=== PATIENT | female | born 1950 | race Caucasian/White ===

== ENCOUNTER 2016-12-28 07:07 | Emergency (ER) | payer MEDICARE, OTHER ==
[2016-12-28] MEDS ORDERED: DICYCLOMINE 10 MG/ML 2 ML AMP IM STA (07:53)
--- NOTE | 2016-12-28 07:56 | ED ---
Abdominal Pain HPI - General Chief Complaint: Abdominal Pain Stated Complaint: abdominal pain Time Seen by Provider: 12/28/16 07:26 Source: patient Mode of arrival: ambulatory Limitations: no limitations - History of Present Illness MD Complaint: abdominal pain Onset/Timin -: hour(s) Location: LLQ Radiation: none Severity: severe Quality: cramping Consistency: intermittent Improves With: nothing Worsens With: nothing Associated Symptoms: denies other symptoms - Related Data Home Medications Medication Instructions Recorded Confirmed Aspirin 81 mg PO MOWEFR 12/28/16 12/28/16 Cranberry Extract [Cranberry] 500 mg PO BID 12/28/16 12/28/16 Esomeprazole Magnesium [NexIUM] 40 mg PO BID 12/28/16 12/28/16 Fish Oil/Dha/Epa [Fish Oil 1,200 1 cap PO BID 12/28/16 12/28/16 mg Fish Oil] Hydrocodone/Acetaminophen [[place] 1 tab PO TID PRN 12/28/16 12/28/16 10-325] Lisinopril [Zestril] 5 mg PO DAILY 12/28/16 12/28/16 Magnesium Oxide [Magox 400] 400 mg PO BID 12/28/16 12/28/16 Melatonin/L Theanine (Unknown Dose) 1 tab PO HS 12/28/16 12/28/16 Metoprolol/Hydrochlorothiazide 2 tab PO BID 12/28/16 12/28/16 [Lopressor Hct 50-25 mg Tab] Mirtazapine [Remeron] 30 mg PO HS 12/28/16 12/28/16 Multivit-Min/FA/Lycopene/Lut 1 tab PO DAILY 12/28/16 12/28/16 [Centrum Silver Tablet] Niacinamide [Niacin] 500 mg PO BID 12/28/16 12/28/16 Ondansetron HCl [Zofran] 4 mg PO TID PRN 12/28/16 12/28/16 Oxazepam [Serax] 20 mg PO BID PRN 12/28/16 12/28/16 QUEtiapine [SEROquel] 150 mg PO HS 12/28/16 12/28/16 Rosuvastatin [Crestor] 10 mg PO HS 12/28/16 12/28/16 Sevelamer [Renvela] 800 mg PO AC-BID 12/28/16 12/28/16 Torsemide [Demadex] 60 mg PO BID 12/28/16 12/28/16 Vit A,C & E/Lutein/Minerals 1 tab PO BID 12/28/16 12/28/16 [Ocuvite with Lutein Tablet] cloNIDine HCL [Catapres] 0.2 mg PO TID 12/28/16 12/28/16 hydrALAZINE HCL [Apresoline] 50 mg PO BID 12/28/16 12/28/16 Previous Rx's Medication Instructions Recorded Sulfamethox-Tmp 800-160Mg [Bactrim 1 each PO Q12HR #6 tab 12/28/16 Ds] Allergies Allergy/AdvReac Type Severity Reaction Status Date / Time acetaminophen [From Percocet] Allergy Nausea & Verified 12/28/16 08:08 Vomiting erythromycin base Allergy Unknown Verified 12/28/16 08:08 fentanyl Allergy Unknown Verified 12/28/16 08:08 oxycodone HCl [From Percocet] Allergy Nausea & Verified 12/28/16 08:08 Vomiting succinylcholine Allergy Unknown Verified 12/28/16 08:08 Review of Systems ROS Statement: Those systems with pertinent positive or pertinent negative responses have been documented in the HPI. ROS Other: All systems not noted in ROS Statement are negative. Constitutional: Denies: fever, chills Respiratory: Denies: cough, dyspnea Cardiovascular: Denies: chest pain, palpitations, edema Gastrointestinal: Reports: abdominal pain. Denies: nausea, vomiting, diarrhea, constipation, melena, hematochezia Genitourinary: Denies: dysuria, hematuria Musculoskeletal: Denies: back pain Skin: Denies: rash Neurological: Denies: headache Past Medical History Past Medical History: Coronary Artery Disease (CAD), GERD/Reflux, Hypertension, Renal Disease Additional Past Medical History / Comment(s): chronic pain History of Any Multi-Drug Resistant Organisms: None Reported Past Surgical History: Unable to Obtain Past Psychological History: Depression Smoking Status: Current every day smoker Past Alcohol Use History: None Reported Past Drug Use History: None Reported General Exam Limitations: no limitations General appearance: alert, in no apparent distress Head exam: Present: atraumatic, normocephalic Eye exam: Present: normal appearance. Absent: scleral icterus, conjunctival injection ENT exam: Present: normal oropharynx, mucous membranes moist Neck exam: Present: normal inspection Respiratory exam: Present: normal lung sounds bilaterally. Absent: respiratory distress, wheezes, rales, rhonchi, stridor Cardiovascular Exam: Present: regular rate, normal rhythm, systolic murmur ( Grade 2/6 systolic murmur). Absent: diastolic murmur, rubs, gallop GI/Abdominal exam: Present: soft, tenderness (Moderate left lower quadrant tenderness), normal bowel sounds. Absent: distended, guarding, rebound, rigid, organomegaly, mass, pulsatile mass, hernia Extremities exam: Present: normal inspection, normal capillary refill. Absent: pedal edema, calf tenderness Back exam: Present: normal inspection. Absent: CVA tenderness (R), CVA tenderness (L) Skin exam: Present: warm, dry, intact, normal color. Absent: rash Course Vital Signs 12/28/16 12/28/16 12/28/16 07:17 07:48 08:53 Temperature 96.7 F L 97.6 F 97.0 F L Pulse Rate 69 60 60 Respiratory 18 16 16 Rate Blood Pressure 195/84 198/92 193/87 O2 Sat by Pulse 98 95 93 L Oximetry 12/28/16 12/28/16 09:26 10:18 Temperature 97.3 F L Pulse Rate 59 L 60 Respiratory 16 16 Rate Blood Pressure 183/86 168/79 O2 Sat by Pulse 94 L 95 Oximetry Medical Decision Making - Lab Data Result diagrams: 12/28/16 08:30 12/28/16 08:30 Lab Results 12/28/16 12/28/16 12/28/16 Range/Units 08:10 08:30 08:30 WBC 8.1 (3.8-10.6) k/uL RBC 3.76 L (3.80-5.40) m/uL Hgb 12.0 (11.4-16.0) gm/dL Hct 37.6 (34.0-46.0) % MCV 99.7 (80.0-100.0) fL MCH 31.9 (25.0-35.0) pg MCHC 32.0 (31.0-37.0) g/dL RDW 16.6 H (11.5-15.5) % Plt Count 158 (150-450) k/uL Neutrophils % 83 % Lymphocytes % 10 % Monocytes % 5 % Eosinophils % 1 % Basophils % 1 % Neutrophils # 6.6 (1.3-7.7) k/uL Lymphocytes # 0.8 L (1.0-4.8) k/uL Monocytes # 0.4 (0-1.0) k/uL Eosinophils # 0.1 (0-0.7) k/uL Basophils # 0.0 (0-0.2) k/uL Anisocytosis Slight Macrocytosis Slight Sodium 142 (137-145) mmol/L Potassium 4.4 (3.5-5.1) mmol/L Chloride 98 (98-107) mmol/L Carbon Dioxide 29 (22-30) mmol/L Anion Gap 15 mmol/L BUN 28 H (7-17) mg/dL Creatinine 4.41 H (0.52-1.04) mg/dL Est GFR (MDRD) Af Amer 12 (>60 ml/min/1.73 sqM) Est GFR (MDRD) Non-Af 10 (>60 ml/min/1.73 sqM) Glucose 102 H (74-99) mg/dL Calcium 9.3 (8.4-10.2) mg/dL Total Bilirubin 0.7 (0.2-1.3) mg/dL AST 28 (14-36) U/L ALT 32 (9-52) U/L Alkaline Phosphatase 91 (38-126) U/L Total Protein 6.7 (6.3-8.2) g/dL Albumin 4.2 (3.5-5.0) g/dL Amylase 41 (30-110) U/L Lipase 68 (23-300) U/L Urine Color Colorless Urine Appearance Clear (Clear) Urine pH 8.0 (5.0-8.0) Ur Specific [place] 1.003 (1.001-1.035) Urine Protein 1+ H (Negative) Urine Glucose (UA) 1+ H (Negative) Urine Ketones Negative (Negative) Urine Blood Negative (Negative) Urine Nitrate Negative (Negative) Urine Bilirubin Negative (Negative) Urine Urobilinogen <2.0 (<2.0) mg/dL Ur Leukocyte Esterase Small H (Negative) Urine WBC 6 H (0-5) /hpf Ur Squamous Epith Cells <1 (0-4) /hpf Disposition Clinical Impression: Abdominal pain Disposition: HOME SELF-CARE Condition: Fair Instructions: Abdominal Pain (ED) Additional Instructions: As we discussed, if her symptoms recur or if you have any new symptoms developing, return immediately. Otherwise he was having her abdomen rechecked with your doctor on the following day. Prescriptions: Sulfamethox-Tmp 800-160Mg [Bactrim Ds] 1 each PO Q12HR #6 tab Referrals: Rock Fry DO [Primary Care Provider] - 1-2 days
[2016-12-28 08:38] LABS: Appearance,Urine Clear (Clear); Bilirubin,Urine Negative (Negative); Glucose,Urine (UA) 1+ (Negative); Ketones,Urine Negative (Negative); Leukocyte Esterase,Urine Small (Negative); Nitrite,Urine Negative (Negative); Particle Count 460; Protein,Urine 1+ (Negative); Specific Gravity,Urine 1.003 (1.001-1.035); Squamous Epithelial Cell,Urine <1 /hpf (0-4); UA Billing (MACRO vs. MICRO) MICRO; Urobilinogen,Urine <2.0 mg/dL (<2.0); WBC,Urine 6 /hpf (0-5)
[2016-12-28 08:45] LABS: Anisocytosis Slight; Basophils % (A) 1 %; CH 32.3; CHCM 32.6; Eosinophils # (A) 0.1 k/uL (0-0.7); Eosinophils % (A) 1 %; HCT 37.6 % (34.0-46.0); HDW 2.49; Luc # (Auto) 0.11; Luc % (Auto) 1; Lymphocytes # (A) 0.8 k/uL (1.0-4.8); Lymphocytes % (A) 10 %; MCH 31.9 pg (25.0-35.0); MCV 99.7 fL (80.0-100.0); Macrocytosis Slight; Mean Platelet Volume 8.4; Monocytes # (A) 0.4 k/uL (0-1.0); Monocytes % (A) 5 %; Neutrophils # (A) 6.6 k/uL (1.3-7.7); Neutrophils % (A) 83 %; RBC 3.76 m/uL (3.80-5.40); RDW 16.6 % (11.5-15.5); WBC 8.1 k/uL (3.8-10.6); WBC (Perox) 8.34
[2016-12-28 08:52] LABS: Calcium 9.3 mg/dL (8.4-10.2); Potassium 4.4 mmol/L (3.5-5.1); Total Bilirubin 0.7 mg/dL (0.2-1.3); Total Protein 6.7 g/dL (6.3-8.2)
--- NOTE | 2016-12-28 09:05 | CT ---
EXAMINATION TYPE: CT abdomen pelvis wo con DATE OF EXAM: 12/28/2016 8:55 AM COMPARISON: 01/02/2012 HISTORY: LLQ pain CT DLP: 265 mGycm Automated exposure control for dose reduction was used. TECHNIQUE: Helical acquisition of images was performed from the lung bases through the pelvis. Lack of contrast limits evaluation of the abdominal viscera. FINDINGS: LUNG BASES: Bilateral pleural effusions with cardiomegaly and interstitial pattern correlate for inte rstitial edema.. LIVER/GB: There are multiple hypodense lesions within the liver which are indeterminate by noncontras t technique but appear to been present on the previous exam and likely related to cysts. PANCREAS: No significant abnormality is seen. SPLEEN: No significant abnormality is seen. ADRENALS: No significant abnormality is seen. KIDNEYS: The kidneys are markedly enlarged and there is evidence of polycystic renal disease. Areas o f calcification within a couple of the cysts are suspected bilaterally. Assessment for solid componen t nondiagnostic by noncontrast technique. Hyperdense cyst suspected bilaterally likely representing h emorrhagic cysts. RETROPERITONEAL ADENOPATHY: None visualized URINARY BLADDER: No significant abnormality is seen. PELVIC ADENOPATHY: None visualized. OSSEOUS STRUCTURES: Facet arthropathy and degenerative change of the spine noted. Arthropathy of the hips noted. Endplate compression deformity of L5 and L2 appear chronic. Approximately 5 degree retro pulsion of L2. BOWEL: Nonspecific gas pattern with no evidence of obstruction. Appendix not visualized. Mild change s of diverticulosis.. OTHER: There is subcutaneous edema correlate for mild anasarca. Atherosclerotic change of the aorta b ut no evidence of aneurysm. IMPRESSION: 1. FINDINGS SUGGEST POLYCYSTIC RENAL DISEASE WITH MARKED ENLARGEMENT THE KIDNEYS AND NUMEROUS BILATER AL RENAL CYSTS WHICH IS BEEN REPORTED BY PREVIOUS CT SCAN 2. NONSPECIFIC SMALL AMOUNT OF FREE FLUID IN THE PELVIS 3. BILATERAL AREAS OF CONSOLIDATION AND PLEURAL EFFUSION. CORRELATE FOR MILD VENOUS CONGESTION
[2016-12-28] MEDS ORDERED: LISINOPRIL 5 MG TAB PO STA (09:07)
[2016-12-28] MEDS ORDERED: cloNIDine HCL 0.2 MG TAB PO STA (09:07)
[2016-12-28] MEDS ORDERED: METOPROLOL TARTRATE 50 MG TAB PO STA (09:07)
[2016-12-28] MEDS ORDERED: hydrALAZINE HCL 50 MG TAB PO STA (09:07)
[2016-12-28] MEDS ORDERED: MORPHINE SULFATE 4 MG/ML SYRINGE IV STA (09:08)
[2016-12-28] MEDS ORDERED: HYDROmorphone 1 MG/ML 1 ML SYRINGE IVP STA ×2 (10:01→10:53)
[2016-12-28 10:20] VITALS: TEMP 97.3
[2016-12-28] MEDS ORDERED: MAGNESIUM CITRATE 296 ML BOTTLE PO ONE (11:01)
[2016-12-28 11:07] VITALS: BP 170/84; PULSE 56; RESP 18
== END 2016-12-28 11:31 | disposition home or self-care (01) ==
LOC: EC 07:07
DX: R10.9 Unspecified abdominal pain (principal); I10 Essential (primary) hypertension; K21.9 Gastro-esophageal reflux disease without esophagitis; G89.29 Other chronic pain; F32.9 Major depressive disorder, single episode, unspecified; I25.10 Atherosclerotic heart disease of native coronary artery without angina pectoris; Z79.899 Other long term (current) drug therapy; Z79.82 Long term (current) use of aspirin; Z88.8 Allergy status to other drugs, medicaments and biological substances; Z88.1 Allergy status to other antibiotic agents; Z88.5 Allergy status to narcotic agent; F17.200 Nicotine dependence, unspecified, uncomplicated
CPT/HCPCS: 36415; 74176; 80053; 81001; 82150; 83690; 85025; 87086; 96372; 96374; 96375; 96376; 99284

== ENCOUNTER → 2017-04-24 | Outpatient (CLI) | payer MEDICARE, OTHER ==
--- NOTE | 2017-04-25 08:24 | XR ---
EXAMINATION TYPE: XR abdomen 1V DATE OF EXAM: 04/24/2017 11:52 AM COMPARISON: 12/28/2016 HISTORY: Pain TECHNIQUE: One view abdominal series FINDINGS: The osseous structures are intact. The bowel gas pattern is nonspecific. Retained fecal debris throu ghout the colon. Subsegmental consolidation involving both lung bases. Findings are suspicious for os teonecrosis of the hip bilaterally. IMPRESSION: 1. Nonspecific abdomen. 2. Correlate for osteonecrosis of the hips. 3. Basilar atelectasis or infiltrate.
== END ==
LOC: RADXRYALE 11:40
PROVIDERS: ATTEND Family Medicine
DX: R10.84 Generalized abdominal pain (principal)
CPT/HCPCS: 74000

== ENCOUNTER 2018-04-22 09:26 | Day surgery (SDC) | payer MEDICARE, OTHER ==
[2018-04-18 14:02] VITALS: BMI 20.1
[~2018-04-22 09:26] MED LIST: LACTATED RINGERS 1,000 ML IV SCH
[2018-04-22 09:58] VITALS: RESP 16; TEMP 97.9
[2018-04-22] MEDS ORDERED: SODIUM CHLORIDE 0.9% 500 ML IV ONE (10:10)
[2018-04-22] MEDS ORDERED: LIDOCAINE 1% 20 ML VIAL (10MG/ML) FOR IV START INTRADERMA ONE (10:11)
[2018-04-22 10:23] LABS: Calcium 7.8 mg/dL (8.4-10.2)
[2018-04-22 10:31] LABS: Potassium 5.1 mmol/L (3.5-5.1)
[2018-04-22] MEDS ORDERED: LIDOCAINE 1% INJ 10MG/ML (20 ML MDV) ONE (10:47)
[2018-04-22] MEDS ORDERED: ePHEDrine SULFATE/0.9% NACL/PF 50 MG/5 ML SYRINGE IV ONE (10:47)
[2018-04-22] MEDS ORDERED: PROPOFOL 10 MG/ML 20 ML VIAL IV ONE (10:47)
--- NOTE | 2018-04-22 11:28 | P.PCN ---
Date of Procedure: 04/22/18 Procedure(s) Performed: Procedures: 1. Esophagogastroduodenoscopy and biopsy. 2. Aborted colonoscopy. Preoperative diagnosis: Abdominal pain, nausea and change in bowel habits. Postoperative diagnosis: 1. Small sliding hiatal hernia with no obvious esophagitis or complaints reflux disease. 2. Mild antral gastritis. 3. Multiple biopsies obtained from the duodenum, antrum and esophagus. 4. Colonoscopy aborted because of extremely poor preparation. Preparation: HalfLytely prep. Sedation: Was provided by anesthesia. Brief clinical history: The patient is a 67-year-old female who I have evaluated in the office earlier this month regarding nausea, abdominal cramps and alternating bowel habits. I scheduled this evaluation to rule out complicated reflux disease, neoplasia or other pathology. Procedure: With the patient on her left lateral decubitus position and after informed consent and adequate sedation, I passed the Olympus-GIF 160 video upper endoscope through the cricopharyngeus down the esophagus. GE junction was around 39 cm from the incisors and there was a small sliding hiatal hernia but no obvious esophagitis or complicated reflux disease. The endoscope was then passed into the stomach which was insufflated with air and inspected in detail including the retroflex view in the cardia. There was some mottling and erythema in the antrum but no ulcers or erosions. Pyloric channel, duodenal bulb, post bulbar area and descending duodenum appeared within normal limits. I obtained multiple biopsies from the duodenum, antrum and esophagus then the endoscope was withdrawn and I proceeded to do colonoscopy. Perianal area did not show any fissures or fistulas. There were no masses felt on digital rectal examination. The Olympus CFQ 160L video colonoscope was then inserted in the rectum and the usual fashion and advanced. Unfortunately, the preparation was extremely poor so I had to abort the examination without obtaining any diagnostic information. The patient tolerated the procedure well. Plan: The patient was reassured. Will await biopsy results. I would consider repeat colonoscopy after more thorough preparation in the near future. I will keep you updated on her progress.
[2018-04-22 11:55] VITALS: BP 135/47; PULSE 65
== END 2018-04-22 12:24 | disposition home or self-care (01) ==
LOC: ORWHC2ENDO 09:26
DX: K29.50 Unspecified chronic gastritis without bleeding (principal); K44.9 Diaphragmatic hernia without obstruction or gangrene; K21.9 Gastro-esophageal reflux disease without esophagitis; I25.10 Atherosclerotic heart disease of native coronary artery without angina pectoris; I10 Essential (primary) hypertension; G89.29 Other chronic pain; N19 Unspecified kidney failure; Z79.82 Long term (current) use of aspirin; Z79.891 Long term (current) use of opiate analgesic; Z79.899 Other long term (current) drug therapy; Z88.5 Allergy status to narcotic agent; Z88.1 Allergy status to other antibiotic agents; Z72.0 Tobacco use
CPT/HCPCS: 88305; 80048; 45378; 43239; J2001; J2704

== ENCOUNTER 2018-11-16 11:16 | Emergency (ER) | payer MEDICARE, OTHER ==
[2018-11-16 11:37] VITALS: RESP 18
[2018-11-16] MEDS ORDERED: ONDANSETRON 4 MG/2 ML VIAL IVP STA (11:52)
[2018-11-16] MEDS ORDERED: MORPHINE SULFATE 4 MG/ML SYRINGE IV STA (11:52)
--- NOTE | 2018-11-16 12:02 | ED ---
Abdominal Pain HPI - General Source: patient, RN notes reviewed Mode of arrival: ambulatory Limitations: no limitations <Rock Perales - Last Filed: 11/16/18 14:18> <Mario Hauser - Last Filed: 11/16/18 14:37> - General Chief Complaint: Abdominal Pain Stated Complaint: Abd Pain Time Seen by Provider: 11/16/18 11:41 - History of Present Illness Initial Comments: 67-year-old female presents emergency Department chief complaint of lower abdominal pain. Patient states pain started over the last 1 day. Patient states severe lower abdominal pain. She has no dysuria but states it's hard to urinate. Patient states that she has chronic constipation secondary to renal dialysis. Patient states she is on dialysis secondary to polycystic kidneys. Patient denies any fevers or chills no chest pain or shortness of breath. Patient states that she feels bloated, distended. Patient offers no other complaints. Patient denies melena, hematochezia, (Rock Perales) - Related Data Home Medications Medication Instructions Recorded Confirmed Aspirin 81 mg PO MOWEFR 12/28/16 11/16/18 Cranberry Fruit Extract [Cranberry] 500 mg PO BID 12/28/16 11/16/18 Hydrocodone/Acetaminophen [[place] 1 tab PO TID PRN 12/28/16 11/16/18 10-325] Lisinopril [Zestril] 20 mg PO BID 12/28/16 11/16/18 Melatonin/L Theanine (Unknown Dose) 1 tab PO HS 12/28/16 11/16/18 Metoprolol/Hydrochlorothiazide 3 tab PO BID 12/28/16 11/16/18 [Lopressor Hct 50-25 mg Tab] Mirtazapine [Remeron] 30 mg PO HS 12/28/16 11/16/18 Ondansetron HCl [Zofran] 4 mg PO TID PRN 12/28/16 11/16/18 Oxazepam [Serax] 20 mg PO BID PRN 12/28/16 11/16/18 QUEtiapine [SEROquel] 150 mg PO HS 12/28/16 11/16/18 Rosuvastatin [Crestor] 10 mg PO HS 12/28/16 11/16/18 Sevelamer [Renvela] 2,400 mg PO AC-BID 12/28/16 11/16/18 cloNIDine HCL [Catapres] 0.3 mg PO BID-W/MEALS 12/28/16 11/16/18 hydrALAZINE HCL [Apresoline] 100 mg PO TID 12/28/16 11/16/18 cloNIDine HCL [Catapres] 0.2 mg PO HS 04/18/18 11/16/18 Calcitriol [Rocaltrol] 0.25 mcg PO MOWEFR 11/16/18 11/16/18 Minoxidil [Loniten] 5 mg PO DAILY 11/16/18 11/16/18 Omeprazole 40 mg PO AC-BRKFST 11/16/18 11/16/18 Spironolactone [Aldactone] 25 mg PO DAILY 11/16/18 11/16/18 Torsemide [Demadex] 60 mg PO DAILY 11/16/18 11/16/18 Allergies Allergy/AdvReac Type Severity Reaction Status Date / Time erythromycin base Allergy Unknown Verified 11/16/18 11:51 fentanyl Allergy Unknown Verified 11/16/18 11:51 oxycodone HCl [From Percocet] Allergy Nausea & Verified 11/16/18 11:51 Vomiting succinylcholine Allergy Unknown Verified 11/16/18 11:51 Review of Systems ROS Other: All systems not noted in ROS Statement are negative. <Rock Perales - Last Filed: 11/16/18 14:18> ROS Other: All systems not noted in ROS Statement are negative. <Mario Hauser - Last Filed: 11/16/18 14:37> ROS Statement: Those systems with pertinent positive or pertinent negative responses have been documented in the HPI. Past Medical History Past Medical History: Coronary Artery Disease (CAD), GERD/Reflux, Hypertension, Musculoskeletal Disorder, Renal Disease Additional Past Medical History / Comment(s): chronic pain; Kidney Dialysis Mon/ Thurs. History of Any Multi-Drug Resistant Organisms: None Reported Past Surgical History: Breast Surgery, Tonsillectomy Additional Past Surgical History / Comment(s): benign Br lumpectomy Past Anesthesia/Blood Transfusion Reactions: No Reported Reaction Past Psychological History: Depression Smoking Status: Current every day smoker Past Alcohol Use History: None Reported Past Drug Use History: None Reported - Past Family History Mother Family Medical History: No Reported History <Rock Perales - Last Filed: 11/16/18 14:18> General Exam Limitations: no limitations General appearance: alert, in no apparent distress Head exam: Present: atraumatic, normocephalic, normal inspection Respiratory exam: Present: normal lung sounds bilaterally. Absent: respiratory distress, wheezes, rales, rhonchi, stridor Cardiovascular Exam: Present: regular rate, normal rhythm, normal heart sounds. Absent: systolic murmur, diastolic murmur, rubs, gallop, clicks GI/Abdominal exam: Present: soft, tenderness (Moderate suprapubic and left lower quadrant tenderness), normal bowel sounds. Absent: distended, guarding, rebound, rigid Back exam: Absent: CVA tenderness (R), CVA tenderness (L) Skin exam: Present: warm, dry, intact, normal color. Absent: rash <Rock Perales - Last Filed: 11/16/18 14:18> Course <Rock Perales - Last Filed: 11/16/18 14:18> <Mario Hauser - Last Filed: 11/16/18 14:37> Vital Signs 11/16/18 11/16/18 11/16/18 11:34 12:24 14:34 Temperature 97.9 F 98.4 F Pulse Rate 92 78 68 Respiratory 18 18 18 Rate Blood Pressure 177/77 176/73 162/92 O2 Sat by Pulse 96 96 97 Oximetry - Reevaluation(s) Reevaluation #1: 11/16/18 14:36 PA supervision: I proceeded [id number] evaluation the patient she did demonstrate evidence of abdominal pain which is why she came in today. She gets dialysis on Mondays and . She was noted have a potassium of 6.0 and a creatinine was higher than usual in the eights. He does appear to be consistent with acute on chronic renal failure. After long discussion with the patient she does not want to be admitted she will keep her appointment tomorrow follow-up with Dr. Cristina. (Mario Hauser) Medical Decision Making - Lab Data Result diagrams: 11/16/18 12:13 11/16/18 12:13 <Rock Perales - Last Filed: 11/16/18 14:18> - Lab Data Result diagrams: 11/16/18 12:13 11/16/18 12:13 <Mario Hauser - Last Filed: 11/16/18 14:37> - Medical Decision Making 67 show female presented for lower abdominal pain. Patient had laboratory, CT. Patient has acute on chronic renal failure with hyperkalemia. Patient was recommended to be admitted to the hospital she declines. There is no clear evidence of infection or concern for surgical abdomen. Patient does complain of lower abdominal pain with no acute findings. Patient will be discharged at this time she does have dialysis tomorrow return parameters were discussed. ( Rock Perales) - Lab Data Lab Results 11/16/18 11/16/18 11/16/18 Range/Units 12:13 12:13 12:13 WBC 9.0 (3.8-10.6) k/uL RBC 3.04 L (3.80-5.40) m/uL Hgb 10.7 L (11.4-16.0) gm/dL Hct 34.1 (34.0-46.0) % MCV 112.3 H (80.0-100.0) fL MCH 35.1 H (25.0-35.0) pg MCHC 31.3 (31.0-37.0) g/dL RDW 14.7 (11.5-15.5) % Plt Count 134 L (150-450) k/uL Neutrophils % 83 % Lymphocytes % 8 % Monocytes % 5 % Eosinophils % 1 % Basophils % 0 % Neutrophils # 7.5 (1.3-7.7) k/uL Lymphocytes # 0.7 L (1.0-4.8) k/uL Monocytes # 0.5 (0-1.0) k/uL Eosinophils # 0.1 (0-0.7) k/uL Basophils # 0.0 (0-0.2) k/uL Manual Slide Review Performed Macrocytosis Marked PT (9.0-12.0) sec INR (<1.2) APTT (22.0-30.0) sec Sodium 137 (137-145) mmol/L Potassium 6.0 H (3.5-5.1) mmol/L Chloride 99 (98-107) mmol/L Carbon Dioxide 21 L (22-30) mmol/L Anion Gap 17 mmol/L BUN 53 H (7-17) mg/dL Creatinine 8.05 H* (0.52-1.04) mg/dL Est GFR (CKD-EPI)AfAm 5 (>60 ml/min/1.73 sqM) Est GFR (CKD-EPI)NonAf 5 (>60 ml/min/1.73 sqM) Glucose 88 (74-99) mg/dL Plasma Lactic Acid [place] 0.9 (0.7-2.0) mmol/L Calcium 9.4 (8.4-10.2) mg/dL Total Bilirubin 0.4 (0.2-1.3) mg/dL AST 16 (14-36) U/L ALT 18 (9-52) U/L Alkaline Phosphatase 75 (38-126) U/L Total Protein 6.8 (6.3-8.2) g/dL Albumin 4.4 (3.5-5.0) g/dL Amylase 80 (30-110) U/L Lipase 221 (23-300) U/L Urine Color Urine Appearance (Clear) Urine pH (5.0-8.0) Ur Specific [place] (1.001-1.035) Urine Protein (Negative) Urine Glucose (UA) (Negative) Urine Ketones (Negative) Urine Blood (Negative) Urine Nitrite (Negative) Urine Bilirubin (Negative) Urine Urobilinogen (<2.0) mg/dL Ur Leukocyte Esterase (Negative) Urine RBC (0-5) /hpf Urine WBC (0-5) /hpf Ur Squamous Epith Cells (0-4) /hpf Urine Bacteria (None) /hpf Urine Mucus (None) /hpf 11/16/18 11/16/18 Range/Units 12:13 12:13 WBC (3.8-10.6) k/uL RBC (3.80-5.40) m/uL Hgb (11.4-16.0) gm/dL Hct (34.0-46.0) % MCV (80.0-100.0) fL MCH (25.0-35.0) pg MCHC (31.0-37.0) g/dL RDW (11.5-15.5) % Plt Count (150-450) k/uL Neutrophils % % Lymphocytes % % Monocytes % % Eosinophils % % Basophils % % Neutrophils # (1.3-7.7) k/uL Lymphocytes # (1.0-4.8) k/uL Monocytes # (0-1.0) k/uL Eosinophils # (0-0.7) k/uL Basophils # (0-0.2) k/uL Manual Slide Review Macrocytosis PT 10.4 (9.0-12.0) sec INR 1.0 (<1.2) APTT 26.4 (22.0-30.0) sec Sodium (137-145) mmol/L Potassium (3.5-5.1) mmol/L Chloride (98-107) mmol/L Carbon Dioxide (22-30) mmol/L Anion Gap mmol/L BUN (7-17) mg/dL Creatinine (0.52-1.04) mg/dL Est GFR (CKD-EPI)AfAm (>60 ml/min/1.73 sqM) Est GFR (CKD-EPI)NonAf (>60 ml/min/1.73 sqM) Glucose (74-99) mg/dL Plasma Lactic Acid [place] (0.7-2.0) mmol/L Calcium (8.4-10.2) mg/dL Total Bilirubin (0.2-1.3) mg/dL AST (14-36) U/L ALT (9-52) U/L Alkaline Phosphatase (38-126) U/L Total Protein (6.3-8.2) g/dL Albumin (3.5-5.0) g/dL Amylase (30-110) U/L Lipase (23-300) U/L Urine Color Light Yellow Urine Appearance Clear (Clear) Urine pH 8.0 (5.0-8.0) Ur Specific [place] 1.004 (1.001-1.035) Urine Protein 1+ H (Negative) Urine Glucose (UA) 1+ H (Negative) Urine Ketones Negative (Negative) Urine Blood Negative (Negative) Urine Nitrite Negative (Negative) Urine Bilirubin Negative (Negative) Urine Urobilinogen <2.0 (<2.0) mg/dL Ur Leukocyte Esterase Negative (Negative) Urine RBC <1 (0-5) /hpf Urine WBC 1 (0-5) /hpf Ur Squamous Epith Cells 2 (0-4) /hpf Urine Bacteria Rare H (None) /hpf Urine Mucus Rare H (None) /hpf 11/16/18 14:18 EKG performed at 13:52 normal sinus rhythm with a rate of 66 ND 134 QRS 78 QT/ QTC 406/425 (Rock Perales) Disposition Is patient prescribed a controlled substance at d/c from ED?: No Time of Disposition: 14:19 <Rock Perales - Last Filed: 11/16/18 14:18> <Mario Hauser - Last Filed: 11/16/18 14:37> Clinical Impression: Abdominal pain, Acute on chronic renal failure, Hyperkalemia Disposition: HOME SELF-CARE Condition: Stable Instructions: Abdominal Pain (ED) Additional Instructions: Please return to the Emergency Department if symptoms worsen or any other concerns. Referrals: Rock Fry DO [Primary Care Provider] - 1-2 days
[2018-11-16 12:29] LABS: Basophils % (A) 0 %; Eosinophils # (A) 0.1 k/uL (0-0.7); Eosinophils % (A) 1 %; HCT 34.1 % (34.0-46.0); HGB 10.7 gm/dL (11.4-16.0); Lymphocytes # (A) 0.7 k/uL (1.0-4.8); Lymphocytes % (A) 8 %; MCH 35.1 pg (25.0-35.0); MCHC 31.3 g/dL (31.0-37.0); MCV 112.3 fL (80.0-100.0); Macrocytosis Marked; Mean Platelet Volume 7.7; Monocytes # (A) 0.5 k/uL (0-1.0); Monocytes % (A) 5 %; Neutrophils # (A) 7.5 k/uL (1.3-7.7); Neutrophils % (A) 83 %; Platelet Count 134 k/uL (150-450); RBC 3.04 m/uL (3.80-5.40); RDW 14.7 % (11.5-15.5)
[2018-11-16 12:38] LABS: Appearance,Urine Clear (Clear); Bacteria,Urine Rare /hpf; Bilirubin,Urine Negative (Negative); Blood,Urine Negative (Negative); Color,Urine Light Yellow; Glucose,Urine (UA) 1+ (Negative); Ketones,Urine Negative (Negative); Leukocyte Esterase,Urine Negative (Negative); Mucus,Urine Rare /hpf; Nitrite,Urine Negative (Negative); Protein,Urine 1+ (Negative); RBC,Urine <1 /hpf (0-5); Specific Gravity,Urine 1.004 (1.001-1.035); Squamous Epithelial Cell,Urine 2 /hpf (0-4); Urobilinogen,Urine <2.0 mg/dL (<2.0); WBC,Urine 1 /hpf (0-5)
[2018-11-16 12:40] LABS: Partial Thromboplastin Time 26.4 sec (22.0-30.0); Prothrombin Time 10.4 sec (9.0-12.0)
[2018-11-16 12:47] LABS: Albumin 4.4 g/dL (3.5-5.0); Calcium 9.4 mg/dL (8.4-10.2); Total Bilirubin 0.4 mg/dL (0.2-1.3); Total Protein 6.8 g/dL (6.3-8.2)
--- NOTE | 2018-11-16 13:47 | CT ---
EXAMINATION TYPE: CT abdomen pelvis wo con DATE OF EXAM: 11/16/2018 COMPARISON: Previous study dated 12/28/2016 HISTORY: Abdominal pain, mostly upper but also generalized CT DLP: 363.4 mGycm Automated exposure control for dose reduction was used. FINDINGS: There is dependent atelectasis in both lungs. There are small, bilateral pleural effusions, slightly greater on the right than the left. There is a 6 mm pericardial effusion. The heart is enla rged. Within the abdomen, the kidneys are markedly enlarged measuring 20 cm on the right and 17 cm on the l eft. They are nearly completely replaced with cysts in this patient known to have polycystic kidney d isease. There is stable cysts present within the liver. The gallbladder is difficult to separate from this cy stic kidneys but I believe it is normal. Neither adrenal gland is visualized. The pancreas is not well-visualized. There is moderate atheromatous calcification of the visualized arterial tree. The bladder is unremarkable. There is no significant diverticular change and I do not see evidence of diverticulitis. The appendix is not visualized. The small bowel was not dilated. There is free fluid within the pelvis. There is a stable wedge compression fracture of L2. Osseous structures are otherwise unremarkable. IMPRESSION: 1. MARKED ENLARGEMENT OF THE KIDNEYS WHICH ARE REPLACED BY MULTIPLE CYSTS IN THIS PATIENT IS KNOWN TO HAVE POLYCYSTIC KIDNEY DISEASE. 2. SMALL, BILATERAL EFFUSIONS. 3. SMALL PERICARDIAL EFFUSION. 4. CYSTIC DISEASE WITHIN THE LIVER. 5. SMALL AMOUNT OF FREE FLUID IN THE PELVIS. 6. STABLE WEDGE COMPRESSION FRACTURE OF L2.
[2018-11-16] MEDS ORDERED: HYDROmorphone 1 MG/ML 1 ML SYRINGE IVP STA (14:19)
[2018-11-16 14:36] VITALS: BP 162/92; PULSE 68; TEMP 98.4
== END 2018-11-16 14:34 | disposition home or self-care (01) ==
LOC: EC 11:16
DX: I12.0 Hypertensive chronic kidney disease with stage 5 chronic kidney disease or end stage renal disease (principal); N18.6 End stage renal disease; N17.9 Acute kidney failure, unspecified; E87.5 Hyperkalemia; K59.09 Other constipation; I25.10 Atherosclerotic heart disease of native coronary artery without angina pectoris; K21.9 Gastro-esophageal reflux disease without esophagitis; Q61.3 Polycystic kidney, unspecified; F32.9 Major depressive disorder, single episode, unspecified; F17.200 Nicotine dependence, unspecified, uncomplicated; Z99.2 Dependence on renal dialysis; Z79.82 Long term (current) use of aspirin; Z79.899 Other long term (current) drug therapy; Z88.1 Allergy status to other antibiotic agents; Z88.5 Allergy status to narcotic agent; Z88.8 Allergy status to other drugs, medicaments and biological substances; Z53.29 Procedure and treatment not carried out because of patient's decision for other reasons
CPT/HCPCS: 36415; 93005; 80053; 82150; 83605; 83690; 85025; 85610; 85730; 81001; 74176; 99284; 96374; 96375 ×2; J2270; J2405; J1170

== ENCOUNTER 2020-01-18 15:28 | Inpatient (IN) | payer MEDICARE, OTHER ==
[2020-01-18] MEDS ORDERED: HYDROmorphone 1 MG/ML 1 ML SYRINGE IVP STA (15:53)
[2020-01-18 16:22] LABS: Albumin 4.3 g/dL (3.5-5.0); Calcium 9.1 mg/dL (8.4-10.2); Total Bilirubin 0.7 mg/dL (0.2-1.3); Total Protein 7.1 g/dL (6.3-8.2)
--- NOTE | 2020-01-18 16:25 | ED ---
General Adult HPI - General Chief complaint: Abdominal Pain Stated complaint: abdominal pain Time Seen by Provider: 01/18/20 15:49 Source: patient, RN notes reviewed, old records reviewed Mode of arrival: ambulatory Limitations: no limitations - History of Present Illness Initial comments: 69-year-old female presenting for evaluation of generalized abdominal pain. Pain began approximately 90 minutes prior to arrival. Patient was receiving hemodialysis when she developed this pain. She states she had nearly completed her full session of dialysis. She denies any preceding symptoms, no fever or chills. No nausea or vomiting. She states she's been having normal bowel movements and has been passing gas. She had similar symptoms in the past that was related to ruptured renal cyst. She has history of polycystic kidney disease. She does still make urine and denies dysuria or hematuria. - Related Data Home Medications Medication Instructions Recorded Confirmed Aspirin 81 mg PO MOWEFR 12/28/16 11/16/18 Cranberry Fruit Extract [Cranberry] 500 mg PO BID 12/28/16 11/16/18 Hydrocodone/Acetaminophen [[place] 1 tab PO TID PRN 12/28/16 11/16/18 10-325] Lisinopril [Zestril] 20 mg PO BID 12/28/16 11/16/18 Melatonin/L Theanine (Unknown Dose) 1 tab PO HS 12/28/16 11/16/18 Metoprolol/Hydrochlorothiazide 3 tab PO BID 12/28/16 11/16/18 [Lopressor Hct 50-25 mg Tab] Mirtazapine [Remeron] 30 mg PO HS 12/28/16 11/16/18 Ondansetron HCl [Zofran] 4 mg PO TID PRN 12/28/16 11/16/18 Oxazepam [Serax] 20 mg PO BID PRN 12/28/16 11/16/18 QUEtiapine [SEROquel] 150 mg PO HS 12/28/16 11/16/18 Rosuvastatin [Crestor] 10 mg PO HS 12/28/16 11/16/18 Sevelamer [Renvela] 2,400 mg PO AC-BID 12/28/16 11/16/18 cloNIDine HCL [Catapres] 0.3 mg PO BID-W/MEALS 12/28/16 11/16/18 hydrALAZINE HCL [Apresoline] 100 mg PO TID 12/28/16 11/16/18 cloNIDine HCL [Catapres] 0.2 mg PO HS 04/18/18 11/16/18 Calcitriol [Rocaltrol] 0.25 mcg PO MOWEFR 11/16/18 11/16/18 Minoxidil [Loniten] 5 mg PO DAILY 11/16/18 11/16/18 Omeprazole 40 mg PO AC-BRKFST 11/16/18 11/16/18 Spironolactone [Aldactone] 25 mg PO DAILY 11/16/18 11/16/18 Torsemide [Demadex] 60 mg PO DAILY 11/16/18 11/16/18 Allergies Allergy/AdvReac Type Severity Reaction Status Date / Time erythromycin base Allergy Unknown Verified 01/18/20 15:30 fentanyl Allergy Unknown Verified 01/18/20 15:30 oxycodone HCl [From Percocet] Allergy Nausea & Verified 01/18/20 15:30 Vomiting succinylcholine Allergy Unknown Verified 01/18/20 15:30 Review of Systems ROS Statement: Those systems with pertinent positive or pertinent negative responses have been documented in the HPI. ROS Other: All systems not noted in ROS Statement are negative. Past Medical History Past Medical History: Coronary Artery Disease (CAD), GERD/Reflux, Hypertension, Musculoskeletal Disorder, Renal Disease Additional Past Medical History / Comment(s): chronic pain; Kidney Dialysis Mon/Thurs. History of Any Multi-Drug Resistant Organisms: None Reported Past Surgical History: Breast Surgery, Tonsillectomy Additional Past Surgical History / Comment(s): benign Br lumpectomy Past Anesthesia/Blood Transfusion Reactions: No Reported Reaction Past Psychological History: Depression Smoking Status: Current every day smoker Past Alcohol Use History: None Reported Past Drug Use History: None Reported - Past Family History Mother Family Medical History: No Reported History General Exam Limitations: no limitations General appearance: alert, in no apparent distress Head exam: Present: atraumatic, normocephalic Eye exam: Present: normal appearance, PERRL ENT exam: Present: normal exam Neck exam: Present: normal inspection. Absent: tenderness, meningismus Respiratory exam: Present: wheezes. Absent: respiratory distress Cardiovascular Exam: Present: regular rate, normal rhythm GI/Abdominal exam: Present: distended, tenderness (Generalized tenderness to palpation) Extremities exam: Present: normal inspection, normal capillary refill. Absent: pedal edema, calf tenderness Neurological exam: Present: alert, oriented X3, CN II-XII intact. Absent: motor sensory deficit Psychiatric exam: Present: normal affect, normal mood Skin exam: Present: warm, dry, intact. Absent: cyanosis, diaphoretic Course Vital Signs 01/18/20 01/18/20 15:30 15:43 Temperature 99.0 F 98.2 F Pulse Rate 88 Respiratory 16 Rate Blood Pressure 147/63 151/63 O2 Sat by Pulse 92 L 94 L Oximetry Medical Decision Making - Medical Decision Making 61-year-old female with abdominal pain. She has distention, concern for obstruction. X-rays performed shows small bowel dilatation and ileus. CT is performed, this does not show obstruction, shows extensive polycystic kidney changes. Patient asymptomatic. She will be admitted for pain control, antiemetics. She is admitted to internal medicine with general surgery on consult. Discussed case with Dr. Gu who will accept admission. - Lab Data Result diagrams: 01/18/20 15:56 01/18/20 15:56 Lab Results 01/18/20 01/18/20 01/18/20 Range/Units 15:56 15:56 15:56 WBC 5.1 (3.8-10.6) k/uL RBC 3.20 L (3.80-5.40) m/uL Hgb 10.9 L (11.4-16.0) gm/dL Hct 33.3 L (34.0-46.0) % MCV 104.0 H (80.0-100.0) fL MCH 33.9 (25.0-35.0) pg MCHC 32.6 (31.0-37.0) g/dL RDW 14.4 (11.5-15.5) % Plt Count 146 L (150-450) k/uL Neutrophils % 83 % Lymphocytes % 5 % Monocytes % 7 % Eosinophils % 1 % Basophils % 1 % Neutrophils # 4.2 (1.3-7.7) k/uL Lymphocytes # 0.2 L (1.0-4.8) k/uL Monocytes # 0.4 (0-1.0) k/uL Eosinophils # 0.0 (0-0.7) k/uL Basophils # 0.0 (0-0.2) k/uL Macrocytosis Slight PT (9.0-12.0) sec INR (<1.2) APTT (22.0-30.0) sec Sodium 135 L (137-145) mmol/L Potassium 4.0 (3.5-5.1) mmol/L Chloride 91 L (98-107) mmol/L Carbon Dioxide 33 H (22-30) mmol/L Anion Gap 11 mmol/L BUN 19 H (7-17) mg/dL Creatinine 3.03 H (0.52-1.04) mg/dL Est GFR (CKD-EPI)AfAm 18 (>60 ml/min/1.73 sqM) Est GFR (CKD-EPI)NonAf 15 (>60 ml/min/1.73 sqM) Glucose 116 H (74-99) mg/dL Plasma Lactic Acid Aquiles 1.3 (0.7-2.0) mmol/L Calcium 9.1 (8.4-10.2) mg/dL Total Bilirubin 0.7 (0.2-1.3) mg/dL AST 25 (14-36) U/L ALT 10 (4-34) U/L Alkaline Phosphatase 85 (38-126) U/L Total Protein 7.1 (6.3-8.2) g/dL Albumin 4.3 (3.5-5.0) g/dL Amylase 60 (30-110) U/L Lipase 156 (23-300) U/L 01/18/20 Range/Units 15:56 WBC (3.8-10.6) k/uL RBC (3.80-5.40) m/uL Hgb (11.4-16.0) gm/dL Hct (34.0-46.0) % MCV (80.0-100.0) fL MCH (25.0-35.0) pg MCHC (31.0-37.0) g/dL RDW (11.5-15.5) % Plt Count (150-450) k/uL Neutrophils % % Lymphocytes % % Monocytes % % Eosinophils % % Basophils % % Neutrophils # (1.3-7.7) k/uL Lymphocytes # (1.0-4.8) k/uL Monocytes # (0-1.0) k/uL Eosinophils # (0-0.7) k/uL Basophils # (0-0.2) k/uL Macrocytosis PT 9.9 (9.0-12.0) sec INR 0.9 (<1.2) APTT 25.2 (22.0-30.0) sec Sodium (137-145) mmol/L Potassium (3.5-5.1) mmol/L Chloride (98-107) mmol/L Carbon Dioxide (22-30) mmol/L Anion Gap mmol/L BUN (7-17) mg/dL Creatinine (0.52-1.04) mg/dL Est GFR (CKD-EPI)AfAm (>60 ml/min/1.73 sqM) Est GFR (CKD-EPI)NonAf (>60 ml/min/1.73 sqM) Glucose (74-99) mg/dL Plasma Lactic Acid Aquiles (0.7-2.0) mmol/L Calcium (8.4-10.2) mg/dL Total Bilirubin (0.2-1.3) mg/dL AST (14-36) U/L ALT (4-34) U/L Alkaline Phosphatase (38-126) U/L Total Protein (6.3-8.2) g/dL Albumin (3.5-5.0) g/dL Amylase (30-110) U/L Lipase (23-300) U/L Disposition Clinical Impression: Abdominal pain, Ileus, ESRD (end stage renal disease) Disposition: ADMITTED IP TO THIS [facility] Condition: Stable Is patient prescribed a controlled substance at d/c from ED?: No Referrals: Rock Fry DO [Primary Care Provider] - 1-2 days Decision to Admit Reason: Admit from EC Decision Date: 01/18/20 Decision Time: 17:14
[2020-01-18 16:26] LABS: Basophils % (A) 1 %; Eosinophils % (A) 1 %; HCT 33.3 % (34.0-46.0); HGB 10.9 gm/dL (11.4-16.0); Lymphocytes # (A) 0.2 k/uL (1.0-4.8); Lymphocytes % (A) 5 %; MCH 33.9 pg (25.0-35.0); MCHC 32.6 g/dL (31.0-37.0); Macrocytosis Slight; Mean Platelet Volume 8.7; Monocytes # (A) 0.4 k/uL (0-1.0); Monocytes % (A) 7 %; Neutrophils # (A) 4.2 k/uL (1.3-7.7); Neutrophils % (A) 83 %; Platelet Count 146 k/uL (150-450); RDW 14.4 % (11.5-15.5); WBC 5.1 k/uL (3.8-10.6)
--- NOTE | 2020-01-18 16:43 | XR ---
EXAMINATION TYPE: XR KUB DATE OF EXAM: 01/18/2020 COMPARISON: 04/24/2017 HISTORY: Abdominal pain TECHNIQUE: 2 views upright FINDINGS: There are some distended gas filled loops of small bowel in the mid abdomen. There is no si gn of free air. There is no evidence of ascites. There is mild atelectasis at the lung bases. IMPRESSION: Intestinal air could relate to some small bowel ileus that is new compared to old exam. N o free air. Increased atelectasis at the lung bases compared to old exam.
[2020-01-18] MEDS ORDERED: ONDANSETRON 4 MG/2 ML VIAL IVP STA (16:47)
[2020-01-18 16:49] LABS: INR 0.9 (<1.2); Partial Thromboplastin Time 25.2 sec (22.0-30.0); Prothrombin Time 9.9 sec (9.0-12.0)
[2020-01-18] MEDS ORDERED: HYDROmorphone 1 MG/ML 1 ML SYRINGE IVP PRN (17:04)
[2020-01-18] MEDS ORDERED: ONDANSETRON 4 MG/2 ML VIAL IVP PRN (17:04)
[2020-01-18] MEDS ORDERED: NALOXONE 0.4 MG/ML 1 ML VIAL IV PRN (17:04)
[2020-01-18] MEDS ORDERED: HYDROmorphone 0.5 MG/0.5 ML SYRINGE IVP PRN (17:04)
--- NOTE | 2020-01-18 17:11 | CT ---
EXAMINATION TYPE: CT abdomen pelvis wo con DATE OF EXAM: 01/18/2020 COMPARISON: 11/16/2018 HISTORY: Generalized pain with nausea. CT DLP: 396.9 mGycm Automated exposure control for dose reduction was used. Images were obtained from the diaphragm to the floor the pelvis with no contrast. There is right pleural effusion. Heart is enlarged. There is bilateral lower lobe pulmonary airspace infiltrates and atelectasis. There are multiple cysts in the liver that measure up to 2 cm. Gallbladder appears normal. Bile ducts are not dilated. Spleen is intact. Stomach is intact. There is extensive replacement of the kidneys with numerous cysts. Kidneys are enlarged with polycyst ic disease. The right kidney measures almost 19 cm in length. Left kidney measures 21 cm in length. T here is very little renal enhancing parenchyma. I see no hydronephrosis. Urinary bladder is not well seen. Bladder is probably empty. There is no evidence of a pelvic mass. There is no evidence of free air. There is no ascites. There is no sign of mesenteric edema. There is no inguinal hernia. There ap pears to be hysterectomy. Appendix is not seen. There is no sign of appendicitis. There is 50% anterior wedging of L2 vertebral body that appears old. The bony pelvis appears intact. IMPRESSION: Polycystic kidney disease unchanged compared to old exam. Old L2 compression fracture. Right pleural effusion with bilateral lower lobe pulmonary airspace infiltrates and atelectasis incre ased compared to last exam. This could relate to congestive heart failure.
[2020-01-18] MEDS ORDERED: ACETAMINOPHEN IV (For NPO) 1,000 MG in EMPTY BAG 1 BAG IVPB STA (18:27)
[2020-01-18] MEDS: SODIUM CHLORIDE 0.9% 1,000 ML IV SCH (18:43)
[2020-01-18] MEDS ORDERED: QUEtiapine 50 MG TAB PO PRN (19:11)
[2020-01-18] MEDS ORDERED: MIRTAZAPINE 15 MG TAB PO PRN (19:11)
[2020-01-18] MEDS ORDERED: ACETAMINOPHEN TAB 500 MG TAB PO PRN (19:12)
[2020-01-18] MEDS ORDERED: ALPRAZolam 0.25 MG TAB PO PRN (19:12)
[2020-01-18] MEDS ORDERED: TEMAZEPAM 15 MG CAP PO PRN (19:13)
[2020-01-18] MEDS ORDERED: CALCITRIOL 0.25 MCG CAP PO SCH (19:15)
[2020-01-18] MEDS: cloNIDine HCL 0.2 MG TAB PO SCH (22:48)
[2020-01-18] MEDS: MINOXIDIL 2.5 MG TAB PO SCH (22:48)
[2020-01-18] MEDS: HEPARIN SODIUM,PORCINE 5,000 UNIT/ML 1 ML VIAL SQ SCH (22:50)
[2020-01-18] MEDS: MELATONIN 3 MG TABLET PO SCH (22:50)
[2020-01-18] MEDS: hydrALAZINE HCL 50 MG TAB PO SCH (22:51)
[2020-01-18] MEDS: METOPROLOL TARTRATE 50 MG TAB PO SCH (22:55)
[2020-01-18] MEDS: cloNIDine HCL 0.1 MG TAB PO SCH (22:55)
[2020-01-18] MEDS: NICOTINE 14MG/24HR PATCH TRANSDERM SCH (22:55)
[2020-01-18] MEDS: FUROSEMIDE 40 MG TAB PO SCH (22:55)
[2020-01-18] MEDS: HYDROCHLOROTHIAZIDE 25 MG TAB PO SCH (22:55)
--- NOTE | 2020-01-19 00:29 | HP ---
HISTORY AND PHYSICAL CHIEF COMPLAINT: Abdominal pain. HISTORY OF PRESENT ILLNESS: This 69-year-old woman with a past medical history of CAD, GERD, hypertension, history muscular disease, chronic kidney disease stage 5 on hemodialysis, being followed by Dr. Fry in the outpatient setting, also had a graft on the left arm. The patient apparently had dialysis today and the patient is complaining of severe abdominal pain which is in lower part of the abdomen with no associated nausea, vomiting, diarrhea, constipation. The patient had some vomiting and the patient taken to [facility] and admitted to the hospital for further evaluation and treatment. Patient apparently had previously similar symptoms associated with polycystic kidney disease. A CT scan of the abdomen was done which showed polycystic kidney disease unchanged compared to the previous exam, old noted and right pleural effusion with bilateral lower lobe pulmonary airspace infiltrate or atelectasis also noted. There is no history of fever, rigors or chills. No history of headache, loss of consciousness, chest pain, palpitations, hematochezia or melena at this time. PAST MEDICAL HISTORY: History of CAD, GERD, hypertension, history of chronic kidney disease, polycystic kidney disease. MEDICATIONS: Prior to admission include home medications are: 1. Apresoline 100 mg p.o. t.i.d. Catapres 0.2 q.h.s. and 0.3 b.i.d. with meals. 2. Demadex 60 mg p.o. b.i.d. 3. Aldactone 25 mg daily. Renvela 3.2 and 2.4 g. 4. Crestor 10 mg q.h.s. 5. Seroquel 150 mg q.h.s. p.r.n. 6. Zofran 4 mg t.i.d. p.r.n. 7. Remeron 30 mg q.h.s. 8. Loniten 5 mg p.o. b.i.d. 9. Lopressor hydrochlorothiazide 50/25 mg p.o. 10.Melatonin 3 mg q.h.s. 11.Lisinopril 20 mg p.o. daily. 12.Lasix 40 mg p.o. b.i.d. 13.Nexium 40 mg p.o. b.i.d. 14.Cranberry 20 mg p.o. b.i.d. 15.Calcitriol 1 mg Saturday, Saturday, Saturday, Saturday. 16.Aspirin 81 mg p.o. daily. ALLERGIES: ERYTHROMYCIN, VENTOLIN, PERCOCET, SUCCINYL CHOLINE. FAMILY HISTORY: No history of heart disease or strokes in the family. SOCIAL HISTORY: Continued ongoing nicotine dependence. No history of alcohol intake. REVIEW OF SYSTEMS: ENT diminished vision. Diminished hearing. CARDIOVASCULAR system as mentioned earlier. RESPIRATION as mentioned earlier. GI: As mentioned earlier. : As mentioned earlier. NERVOUS SYSTEM: No numbness, weakness. ALLERGY/IMMUNOLOGY: No asthma or hayfever. MUSCULOSKELETAL as mentioned earlier. HEMATOLOGY/ONCOLOGY: No history of anemia. ENDOCRINE: No history of diabetes or hypothyroidism. CONSTITUTIONAL: As mentioned earlier. DERMATOLOGY: Negative. RHEUMATOLOGY negative. PSYCHIATRY as mentioned. PHYSICAL EXAMINATION: The patient is alert and oriented times three. Pulse 86, blood pressure 151/60, respiration 20, temperature normal 98.2, pulse ox 94% on 2 L. HEENT is conjunctivae normal. Oral mucosa moist. NECK jugular venous distention about 7 cm. No carotid bruit. No lymph node enlargement. CARDIOVASCULAR SYSTEM: S1, S2 muffled. No S3, no S4. RESPIRATORY: Breath sounds diminished in the bases. A few scattered rhonchi. No crackles. ABDOMEN: Soft. Mild diffuse distention. Mild diffuse tenderness. No guarding. No rigidity. No mass palpable. Bowel sounds present. No ascites. LEGS: No edema. No swelling. NERVOUS SYSTEM as mentioned earlier. Moves all 4 limbs. No focal motor or sensory deficits. LYMPHATICS: No lymph nodes palpable in the neck, axillae or groin. SKIN: No ulcer, no rashes and no bleeding. JOINTS: No active deforming arthropathy. LABS: At this time shows WBC 5.2, hemoglobin 10.9, and MCV 104. Sodium 135 other labs, creatinine for 3.03. ASSESSMENT: 1. Abdominal pain for evaluation, rule out polycystic kidney disease associated. 2. Ileus rule out bowel small bowel obstruction. 3. Possible abdominal ileus. 4. Chronic kidney disease, end-stage renal disease on hemodialysis. 5. Hyponatremia. 6. Anemia, macrocytic secondary to renal disease. 7. Mild thrombocytopenia. 8. History of coronary artery disease. 9. Gastroesophageal reflux disease. 10.Hypertension. 11.History of degenerative joint disease. 12.Chronic back pain. 13.Chronic pain syndrome. 14.Tonsillectomy. 15.History of depression. 16.Continued ongoing nicotine dependence. 17.History of mild to moderate protein calorie malnutrition with BMI of 20.3. RECOMMENDATIONS AND DISCUSSION: In this 69-year-old woman who presented with multiple complex medical issues, we will monitor the patient closely, continue the current medications, management and symptomatic treatment. Otherwise, at this time, I recommend continue with symptomatic treatment. Resume the home medications. I would also recommend influenza testing at this time. Otherwise, the prognosis guarded. Currently the patient is n.p.o. diet. Surgery has been consulted. Guarded prognosis because of multiple complex medical issues. Further recommendations to follow. A copy of dictation being forwarded to Dr. Fry who is the primary physician. DERRICK / ALONDRA: [id number] / MTDD
[2020-01-19 07:26] LABS: HCT 32.3 % (34.0-46.0); HGB 10.4 gm/dL (11.4-16.0); MCH 34.2 pg (25.0-35.0); MCHC 32.3 g/dL (31.0-37.0); Macrocytosis Moderate; Mean Platelet Volume 8.6; Platelet Count 134 k/uL (150-450); RBC 3.05 m/uL (3.80-5.40); RDW 14.3 % (11.5-15.5); WBC 4.4 k/uL (3.8-10.6)
[2020-01-19 07:29] LABS: Calcium 8.7 mg/dL (8.4-10.2); Potassium 4.4 mmol/L (3.5-5.1)
[2020-01-19] MEDS: HEPARIN SODIUM,PORCINE 5,000 UNIT/ML 1 ML VIAL SQ SCH ×2 (08:19→21:20)
[2020-01-19] MEDS: FUROSEMIDE 40 MG TAB PO SCH ×2 (08:20→21:20)
[2020-01-19] MEDS: cloNIDine HCL 0.1 MG TAB PO SCH ×2 (08:20→16:43)
[2020-01-19] MEDS: SPIRONOLACTONE 25 MG TAB PO SCH (08:20)
[2020-01-19] MEDS: NICOTINE 14MG/24HR PATCH TRANSDERM SCH ×2 (08:20→08:28)
[2020-01-19] MEDS: MINOXIDIL 2.5 MG TAB PO SCH ×2 (08:20→21:20)
[2020-01-19] MEDS: METOPROLOL TARTRATE 50 MG TAB PO SCH (08:20)
[2020-01-19] MEDS: LISINOPRIL 20 MG TAB PO SCH (08:20)
[2020-01-19] MEDS: hydrALAZINE HCL 50 MG TAB PO SCH ×3 (08:20→22:37)
[2020-01-19] MEDS: TORSEMIDE 20 MG TAB PO SCH ×2 (08:20→16:43)
[2020-01-19] MEDS: HYDROCHLOROTHIAZIDE 25 MG TAB PO SCH (08:20)
[2020-01-19 08:43] LABS: Lymphocytes # (M) 0.35 k/uL (1.0-4.8); Monocytes # (M) 0.66 k/uL (0-1.0); Neutrophils # (M) 3.39 k/uL (1.3-7.7); Neutrophils % (M) 77 %; Nucleated Red Blood Cells 0 /100 WBC (0-0); Total Cells Counted 100
[2020-01-19 08:44] LABS: Poikilocytosis (M) Present
[2020-01-19] MEDS ORDERED: PANTOPRAZOLE 40 MG/10 ML VIAL IV SCH (09:00)
[2020-01-19 11:08] LABS: Bacteria,Urine Rare /hpf; RBC,Urine 1 /hpf (0-5); Squamous Epithelial Cell,Urine 6 /hpf (0-4); WBC,Urine 1 /hpf (0-5)
[2020-01-19 11:09] LABS: Appearance,Urine Clear (Clear); Color,Urine Colorless; Specific Gravity,Urine 1.005 (1.001-1.035)
[2020-01-19 11:10] LABS: Bilirubin,Urine Negative (Negative); Blood,Urine Negative (Negative); Glucose,Urine (UA) 1+ (Negative); Ketones,Urine Negative (Negative); Protein,Urine 2+ (Negative)
[2020-01-19 11:11] LABS: Leukocyte Esterase,Urine Negative (Negative); Nitrite,Urine Negative (Negative); Urobilinogen,Urine <2.0 mg/dL (<2.0)
--- NOTE | 2020-01-19 11:16 | P.NPCON ---
History of Present Illness - Reason for Consult end stage renal disease - History of Present Illness Reason for consultation: End-stage renal disease History of present illness: Patient is a 69-year-old female seen in renal consultation for end-stage renal disease. She is maintained on hemodialysis on Saturday and . Etiology is polycystic kidney disease. Last hemodialysis was on Saturday. Patient presented to the hospital due to abdominal pain which started last . The pain is in progressively getting worse. Patient vomited once yesterday in the ER. No diarrhea. Her temperature this morning was 99.8F. Hemodynamically she is stable. Patient's CAT scan of the abdomen and pelvis revealed right-sided pleural effusion. Abdominal x-ray was suggestive of possible ileus. No chest pain or shortness of breath. Denies constipation. Vital signs are stable. General: The patient appeared well nourished and normally developed. HEENT: Head exam is unremarkable. Neck is without jugular venous distension. LUNGS: Lungs are clear to auscultation and percussion. Breath sounds decreased. HEART: Rate and Rhythm are regular. First and second heart sounds normal. No murmurs, rubs or gallops. ABDOMEN: Abdominal exam reveals normal bowel sounds. Generalized tenderness. EXTREMITITES: No clubbing, cyanosis, or edema. Past Medical History Past Medical History: Coronary Artery Disease (CAD), GERD/Reflux, Hypertension, Musculoskeletal Disorder, Renal Disease Additional Past Medical History / Comment(s): chronic pain; Kidney Dialysis Sat/. History of Any Multi-Drug Resistant Organisms: None Reported Past Surgical History: Breast Surgery, Tonsillectomy Additional Past Surgical History / Comment(s): benign Br lumpectomy Past Anesthesia/Blood Transfusion Reactions: No Reported Reaction Past Psychological History: Depression Smoking Status: Current every day smoker Past Alcohol Use History: None Reported Additional Past Alcohol Use History / Comment(s): has smoked for about 45 years; down to 1/2 ppd Past Drug Use History: None Reported - Past Family History Mother Family Medical History: No Reported History Medications and Allergies Home Medications Medication Instructions Recorded Confirmed Type Aspirin 81 mg PO DAILY 12/28/16 01/18/20 History Cranberry Fruit Extract [Cranberry] 20 mg PO BID 12/28/16 01/18/20 History Metoprolol/Hydrochlorothiazide 1 tab PO DAILY 12/28/16 01/18/20 History [Lopressor Hct 50-25 mg Tab] Mirtazapine [Remeron] 30 mg PO HS PRN 12/28/16 01/18/20 History Ondansetron HCl [Zofran] 4 mg PO TID PRN 12/28/16 01/18/20 History QUEtiapine [SEROquel] 150 mg PO HS PRN 12/28/16 01/18/20 History Rosuvastatin [Crestor] 10 mg PO HS 12/28/16 01/18/20 History Sevelamer [Renvela] 2,400 mg PO AC-BID@0900,1300 12/28/16 01/18/20 History cloNIDine HCL [Catapres] 0.3 mg PO BID-W/MEALS 12/28/16 01/18/20 History cloNIDine HCL [Catapres] 0.2 mg PO HS 04/18/18 01/18/20 History Minoxidil [Loniten] 5 mg PO BID 11/16/18 01/18/20 History Spironolactone [Aldactone] 25 mg PO DAILY 11/16/18 01/18/20 History Torsemide [Demadex] 60 mg PO BID 11/16/18 01/18/20 History Calcitriol 1 mcg PO MOWEFRSA 01/18/20 01/18/20 History Esomeprazole Magnesium [NexIUM] 40 mg PO BID 01/18/20 01/18/20 History Furosemide [Lasix] 40 mg PO BID 01/18/20 01/18/20 History Lisinopril 20 mg PO DAILY 01/18/20 01/18/20 History Melatonin 3 mg PO HS 01/18/20 01/18/20 History Sevelamer [Renvela] 3,200 mg PO AC-SUPPER 01/18/20 01/18/20 History hydrALAZINE HCL [Apresoline] 100 mg PO TID 01/18/20 01/18/20 History Allergies Allergy/AdvReac Type Severity Reaction Status Date / Time erythromycin base Allergy Unknown Verified 01/18/20 15:30 fentanyl Allergy Unknown Verified 01/18/20 15:30 oxycodone HCl [From Percocet] Allergy Nausea & Verified 01/18/20 15:30 Vomiting succinylcholine Allergy Unknown Verified 01/18/20 15:30 Physical Exam Vitals: Vital Signs Temp Pulse Pulse Resp BP BP Pulse Ox 01/19/20 07:00 99.8 F H 90 17 125/57 94 L 01/19/20 01:35 99.0 F 76 139/59 96 01/19/20 00:00 16 01/18/20 20:00 98.7 F 93 184/65 93 L 01/18/20 19:02 76 18 154/69 98 01/18/20 17:43 86 20 95 01/18/20 16:34 96 01/18/20 15:43 98.2 F 151/63 94 L 01/18/20 15:30 99.0 F 88 16 147/63 92 L Intake and Output 01/18/20 01/19/20 01/19/20 22:59 06:59 14:59 Intake Total 0 Balance 0 Intake: Oral 0 Other: Weight 57.153 kg Results - Lab Results Most recent lab results Calcium 8.7 mg/dL (8.4-10.2) 01/19/20 06:30 01/19/20 06:30 01/19/20 06:30 Assessment and Plan Plan: Assessment: 1. End-stage renal disease maintained on hemodialysis on Saturday and . Etiology is polycystic kidney disease. 2. Abdominal pain. X-ray suggestive of ileus. No acute abnormalities noted on CAT scan. 3. Hypertension with chronic kidney disease. Controlled. 4. Chronic kidney disease mineral bone disease maintained on calcitriol. Plan: Hemodialysis on . Await surgery recommendations. Thank you for the consultation. I'll continue to follow the patient with you during her hospital stay.
--- NOTE | 2020-01-19 12:27 | P.GSCN ---
History of Present Illness Consult date: 01/19/20 Reason for Consult: Abdominal pain Requesting physician: Mario Quinteros History of present illness: CHIEF COMPLAINT: Abdominal pain HISTORY OF PRESENT ILLNESS: 69-year-old female who presented to the emergency room with a chief complaint of abdominal pain. Patient is on hemodialysis 3 days a week. Patient examined this morning at the bedside with Dr. Holden. Patient denies any abdominal pain at time of examination. Patient reports she did have severe abdominal pain yesterday. Denies nausea or vomiting. She is requesting to be started on a diet. PAST MEDICAL HISTORY: See list. PAST SURGICAL HISTORY: See list. SOCIAL HISTORY: No illicit drug use. REVIEW OF SYSTEMS: CONSTITUTIONAL: Denies fever or chills. HEENT: Denies blurred vision, vision changes, or eye pain. Denies hemoptysis CARDIOVASCULAR: Denies chest pain or pressure. RESPIRATORY: No shortness of breath. GASTROINTESTINAL: Refer to HPI for pertinent findings HEMATOLOGIC: Denies bleeding disorders. GENITOURINARY: Denies any blood in urine. SKIN: Denies pruitis. Denies rash. PHYSICAL EXAM: VITAL SIGNS: Reviewed. GENERAL: Well-developed in no acute distress. HEENT: No sclera icterus. Extraocular movements grossly intact. Moist buccal mucosa. Head is atraumatic, normocephalic. ABDOMEN: Soft. Nondistended. Nontender. NEUROLOGIC: Alert and oriented. Cranial nerves II through XII grossly intact. LABORATORY DATA: WBC 4.4. Hemoglobin 10.4. Platelet count 134. BUN 26. Creatinine 4.69. IMAGING: KUB x-ray: Intestinal or correlate to some small bowel ileus that is new compared to old exam. No free air. CT abdomen and pelvis: no acute process to account for patient's abdominal pain ASSESSMENT: 1. Abdominal pain PLAN: Patient's x-ray is suggestive of a possible ileus, however patient CT is negative for acute abdominal process. Patient's pain is resolved at the time of examination. She is passing flatus and requesting something to eat. Will start patient on full liquid diet. No surgical intervention recommended. We will continue to follow and make recommendations as patient progresses Nurse practitioner note has been reviewed by physician. Signing provider agrees with the documented findings, assessment, and plan of care. Past Medical History Past Medical History: Coronary Artery Disease (CAD), GERD/Reflux, Hypertension, Musculoskeletal Disorder, Renal Disease Additional Past Medical History / Comment(s): chronic pain; Kidney Dialysis Mon/Th. History of Any Multi-Drug Resistant Organisms: None Reported Past Surgical History: Breast Surgery, Tonsillectomy Additional Past Surgical History / Comment(s): benign Br lumpectomy Past Anesthesia/Blood Transfusion Reactions: No Reported Reaction Past Psychological History: Depression Smoking Status: Current every day smoker Past Alcohol Use History: None Reported Additional Past Alcohol Use History / Comment(s): has smoked for about 45 years; down to 1/2 ppd Past Drug Use History: None Reported - Past Family History Mother Family Medical History: No Reported History Medications and Allergies Home Medications Medication Instructions Recorded Confirmed Type Aspirin 81 mg PO DAILY 12/28/16 01/18/20 History Cranberry Fruit Extract [Cranberry] 20 mg PO BID 12/28/16 01/18/20 History Metoprolol/Hydrochlorothiazide 1 tab PO DAILY 12/28/16 01/18/20 History [Lopressor Hct 50-25 mg Tab] Mirtazapine [Remeron] 30 mg PO HS PRN 12/28/16 01/18/20 History Ondansetron HCl [Zofran] 4 mg PO TID PRN 12/28/16 01/18/20 History QUEtiapine [SEROquel] 150 mg PO HS PRN 12/28/16 01/18/20 History Rosuvastatin [Crestor] 10 mg PO HS 12/28/16 01/18/20 History Sevelamer [Renvela] 2,400 mg PO AC-BID@0900,1300 12/28/16 01/18/20 History cloNIDine HCL [Catapres] 0.3 mg PO BID-W/MEALS 12/28/16 01/18/20 History cloNIDine HCL [Catapres] 0.2 mg PO HS 04/18/18 01/18/20 History Minoxidil [Loniten] 5 mg PO BID 11/16/18 01/18/20 History Spironolactone [Aldactone] 25 mg PO DAILY 11/16/18 01/18/20 History Torsemide [Demadex] 60 mg PO BID 11/16/18 01/18/20 History Calcitriol 1 mcg PO MOWEFRSA 01/18/20 01/18/20 History Esomeprazole Magnesium [NexIUM] 40 mg PO BID 01/18/20 01/18/20 History Furosemide [Lasix] 40 mg PO BID 01/18/20 01/18/20 History Lisinopril 20 mg PO DAILY 01/18/20 01/18/20 History Melatonin 3 mg PO HS 01/18/20 01/18/20 History Sevelamer [Renvela] 3,200 mg PO AC-SUPPER 01/18/20 01/18/20 History hydrALAZINE HCL [Apresoline] 100 mg PO TID 01/18/20 01/18/20 History Allergies Allergy/AdvReac Type Severity Reaction Status Date / Time erythromycin base Allergy Unknown Verified 01/18/20 15:30 fentanyl Allergy Unknown Verified 01/18/20 15:30 oxycodone HCl [From Percocet] Allergy Nausea & Verified 01/18/20 15:30 Vomiting succinylcholine Allergy Unknown Verified 01/18/20 15:30 Surgical - Exam Vital Signs Temp Pulse Resp BP Pulse Ox 99.0 F 88 16 147/63 92 L 01/18/20 15:30 01/18/20 15:30 01/18/20 15:30 01/18/20 15:30 01/18/20 15:30 Results - Labs 01/19/20 06:30 01/19/20 06:30 Abnormal Lab Results - Last 24 Hours (Table) 01/18/20 01/18/20 01/19/20 Range/Units 15:56 15:56 06:30 RBC 3.20 L 3.05 L (3.80-5.40) m/uL Hgb 10.9 L 10.4 L (11.4-16.0) gm/dL Hct 33.3 L 32.3 L (34.0-46.0) % MCV 104.0 H 106.0 H (80.0-100.0) fL Plt Count 146 L 134 L (150-450) k/uL Lymphocytes # 0.2 L (1.0-4.8) k/uL Lymphocytes # (Manual) 0.35 L (1.0-4.8) k/uL Sodium 135 L (137-145) mmol/L Chloride 91 L (98-107) mmol/L Carbon Dioxide 33 H (22-30) mmol/L BUN 19 H (7-17) mg/dL Creatinine 3.03 H (0.52-1.04) mg/dL Glucose 116 H (74-99) mg/dL Urine pH (5.0-8.0) Ur Squamous Epith Cells (0-4) /hpf Urine Bacteria (None) /hpf 01/19/20 01/19/20 Range/Units 06:30 10:50 RBC (3.80-5.40) m/uL Hgb (11.4-16.0) gm/dL Hct (34.0-46.0) % MCV (80.0-100.0) fL Plt Count (150-450) k/uL Lymphocytes # (1.0-4.8) k/uL Lymphocytes # (Manual) (1.0-4.8) k/uL Sodium 135 L (137-145) mmol/L Chloride 93 L (98-107) mmol/L Carbon Dioxide (22-30) mmol/L BUN 26 H (7-17) mg/dL Creatinine 4.69 H (0.52-1.04) mg/dL Glucose (74-99) mg/dL Urine pH 9.0 H (5.0-8.0) Ur Squamous Epith Cells 6 H (0-4) /hpf Urine Bacteria Rare H (None) /hpf Diabetes panel 01/18/20 01/19/20 Range/Units 15:56 06:30 Sodium 135 L 135 L (137-145) mmol/L Potassium 4.0 4.4 (3.5-5.1) mmol/L Chloride 91 L 93 L (98-107) mmol/L Carbon Dioxide 33 H 28 (22-30) mmol/L BUN 19 H 26 H (7-17) mg/dL Creatinine 3.03 H 4.69 H (0.52-1.04) mg/dL Glucose 116 H 75 (74-99) mg/dL Calcium 9.1 8.7 (8.4-10.2) mg/dL AST 25 (14-36) U/L ALT 10 (4-34) U/L Alkaline Phosphatase 85 (38-126) U/L Total Protein 7.1 (6.3-8.2) g/dL Albumin 4.3 (3.5-5.0) g/dL Calcium panel 01/18/20 01/19/20 Range/Units 15:56 06:30 Calcium 9.1 8.7 (8.4-10.2) mg/dL Albumin 4.3 (3.5-5.0) g/dL Pituitary panel 01/18/20 01/19/20 Range/Units 15:56 06:30 Sodium 135 L 135 L (137-145) mmol/L Potassium 4.0 4.4 (3.5-5.1) mmol/L Chloride 91 L 93 L (98-107) mmol/L Carbon Dioxide 33 H 28 (22-30) mmol/L BUN 19 H 26 H (7-17) mg/dL Creatinine 3.03 H 4.69 H (0.52-1.04) mg/dL Glucose 116 H 75 (74-99) mg/dL Calcium 9.1 8.7 (8.4-10.2) mg/dL Adrenal panel 01/18/20 01/19/20 Range/Units 15:56 06:30 Sodium 135 L 135 L (137-145) mmol/L Potassium 4.0 4.4 (3.5-5.1) mmol/L Chloride 91 L 93 L (98-107) mmol/L Carbon Dioxide 33 H 28 (22-30) mmol/L BUN 19 H 26 H (7-17) mg/dL Creatinine 3.03 H 4.69 H (0.52-1.04) mg/dL Glucose 116 H 75 (74-99) mg/dL Calcium 9.1 8.7 (8.4-10.2) mg/dL Total Bilirubin 0.7 (0.2-1.3) mg/dL AST 25 (14-36) U/L ALT 10 (4-34) U/L Alkaline Phosphatase 85 (38-126) U/L Total Protein 7.1 (6.3-8.2) g/dL Albumin 4.3 (3.5-5.0) g/dL
[2020-01-19] MEDS: SODIUM CHLORIDE 0.9% 1,000 ML IV SCH (16:44)
[2020-01-19] MEDS: cloNIDine HCL 0.2 MG TAB PO SCH (21:20)
[2020-01-19] MEDS: MELATONIN 3 MG TABLET PO SCH (21:20)
--- NOTE | 2020-01-19 22:59 | PN ---
PROGRESS NOTE DATE OF SERVICE: 01/19/2020 This 69-year-old woman who was admitted with abdominal pain also had some ileus. Small- bowel obstruction was also suspected. Surgery is following the patient closely as well as Nephrology. Dr. Lee is also following the patient closely from the nephrology point of view. Past medical history reviewed. REVIEW OF SYSTEMS: CARDIOVASCULAR SYSTEM: No angina, palpitations. RESPIRATORY SYSTEM: As mentioned earlier. GI: As mentioned earlier. : No dysuria or retention. NERVOUS SYSTEM: No numbness, weakness. CURRENT MEDICATIONS: Reviewed. They include: 1. Tylenol p.r.n. 2. Xanax 0.25 t.i.d. 3. Rocaltrol. 4. Catapres. 5. Lasix. 6. Heparin. 7. Apresoline. 8. HydroDIURIL. 9. Dilaudid. 10.Zestril. 11.Loniten. 12.Narcan. 13.Zofran. 14.Protonix. 15.Seroquel. 16.Aldactone. 17.Restoril. 18.Demadex. Doses reviewed. PHYSICAL EXAMINATION: Patient alert and oriented x3. Pulse is 56, blood pressure 115/67, respirations 16, temperature 98.6, pulse ox 96% on 3 L. HEENT: Conjunctivae normal. NECK: No jugular venous distention. CARDIOVASCULAR SYSTEM: S1, S2 muffled. RESPIRATORY SYSTEM: Breath sounds diminished at the bases. A few scattered rhonchi and crackles. ABDOMEN: Soft. Mild diffuse discomfort on palpation. Otherwise much improved. LEGS: No edema. No swelling. NERVOUS SYSTEM: No focal deficit. LABS: WBC 4.2, hemoglobin 10.4, and platelets are 134. Sodium 135. Creatinine is 4.69. ASSESSMENT: 1. Abdominal pain for evaluation, possibly related to polycystic kidney, possible ileus. 2. Small-bowel obstruction unlikely. 3. Chronic kidney disease, end-stage, on hemodialysis. 4. Hyponatremia. 5. Anemia, macrocytic, secondary to renal disease. 6. Mild thrombocytopenia. 7. History of coronary artery disease. 8. Gastroesophageal reflux disease. 9. Hypertension. 10.History of degenerative joint disease. 11.History of chronic back pain. 12.History of chronic pain syndrome. 13.Tonsillectomy. 14.History of depression. 15.Continued ongoing nicotine dependence. 16.History of mild to moderate protein-calorie malnutrition with body mass index of 20.3. 17.FULL CODE. RECOMMENDATIONS AND DISCUSSION: In this 69-year-old woman who presented with multiple complex medical issues, we will monitor the patient closely, continue the current medications, continue symptomatic treatment. Otherwise, DVT prophylaxis. Pain management. Continue the rest of the medications. Repeat labs. The cultures are so far negative. Continue to monitor. Guarded prognosis. Continue with hemodialysis. Discussed with the patient, who understands and agrees. Further recommendations to follow. Closely follow with Surgery as well as Nephrology. Further recommendations to follow. MMODL / IJN: [id number] /
[2020-01-20 08:04] LABS: Calcium 8.5 mg/dL (8.4-10.2)
[2020-01-20 08:27] LABS: Basophils % (A) 0 %; Eosinophils % (A) 0 %; HCT 33.2 % (34.0-46.0); HGB 10.5 gm/dL (11.4-16.0); Lymphocytes # (A) 0.4 k/uL (1.0-4.8); Lymphocytes % (A) 11 %; MCH 33.5 pg (25.0-35.0); MCHC 31.5 g/dL (31.0-37.0); MCV 106.3 fL (80.0-100.0); Macrocytosis Moderate; Mean Platelet Volume 8.5; Monocytes # (A) 0.3 k/uL (0-1.0); Monocytes % (A) 9 %; Neutrophils # (A) 2.6 k/uL (1.3-7.7); Neutrophils % (A) 75 %; Platelet Count 113 k/uL (150-450); RBC 3.12 m/uL (3.80-5.40); RDW 14.1 % (11.5-15.5); WBC 3.5 k/uL (3.8-10.6)
[2020-01-20] MEDS: NICOTINE 14MG/24HR PATCH TRANSDERM SCH (08:31)
[2020-01-20] MEDS: SPIRONOLACTONE 25 MG TAB PO SCH (08:31)
[2020-01-20] MEDS: hydrALAZINE HCL 50 MG TAB PO SCH (08:31)
[2020-01-20] MEDS: HYDROCHLOROTHIAZIDE 25 MG TAB PO SCH (08:32)
[2020-01-20] MEDS: HEPARIN SODIUM,PORCINE 5,000 UNIT/ML 1 ML VIAL SQ SCH (08:32)
[2020-01-20] MEDS: MINOXIDIL 2.5 MG TAB PO SCH (08:32)
[2020-01-20] MEDS: METOPROLOL TARTRATE 50 MG TAB PO SCH (08:33)
[2020-01-20] MEDS: TORSEMIDE 20 MG TAB PO SCH (08:33)
[2020-01-20] MEDS: FUROSEMIDE 40 MG TAB PO SCH (08:33)
[2020-01-20] MEDS: SODIUM CHLORIDE 0.9% 1,000 ML IV SCH (08:33)
[2020-01-20] MEDS: cloNIDine HCL 0.1 MG TAB PO SCH (08:38)
[2020-01-20] MEDS: LISINOPRIL 20 MG TAB PO SCH (08:38)
[2020-01-20] MEDS ORDERED: PANTOPRAZOLE 40 MG TABLET PO SCH (09:00)
[2020-01-20 09:19] VITALS: BP 119/63; PULSE 56; RESP 16; TEMP 98.2
--- NOTE | 2020-01-20 11:01 | P.PN ---
Subjective Progress Note Date: 01/20/20 CHIEF COMPLAINT: Abdominal pain HISTORY OF PRESENT ILLNESS: Patient examined this morning at the bedside. Patient is tolerating liquid diet. Denies nausea or vomiting. Denies abdominal pain. She is passing flatus having bowel movements. She is requesting her diet advanced. PHYSICAL EXAM: VITAL SIGNS: Reviewed. GENERAL: Well-developed in no acute distress. HEENT: No sclera icterus. Extraocular movements grossly intact. Moist buccal mucosa. Head is atraumatic, normocephalic. ABDOMEN: Soft. Nondistended. Nontender. NEUROLOGIC: Alert and oriented. Cranial nerves II through XII grossly intact. ASSESSMENT: 1. Abdominal pain PLAN: Advance diet No surgical intervention recommended We will sign off. Please reconsult if needed. Nurse practitioner note has been reviewed by physician. Signing provider agrees with the documented findings, assessment, and plan of care. Objective - Vital Signs Vital signs: Vital Signs Temp 98.2 F 01/20/20 07:41 Pulse 56 L 01/20/20 07:41 Resp 16 01/20/20 07:41 BP 119/63 01/20/20 07:41 Pulse Ox 97 01/20/20 07:41 Intake & Output 01/19/20 01/20/20 01/20/20 18:59 06:59 18:59 Other: Voiding Method Toilet # Voids 2 1 - Labs CBC & Chem 7: 01/20/20 07:25 01/20/20 07:25 Labs: Abnormal Lab Results - Last 24 Hours (Table) 01/19/20 01/20/20 01/20/20 Range/Units 10:50 07:25 07:25 WBC 3.5 L (3.8-10.6) k/uL RBC 3.12 L (3.80-5.40) m/uL Hgb 10.5 L (11.4-16.0) gm/dL Hct 33.2 L (34.0-46.0) % MCV 106.3 H (80.0-100.0) fL Plt Count 113 L (150-450) k/uL Lymphocytes # 0.4 L (1.0-4.8) k/uL Sodium 133 L (137-145) mmol/L Chloride 93 L (98-107) mmol/L BUN 37 H (7-17) mg/dL Creatinine 6.24 H (0.52-1.04) mg/dL Urine pH 9.0 H (5.0-8.0) Ur Squamous Epith Cells 6 H (0-4) /hpf Urine Bacteria Rare H (None) /hpf
--- NOTE | 2020-01-20 15:41 | PN ---
PROGRESS NOTE The patient is seen for follow up for end-stage renal disease. She was dialyzed on Saturday. Next treatment will be tomorrow; however, the patient is feeling better, she is able to eat and she wants to go home today. PHYSICAL EXAMINATION: On examination, blood pressure is 119/63, heart rate 56 per minute, she is afebrile. Examination of the heart: S1 and S2. Examination of the lungs: Decreased breath sounds at bases. Abdomen is soft, nontender. Examination of the lower extremities shows no evidence of edema. LABORATORY DATA: Laboratories show sodium 133, potassium 5.0, BUN 37, creatinine 6.24. ASSESSMENT: 1. End-stage renal disease on hemodialysis twice a week, scheduled for dialysis tomorrow. 2. Nausea and vomiting and abdominal pain, mainly ileus, currently improved. 3. Hypertension. 4. 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 PLAN: If the patient is able to tolerate oral intake, she could be discharged and we will plan to dialyze her as an outpatient tomorrow. MMODL / LUCHON: [id number] /
--- NOTE | 2020-01-20 16:19 | P.DS ---
Providers Date of admission: 01/18/20 17:04 Attending physician: Leann Gu Consults: 01/18/20 17:05 Consult Physician Routine Consulting Provider: Alf Holden Consult Reason/Comments: Abdominal pain, ileus Do you want consulting provider notified?: Already Contacted 01/19/20 10:31 Consult Physician Routine Consulting Provider: Roger Lee Consult Reason/Comments: dialysis patient Do you want consulting provider notified?: Yes [facility] Course: 71-year-old female is admitted for ileus which resolved at this time. Patient does have history of end-stage renal disease on hemodialysis usual ALLERGIC diuretics but probably hydrochlorothiazide is not, held but will be discontinued rest of the medications will be continued patient did eat did have bowel movements patient will be discharged to follow with nephrology and PCP as an outpatient PHYSICAL EXAMINATION: GENERAL: The patient is alert and oriented x3, not in any acute distress. Well developed, well nourished. HEENT: Pupils are round and equally reacting to light. EOMI. No scleral icterus. No conjunctival pallor. Normocephalic, atraumatic. No pharyngeal erythema. No thyromegaly. CARDIOVASCULAR: S1 and S2 present. No murmurs, rubs, or gallops. PULMONARY: Chest is clear to auscultation, no wheezing or crackles. ABDOMEN: Soft, nontender, nondistended, normoactive bowel sounds. No palpable organomegaly. MUSCULOSKELETAL: No joint swelling or deformity. EXTREMITIES: No cyanosis, clubbing, or pedal edema. NEUROLOGICAL: Gross neurological examination did not reveal any focal deficits. SKIN: No rashes. His refer to dictation from Dr. Gu for further details of hospitalization course and other medical problems that were addressed during this hospital physician. Patient Condition at Discharge: Stable Plan - Discharge Summary Discharge Rx Participant: Yes New Discharge Prescriptions: New Metoprolol Succinate (ER) [Toprol XL] 50 mg PO DAILY #30 tab Continue Cranberry Fruit Extract [Cranberry] 20 mg PO BID Sevelamer [Renvela] 2,400 mg PO AC-BID@0900,1300 cloNIDine HCL [Catapres] 0.3 mg PO BID-W/MEALS QUEtiapine [SEROquel] 150 mg PO HS PRN PRN Reason: Insomnia Rosuvastatin [Crestor] 10 mg PO HS Mirtazapine [Remeron] 30 mg PO HS PRN PRN Reason: Insomnia Aspirin 81 mg PO DAILY Ondansetron HCl [Zofran] 4 mg PO TID PRN PRN Reason: Nausea cloNIDine HCL [Catapres] 0.2 mg PO HS Minoxidil [Loniten] 5 mg PO BID Spironolactone [Aldactone] 25 mg PO DAILY Torsemide [Demadex] 60 mg PO BID Sevelamer [Renvela] 3,200 mg PO AC-SUPPER Melatonin 3 mg PO HS Lisinopril 20 mg PO DAILY hydrALAZINE HCL [Apresoline] 100 mg PO TID Furosemide [Lasix] 40 mg PO BID Esomeprazole Magnesium [NexIUM] 40 mg PO BID Calcitriol 1 mcg PO MOWEFRSA Discontinued Metoprolol/Hydrochlorothiazide [Lopressor Hct 50-25 mg Tab] 1 tab PO DAILY Discharge Medication List Aspirin 81 mg PO DAILY 12/28/16 [History] Cranberry Fruit Extract [Cranberry] 20 mg PO BID 12/28/16 [History] Mirtazapine [Remeron] 30 mg PO HS PRN 12/28/16 [History] Ondansetron HCl [Zofran] 4 mg PO TID PRN 12/28/16 [History] QUEtiapine [SEROquel] 150 mg PO HS PRN 12/28/16 [History] Rosuvastatin [Crestor] 10 mg PO HS 12/28/16 [History] Sevelamer [Renvela] 2,400 mg PO AC-BID@0900,1300 12/28/16 [History] cloNIDine HCL [Catapres] 0.3 mg PO BID-W/MEALS 12/28/16 [History] cloNIDine HCL [Catapres] 0.2 mg PO HS 04/18/18 [History] Minoxidil [Loniten] 5 mg PO BID 11/16/18 [History] Spironolactone [Aldactone] 25 mg PO DAILY 11/16/18 [History] Torsemide [Demadex] 60 mg PO BID 11/16/18 [History] Calcitriol 1 mcg PO MOWEFRSA 01/18/20 [History] Esomeprazole Magnesium [NexIUM] 40 mg PO BID 01/18/20 [History] Furosemide [Lasix] 40 mg PO BID 01/18/20 [History] Lisinopril 20 mg PO DAILY 01/18/20 [History] Melatonin 3 mg PO HS 01/18/20 [History] Sevelamer [Renvela] 3,200 mg PO AC-SUPPER 01/18/20 [History] hydrALAZINE HCL [Apresoline] 100 mg PO TID 01/18/20 [History] Metoprolol Succinate (ER) [Toprol XL] 50 mg PO DAILY #30 tab 01/20/20 [Rx] Follow up Appointment(s)/Referral(s): Rock Fry DO [Primary Care Provider] - 01/25/20 10:20 am Alf Holden MD [STAFF PHYSICIAN] - As Needed Patient Instructions/Handouts: Ileus (DC) Discharge Disposition: HOME SELF-CARE
== END 2020-01-20 14:34 | disposition home or self-care (01) | DRG 388 ==
LOC: EC 15:28 → 4SSUR 17:04
PROVIDERS: ADMIT Hospitalist; ATTEND Hospitalist
DX: K56.7 Ileus, unspecified (principal); N18.6 End stage renal disease; I12.0 Hypertensive chronic kidney disease with stage 5 chronic kidney disease or end stage renal disease; Q61.3 Polycystic kidney, unspecified; E87.1 Hypo-osmolality and hyponatremia; D69.6 Thrombocytopenia, unspecified; E83.9 Disorder of mineral metabolism, unspecified; D63.1 Anemia in chronic kidney disease; I25.10 Atherosclerotic heart disease of native coronary artery without angina pectoris; K21.9 Gastro-esophageal reflux disease without esophagitis; M54.9 Dorsalgia, unspecified; G89.4 Chronic pain syndrome; F32.9 Major depressive disorder, single episode, unspecified; M19.90 Unspecified osteoarthritis, unspecified site; F17.210 Nicotine dependence, cigarettes, uncomplicated; Z79.82 Long term (current) use of aspirin; Z79.899 Other long term (current) drug therapy; Z99.2 Dependence on renal dialysis; Z88.4 Allergy status to anesthetic agent; Z88.1 Allergy status to other antibiotic agents; Z88.5 Allergy status to narcotic agent; Z98.890 Other specified postprocedural states
CPT/HCPCS: 36415; 74018; 74176; 80048; 80053; 81001; 82150; 83605; 83690; 85025; 85610; 85730; 96365; 96375; 99285

== ENCOUNTER 2021-06-14 20:16 | Inpatient (IN) | payer MEDICARE, OTHER ==
[2021-06-14] MEDS ORDERED: MORPHINE SULFATE 4 MG/ML SYRINGE IV STA (20:34)
[2021-06-14 20:50] LABS: Basophils % (A) 0 %; Eosinophils # (A) 0.1 k/uL (0-0.7); Eosinophils % (A) 1 %; HCT 33.1 % (34.0-46.0); HGB 10.5 gm/dL (11.4-16.0); Lymphocytes # (A) 0.5 k/uL (1.0-4.8); Lymphocytes % (A) 4 %; MCHC 31.8 g/dL (31.0-37.0); MCV 97.2 fL (80.0-100.0); Mean Platelet Volume 8.6; Monocytes # (A) 0.5 k/uL (0-1.0); Monocytes % (A) 4 %; Neutrophils % (A) 89 %; Platelet Count 127 k/uL (150-450); WBC 11.2 k/uL (3.8-10.6)
[2021-06-14 20:59] LABS: Partial Thromboplastin Time 23.6 sec (22.0-30.0); Prothrombin Time 10.3 sec (9.0-12.0)
[2021-06-14 21:03] LABS: Albumin 3.9 g/dL (3.5-5.0); Calcium 9.6 mg/dL (8.4-10.2); Potassium 4.6 mmol/L (3.5-5.1); Total Bilirubin 0.5 mg/dL (0.2-1.3); Total Protein 6.4 g/dL (6.3-8.2)
[2021-06-14] MEDS ORDERED: HYDROmorphone 0.5 MG/0.5 ML SYRINGE IVP STA ×2 (21:26→22:45)
[2021-06-14] MEDS ORDERED: predniSONE 20 MG TAB PO STA (21:31)
[2021-06-14] MEDS ORDERED: IPRATROPIUM-ALBUTEROL 3 ML NEB INHALATION STA (21:35)
--- NOTE | 2021-06-14 21:36 | XR ---
EXAMINATION TYPE: XR chest 1V portable DATE OF EXAM: 06/14/2021 COMPARISON: 08/24/2013 INDICATION: Fall, pain TECHNIQUE: Frontal and lateral views of the chest are obtained. FINDINGS: The heart size is mildly prominent. The pulmonary vasculature is prominent. There is diffuse increased lung markings. Some linear opacity is along the right base which is nonspe cific but can be related atelectasis. Previous right lower lobe density is not clearly identified.. IMPRESSION: 1. Findings suggestive for congestive heart failure. Clinical correlation and follow-up is recommendjanee lama
--- NOTE | 2021-06-14 21:38 | ED ---
General Adult HPI - General Chief complaint: Fall Stated complaint: Fall, leg injury Time Seen by Provider: 06/14/21 20:32 Source: patient, EMS Mode of arrival: EMS Limitations: no limitations - History of Present Illness Initial comments: Patient is a 70-year-old female with past medical history remarkable for ESRD on HD, COPD, CAD, GERD, hypertension not on blood thinners who presents emergency Department after mechanical fall at home. The patient states her dogs ran into her and she tripped over them onto a wooden 2x4 on the ground at approximately 6 PM tonight. She was non-ambulatory afterwards. Patient is brought to the emergency department for evaluation over concern for possible left hip as well as right femoral fracture. EMS arrived and saw that there was an obvious deformity of the right femur which they reduced. It is not open. She has good pulses and no sensory deficits. She is unable to ambulate. She denies any back pain, abdominal pain, nausea, vomiting, headache, chest pain. She does state she has mild dyspnea and has a history of COPD. States this is what it feels like. She is not on oxygen at home. She is no other acute complaints at this time. She is due for dialysis tomorrow and has not missed any runs of dialysis. - Related Data Home Medications Medication Instructions Recorded Confirmed Aspirin 81 mg PO DAILY 12/28/16 06/14/21 Mirtazapine [Remeron] 30 mg PO HS 12/28/16 06/14/21 QUEtiapine [SEROquel] 150 mg PO HS PRN 12/28/16 06/14/21 Rosuvastatin [Crestor] 10 mg PO HS 12/28/16 06/14/21 cloNIDine HCL [Catapres] 0.3 mg PO BID-W/MEALS 12/28/16 06/14/21 cloNIDine HCL [Catapres] 0.2 mg PO HS 04/18/18 06/14/21 Torsemide [Demadex] 60 mg PO BID 11/16/18 06/14/21 minoxidiL [Loniten] 5 mg PO BID 11/16/18 06/14/21 Esomeprazole Magnesium [NexIUM] 40 mg PO BID 01/18/20 06/14/21 Furosemide [Lasix] 40 mg PO BID 01/18/20 06/14/21 calcitrioL [Calcitriol] 1 mcg PO DAILY 01/18/20 06/14/21 hydrALAZINE HCL [Apresoline] 100 mg PO TID 01/18/20 06/14/21 lisinopriL 20 mg PO BID 01/18/20 06/14/21 Calcium Acetate 667 mg PO BID 06/14/21 06/14/21 HYDROcodone/APAP 10-325MG [[place] 1 tab PO BID PRN 06/14/21 06/14/21 10-325] Metoprolol Succinate (ER) [Toprol 50 mg PO BID 06/14/21 06/14/21 XL] Oxazepam [Serax] 10 mg PO DAILY PRN 06/14/21 06/14/21 Allergies Allergy/AdvReac Type Severity Reaction Status Date / Time erythromycin base Allergy Unknown Verified 06/14/21 22:20 fentanyl Allergy Unknown Verified 06/14/21 22:20 oxycodone HCl [From Percocet] Allergy Nausea & Verified 06/14/21 22:20 Vomiting succinylcholine Allergy Unknown Verified 06/14/21 22:20 Review of Systems ROS Statement: Those systems with pertinent positive or pertinent negative responses have been documented in the HPI. Review of Systems: CONST: Denies fever EYES: Denies blurry vision ENT: Denies nasal congestion C/V: Denies Chest pain RESP: Denies shortness of breath GI: Denies abdominal pain : Denies dysuria SKIN: Denies rash. MSK: Endorses left hip pain, right leg pain. NEURO: Denies headache ROS Other: All systems not noted in ROS Statement are negative. Past Medical History Past Medical History: Coronary Artery Disease (CAD), GERD/Reflux, Hypertension, Musculoskeletal Disorder, Renal Disease Additional Past Medical History / Comment(s): chronic pain; Kidney Dialysis Mon/Thurs. History of Any Multi-Drug Resistant Organisms: None Reported Past Surgical History: Breast Surgery, Tonsillectomy Additional Past Surgical History / Comment(s): benign Br lumpectomy Past Anesthesia/Blood Transfusion Reactions: No Reported Reaction Past Psychological History: Depression Smoking Status: Current every day smoker Past Alcohol Use History: None Reported Past Drug Use History: None Reported - Past Family History Mother Family Medical History: No Reported History General Exam - General Exam Comments Initial Comments: General: Appears in moderate distress secondary to extremity pain. HEAD: Normal with no signs of head trauma. EYES: PERRLA, EOMI, conjunctiva normal, no discharge. ENT: Hearing grossly intact, normal oropharynx. RESPIRATORY: And expiratory wheezes bilaterally. No obvious rhonchi. No increased work of breathing. C/V: Regular rate and rhythm. S1 and S2 auscultated, no edema, peripheral pulse s 2+ and intact throughout. LUE avf has palpable thrill and audible bruit. ABD: Abd is soft, nontender, nondistended EXT: Patient is reduced range of motion of bilateral lower extremity secondary to pain in the left hip as well as in the right thigh. Patient had an obvious deformity of the right femur prior to presentation which is now strained. There are no open fractures. She has no spinal tenderness to palpation cervical, thoracic, lumbar spines. Pelvis is otherwise stable. SKIN: No rashes or lesions observed on exposed skin. NEURO: Alert and oriented 4. Patient is neurovascularly intact throughout. Limitations: no limitations Course Vital Signs 06/14/21 06/14/21 06/14/21 20:19 21:49 22:01 Temperature 98.0 F Pulse Rate 76 76 72 Respiratory 22 Rate Blood Pressure 190/81 O2 Sat by Pulse 93 L Oximetry 06/14/21 22:32 Temperature Pulse Rate 73 Respiratory 20 Rate Blood Pressure 183/71 O2 Sat by Pulse 91 L Oximetry Medical Decision Making - Medical Decision Making Based on the patient's presentation and physical exam, and concern for fracture of the right thigh as well as possible fracture of the left hip. Therefore we will obtain films of the pelvis, left femur, right femur, right knee. She has no other obvious injuries at this time. There are no open fractures. We will obtain presurgical labs. Patient was found to be hypoxic on room air, but denies any new onset shortness of breath. She does have a history of bad COPD and she is wheezing, and therefore she is likely experiencing a mild COPD exacerbation. She'll be given prednisone as well as a breathing treatment here in the department and monitored for improvement. She is not on home oxygen at baseline. We also obtained a chest x-ray as well as 19. Patient will be MrDmitri asencio for pain management, and she received 10 mg of morphine in route to the hospital. Patient's trace studies are remarkable for a mild leukocytosis of 11.2 which is likely reactive. Patient is a normocytic anemia with a hemoglobin of 10.5. Patient's platelets are slightly decreased at 127. Patient has an elevated BUN/creatinine setting of ESRD. Electrolytes appear within normal limits at this time. Covid19 swab is negative. Patient's imaging reveals an acute displaced comminuted fracture of the right distal femur, questionable fracture involving the radiation, comminuted angulated trochanteric fracture of the left femur. On reevaluation and patient is continuing to have a severe amount of pain. It does appear that the patient is started to develop a bruise that was previously not present over the lateral aspect of the right midshaft fibula with an underlying hematoma. She has tenderness at the site, which she states she did not notice earlier likely secondary to her severe right knee pain. She is also dispensing severe muscle spasms at this time. I did discuss with her that we need to straighten as well as possibly split her leg. She requested that we attempt to avoid procedural sedation at this time we will attempt to treat her pain initially, she received 2 doses of 0.5 mg of Dilaudid in addition to the initial morphine. I spoke with the orthopedic on-call physician, Dr. Pham, who was in agreement with the plan to splint the patient, but recommended that we do not splint the left hip, as it is stable, and also recommended to use a knee immobilizer rather than splint the right leg. Reduction without procedural sedation was attempted but failed secondary to patient not tolerating the procedure. Due to the new finding of the right fibula, we will obtain an x-ray of the right tib-fib addition to the prior x- rays. The decision was made to perform procedural sedation to reduce the right femur. Patient remained having 2+ pulses in bilateral lower extremity. PROCEDURE NOTE: MODERATE PROCEDURAL SEDATION. The patient requires moderate sedation to perform right femur reduction. Written consent was provided by the patient and / or the LAR for the procedural sedation and for the procedure itself. The risks and benefits of the procedure and of moderate sedation were discussed with the patient and the patient agreed to undergo both. A "time-out" was performed at 0034 hours on 06/15/2021, before initiating the sedation or the procedure, during which time the exact procedure, side of the body involved, and patient name were reviewed. The time-out was also documented at the bottom of the consent form. The patients identity, procedure type, and body location including side where the procedure was to be performed were confirmed. Medications for procedural sedation were administered intravenously, including 30mg Ketamine and 30 mg Propofol, administered by push. There were no complications identified by me that could be attributable to the medication. The procedure was successful. Procedure end time was at 0040 hours. There were no complications observed or identified by me that could be attributable to either the procedural sedation or the procedure itself. The patient's response to sedation was adequate. The patient's vital signs, including blood pressure, he art rate, respiratory rate, and pulse oximetry on nasal cannula oxygen, were monitored throughout the procedure per protocol, and the patient was subsequently observed until the patient had achieved full recovery from sedation. The patient will be subsequently admitted to the hospital. Patient's DP and TP pulses of the right lower extremity are both dopplerable following the procedure. Patient remains they have palpable left DP and TP pulses. Blood catheter was placed by nursing staff. Postreduction x-ray shows some improvement in the comminuted displaced fracture of the right femur, troncoso kaya there is still shortening. Patient is now more comfortable. Right tib-fib x-ray reveals no obvious fracture or subluxation. I spoke with Dr. Pham at bedside and he was in agreement with the plan for admission under his service as this was a fall this is a surgical issue. Patient to be transferred to the medicine team tomorrow. I counseled to the medicine team, Dr. muse, and spoke with their MLP, who accepted the patient. I also consulted the patient's retail link analyst, Dr. Cristina, I spoke with over the phone and agreed with the plan for admission. She will evaluate for possible dialysis tomorrow. Patient was therefore admitted to the hospital in serious condition under orthopedic surgery. - Lab Data Result diagrams: 06/14/21 20:41 06/14/21 20:41 Lab Results 06/14/21 06/14/21 06/14/21 Range/Units 20:25 20:41 20:41 WBC 11.2 H (3.8-10.6) k/uL RBC 3.40 L (3.80-5.40) m/uL Hgb 10.5 L (11.4-16.0) gm/dL Hct 33.1 L (34.0-46.0) % MCV 97.2 (80.0-100.0) fL MCH 31.0 (25.0-35.0) pg MCHC 31.8 (31.0-37.0) g/dL RDW 15.0 (11.5-15.5) % Plt Count 127 L (150-450) k/uL MPV 8.6 Neutrophils % 89 % Lymphocytes % 4 % Monocytes % 4 % Eosinophils % 1 % Basophils % 0 % Neutrophils # 10.0 H (1.3-7.7) k/uL Lymphocytes # 0.5 L (1.0-4.8) k/uL Monocytes # 0.5 (0-1.0) k/uL Eosinophils # 0.1 (0-0.7) k/uL Basophils # 0.0 (0-0.2) k/uL PT 10.3 (9.0-12.0) sec INR 1.0 (<1.2) APTT 23.6 (22.0-30.0) sec Sodium (137-145) mmol/L Potassium (3.5-5.1) mmol/L Chloride (98-107) mmol/L Carbon Dioxide (22-30) mmol/L Anion Gap mmol/L BUN (7-17) mg/dL Creatinine (0.52-1.04) mg/dL Est GFR (CKD-EPI)AfAm (>60 ml/min/1.73 sqM) Est GFR (CKD-EPI)NonAf (>60 ml/min/1.73 sqM) Glucose (74-99) mg/dL Calcium (8.4-10.2) mg/dL Total Bilirubin (0.2-1.3) mg/dL AST (14-36) U/L ALT (4-34) U/L Alkaline Phosphatase (38-126) U/L Total Protein (6.3-8.2) g/dL Albumin (3.5-5.0) g/dL Coronavirus (PCR) (Not Detectd) Blood Type A Negative Blood Type Recheck A Neg Bld Type Recheck Status No Antibody Screen NEGATIVE Spec Expiration Date 06/17/2021232406/14/21 06/14/21 Range/Units 20:41 21:39 WBC (3.8-10.6) k/uL RBC (3.80-5.40) m/uL Hgb (11.4-16.0) gm/dL Hct (34.0-46.0) % MCV (80.0-100.0) fL MCH (25.0-35.0) pg MCHC (31.0-37.0) g/dL RDW (11.5-15.5) % Plt Count (150-450) k/uL MPV Neutrophils % % Lymphocytes % % Monocytes % % Eosinophils % % Basophils % % Neutrophils # (1.3-7.7) k/uL Lymphocytes # (1.0-4.8) k/uL Monocytes # (0-1.0) k/uL Eosinophils # (0-0.7) k/uL Basophils # (0-0.2) k/uL PT (9.0-12.0) sec INR (<1.2) APTT (22.0-30.0) sec Sodium 140 (137-145) mmol/L Potassium 4.6 (3.5-5.1) mmol/L Chloride 99 (98-107) mmol/L Carbon Dioxide 27 (22-30) mmol/L Anion Gap 14 mmol/L BUN 38 H (7-17) mg/dL Creatinine 5.71 H (0.52-1.04) mg/dL Est GFR (CKD-EPI)AfAm 8 (>60 ml/min/1.73 sqM) Est GFR (CKD-EPI)NonAf 7 (>60 ml/min/1.73 sqM) Glucose 115 H (74-99) mg/dL Calcium 9.6 (8.4-10.2) mg/dL Total Bilirubin 0.5 (0.2-1.3) mg/dL AST 24 (14-36) U/L ALT 16 (4-34) U/L Alkaline Phosphatase 79 (38-126) U/L Total Protein 6.4 (6.3-8.2) g/dL Albumin 3.9 (3.5-5.0) g/dL Coronavirus (PCR) Not Detected (Not Detectd) Blood Type Blood Type Recheck Bld Type Recheck Status Antibody Screen Spec Expiration Date Critical Care Time Critical Care Time: Yes Total Critical Care Time: 35 Critical Care Time: Critical care time was spent evaluating the patient, talking with consultants, perform a procedural sedation, multiple attempts at splinting, as well as pain management and repeat evaluation of the patient's vascular status of the right lower extremity. Total time spent was over 30 minutes. Disposition Clinical Impression: Displaced comminuted fracture of shaft of right femur, Trochanteric fracture of left femur, COPD exacerbation, Fall, ESRD on hemodialysis Disposition: ADMITTED IP TO THIS HOSP Condition: Serious
[2021-06-14] MEDS ORDERED: NALOXONE 0.4 MG/ML 1 ML VIAL IV PRN (21:57)
[2021-06-14] MEDS ORDERED: ACETAMINOPHEN TAB 325 MG TAB PO PRN (21:57)
--- NOTE | 2021-06-14 21:59 | XR ---
EXAMINATION TYPE: XR Hip Bilateral and AP pelvis, XR femur bilateral DATE OF EXAM: 06/14/2021 COMPARISON: [facility] 01/18/2020 HISTORY: Left hip pain and pelvic pain TECHNIQUE: A single AP view of the pelvis is obtained. Two views of the bilateral hip are obtained. FINDINGS AND IMPRESSION: There is an acute comminuted angulated displaced fracture of the left femoral neck and lesser trochan ter. There is no history of trauma pathologic fracture should be suspected. The left acetabular joint appears maintained. Acute displaced comminuted fracture of the right distal femur with foreshortening. Questionable nondisplaced fracture involving the right ischium. Stable sclerosis in the right femoral head could be on the basis of avascular necrosis. Generalized osteopenia limits evaluation for nondisplaced fractures. Limited evaluation of the lower lumbar spine and bilateral sacroiliac joints due to overlying bowel g as and large amount of fecal material. A round calcified lesion projected over the right lower abdomen seen on abdominal radiograph dated .
[2021-06-14] MEDS: HYDROmorphone 0.5 MG/0.5 ML SYRINGE IVP PRN (22:09)
[2021-06-14] MEDS ORDERED: methocarbamoL 750 MG TAB PO STA (23:10)
[2021-06-14] MEDS ORDERED: KETAMINE 10 MG/ML 20 ML VIAL IV ONE (23:22)
[2021-06-14] MEDS ORDERED: PROPOFOL 10 MG/ML 20 ML VIAL IV ONE (23:24)
--- NOTE | 2021-06-15 00:22 | P.HPOR ---
History of Present Illness H&P Date: 06/15/21 Chief Complaint: Status post fall at home from a standing height with bilateral lower extrem Patient is a 70-year-old pleasant female who is seen and examined today at bedside in the emergency room. She is accompanied by her . Family this evening she got tangled up by her dogs at home and fell onto what sounds like a daybed. She had sudden acute pain at her left leg and her right leg. She denies not loss of consciousness. She denies prior problems at her lower extremities. She is normally a community ambulator without any assistance. And she drives occasionally. She lives at home with her . She denies any prior problems with her hip and her legs. She denies headaches or neck pain or upper extremity pains. She denies any nausea vomiting. She denies any fevers or chills. She admits to a long history of end-stage renal disease due to polycystic renal disease. She has been on dialysis for the past 9 years. She also is a regular smoker and has history of COPD. Her pain is primarily at her bilateral lower extremities. She has severe pain at her right thigh and around her right knee. She has severe pain in her left hip. Denies any numbness tingling in her feet or toes. Denies any neck pain chest pain or shortness of breath. Denies any abdominal pain. Review of Systems As stated in HPI. She admits to history of end-stage renal disease on dialysis for 9 years. Coronary artery disease no history of any heart attack. She admits to COPD and chronic smoking. She is normally community and later on any assistance. Past Medical History Past Medical History: Coronary Artery Disease (CAD), GERD/Reflux, Hypertension, Musculoskeletal Disorder, Renal Disease Additional Past Medical History / Comment(s): chronic pain; Kidney Dialysis Mon/Thurs. on dialysis for the past 9 years due to polycystic renal disease chronic smoker with COPD History of Any Multi-Drug Resistant Organisms: None Reported Past Surgical History: Breast Surgery, Tonsillectomy Additional Past Surgical History / Comment(s): benign Br lumpectomy Past Anesthesia/Blood Transfusion Reactions: No Reported Reaction Past Psychological History: Depression Smoking Status: Current every day smoker Past Alcohol Use History: None Reported Past Drug Use History: None Reported - Past Family History Mother Family Medical History: No Reported History Medications and Allergies Home Medications Medication Instructions Recorded Confirmed Type Aspirin 81 mg PO DAILY 12/28/16 06/14/21 History Mirtazapine [Remeron] 30 mg PO HS 12/28/16 06/14/21 History QUEtiapine [SEROquel] 150 mg PO HS PRN 12/28/16 06/14/21 History Rosuvastatin [Crestor] 10 mg PO HS 12/28/16 06/14/21 History cloNIDine HCL [Catapres] 0.3 mg PO BID-W/MEALS 12/28/16 06/14/21 History cloNIDine HCL [Catapres] 0.2 mg PO HS 04/18/18 06/14/21 History Torsemide [Demadex] 60 mg PO BID 11/16/18 06/14/21 History minoxidiL [Loniten] 5 mg PO BID 11/16/18 06/14/21 History Esomeprazole Magnesium [NexIUM] 40 mg PO BID 01/18/20 06/14/21 History Furosemide [Lasix] 40 mg PO BID 01/18/20 06/14/21 History calcitrioL [Calcitriol] 1 mcg PO DAILY 01/18/20 06/14/21 History hydrALAZINE HCL [Apresoline] 100 mg PO TID 01/18/20 06/14/21 History lisinopriL 20 mg PO BID 01/18/20 06/14/21 History Calcium Acetate 667 mg PO BID 06/14/21 06/14/21 History HYDROcodone/APAP 10-325MG [[place] 1 tab PO BID PRN 06/14/21 06/14/21 History 10-325] Metoprolol Succinate (ER) [Toprol 50 mg PO BID 06/14/21 06/14/21 History XL] Oxazepam [Serax] 10 mg PO DAILY PRN 06/14/21 06/14/21 History Allergies Allergy/AdvReac Type Severity Reaction Status Date / Time erythromycin base Allergy Unknown Verified 06/14/21 22:20 fentanyl Allergy Unknown Verified 06/14/21 22:20 oxycodone HCl [From Percocet] Allergy Nausea & Verified 06/14/21 22:20 Vomiting succinylcholine Allergy Unknown Verified 06/14/21 22:20 Physical Examination Osteopathic Statement: *. No significant issues noted on an osteopathic structural exam other than those noted in the History and Physical/Consult. - Hip bilateral Gait: other (She is unable to mobilize or ambulate. She has obvious distortion at her left hip and her right leg.) Tenderness with palpation: anterior (At the right thigh she is tender to palpation of the mid thigh. Compartments are soft. She is tender to palpation of her right proximal tibia. There is some contusion at the right midshaft tibia. Compartments are soft. She is able to dorsi flex plantar flex her ankle foot and toes on the right.), posterior (At the left leg she has pain with any internal action rotation or hip. Her thigh and calf soft nontender. Knee is nontender. Nontender over ankle foot and toes. She has good pulses bilaterally. Sensory intact bilaterally.) Pain with motion: internal rotation and hip flexion (Bilateral lower extremities have pain with any sort of motion.) Results - Labs Labs: Abnormal Lab Results - Last 24 Hours (Table) 06/14/21 06/14/21 Range/Units 20:41 20:41 WBC 11.2 H (3.8-10.6) k/uL RBC 3.40 L (3.80-5.40) m/uL Hgb 10.5 L (11.4-16.0) gm/dL Hct 33.1 L (34.0-46.0) % Plt Count 127 L (150-450) k/uL Neutrophils # 10.0 H (1.3-7.7) k/uL Lymphocytes # 0.5 L (1.0-4.8) k/uL BUN 38 H (7-17) mg/dL Creatinine 5.71 H (0.52-1.04) mg/dL Glucose 115 H (74-99) mg/dL H & H 06/14/21 Range/Units 20:41 Hgb 10.5 L (11.4-16.0) gm/dL Hct 33.1 L (34.0-46.0) % Coagulation 06/14/21 Range/Units 20:41 INR 1.0 (<1.2) Result Diagrams: 06/14/21 20:41 06/14/21 20:41 - Diagnostic results Hip x-ray: report reviewed (Right femoral shaft fracture as stated. At the left hip. There is an intertrochanteric femur fracture.), image reviewed (Imaging the pelvis and views of the left hip and right femur are reviewed. It shows a right femoral shaft fracture at the junction of the middle distal third. His long spiral some comminution and 100% displacement. It does not extend to the knee joint. At the left hip there is intertrochanteric ) Assessment and Plan Assessment: Status post fall at home with bilateral femur fractures Right femoral shaft fracture acute displaced due to fall and neurologically intact vascularly intact Left hip intertrochanteric femur fracture neurovascularly intact acute traumatic due to fall Right tibia pain due to fall, imaging still pending End-stage renal disease on dialysis for 9 years COPD and current chronic smoker Plan: Status post fall at home with bilateral femur fractures Right femoral shaft fracture acute displaced due to fall and neurologically intact vascularly intact Left hip intertrochanteric femur fracture neurovascularly intact acute traumatic due to fall Right tibia pain due to fall, imaging still pending End-stage renal disease on dialysis for 9 years COPD and current chronic smoker The patient has bilateral femur fractures and these are acute teacher fall. I discussed this with her and her at bedside. She is normally immediately without any assistance but with these injuries this will significantly impair her ability to mobilize. The best way to give her a chance to mobilize would be surgical fixation of her bilateral femurs. For the right femur she will need intramedullary rodding for stabilization. At the left side she can have intramedullary hip screw for stabilization of her intertrochanteric fracture. I would plan to pursue surgical intervention hopefully tomorrow with a right femoral jairo and left intertrochanteric hip screw. I discussed these with her at length and discussed the risk of occasions alternatives and benefits of surgery with her. I discussed the risk of bleeding risk of infection risk of change in ambulatory status and long-term changes in her overall lifestyle and ambulation. Answered her questions best my ability and they like to proceed with surgical intervention on her bilateral femurs tomorrow. She still has pain at her right tibia and we will obtain further imaging of her knee and tibia. She is going to be splinted in the emergency room with a knee immobilizer and I think that's appropriate for her right leg. This could help with some pain control and some hygiene care. She'll be nothing by mouth after midnight tonight for surgery on . We will have appropriate medical clearance for her.
--- NOTE | 2021-06-15 01:40 | XR ---
EXAMINATION TYPE: XR femur RT DATE OF EXAM: 06/15/2021 COMPARISON: Yesterday HISTORY: Post reduction TECHNIQUE: 3 views FINDINGS: There is a spiral fracture of the mid and distal shaft of the right femur. Fracture extends to the medial femoral condyle. There is 2.5 cm medial displacement of the distal fragment on the fro ntal projection. There is a posterior splint. IMPRESSION: Displaced spiral fracture of the right femur without significant change in position eleni red to initial exam.
--- NOTE | 2021-06-15 01:42 | XR ---
EXAMINATION TYPE: XR tibia fibula RT DATE OF EXAM: 06/15/2021 COMPARISON: NONE HISTORY: Fall. Pain. TECHNIQUE: 4 views FINDINGS: Ankle mortise is anatomic. I see no fracture at the ankle joint. There is some sclerosis in the talus that could relate to chronic avascular necrosis. There is a depressed fracture of the lateral tibial plateau. Depression is approximately 5 mm with co mminution. IMPRESSION: Depressed fracture of the lateral tibial plateau. 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
[2021-06-15] MEDS: HYDROmorphone 0.5 MG/0.5 ML SYRINGE IVP PRN ×6 (03:45→21:27)
[2021-06-15] MEDS: CALCIUM ACETATE 667 MG TAB PO SCH ×2 (08:12→20:03)
[2021-06-15] MEDS: cloNIDine HCL 0.1 MG TAB PO SCH ×2 (08:12→17:18)
[2021-06-15] MEDS: ASPIRIN 81 MG PO SCH (08:12)
[2021-06-15] MEDS: PANTOPRAZOLE 40 MG TABLET PO SCH ×2 (08:12→17:18)
[2021-06-15] MEDS: hydrALAZINE HCL 50 MG TAB PO SCH ×3 (08:13→20:03)
[2021-06-15] MEDS: lisinopriL 20 MG TAB PO SCH ×2 (08:13→20:03)
[2021-06-15] MEDS: TORSEMIDE 20 MG TAB PO SCH ×2 (08:13→21:28)
[2021-06-15] MEDS: minoxidiL 2.5 MG TAB PO SCH ×2 (08:13→21:28)
[2021-06-15] MEDS: METOPROLOL SUCCINATE (ER) 50 MG TAB.ER.24H PO SCH ×2 (08:14→20:03)
[2021-06-15] MEDS ORDERED: FUROSEMIDE 40 MG TAB PO SCH (09:00)
--- NOTE | 2021-06-15 10:52 | P.CONS ---
History of Present Illness - Reason for Consult Preoperative clearance - History of Present Illness 70-year-old female came in after a fall without any syncopal episode appears to be mechanical fall. Patient had bilateral femoral fractures, displaced right femoral fracture and left hip intertrochanteric fracture. Patient is scheduled for a open reduction internal fixation. Patient does have a some leukocytosis doesn't have any fever doesn't appear to be septic. Patient does smoke one pack of cigarette per day patient is hemodialysis dependent uncontrolled elevated blood pressures on multiple antidepressant medications. I do not have any EKG available patient denied any previous history of coronary artery disease or Stents in the past patient denied any history of congestive heart failure EKG will be obtained. REVIEW OF SYSTEMS: CONSTITUTIONAL: No fever, no malaise, no fatigue. HEENT: No recent visual problems or hearing problems. Denied any sore throat. CARDIOVASCULAR: No chest pain, orthopnea, PND, no palpitations, no syncope. PULMONARY: No shortness of breath, no cough, no hemoptysis. GASTROINTESTINAL: No diarrhea, no nausea, no vomiting, no abdominal pain. NEUROLOGICAL: No headaches, no weakness, no numbness. HEMATOLOGICAL: Denies any bleeding or petechiae. GENITOURINARY: Denies any burning micturition, frequency, or urgency. MUSCULOSKELETAL/RHEUMATOLOGICAL pain in bilateral lower extremities and able to move ENDOCRINE: Denies any polyuria or polydipsia. The rest of the 14-point review of systems is negative. PHYSICAL EXAMINATION: GENERAL: The patient is alert and oriented x3, not in any acute distress. Well developed, well nourished. HEENT: Pupils are round and equally reacting to light. EOMI. No scleral icterus. No conjunctival pallor. Normocephalic, atraumatic. No pharyngeal erythema. No thyromegaly. CARDIOVASCULAR: S1 and S2 present. No murmurs, rubs, or gallops. PULMONARY: Chest is clear to auscultation, no wheezing or crackles. ABDOMEN: Soft, nontender, nondistended, normoactive bowel sounds. No palpable organomegaly. MUSCULOSKELETAL: Deferred to orthopedic surgery EXTREMITIES: No cyanosis, clubbing, or pedal edema. NEUROLOGICAL: Gross neurological examination did not reveal any focal deficits. SKIN: No rashes. Assessment and plan -Operative clearance: Patient is status post fall with the bilateral femoral fractures right femoral shaft fracture and left hip intertrochanteric fracture, patient is intermediate for the surgery on off and EKG. Patient is fact is being smoking history, and seasonal disease uncontrolled blood pressure. Risks and benefits were To the patient and patient is agreeable for the risk and patient will go for surgery which will improve her functionality. -End-stage renal disease dialysis dependent nephrology was consulted patient will be resumed on phosphate binders and diuretics. -Hypertension patient was resumed on all her home medications patient is on multiple medications for blood pressure including lisinopril, hydralazine, metoprolol, minoxidil, clonidine. Epigastric esophageal reflux disease Heparin nicotine use: Counseling was provided DVT prophylaxis: As per primary service Past Medical History Past Medical History: GERD/Reflux, Hypertension, Renal Disease Additional Past Medical History / Comment(s): chronic pain; Kidney Dialysis Sat/. History of Any Multi-Drug Resistant Organisms: None Reported Past Surgical History: Breast Surgery, Tonsillectomy Additional Past Surgical History / Comment(s): benign Br lumpectomy Past Anesthesia/Blood Transfusion Reactions: No Reported Reaction Past Psychological History: Depression Smoking Status: Current every day smoker Past Alcohol Use History: None Reported Additional Past Alcohol Use History / Comment(s): has smoked for about 45 years; down to 1/2 ppd Past Drug Use History: None Reported - Past Family History Mother Family Medical History: No Reported History Medications and Allergies Home Medications Medication Instructions Recorded Confirmed Type Aspirin 81 mg PO DAILY 12/28/16 06/14/21 History Mirtazapine [Remeron] 30 mg PO HS 12/28/16 06/14/21 History QUEtiapine [SEROquel] 150 mg PO HS PRN 12/28/16 06/14/21 History Rosuvastatin [Crestor] 10 mg PO HS 12/28/16 06/14/21 History cloNIDine HCL [Catapres] 0.3 mg PO BID-W/MEALS 12/28/16 06/14/21 History cloNIDine HCL [Catapres] 0.2 mg PO HS 04/18/18 06/14/21 History Torsemide [Demadex] 60 mg PO BID 11/16/18 06/14/21 History minoxidiL [Loniten] 5 mg PO BID 11/16/18 06/14/21 History Esomeprazole Magnesium [NexIUM] 40 mg PO BID 01/18/20 06/14/21 History Furosemide [Lasix] 40 mg PO BID 01/18/20 06/14/21 History calcitrioL [Calcitriol] 1 mcg PO DAILY 01/18/20 06/14/21 History hydrALAZINE HCL [Apresoline] 100 mg PO TID 01/18/20 06/14/21 History lisinopriL 20 mg PO BID 01/18/20 06/14/21 History Calcium Acetate 667 mg PO BID 06/14/21 06/14/21 History HYDROcodone/APAP 10-325MG [Barto 1 tab PO BID PRN 06/14/21 06/14/21 History 10-325] Metoprolol Succinate (ER) [Toprol 50 mg PO BID 06/14/21 06/14/21 History XL] Oxazepam [Serax] 10 mg PO DAILY PRN 06/14/21 06/14/21 History Allergies Allergy/AdvReac Type Severity Reaction Status Date / Time erythromycin base Allergy Unknown Verified 06/14/21 22:20 fentanyl Allergy Unknown Verified 06/14/21 22:20 oxycodone HCl [From Percocet] Allergy Nausea & Verified 06/14/21 22:20 Vomiting succinylcholine Allergy Unknown Verified 06/14/21 22:20 Physical Exam Vitals: Vital Signs Temp Pulse Pulse Resp BP BP Pulse Ox 06/15/21 07:34 98.2 F 78 20 156/60 95 06/15/21 04:29 20 06/15/21 04:13 82 20 158/58 93 L 06/15/21 02:00 97.5 F L 72 23 193/115 92 L 06/15/21 01:45 97.7 F 72 26 H 189/97 94 L 06/15/21 01:15 76 14 100 06/15/21 00:55 70 12 187/72 95 06/15/21 00:40 72 10 L 181/66 98 06/15/21 00:30 77 36 H 207/68 99 06/15/21 00:00 71 20 198/74 100 06/14/21 23:15 81 20 183/66 95 06/14/21 22:32 73 20 183/71 91 L 06/14/21 22:01 72 06/14/21 21:49 76 06/14/21 20:19 98.0 F 76 22 190/81 93 L Intake and Output 06/14/21 06/15/21 06/15/21 22:59 06:59 14:59 Output Total 300 Balance -300 Output: Urine 300 Other: Voiding Method Indwelling Catheter Indwelling Catheter Weight 56.699 kg 56.699 kg Results CBC & Chem 7: 06/14/21 20:41 06/14/21 20:41 Labs: Abnormal Lab Results - Last 24 Hours (Table) 06/14/21 06/14/21 Range/Units 20:41 20:41 WBC 11.2 H (3.8-10.6) k/uL RBC 3.40 L (3.80-5.40) m/uL Hgb 10.5 L (11.4-16.0) gm/dL Hct 33.1 L (34.0-46.0) % Plt Count 127 L (150-450) k/uL Neutrophils # 10.0 H (1.3-7.7) k/uL Lymphocytes # 0.5 L (1.0-4.8) k/uL BUN 38 H (7-17) mg/dL Creatinine 5.71 H (0.52-1.04) mg/dL Glucose 115 H (74-99) mg/dL
[2021-06-15] MEDS ORDERED: IV FLUID CONTINUATION 1,000 ML IV ONE (11:52)
[2021-06-15] MEDS ORDERED: ONDANSETRON 4 MG/2 ML VIAL ONE (12:11)
[2021-06-15] MEDS ORDERED: DEXAMETHASONE SOD PHOSPHATE 4 MG/ML 1 ML VIAL IV ONE (12:12)
[2021-06-15] MEDS ORDERED: fentaNYL (PF) 50 MCG/ML 2 ML AMP IV ONE (12:13)
[2021-06-15] MEDS ORDERED: ONDANSETRON 4 MG/2 ML VIAL IVP ONE (12:13)
[2021-06-15] MEDS ORDERED: ePHEDrine SULFATE/0.9% NACL/PF 50 MG/5 ML SYRINGE IV ONE (12:38)
[2021-06-15] MEDS ORDERED: MIDAZOLAM 2 MG/2 ML VIAL ONE (12:38)
[2021-06-15] MEDS ORDERED: KETAMINE 10 MG/ML 20 ML VIAL ONE (12:38)
[2021-06-15] MEDS ORDERED: HYDROmorphone (PF) 1 MG/ML ONE (12:38)
[2021-06-15] MEDS ORDERED: PHENYLEPHRINE-0.9% NACL SYG 1,000 MCG/10 ML SYRINGE ONE (12:38)
[2021-06-15] MEDS ORDERED: SODIUM CHLORIDE 0.9% 100 ML with ceFAZolin 2,000 MG IV ONE ×2 (13:00)
[2021-06-15] MEDS ORDERED: ceFAZolin 1,000 MG in SODIUM CHLORIDE 0.9% 1,000 ML IRRIGATION ONE ×2 (13:23→14:33)
--- NOTE | 2021-06-15 16:18 | P.OP ---
Date of Procedure: 06/15/21 Preoperative Diagnosis: Bilateral femur fractures Left femur intertrochanteric with subtrochanteric extension femur fracture Right femur comminuted displaced distal femoral shaft fracture Status post fall at home Right tibial plateau fracture Postoperative Diagnosis: Same Anesthesia: spinal Pathology: other (Right and left femoral reamings sent separately to pathology) Condition: stable Disposition: PACU Description of Procedure: Preoperative diagnosis: Polytrauma with multiple long bone fractures Bilateral femur fractures Left femur intertrochanteric with subtrochanteric extension femur fracture Right femur comminuted displaced distal femoral shaft fracture Status post fall at home Right tibial plateau fracture Postoperative diagnosis: Same Procedure: Left femur intertrochanteric hip screw with a long nail placed for the intertrochanteric fracture and protection of the femur Use of fluoroscopic guidance Closed reduction Under the same anesthesia with a separate set up we also performed Right femur intramedullary rodding with closed reduction Surgeon: Dr. Ankit Garduno.: press assistant and feeder who is present that the entire the case persistence during positioning dissection exposure placement of hardware and closure Anesthesia: Spinal Estimated blood loss: Approximately 300 mL Components implanted: On the left we placed an InterTAN 11 x 125 intramedullary jairo with proximal and distal locking On the right femur we placed an InterTAN 11 x 130 intramedullary jairo with proximal and distal locking screws with 2 distal locking screws Disposition: To recovery room in good stable condition Operative indications The patient sustained a injury and suffered a bilateral femur fracture at the inter-trochanteric area of her femur on the left hand a right femoral shaft, needed fracture both of which were displaced and angulated. We were involved in the case in regard to her multiple long bone fracture. The patient has long- term end-stage renal disease and has on dialysis for the past 9 years. Apparently she sustained a fall at home yesterday. She was with her and fell onto some exposed boards and sustained multiple injuries. She was tripped up by the dogs when she fell and sustained a left hip intertrochanteric fracture with subtrochanteric extension and right femur comminuted shaft fracture and a right lateral tibial plateau fracture as well. She was significantly incapacitated due to the fractures. I felt that she would need urgent care for her bilateral femur fractures and that we could manage the tibial plateau fracture potentially conservatively and not emergently for now. I discussed this with her at length. I discussed the nature of her injuries and her fractures. They understand that the patient may have severe changes in her overall life status and her amatory status due to this severe injuries to bilateral femurs. She will have to be nonweightbearing for an extended period time on bilateral lower extremities and may in fact need further surgery for her lower extremities. We discussed the surgical procedures and a femoral rodding. This would give them the best chance of mobilization and ambulation. We discussed the range of treatment options from conservative to surgical. They elected proceed with surgical intervention. We answered their questions to the best of our ability healing which they can understand. They signed an informed consent. We felt that we could perform the procedure with single anesthetic on the fracture hana table , And we prepared appropriately. Operative summary After obtaining informed consent evaluation by anesthesia, preoperative evaluation and clearance for medical service, the patient was identified and prepped [place] area and the surgical site was marked. There brought to the operating room where the given appropriate anesthesia by the anesthesia department in standard fashion without any complications. Once the anesthesia was established with a spinal anesthetic we were able to position the patient. The patient was placed on a fracture table with a well-padded perineal post. we placed bilateral feet in the well-padded foot rice stirrups in preparation for the left femur surgery and then the right femur surgery thereafter. She was placed appropriately with her feet padded and supported with the fracture table. For procedure #1: We started with the left femur surgery at the intertrochanteric it fracture with subtrochanteric extension. C-arm was brought in and we performed a closed reduction technique at the hip. We are able to get good alignment good position of the intertrochanteric fracture with gentle reduction techniques and traction utilizing the fracture table. Once patient was well positioned lower extremity was prepped and draped in normal standard sterile fashion. An appropriate keystone protocol and timeout was completed and were able to proceed with surgery. He started point just proximal to the greater trochanter was established and a median incision approximately 2 inches in length approximately to the greater trochanter On the left. I dissected down through the fascia and I was able to expose the tip of the greater trochanter. A sharp starting hole was established at the tip of the greater trochanter near the junction of the anterior and middle third. Positioning was confirmed with C-arm guidance. I was able to start the awl into the bone and then use a guidepin at the starting point establish down to the level of the lesser trochanter at the intramedullary space. I then used a starting reamer for the greater trochanter placed over the guidepin and reamed down appropriately under C-arm guidance. No was made of obvious osteopenia and bone loss with minimal resistance on reaming. I felt that to protect her femur appropriately that we should place a long intramedullary jairo. This would also help stabilize the subtrochanteric extension. I felt that there would be a significant stress riser at the tip of the short jairo and we chose to use a long jairo for her. I was unable to place a guidepin into the intramedullary aspect of the femur and then reamed appropriately to the appropriate length. The positioning was confirmed on C-arm guidance. With the femur appropriately reamed I then chose the appropriate size intramedullary jairo which was connected to the appropriate jig. The jig was checked for alignment. The area was copiously irrigated and suctioned dry and we're able place the jairo at intramedullary space through the starting hole appropriately. It was seated down for appropriate position to align the leg pain into the femoral neck and head. A second incision was established at the site for the placement of the lag screw area and the guide was established at the lateral aspect of the femur and a guidepin was drilled into the femoral neck and head and near center center position. With this appropriate alignment and position where a reamer over the guidepin making sure not to penetrate the articular surface. The position was confirmed on C-arm guidance in AP and lateral positions. With this established we were able to place the appropriate size lag screw after measuring. Lag screw was placed into the femoral neck and head good alignment good position with excellent bony purchase. It was appropriately aligned and we placed a locking screw through the jairo appropriately and checked that the position was established. I was able to drill and place the compression screw immediately adjacent and inferior to the lag screw which gave good compression across the fracture site in good alignment and position. With the area in good position able place a distal locking screw. We utilized akilah freehand technique with a separate incision was made at the skin. TheC- arm was used to establish the distal locking screw hole was established through the femur and distal locking hole of the intramedullary jairo. It was measured appropriately and a distal locking screw was placed in good alignment and good position with excellent bony purchase. The position was checked to make sure it was through the appropriate hole in the intramedullary jairo. With this established we're able to remove the jig completely from the jairo and final images were taken which showed excellent alignment and position of the hardware and the fracture. With the jairo in place and the fracture stable, although the incision sites were copiously irrigated and suctioned dry. Good hemostasis was maintained. Deep fascial layers were closed with #1 Vicryl. Subcu tissue was closed with 2-0 Vicryl. Subcuticular tissues closed with 3-0 Vicryl. Was are cleaned and dried with dressed withglue and opted, dressing Drapes were broken down, and we are able to prepared then for the right femur surgery. For procedure #2: The right hip under the same anesthesia was then prepped and draped. Appropri ate keystone protocol was again performed. C-arm was brought in and we performed a closed reduction technique at the femur shaft. We are able to get good alignment good position of the femur fracture with gentle reduction techniques and traction utilizing the fracture table. There was significant comminution at the area I was able to get good reduction at the area. Once patient was well positioned lower extremity was prepped and draped in normal standard sterile fashion. An appropriate keystone protocol and timeout was completed and were able to proceed with surgery. He started point just proximal to the greater trochanter was established and a median incision approximately 2 inches in length approximately to the greater trochanter. I dissected down through the fascia and I was able to expose the tip of the greater trochanter. A sharp starting hole was established at the tip of the greater trochanter near the junction of the anterior and middle third. Positioning was confirmed with C-arm guidance. I was able to start the awl into the bone and then use a guidepin at the starting point establish down to the level of the lesser trochanter at the intramedullary space. I then used a starting reamer for the greater trochanter placed over the guidepin and reamed down appropriately under C-arm guidance. I was unable to place a guidepin into the intramedullary aspect of the femur and then reamed appropriately to the appropriate length. The positioning was confirmed on C-arm guidance. Then able to thread a guide jairo down through the femoral shaft across the fracture site and into the distal femur appropriately. It was measured and we had good alignment. We were then able to ream over the guidepin appropriately. There is no evidence of any displacement or splaying of the fracture fragments. With the femur appropriately reamed I then chose the appropriate size intramedullary jairo which was connected to the appropriate jig. The jig was checked for alignment. The area was copiously irrigated and suctioned dry and we're able place the jairo at intramedullary space through the starting hole appropriately. It was seated down for appropriate position to align the leg pain into the femoral neck and head. A second incision was established at the site for the placement of the lag screw area and the guide was established at the lateral aspect of the femur and a guidepin was drilled into the femoral neck and head and near center center position. With this appropriate alignment and position where a reamer over the guidepin making sure not to penetrate the artic ular surface. The position was confirmed on C-arm guidance in AP and lateral positions. With this established we were able to place the appropriate size lag screw after measuring. Lag screw was placed into the femoral neck and head good alignment good position with excellent bony purchase. It was appropriately aligned and we placed a locking screw through the jairo appropriately and checked that the position was established. With the area in good position able place a distal locking screws. I was able to use a freehand technique to place 2 distal locking screws laterally to medially across the femur site. As able get excellent fixation and no evidence of any further splitting in good stable leak through the fracture. The screws was placed in the lateral aspect of the femur and the distal locking screw hole was established through the femur and distal locking hole of the intramedullary jairo. It was measured appropriately and a distal locking screw was placed in good alignment and good position with excellent bony purchase. The position was checked to make sure it was through the appropriate hole in the intramedullary jairo. With this established we're able to remove the jig completely from the jairo and final images were taken which showed excellent alignment and position of the hardware and the fracture. the hip was held in stable position with the post being removed safely once the positioning was stabilized. The patient was then transferred back to their hospital bed being careful to maintain the hip and C-spine alignment and airway. Once stable to patient was transferred back to the postanesthesia care unit to be readmitted for pain control and DVT prophylaxis medical management and monitoring and mobilization we will continue follow patient closely throughout their postoperative course.
--- NOTE | 2021-06-15 17:28 | FL ---
EXAMINATION TYPE: FL guidance operating room, XR femur RT, FL guidance operating room, XR Hip Limited LT DATE OF EXAM: 06/15/2021 CLINICAL HISTORY: Left hip, right femur fractures TECHNIQUE: Fluoroscopy. COMPARISON: None. FINDINGS: Fluoroscopic guidance was provided during procedure performed by Dr. Pham. A total of 2 minutes of fluoroscopic time was utilized during the procedure. 8 spot images of the right femur were obtained, and 6 images of the left hip were obtained, for a total of 14 images. IMPRESSION: As Above.
[2021-06-15] MEDS ORDERED: BENZOCAINE/MENTHOL LOZENG 1 EACH LOZENGE MUCOUS MEM PRN (17:56)
[2021-06-15] MEDS ORDERED: MAGNESIUM HYDROXIDE 2,400 MG/10 ML CUP PO PRN (17:56)
[2021-06-15] MEDS ORDERED: NALOXONE 0.4 MG/ML 1 ML VIAL IV PRN (17:56)
[2021-06-15] MEDS ORDERED: ONDANSETRON 4 MG/2 ML VIAL IVP PRN (17:58)
[2021-06-15] MEDS: SODIUM CHLORIDE 0.9% 1,000 ML IV SCH (18:59)
[2021-06-15 19:04] LABS: Basophils % (A) 0 %; Eosinophils % (A) 0 %; HCT 21.6 % (34.0-46.0); Hypochromasia Moderate; Lymphocytes # (A) 0.6 k/uL (1.0-4.8); Lymphocytes % (A) 4 %; MCHC 32.3 g/dL (31.0-37.0); Monocytes # (A) 0.7 k/uL (0-1.0); Monocytes % (A) 5 %; Neutrophils # (A) 13.1 k/uL (1.3-7.7); Neutrophils % (A) 90 %; Platelet Count 142 k/uL (150-450); RBC 2.18 m/uL (3.80-5.40); RDW 14.6 % (11.5-15.5); WBC 14.5 k/uL (3.8-10.6)
[2021-06-15] MEDS: ATORVASTATIN 20 MG TAB PO SCH (20:03)
[2021-06-15] MEDS: MIRTAZAPINE 15 MG TAB PO SCH (20:03)
[2021-06-15] MEDS: cloNIDine HCL 0.2 MG TAB PO SCH (20:03)
[2021-06-15] MEDS: HYDROcodone/APAP 5-325MG 1 EACH TAB PO PRN (20:04)
[2021-06-16] MEDS: HYDROcodone/APAP 5-325MG 1 EACH TAB PO PRN (05:45)
[2021-06-16] MEDS: ONDANSETRON 4 MG/2 ML VIAL IVP PRN ×2 (07:25→12:56)
[2021-06-16] MEDS ORDERED: METOCLOPRAMIDE 5 MG/ML 2 ML VIAL IVP STA (08:44)
[2021-06-16] MEDS: KETOROLAC 15 MG/ML 1 ML VIAL IVP PRN ×2 (08:51→15:42)
[2021-06-16] MEDS: lisinopriL 20 MG TAB PO SCH ×2 (08:59→20:52)
[2021-06-16] MEDS: ASPIRIN 81 MG PO SCH (08:59)
[2021-06-16] MEDS: cloNIDine HCL 0.1 MG TAB PO SCH ×2 (08:59→19:15)
[2021-06-16] MEDS: CALCIUM ACETATE 667 MG TAB PO SCH ×2 (08:59→20:52)
[2021-06-16] MEDS: hydrALAZINE HCL 50 MG TAB PO SCH ×3 (08:59→22:57)
[2021-06-16] MEDS: PANTOPRAZOLE 40 MG TABLET PO SCH ×2 (08:59→19:15)
[2021-06-16] MEDS: SENNOSIDES-DOCUSATE SODIUM 1 EACH TAB PO SCH (09:00)
[2021-06-16] MEDS: minoxidiL 2.5 MG TAB PO SCH ×2 (09:00→22:57)
[2021-06-16] MEDS: METOPROLOL SUCCINATE (ER) 50 MG TAB.ER.24H PO SCH ×2 (09:00→20:52)
[2021-06-16] MEDS: TORSEMIDE 20 MG TAB PO SCH ×2 (09:00→20:53)
--- NOTE | 2021-06-16 09:01 | P.PN ---
Subjective Progress Note Date: 06/16/21 Principal diagnosis: Intertrochanteric fracture left hip. Femur fracture right leg. Status post closed reduction with insertion of intertrochanteric nail left hip. Status post intramedullary nailing with closed reduction right femur. This is a 70-year-old female who is status post Left femur intertrochanteric hip screw with a long nail placed for the intertrochanteric fracture and protection of the femur, Under the same anesthesia with a separate set up we also performed Right femur intramedullary rodding with closed reduction. She is stable from an orthopedic standpoint. She is at the edge of the bed with physical therapy today. She has no new complaints or concerns today. Vital signs are stable. Objective - Vital Signs Vital signs: Vital Signs Temp 98 F 06/16/21 08:00 Pulse 84 06/16/21 08:00 Resp 16 06/16/21 08:00 BP 136/54 06/16/21 08:00 Pulse Ox 94 L 06/16/21 08:16 Intake & Output 06/15/21 06/16/21 06/16/21 18:59 06:59 18:59 Intake Total 652 Output Total 420 0 Balance 232 0 Weight 56.699 kg Intake: IV 652 Output: Urine 20 0 Estimated Blood Loss 400 Other: Voiding Method Indwelling Catheter Indwelling Catheter - Exam This is a pleasant 70-year-old female in no acute distress. She is alert and oriented 3. She is sitting at the edge of the bed with physical therapy prese nt. Exam of the lower extremities reveals knee immobilizer in place to the right leg. She has full foot and ankle motion bilaterally. Pedal pulses are +1/4. Neurovascular status to the lower extremities is intact. Dressings are clean, dry and intact. - Labs CBC & Chem 7: 06/15/21 18:49 06/14/21 20:41 Labs: Abnormal Lab Results - Last 24 Hours (Table) 06/15/21 Range/Units 18:49 WBC 14.5 H (3.8-10.6) k/uL RBC 2.18 L (3.80-5.40) m/uL Hgb 7.0 L D (11.4-16.0) gm/dL Hct 21.6 L (34.0-46.0) % Plt Count 142 L (150-450) k/uL Neutrophils # 13.1 H (1.3-7.7) k/uL Lymphocytes # 0.6 L (1.0-4.8) k/uL Assessment and Plan (1) Displaced comminuted fracture of shaft of right femur Current Visit: Yes Status: Acute Code(s): S72.351A - DISPLACED COMMINUTED FRACTURE OF SHAFT OF RIGHT FEMUR, INIT SNOMED Code(s): 71701178 (2) Fall Current Visit: Yes Status: Acute Code(s): W19.XXXA - UNSPECIFIED FALL, INITIAL ENCOUNTER SNOMED Code(s): 9489613 (3) Trochanteric fracture of left femur Current Visit: Yes Status: Acute Code(s): S72.102A - UNSP TROCHANTERIC FRACTURE OF LEFT FEMUR, INIT FOR CLOS FX SNOMED Code(s): 96143604 Plan: The clinical findings are discussed with the patient. She we'll continue with physical therapy. She is nonweightbearing bilateral lower extremities. Plan is for discharge to inpatient rehab when stable.
--- NOTE | 2021-06-16 11:19 | CONS ---
CONSULTATION REASON FOR CONSULT: End-stage renal disease. HISTORY OF PRESENT ILLNESS: Patient is a 70-year-old female with end-stage renal disease, currently dialyzing only twice per week. The patient was admitted to the hospital with a history of fall. She sustained bilateral hip fractures and is currently status post surgery. The patient had left femoral intertrochanteric hip screw with long nail placed and right femur intramedullary rodding and closed reduction. She is currently complaining of significant nausea and she did receive Zofran about 2 hours ago. No significant shortness of breath. The patient is scheduled for hemodialysis today. She has an AV fistula. No fevers or chills. PAST MEDICAL HISTORY: End-stage renal disease, gastroesophageal reflux disease, CKD mineral bone disorder. PAST SURGICAL HISTORY: Tonsillectomy, breast lumpectomy which was benign, AV fistula, history of depression. SOCIAL HISTORY: Positive for smoking. No drug abuse or alcohol abuse. MEDICATIONS: Medications prior to admission included aspirin, Remeron, Seroquel, Crestor, clonidine, Demadex, Loniten, Nexium, Lasix, calcitriol, hydralazine, lisinopril, PhosLo, metoprolol. ALLERGIES: ERYTHROMYCIN, FENTANYL, SUCCINYLCHOLINE, AND PERCOCET. REVIEW OF SYSTEMS: As per HPI. Other systems negative. PHYSICAL EXAMINATION: Patient is comfortable, awake. She is complaining of significant nausea. Blood pressure 136/54, heart rate 84 per minute, she is afebrile. Examination of the heart S1, S2. Examination of the lungs, bilateral breath sounds are heard. Abdomen is soft, nontender. CONSERVATION EDUCATOR exam grossly intact. LAB: Show sodium of 140, potassium 4.6, BUN 38, creatinine 5.7, hemoglobin 7.0 g/dL. ASSESSMENT: 1. End-stage renal disease, on hemodialysis twice a week. We will arrange for hemodialysis today. The patient has been advised regarding increasing the frequency of dialysis and she has been adamant and has refused increasing the frequency to 3 times a week. We will dialyze her today. 2. Status post fall with bilateral hip fractures, status post surgery. 3. Nausea secondary to pain medications post surgery, maintained on Zofran. I will give her a dose of Reglan. We can also add Toradol to help with the pain. I will discontinue the IV fluids. 4. Chronic kidney disease mineral bone disorder. PLAN: Hemodialysis today. Add Toradol, one time dose of Reglan. DC IV fluids. Thank you for this consultation. We will continue to follow the patient with you during her hospitalization. MMTONOL / IJN: [id number] /
[2021-06-16] MEDS: HYDROmorphone 0.5 MG/0.5 ML SYRINGE IVP PRN (12:56)
[2021-06-16] MEDS: SODIUM CHLORIDE 0.9% 1,000 ML IV SCH (13:44)
[2021-06-16] MEDS: cloNIDine HCL 0.2 MG TAB PO SCH (20:41)
[2021-06-16] MEDS: ATORVASTATIN 20 MG TAB PO SCH (20:52)
[2021-06-16] MEDS: MIRTAZAPINE 15 MG TAB PO SCH (20:52)
--- NOTE | 2021-06-17 01:13 | P.PN ---
Subjective Progress Note Date: 06/16/21 - Reason for Consult Preoperative clearance - History of Present Illness 70-year-old female came in after a fall without any syncopal episode appears to be mechanical fall. Patient had bilateral femoral fractures, displaced right femoral fracture and left hip intertrochanteric fracture. Patient is scheduled for a open reduction internal fixation. Patient does have a some leukocytosis doesn't have any fever doesn't appear to be septic. Patient does smoke one pack of cigarette per day patient is hemodialysis dependent uncontrolled elevated blood pressures on multiple antidepressant medications. I do not have any EKG available patient denied any previous history of coronary artery disease or Stents in the past patient denied any history of congestive heart failure EKG will be obtained.. 06/16/2021 Patient is seen in follow up this morning having some nausea and continues on 2L of oxygen via [place]. Patient states she is having some mild intermittent periods of shortness of breath since the surgery, but also states that "the staff put the oxygen on for the surgery". Will wean Fi02 as tolerated. Patient is esrd and states that she does dialysis two times per week and nephrology is consulted and plans on hemodialysis today. Patient continues to have pain in bilateral lower extremities but states the right is more painful. Most recent hemoglobin was 7.0 and will repeat am labs. Reports of passing gas but no bowel movement. REVIEW OF SYSTEMS: CONSTITUTIONAL: No fever, no malaise, no fatigue. CARDIOVASCULAR: No chest pain, orthopnea, PND, no palpitations, no syncope. PULMONARY: mild shortness of breath, no cough, no hemoptysis. GASTROINTESTINAL: No diarrhea, reports of nausea, and dry heaving, no abdominal pain. NEUROLOGICAL: No headaches, no weakness, no numbness. GENITOURINARY: Denies any burning micturition, frequency, or urgency. MUSCULOSKELETAL/RHEUMATOLOGICAL pain in bilateral lower extremities and able to move reports the pain is worse on the right leg PHYSICAL EXAMINATION: GENERAL: The patient is alert and oriented x3, not in any acute distress. Well developed, well nourished. HEENT: Pupils are round and equally reacting to light. EOMI. No scleral icterus. No conjunctival pallor. Normocephalic, atraumatic. No pharyngeal erythema. No thyromegaly. CARDIOVASCULAR: S1 and S2 present. No murmurs, rubs, or gallops. PULMONARY: Chest is clear to auscultation, no wheezing or crackles. ABDOMEN: Soft, nontender, nondistended, normoactive bowel sounds. No palpable organomegaly. MUSCULOSKELETAL: Deferred to orthopedic surgery EXTREMITIES: No cyanosis, clubbing, or pedal edema. NEUROLOGICAL: Gross neurological examination did not reveal any focal deficits. SKIN: No rashes. Assessment and plan -Operative clearance: Patient is status post fall with the bilateral femoral fractures right femoral shaft fracture and left hip intertrochanteric fracture, now post-op day 1. -status post closed reduction with insertion of intertrochanteric nail left hip -Status post intramedullary nailing with closed reduction right femur. -End-stage renal disease dialysis dependent nephrology following and patient will be resumed on phosphate binders and diuretics. Plan is for dialysis today -Hypertension patient was resumed on all her home medications patient is on multiple medications for blood pressure including lisinopril, hydralazine, metoprolol, minoxidil, clonidine. -Gastroesophageal reflux disease -Continued ongoing nicotine use: Counseling was provided -DVT prophylaxis: As per primary service Plan: Patient to work with physical therapy and patient to remain non-weightbearing of bilateral lower extremities. Patient to receive dialysis today. Plans are for rehab at an [facility] for continued PT/OT therapy and social work working on accepting facility. Patient will have labs drawn in the am. Wean FI02 as tolerated. Will add incentive spirometer and encourage at least 10 times every hour while awake. Objective - Vital Signs Vital signs: Vital Signs Temp 98 F 06/16/21 08:00 Pulse 84 06/16/21 08:00 Resp 16 06/16/21 08:00 BP 136/54 06/16/21 08:00 Pulse Ox 94 L 06/16/21 08:16 Intake & Output 06/15/21 06/16/21 06/16/21 18:59 06:59 18:59 Intake Total 652 Output Total 420 0 Balance 232 0 Weight 56.699 kg Intake: IV 652 Output: Urine 20 0 Estimated Blood Loss 400 Other: Voiding Method Indwelling Catheter Indwelling Catheter Indwelling Catheter - Labs CBC & Chem 7: 06/15/21 18:49 06/14/21 20:41 Labs: Abnormal Lab Results - Last 24 Hours (Table) 06/15/21 Range/Units 18:49 WBC 14.5 H (3.8-10.6) k/uL RBC 2.18 L (3.80-5.40) m/uL Hgb 7.0 L D (11.4-16.0) gm/dL Hct 21.6 L (34.0-46.0) % Plt Count 142 L (150-450) k/uL Neutrophils # 13.1 H (1.3-7.7) k/uL Lymphocytes # 0.6 L (1.0-4.8) k/uL
[2021-06-17 05:18] LABS: Anion Gap 16 mmol/L; Blood Urea Nitrogen 75 mg/dL (7-17); Calcium 7.9 mg/dL (8.4-10.2); Carbon Dioxide 22 mmol/L (22-30); Chloride 97 mmol/L (98-107); Glucose 84 mg/dL (74-99); Sodium 135 mmol/L (137-145)
[2021-06-17 05:33] LABS: African American GFR (CKD) 6 (>60 ml/min/1.73 sqM); Non-African American GFR(CKD) 5 (>60 ml/min/1.73 sqM)
[2021-06-17 05:48] LABS: Potassium 6.1 mmol/L (3.5-5.1)
[2021-06-17] MEDS: ASPIRIN 81 MG PO SCH (07:42)
[2021-06-17] MEDS: cloNIDine HCL 0.1 MG TAB PO SCH ×2 (07:42→17:06)
[2021-06-17] MEDS: SENNOSIDES-DOCUSATE SODIUM 1 EACH TAB PO SCH (07:42)
[2021-06-17] MEDS: PANTOPRAZOLE 40 MG TABLET PO SCH ×2 (07:42→17:06)
[2021-06-17] MEDS: METOPROLOL SUCCINATE (ER) 50 MG TAB.ER.24H PO SCH ×3 (07:42→23:40)
[2021-06-17] MEDS: hydrALAZINE HCL 50 MG TAB PO SCH ×3 (07:42→21:39)
[2021-06-17] MEDS: lisinopriL 20 MG TAB PO SCH ×2 (07:43→21:39)
[2021-06-17] MEDS: minoxidiL 2.5 MG TAB PO SCH ×2 (07:44→23:40)
--- NOTE | 2021-06-17 08:42 | P.PN ---
Subjective Progress Note Date: 06/17/21 This is a 70-year-old female who is status post left femur intertrochanteric hip screw with a long nail placed for intertrochanteric fracture and protection of the femur and right femur intramedullary rodding with closed reduction.. This is postoperative day #2 and patient is seen and evaluated at bedside today. Patient states that her pain is well-controlled and she denies any new co mplaints. Objective - Vital Signs Vital signs: Vital Signs Temp 98.2 F 06/17/21 07:25 Pulse 70 06/17/21 07:25 Resp 16 06/17/21 07:25 BP 115/58 06/17/21 07:25 Pulse Ox 97 06/17/21 07:25 Intake & Output 06/16/21 06/17/21 06/17/21 18:59 06:59 18:59 Intake Total 472 118 Output Total 200 Balance 272 118 Intake: Oral 472 118 Output: Urine 200 Other: Voiding Method Indwelling Catheter Indwelling Catheter - Exam Vital signs are stable. Patient is in no acute distress and is alert and oriented 3. Knee immobilizer in place to right lower extremity. Calves are soft and nontender to palpation. Dressings are clean, dry, and intact. Patient has full bilateral foot and ankle motion without pain or difficulty. Sensation intact bilaterally. Neurovascular status and circulatory status are intact. - Labs CBC & Chem 7: 06/15/21 18:49 06/17/21 04:48 Labs: Abnormal Lab Results - Last 24 Hours (Table) 06/17/21 Range/Units 04:48 Sodium 135 L (137-145) mmol/L Potassium 6.1 H* (3.5-5.1) mmol/L Chloride 97 L (98-107) mmol/L BUN 75 H (7-17) mg/dL Creatinine 7.59 H* (0.52-1.04) mg/dL Calcium 7.9 L (8.4-10.2) mg/dL Assessment and Plan Assessment: Intertrochanteric fracture left hip. Femur fracture right leg. Status post closed reduction with insertion of intertrochanteric nail left hip. Status post intramedullary nailing with closed reduction right femur. Right tibial plateau fracture. (1) Displaced comminuted fracture of shaft of right femur Current Visit: Yes Status: Acute Code(s): S72.351A - DISPLACED COMMINUTED FRACTURE OF SHAFT OF RIGHT FEMUR, INIT SNOMED Code(s): 01094098 (2) Fall Current Visit: Yes Status: Acute Code(s): W19.XXXA - UNSPECIFIED FALL, INITIAL ENCOUNTER SNOMED Code(s): 1178445 (3) Trochanteric fracture of left femur Current Visit: Yes Status: Acute Code(s): S72.102A - UNSP TROCHANTERIC FRACTURE OF LEFT FEMUR, INIT FOR CLOS FX SNOMED Code(s): 25635140 Plan: Continue routine postop care and pain control. Continue DVT prophylaxis. Nonweightbearing to bilateral lower extremities. Leave dressings in place for 10 days. Appreciate input from medicine. Anticipate discharge to rehab in the next 24-48 hours.
[2021-06-17] MEDS ORDERED: DARBEPOETIN ALFA 60 MCG/0.3 ML SYRINGE SQ SCH (09:30)
--- NOTE | 2021-06-17 09:58 | PN ---
PROGRESS NOTE Patient is seen for followup for end-stage renal disease. The patient was scheduled for hemodialysis today. However, it appears that she did not get dialyzed yesterday. This morning patient is feeling much better. Her nausea has improved. Pain is controlled as well. PHYSICAL EXAMINATION: Blood pressure 115/58, heart rate 70 per minute. She is afebrile. Examination of the heart S1, S2. Examination of the lungs, bilateral breath sounds are heard. Abdomen is soft, nontender. Examination of lower extremities shows edema 1+ bilaterally. CASING RUNNER exam grossly intact. LAB: Show sodium 135, potassium 6.1, serum creatinine 7.59. ASSESSMENT: 1. End-stage renal disease, on hemodialysis twice a week. The patient was supposed to be dialyzed yesterday. However, she did not get her treatment. She will be dialyzed today. 2. Hyperkalemia secondary to end-stage renal disease. Expect improvement with dialysis today. 3. Anemia with a with history of anemia of chronic disease, currently postoperatively. Hemoglobin is down to 7. Continue to monitor for now. PLAN: Add Aranesp. Hemodialysis today. Continue with phosphate binders. MMODL / IJN: [id number] /
[2021-06-17] MEDS: CALCIUM ACETATE 667 MG TAB PO SCH ×2 (10:43→21:39)
[2021-06-17] MEDS: TORSEMIDE 20 MG TAB PO SCH ×2 (10:43→21:39)
--- NOTE | 2021-06-17 15:11 | P.PN ---
Subjective 70-year-old female came in after a fall without any syncopal episode appears to be mechanical fall. Patient had bilateral femoral fractures, displaced right femoral fracture and left hip intertrochanteric fracture. Patient is scheduled for a open reduction internal fixation. Patient does have a some leukocytosis doesn't have any fever doesn't appear to be septic. Patient does smoke one pack of cigarette per day patient is hemodialysis dependent uncontrolled elevated blood pressures on multiple antidepressant medications. I do not have any EKG available patient denied any previous history of coronary artery disease or Stents in the past patient denied any history of congestive heart failure EKG will be obtained.. 06/16/2021 Patient is seen in follow up this morning having some nausea and continues on 2L of oxygen via NC. Patient states she is having some mild intermittent periods of shortness of breath since the surgery, but also states that "the staff put the oxygen on for the surgery". Will wean Fi02 as tolerated. Patient is esrd and states that she does dialysis two times per week and nephrology is consulted and plans on hemodialysis today. Patient continues to have pain in bilateral lower extremities but states the right is more painful. Most recent hemoglobin was 7.0 and will repeat am labs. Reports of passing gas but no bowel movement. 06/17/2021 This is a pleasant 70 years old female who presents with fall and bilateral femoral fracture, status post left femoral intertrochanteric hip screw with long nail placement and status post right femoral rodding and closed reduction. Today is postop day #2. She is also end-stage renal disease on hemodialysis. Today they took off her Larson catheter Send urine analysis Hemoglobin is 7.0 compared to 10.5 upon admission. Check hemoglobin tomorrow. Also patient potassium was 6.1 however she underwent hemodialysis later on today, check potassium level tomorrow Patient also started on aspirin 325 mg twice daily for DVT prophylaxis per primary team Objective - Vital Signs Vital signs: Vital Signs Temp 98.3 F 06/17/21 13:17 Pulse 89 06/17/21 13:17 Resp 17 06/17/21 13:17 BP 116/61 06/17/21 13:17 Pulse Ox 95 06/17/21 13:17 Intake & Output 06/16/21 06/17/21 06/17/21 18:59 06:59 18:59 Intake Total 472 414 Output Total 200 300 Balance 272 114 Intake: Oral 472 414 Output: Urine 200 300 Uretheral (Larson) 300 Other: Voiding Method Indwelling Catheter Indwelling Catheter Indwelling Catheter - Exam GENERAL: The patient is alert and oriented x3, not in any acute distress. Well developed, well nourished. HEENT: Pupils are round and equally reacting to light. EOMI. No scleral icterus. No conjunctival pallor. Normocephalic, atraumatic. No pharyngeal erythema. No thyromegaly. CARDIOVASCULAR: S1 and S2 present. No murmurs, rubs, or gallops. PULMONARY: Chest is clear to auscultation, no wheezing or crackles. ABDOMEN: Soft, nontender, nondistended, normoactive bowel sounds. No palpable organomegaly. -MUSCULOSKELETAL: No joint swelling or deformity. Dressing is in place and surgical wounds. Rest of exam deferred to surgery team EXTREMITIES: No cyanosis, clubbing, or pedal edema. NEUROLOGICAL: Gross neurological examination did not reveal any focal deficits. SKIN: No rashes. no petechiae. - Labs CBC & Chem 7: 06/15/21 18:49 06/17/21 04:48 Labs: Abnormal Lab Results - Last 24 Hours (Table) 06/17/21 Range/Units 04:48 Sodium 135 L (137-145) mmol/L Potassium 6.1 H* (3.5-5.1) mmol/L Chloride 97 L (98-107) mmol/L BUN 75 H (7-17) mg/dL Creatinine 7.59 H* (0.52-1.04) mg/dL Calcium 7.9 L (8.4-10.2) mg/dL Assessment and Plan Assessment: -Bilateral femoral fracture status post left intertrochanteric hip screw with long nail and dried femoral close reduction. Pain management and DVT prophylaxis per primary team. -Anemia, monitor hemoglobin -Mild leukocytosis -End-stage renal disease dialysis dependent nephrology following and patient will be resumed on phosphate binders and diuretics. -Hypertension patient was resumed on all her home medications patient is on multiple medications for blood pressure including lisinopril, hydralazine, metoprolol, minoxidil, clonidine. -Gastroesophageal reflux disease -Continued ongoing nicotine use: Counseling was provided -DVT prophylaxis: As per primary service
[2021-06-17 21:11] LABS: Appearance,Urine Clear (Clear); Bilirubin,Urine Negative (Negative); Blood,Urine Small (Negative); Color,Urine Light Yellow; Glucose,Urine (UA) 1+ (Negative); Ketones,Urine Negative (Negative); Leukocyte Esterase,Urine Negative (Negative); Nitrite,Urine Negative (Negative); Protein,Urine 2+ (Negative); RBC,Urine 1 /hpf (0-5); Specific Gravity,Urine 1.006 (1.001-1.035); Urobilinogen,Urine <2.0 mg/dL (<2.0); WBC,Urine <1 /hpf (0-5)
[2021-06-17 21:35] LABS: Basophils % (A) 0 %; Eosinophils # (A) 0.1 k/uL (0-0.7); Eosinophils % (A) 1 %; Lymphocytes # (A) 0.3 k/uL (1.0-4.8); Lymphocytes % (A) 6 %; MCHC 32.6 g/dL (31.0-37.0); MCV 95.1 fL (80.0-100.0); Mean Platelet Volume 8.8; Monocytes # (A) 0.5 k/uL (0-1.0); Monocytes % (A) 9 %; Neutrophils # (A) 4.7 k/uL (1.3-7.7); Neutrophils % (A) 81 %; Platelet Count 116 k/uL (150-450); RBC 1.42 m/uL (3.80-5.40); RDW 15.3 % (11.5-15.5); WBC 5.8 k/uL (3.8-10.6)
[2021-06-17 21:39] LABS: HCT 13.5 % (34.0-46.0); HGB 4.4 gm/dL (11.4-16.0)
[2021-06-17] MEDS: ASPIRIN 325 MG TAB PO SCH (21:39)
[2021-06-17] MEDS: ATORVASTATIN 20 MG TAB PO SCH (21:39)
[2021-06-17] MEDS: cloNIDine HCL 0.2 MG TAB PO SCH ×2 (21:39→23:39)
[2021-06-17] MEDS: MIRTAZAPINE 15 MG TAB PO SCH (21:40)
[2021-06-17 23:02] LABS: Glucose,Whole Blood 104 mg/dL (75-99)
[2021-06-17] MEDS ORDERED: SODIUM CHLORIDE 0.9% 1,000 ML IV SCH (23:11)
[2021-06-18 00:06] LABS: Basophils % (A) 0 %; Eosinophils % (A) 1 %; Lymphocytes # (A) 0.4 k/uL (1.0-4.8); Lymphocytes % (A) 7 %; MCH 32.3 pg (25.0-35.0); MCHC 33.9 g/dL (31.0-37.0); MCV 95.3 fL (80.0-100.0); Mean Platelet Volume 8.1; Monocytes # (A) 0.5 k/uL (0-1.0); Monocytes % (A) 10 %; Neutrophils # (A) 4.2 k/uL (1.3-7.7); Neutrophils % (A) 79 %; Platelet Count 119 k/uL (150-450); RBC 1.43 m/uL (3.80-5.40); RDW 15.1 % (11.5-15.5); WBC 5.3 k/uL (3.8-10.6)
[2021-06-18] MEDS: TORSEMIDE 20 MG TAB PO SCH ×3 (00:15→21:03)
[2021-06-18 00:16] LABS: HCT 13.6 % (34.0-46.0); HGB 4.6 gm/dL (11.4-16.0)
[2021-06-18] MEDS: HYDROmorphone 0.5 MG/0.5 ML SYRINGE IVP PRN ×3 (00:48→15:11)
[2021-06-18] MEDS: PANTOPRAZOLE 40 MG TABLET PO SCH ×2 (06:38→17:58)
[2021-06-18] MEDS: cloNIDine HCL 0.1 MG TAB PO SCH ×2 (06:38→17:58)
[2021-06-18 08:07] LABS: Basophils % (A) 0 %; Eosinophils % (A) 1 %; HCT 21.4 % (34.0-46.0); Lymphocytes # (A) 0.3 k/uL (1.0-4.8); Lymphocytes % (A) 6 %; MCH 31.6 pg (25.0-35.0); MCHC 34.2 g/dL (31.0-37.0); MCV 92.5 fL (80.0-100.0); Mean Platelet Volume 8.4; Monocytes # (A) 0.5 k/uL (0-1.0); Monocytes % (A) 9 %; Neutrophils # (A) 4.3 k/uL (1.3-7.7); Neutrophils % (A) 81 %; Platelet Count 101 k/uL (150-450); RBC 2.31 m/uL (3.80-5.40); RDW 14.6 % (11.5-15.5); WBC 5.3 k/uL (3.8-10.6)
[2021-06-18 08:17] LABS: Calcium 8.1 mg/dL (8.4-10.2); Potassium 4.3 mmol/L (3.5-5.1)
[2021-06-18 08:29] LABS: HGB 7.3 gm/dL (11.4-16.0)
[2021-06-18] MEDS: CALCIUM ACETATE 667 MG TAB PO SCH ×2 (09:36→21:04)
[2021-06-18] MEDS: lisinopriL 20 MG TAB PO SCH ×2 (09:37→21:04)
[2021-06-18] MEDS: ASPIRIN 325 MG TAB PO SCH (09:37)
[2021-06-18] MEDS: hydrALAZINE HCL 50 MG TAB PO SCH ×3 (09:37→21:03)
[2021-06-18] MEDS: SENNOSIDES-DOCUSATE SODIUM 1 EACH TAB PO SCH (09:38)
[2021-06-18] MEDS: METOPROLOL SUCCINATE (ER) 50 MG TAB.ER.24H PO SCH ×2 (10:47→21:04)
[2021-06-18] MEDS: minoxidiL 2.5 MG TAB PO SCH ×2 (10:48→21:03)
--- NOTE | 2021-06-18 11:37 | P.PN ---
Subjective 70-year-old female came in after a fall without any syncopal episode appears to be mechanical fall. Patient had bilateral femoral fractures, displaced right femoral fracture and left hip intertrochanteric fracture. Patient is scheduled for a open reduction internal fixation. Patient does have a some leukocytosis doesn't have any fever doesn't appear to be septic. Patient does smoke one pack of cigarette per day patient is hemodialysis dependent uncontrolled elevated blood pressures on multiple antidepressant medications. I do not have any EKG available patient denied any previous history of coronary artery disease or Stents in the past patient denied any history of congestive heart failure EKG will be obtained.. 06/16/2021 Patient is seen in follow up this morning having some nausea and continues on 2L of oxygen via [place]. Patient states she is having some mild intermittent periods of shortness of breath since the surgery, but also states that "the staff put the oxygen on for the surgery". Will wean Fi02 as tolerated. Patient is esrd and states that she does dialysis two times per week and nephrology is consulted and plans on hemodialysis today. Patient continues to have pain in bilateral lower extremities but states the right is more painful. Most recent hemoglobin was 7.0 and will repeat am labs. Reports of passing gas but no bowel movement. 06/17/2021 This is a pleasant 70 years old female who presents with fall and bilateral femoral fracture, status post left femoral intertrochanteric hip screw with long nail placement and status post right femoral rodding and closed reduction. Today is postop day #2. She is also end-stage renal disease on hemodialysis. Today they took off her Larson catheter Send urine analysis Hemoglobin is 7.0 compared to 10.5 upon admission. Check hemoglobin tomorrow. Also patient potassium was 6.1 however she underwent hemodialysis later on today, check potassium level tomorrow Patient also started on aspirin 325 mg twice daily for DVT prophylaxis per primary team 06/18/2021 Patient is awake and alert, pain is controlled. No new complaints However her hemoglobin dropped yesterday down to 4.4, she received 2 units of blood transfusion and her hemoglobin went up to 7.3 This morning. He remains asymptomatic. She is hemodynamically stable and her blood pressure currently is 130/59 and heart rate is 68. Rest of vitals are stable CBC and BMP are reviewed, hemoglobin is monitored. Rest of labs are stable. Reacting is 4.2 but she is known hemodialysis patient. Her aspirin 325 mg twice a day for DVT prophylaxis was switched to subcutaneous heparin Also we will check occult blood in stool but she did not have bowel movement.. Abdominal exam is soft. Discontinue aspirin and Toradol. Start subcutaneous heparin for DVT prophylaxis however F Hewitt dropping hemoglobin and then may consider to be stopped Review of systems CONSTITUTIONAL: No fever, no malaise, no fatigue. HEENT: No recent visual problems or hearing problems. Denied any sore throat. CARDIOVASCULAR: No orthopnea, PND, no palpitations, no syncope. PULMONARY: No shortness of breath, no cough, no hemoptysis. GASTROINTESTINAL: No diarrhea, no nausea, no vomiting, no abdominal pain. Normoactive bowel sounds. NEUROLOGICAL: No headaches, no weakness, no numbness. Active Medications Generic Name Dose Route Start Last Admin Trade Name Freq PRN Reason Stop Dose Admin Acetaminophen 650 mg 06/14/21 21:57 Acetaminophen Tab 325 Mg Tab PO Q6HR PRN Mild Pain or Fever > 100.5 Hydrocodone Bitart/Acetaminophen 1 each 06/15/21 17:56 06/16/21 05:45 Hydrocodone/Apap 5-325mg 1 Each Tab PO 1 each Q4HR PRN Administration Pain Atorvastatin Calcium 20 mg 06/15/21 21:00 06/17/21 21:39 Atorvastatin 20 Mg Tab PO 20 mg HS JOHN Administration Benzocaine/Menthol 1 each 06/15/21 17:56 Benzocaine/Menthol Lozeng 1 Each Lozenge MUCOUS MEM Q4HR PRN Sore Throat Calcitriol 1 mcg 06/15/21 09:00 06/18/21 10:47 Calcitriol 0.25 Mcg Cap PO 1 mcg DAILY JOHN Administration Calcium Acetate 667 mg 06/15/21 09:00 06/18/21 09:36 Calcium Acetate 667 Mg Tab PO 667 mg BID JOHN Administration Clonidine 0.3 mg 06/15/21 07:30 06/18/21 06:38 Clonidine Hcl 0.1 Mg Tab PO 0.3 mg BID-W/MEALS JOHN Administration Clonidine 0.2 mg 06/15/21 21:00 06/17/21 23:39 Clonidine Hcl 0.2 Mg Tab PO Not Given HS JOHN Darbepoetin Rusty 60 mcg 06/17/21 09:30 06/17/21 17:50 Darbepoetin Rusty 60 Mcg/0.3 Ml Syringe SQ 60 mcg Q7D JOHN Administration Heparin Sodium (Porcine) 5,000 unit 06/18/21 21:00 Heparin Sodium,Porcine/Pf 5,000 Unit/0.5 Ml Syringe SQ Q12HR JOHN Hydralazine HCl 100 mg 06/15/21 09:00 06/18/21 09:37 Hydralazine Hcl 50 Mg Tab PO 100 mg TID JOHN Administration Hydromorphone HCl 0.5 mg 06/14/21 21:57 06/18/21 11:07 Hydromorphone 0.5 Mg/0.5 Ml Syringe IVP 0.5 mg Q3HR PRN Administration Moderate Pain Hydromorphone HCl 0.5 mg 06/15/21 17:56 06/18/21 00:48 Hydromorphone 0.5 Mg/0.5 Ml Syringe IVP 0.5 mg Q4HR PRN Administration Pain Lisinopril 20 mg 06/15/21 09:00 06/18/21 09:37 Lisinopril 20 Mg Tab PO 20 mg BID JOHN Administration Magnesium Hydroxide 2,400 mg 06/15/21 17:56 Magnesium Hydroxide 2,400 Mg/10 Ml Cup PO DAILY PRN Constipation Metoprolol Succinate 50 mg 06/15/21 09:00 06/18/21 10:47 Metoprolol Succinate (Er) 50 Mg Tab.Er.24h PO 50 mg BID JOHN Administration Minoxidil 5 mg 06/15/21 09:00 06/18/21 10:48 Minoxidil 2.5 Mg Tab PO 5 mg BID JOHN Administration Mirtazapine 30 mg 06/15/21 21:00 06/17/21 21:40 Mirtazapine 15 Mg Tab PO 30 mg HS JOHN Administration Naloxone HCl 0.2 mg 06/14/21 21:57 Naloxone 0.4 Mg/Ml 1 Ml Vial IV Q2M PRN Opioid Reversal Naloxone HCl 0.2 mg 06/15/21 17:56 Naloxone 0.4 Mg/Ml 1 Ml Vial IV Q2M PRN Opioid Reversal Ondansetron HCl 4 mg 06/16/21 07:14 06/16/21 12:56 Ondansetron 4 Mg/2 Ml Vial IVP 4 mg Q6HR PRN Administration Nausea And Vomiting Pantoprazole Sodium 40 mg 06/15/21 07:30 06/18/21 06:38 Pantoprazole 40 Mg Tablet PO 40 mg AC-BID JOHN Administration Senna/Docusate Sodium 1 each 06/16/21 09:00 06/18/21 09:38 Sennosides-Docusate Sodium 1 Each Tab PO Not Given DAILY JOHN Torsemide 60 mg 06/15/21 09:00 06/18/21 10:48 Torsemide 20 Mg Tab PO 60 mg BID JOHN Administration Objective - Vital Signs Vital signs: Vital Signs Temp 99.6 F 06/18/21 04:00 Pulse 68 06/18/21 09:00 Resp 23 06/18/21 09:00 BP 130/59 06/18/21 09:00 Pulse Ox 93 L 06/18/21 09:00 Intake & Output 06/17/21 06/18/21 06/18/21 18:59 06:59 18:59 Intake Total 850 1145 150 Output Total 300 120 Balance 550 1025 150 Weight 60.8 kg Intake: IV 525 150 Sodium Chloride 0.9% 1, 525 150 000 ml @ 75 mls/hr IV . [id number] JOHN Rx#:[id number] Oral 650 Tube Feeding 200 Blood Product 620 Rc As-1 Unit 310 [id number] Rc As-1 Unit 310 [id number] Output: Urine 300 120 Uretheral (Larson) 300 Other: Voiding Method Indwelling Catheter Indwelling Catheter # Voids 0 - Exam GENERAL: The patient is alert and oriented x3, not in any acute distress. Well developed, well nourished. HEENT: Pupils are round and equally reacting to light. EOMI. No scleral icterus. No conjunctival pallor. Normocephalic, atraumatic. No pharyngeal erythema. No thyromegaly. CARDIOVASCULAR: S1 and S2 present. No murmurs, rubs, or gallops. PULMONARY: Chest is clear to auscultation, no wheezing or crackles. ABDOMEN: Soft, nontender, nondistended, normoactive bowel sounds. No palpable organomegaly. -MUSCULOSKELETAL: No joint swelling or deformity. Dressing is in place and surgical wounds. Rest of exam deferred to surgery team EXTREMITIES: No cyanosis, clubbing, or pedal edema. NEUROLOGICAL: Gross neurological examination did not reveal any focal deficits. SKIN: No rashes. no petechiae. - Labs CBC & Chem 7: 06/18/21 07:48 06/18/21 07:48 Labs: Abnormal Lab Results - Last 24 Hours (Table) 06/17/21 06/17/21 06/17/21 Range/Units 21:02 21:02 22:59 RBC 1.42 L (3.80-5.40) m/uL Hgb 4.4 L* D (11.4-16.0) gm/dL Hct 13.5 L* (34.0-46.0) % Plt Count 116 L (150-450) k/uL Lymphocytes # 0.3 L (1.0-4.8) k/uL BUN (7-17) mg/dL Creatinine (0.52-1.04) mg/dL POC Glucose (mg/dL) 104 H (75-99) mg/dL Calcium (8.4-10.2) mg/dL Urine Protein 2+ H (Negative) Urine Glucose (UA) 1+ H (Negative) Urine Blood Small H (Negative) Crossmatch 06/17/21 06/17/21 06/18/21 Range/Units 23:01 23:51 07:48 RBC 1.43 L 2.31 L (3.80-5.40) m/uL Hgb 4.6 L* 7.3 L D (11.4-16.0) gm/dL Hct 13.6 L* 21.4 L (34.0-46.0) % Plt Count 119 L 101 L (150-450) k/uL Lymphocytes # 0.4 L 0.3 L (1.0-4.8) k/uL BUN (7-17) mg/dL Creatinine (0.52-1.04) mg/dL POC Glucose (mg/dL) (75-99) mg/dL Calcium (8.4-10.2) mg/dL Urine Protein (Negative) Urine Glucose (UA) (Negative) Urine Blood (Negative) Crossmatch See Detail 06/18/21 Range/Units 07:48 RBC (3.80-5.40) m/uL Hgb (11.4-16.0) gm/dL Hct (34.0-46.0) % Plt Count (150-450) k/uL Lymphocytes # (1.0-4.8) k/uL BUN 34 H (7-17) mg/dL Creatinine 4.23 H (0.52-1.04) mg/dL POC Glucose (mg/dL) (75-99) mg/dL Calcium 8.1 L (8.4-10.2) mg/dL Urine Protein (Negative) Urine Glucose (UA) (Negative) Urine Blood (Negative) Crossmatch Assessment and Plan Assessment: -Bilateral femoral fracture status post left intertrochanteric hip screw with long nail and dried femoral close reduction. Pain management and DVT prophylaxis per primary team. -sever Anemia, needed a blood transfusion monitor hemoglobin. Continue with Protonix. We will do anemia workup -Mild leukocytosis, resolved -End-stage renal disease dialysis dependent nephrology following and patient will be resumed on phosphate binders and diuretics. -Hypertension patient was resumed on all her home medications patient is on multiple medications for blood pressure including lisinopril, hydralazine, metoprolol, minoxidil, clonidine. -Gastroesophageal reflux disease -Continued ongoing nicotine use: Counseling was provided -DVT prophylaxis: As per primary service, and insertion subcutaneous heparin. DC aspirin for severe anemia, informed orthopedic team and they are agreeable
--- NOTE | 2021-06-18 12:10 | P.PN ---
Subjective Progress Note Date: 06/18/21 This is a 70-year-old female who is status post left femur intertrochanteric hip screw with a long nail placed for intertrochanteric fracture and protection of the femur and right femur intramedullary rodding with closed reduction.. This is postoperative day #3 and patient is seen and evaluated at bedside today. Patient was transferred to the ICU due to an elevated potassium and a drop in hemoglobin. Patient has received a blood transfusion and is currently asymptomatic. Patient states that her pain is well-controlled and she denies any new complaints. Objective - Vital Signs Vital signs: Vital Signs Temp 99.6 F 06/18/21 04:00 Pulse 68 06/18/21 09:00 Resp 23 06/18/21 09:00 BP 130/59 06/18/21 09:00 Pulse Ox 93 L 06/18/21 09:00 Intake & Output 06/17/21 06/18/21 06/18/21 18:59 06:59 18:59 Intake Total 850 1145 150 Output Total 300 120 Balance 550 1025 150 Weight 60.8 kg Intake: IV 525 150 Sodium Chloride 0.9% 1, 525 150 000 ml @ 75 mls/hr IV . [id number] [facility] Rx#:[id number] Oral 650 Tube Feeding 200 Blood Product 620 Rc As-1 Unit 310 [id number] Rc As-1 Unit 310 [id number] Output: Urine 300 120 Uretheral (Larson) 300 Other: Voiding Method Indwelling Catheter Indwelling Catheter # Voids 0 - Exam Vital signs are stable. Patient is in no acute distress and is alert and oriented 3. Knee immobilizer in place to right lower extremity. Immobilizer is removed for exam and skin is intact. Immobilizer is put back on. There is minimal swelling of the right knee. Calves are soft and nontender to palpation. Dressings are clean, dry, and intact. Patient has full bilateral foot and ankle motion without pain or difficulty. Sensation intact bilaterally. Neurovascular status and circulatory status are intact. - Labs CBC & Chem 7: 06/18/21 07:48 06/18/21 07:48 Labs: Abnormal Lab Results - Last 24 Hours (Table) 06/17/21 06/17/21 06/17/21 Range/Units 21:02 21:02 22:59 RBC 1.42 L (3.80-5.40) m/uL Hgb 4.4 L* D (11.4-16.0) gm/dL Hct 13.5 L* (34.0-46.0) % Plt Count 116 L (150-450) k/uL Lymphocytes # 0.3 L (1.0-4.8) k/uL BUN (7-17) mg/dL Creatinine (0.52-1.04) mg/dL POC Glucose (mg/dL) 104 H (75-99) mg/dL Calcium (8.4-10.2) mg/dL Urine Protein 2+ H (Negative) Urine Glucose (UA) 1+ H (Negative) Urine Blood Small H (Negative) Crossmatch 06/17/21 06/17/21 06/18/21 Range/Units 23:01 23:51 07:48 RBC 1.43 L 2.31 L (3.80-5.40) m/uL Hgb 4.6 L* 7.3 L D (11.4-16.0) gm/dL Hct 13.6 L* 21.4 L (34.0-46.0) % Plt Count 119 L 101 L (150-450) k/uL Lymphocytes # 0.4 L 0.3 L (1.0-4.8) k/uL BUN (7-17) mg/dL Creatinine (0.52-1.04) mg/dL POC Glucose (mg/dL) (75-99) mg/dL Calcium (8.4-10.2) mg/dL Urine Protein (Negative) Urine Glucose (UA) (Negative) Urine Blood (Negative) Crossmatch See Detail 06/18/21 Range/Units 07:48 RBC (3.80-5.40) m/uL Hgb (11.4-16.0) gm/dL Hct (34.0-46.0) % Plt Count (150-450) k/uL Lymphocytes # (1.0-4.8) k/uL BUN 34 H (7-17) mg/dL Creatinine 4.23 H (0.52-1.04) mg/dL POC Glucose (mg/dL) (75-99) mg/dL Calcium 8.1 L (8.4-10.2) mg/dL Urine Protein (Negative) Urine Glucose (UA) (Negative) Urine Blood (Negative) Crossmatch Assessment and Plan Assessment: Intertrochanteric fracture left hip. Femur fracture right leg. Status post closed reduction with insertion of intertrochanteric nail left hip. Status post intramedullary nailing with closed reduction right femur. Right tibial plateau fracture. (1) Displaced comminuted fracture of shaft of right femur Current Visit: Yes Status: Acute Code(s): S72.351A - DISPLACED COMMINUTED FRACTURE OF SHAFT OF RIGHT FEMUR, INIT SNOMED Code(s): 39708803 (2) Fall Current Visit: Yes Status: Acute Code(s): W19.XXXA - UNSPECIFIED FALL, INITIAL ENCOUNTER SNOMED Code(s): 0450015 (3) Trochanteric fracture of left femur Current Visit: Yes Status: Acute Code(s): S72.102A - UNSP TROCHANTERIC FRACTURE OF LEFT FEMUR, INIT FOR CLOS FX SNOMED Code(s): 30455429 Plan: Continue routine postop care and pain control. Continue DVT prophylaxis per medicine. Nonweightbearing to bilateral lower extremities. Maintain knee immobilizer. Hemoglobin is 7.3 today and patient is asymptomatic. Leave dressings in place for 10 days. Appreciate input from medicine. Anticipate discharge to rehab in the next 24-48 hours.
--- NOTE | 2021-06-18 12:49 | PN ---
PROGRESS NOTE Patient is seen for followup for end-stage renal disease. Yesterday patient was transferred to the ICU as her hemoglobin was down to 4.4 g/dL. She has received 2 units of packed RBCs, currently doing well. No active bleeding noted. The patient was dialyzed yesterday. She tolerated her treatment fairly well. PHYSICAL EXAMINATION: On examination today, blood pressure was 133/58, heart rate 68 per minute. Patient is afebrile. Examination of the heart S1, S2. Examination of the lungs, bilateral breath sounds are heard. Abdomen is soft, nontender. Examination of lower extremities shows edema 2+ bilaterally. [employer] exam grossly intact. LABS: Show hemoglobin 7.3, sodium 141, potassium 4.3. ASSESSMENT: 1. End-stage renal disease, on hemodialysis on Mondays and twice as outpatient, status post dialysis yesterday. We will plan to dialyze her again tomorrow. 2. Severe anemia postoperatively. No active bleeding noted, status post 2 units packed RBCs transfusion. The patient is maintained on Aranesp. 3. Hypertension. 4. Mild volume overload. PLAN: Discontinue IV fluids. Hemodialysis in a.m. Continue with Aranesp and phosphate binders. MMODL / IJN: [id number] /
[2021-06-18 13:31] LABS: Basophils % (A) 0 %; Eosinophils % (A) 1 %; HCT 25.8 % (34.0-46.0); HGB 8.1 gm/dL (11.4-16.0); Lymphocytes # (A) 0.4 k/uL (1.0-4.8); Lymphocytes % (A) 5 %; MCH 29.9 pg (25.0-35.0); MCHC 31.4 g/dL (31.0-37.0); MCV 95.2 fL (80.0-100.0); Mean Platelet Volume 8.4; Monocytes # (A) 0.4 k/uL (0-1.0); Monocytes % (A) 6 %; Neutrophils # (A) 5.9 k/uL (1.3-7.7); Neutrophils % (A) 84 %; Platelet Count 103 k/uL (150-450); RBC 2.71 m/uL (3.80-5.40); RDW 15.3 % (11.5-15.5)
--- NOTE | 2021-06-18 15:54 | CT ---
EXAMINATION TYPE: CT brain wo con DATE OF EXAM: 06/18/2021 COMPARISON: None HISTORY: Fall and confusion x3 days. CT DLP: 1217.4 mGycm Automated exposure control for dose reduction was used. Images obtained of the brain without contrast. There is cerebral cortical atrophy. There is no mass effect nor midline shift. There is no sign of in tracranial hemorrhage. The calvarium is intact. There is normal aeration of the mastoid sinuses. IMPRESSION: Cerebral atrophy. No acute intracranial abnormality.
[2021-06-18 16:54] LABS: Folate, Serum 9.4 ng/mL
[2021-06-18 16:56] LABS: % Iron Saturation 34.55 (12.00-45.00); Ferritin 409.4 ng/mL (10.0-291.0)
[2021-06-18 18:03] LABS: Appearance,Urine Clear (Clear); Bilirubin,Urine Negative (Negative); Blood,Urine Trace (Negative); Color,Urine Light Yellow; Glucose,Urine (UA) 1+ (Negative); Ketones,Urine Negative (Negative); Leukocyte Esterase,Urine Negative (Negative); Nitrite,Urine Negative (Negative); Protein,Urine 2+ (Negative); RBC,Urine 1 /hpf (0-5); Specific Gravity,Urine 1.007 (1.001-1.035); Squamous Epithelial Cell,Urine 1 /hpf (0-4); Urobilinogen,Urine <2.0 mg/dL (<2.0); WBC,Urine <1 /hpf (0-5)
[2021-06-18] MEDS: MIRTAZAPINE 15 MG TAB PO SCH (21:03)
[2021-06-18] MEDS: HEPARIN SODIUM,PORCINE/PF 5,000 UNIT/0.5 ML SYRINGE SQ SCH (21:03)
[2021-06-18] MEDS: ATORVASTATIN 20 MG TAB PO SCH (21:04)
[2021-06-18] MEDS: cloNIDine HCL 0.2 MG TAB PO SCH (21:04)
[2021-06-19] MEDS: SENNOSIDES-DOCUSATE SODIUM 1 EACH TAB PO SCH (08:19)
[2021-06-19] MEDS: METOPROLOL SUCCINATE (ER) 50 MG TAB.ER.24H PO SCH (08:36)
[2021-06-19] MEDS: HEPARIN SODIUM,PORCINE/PF 5,000 UNIT/0.5 ML SYRINGE SQ SCH (08:37)
[2021-06-19] MEDS: lisinopriL 20 MG TAB PO SCH (08:37)
[2021-06-19] MEDS: CALCIUM ACETATE 667 MG TAB PO SCH (08:37)
[2021-06-19] MEDS: PANTOPRAZOLE 40 MG TABLET PO SCH ×2 (08:37→17:07)
[2021-06-19] MEDS: cloNIDine HCL 0.1 MG TAB PO SCH ×2 (08:37→17:07)
[2021-06-19] MEDS: FERROUS SULFATE 325 MG TAB PO SCH ×2 (08:37→17:07)
[2021-06-19] MEDS: hydrALAZINE HCL 50 MG TAB PO SCH ×2 (08:37→17:07)
[2021-06-19] MEDS: minoxidiL 2.5 MG TAB PO SCH (08:38)
[2021-06-19] MEDS: TORSEMIDE 20 MG TAB PO SCH (08:38)
--- NOTE | 2021-06-19 09:10 | P.PN ---
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 She is maintained on hemodialysis on Mondays and . Currently having breakfast. No chest pain or shortness of breath. Hemodynamically stable. Vital signs are stable. General: The patient appeared well nourished and normally developed. HEENT: Head exam is unremarkable. Neck is without jugular venous distension. LUNGS: Breath sounds decreased. HEART: Rate and Rhythm are regular. ABDOMEN: Soft, no distention. EXTREMITITES: Lower extremities wrapped. Objective - Vital Signs Vital signs: Vital Signs Temp 98.9 F 06/19/21 05:00 Pulse 69 06/19/21 05:00 Resp 20 06/19/21 05:00 BP 110/58 06/19/21 05:00 Pulse Ox 96 06/19/21 05:00 Intake & Output 06/18/21 06/19/21 06/19/21 18:59 06:59 18:59 Intake Total 300 1320 Output Total 185 600 Balance 115 720 Intake: IV 300 Sodium Chloride 0.9% 1, 300 000 ml @ 75 mls/hr IV . [id number] JOHN Rx#:[id number] Intake, IV Titration 900 Amount Sodium Chloride 0.9% 1, 900 000 ml @ 75 mls/hr IV . [id number] JOHN Rx#:[id number] Oral 420 Output: Urine 185 600 Uretheral (Larson) 300 Other: Voiding Method Indwelling Catheter # Voids 1 - Labs CBC & Chem 7: 06/18/21 13:03 06/18/21 07:48 Labs: Abnormal Lab Results - Last 24 Hours (Table) 06/17/21 06/18/21 06/18/21 Range/Units 04:48 13:03 17:36 RBC 2.71 L (3.80-5.40) m/uL Hgb 8.1 L (11.4-16.0) gm/dL Hct 25.8 L (34.0-46.0) % Plt Count 103 L (150-450) k/uL Lymphocytes # 0.4 L (1.0-4.8) k/uL TIBC 191 L (228-460) ug/dL Ferritin 409.4 H (10.0-291.0) ng/mL Urine Protein 2+ H (Negative) Urine Glucose (UA) 1+ H (Negative) Urine Blood Trace H (Negative) Assessment and Plan Plan: Assessment: 1. End-stage renal disease maintained on hemodialysis on Mondays and . She has a left upper extremity AV graft. 2. Status post fall with bilateral femur and right tibia fracture status post surgical intervention. 3. Acute blood loss anemia status post blood transfusion this admission. On Aranesp. 4. Chronic kidney disease mineral bone disease maintained on PhosLo and calcitriol. 5. Hypertension with chronic kidney disease. Stable. Plan: Hemodialysis today.
[2021-06-19] MEDS: HYDROcodone/APAP 5-325MG 1 EACH TAB PO PRN ×2 (11:50→16:11)
[2021-06-19 11:51] VITALS: RESP 18
--- NOTE | 2021-06-19 12:13 | P.DS ---
Providers Date of admission: 06/14/21 21:57 Expected date of discharge: 06/19/21 Attending physician: Jorge Pham Consults: 06/14/21 22:28 Consult Physician Stat Consulting Provider: Lenan Gu Consult Reason/Comments: Medical management, ESRD on HD, COPD Do you want consulting provider notified?: Already Contacted 06/14/21 22:45 Consult Physician Stat Consulting Provider: Supriya Cristina Consult Reason/Comments: esrd on hd Do you want consulting provider notified?: Already Contacted Primary care physician: Rock Fry - Discharge Diagnosis(es) (1) Current every day smoker Current Visit: Yes Status: Acute (2) Current nicotine use Current Visit: Yes Status: Acute (3) Hypertension Current Visit: Yes Status: Acute (4) Displaced comminuted fracture of shaft of right femur Current Visit: Yes Status: Acute (5) ESRD on hemodialysis Current Visit: Yes Status: Acute (6) Fall Current Visit: Yes Status: Acute (7) Trochanteric fracture of left femur Current Visit: Yes Status: Acute Hospital Course: This is a pleasant 70-year-old female who presented with multiple fractures including right femoral shaft fracture, left hip intertrochanteric femur fracture, right tibial plateau fracture status post fall. She was admitted for further treatment evaluation. She underwent a left hip intramedullary nail fixation for left intertrochanteric hip fracture and right intramedullary fixation for right distal femur shaft fracture performed on 06/15/2021. She also had a knee immobilizer placed for her right tibial plateau fracture. She has had some improvement of her pain following surgical intervention but does continue to have pain at her bilateral lower extremities. She does have significant difficulty with mobilization. She is strict nonweightbearing on the bilateral lower extremities. Patient playing for discharge to rehab today if cleared by medicine and nephrology. Medicine states he would clear the patient for discharge today. Patient is known to be on dialysis over the past 9 years with known end-stage renal disease. She has dialysis on Mondays and . She'll plan dialysis today prior to her discharge to a rehabilitation facility. Patient has continued to keep her knee immobilizer intact over the right lower extremity. A Larson catheter remains intact. Patient can be discharged to a rehabilitation facility with the Larson catheter intact to be managed at the rehabilitation facility. Condition on day of discharge stable. Patient was cleared preoperatively for surgery by medicine who has continued to see examined the patient postoperatively. Patient currently denies any nausea, vomiting, fever, or chills. Patient is eating without difficulty. Patient may shower Optifoam dressing intact over the right hip. Patient may remove Optifoam dressing in 3 days and shower without a dressing at that time. Surgical sites over the left hip and remain dry and intact. Patient may shower without a dressing intact at this time. Immobilizer currently intact over the right knee. Patient was keep knee immobilizer intact at all times except knee immobilizer may be opened for bathing. Patient will remain strict nonweightbearing on bilateral lower extremities. We did discuss a Kulwinder lift may be utilized to help transfer the patient for dialysis. MAPS has been reviewed today, , with an Overall Overdose Risk Score of 150. An "Opiod Start Talking" Form has been signed and placed in the patient's chart. A prescription has been written for Salix 5 mg/325 mg 1 tab every 4 hours as needed for pain, dispense #42. Medicine will plan to complete the med rec prior to discharge. Medicine will manage the patient's anticoagulation at the time of discharge. Patient's other medical diagnoses include end-stage renal disease requiring dialysis 2 days per week, hypertension, and chronic nicotine use as current every day smoker. Physical Exam on day of discharge: Status post surgical day number 4 Patient is examined lying in bed Patient is awake and alert, and oriented 3 Vital signs stable No signs or symptoms of DVT; no calf pain Knee immobilizer intact over the right lower extremity Optifoam dressing remains clean, dry, and intact over the right hip Incision over the left hip is clean and dry with no active drainage No erythema, purulence, or signs of infection at the surgical sites at the right femur and left hip Mild pain with palpation over the surgical sites Full range of motion of ankles bilaterally No pain on palpation over the feet bilaterally Dorsiflexion, plantarflexion, and extensor hallucis longus positive sustained bilaterally Neurovascularly intact bilateral lower extremities Procedures: Left hip intramedullary nail fixation for left intertrochanteric hip fracture and right intramedullary fixation for right distal femur shaft fracture performed on 06/15/2021 Patient Condition at Discharge: Serious Plan - Discharge Summary Discharge Rx Participant: No New Discharge Prescriptions: New HYDROcodone/APAP 5-325MG [Salix 5] 1 each PO Q4HR PRN #42 tab PRN Reason: Pain No Action cloNIDine HCL [Catapres] 0.3 mg PO BID-W/MEALS QUEtiapine [SEROquel] 150 mg PO HS PRN PRN Reason: Insomnia Rosuvastatin [Crestor] 10 mg PO HS Mirtazapine [Remeron] 30 mg PO HS Aspirin 81 mg PO DAILY cloNIDine HCL [Catapres] 0.2 mg PO HS minoxidiL [Loniten] 5 mg PO BID Torsemide [Demadex] 60 mg PO BID lisinopriL 20 mg PO BID hydrALAZINE HCL [Apresoline] 100 mg PO TID Furosemide [Lasix] 40 mg PO BID Esomeprazole Magnesium [NexIUM] 40 mg PO BID calcitrioL [Calcitriol] 1 mcg PO DAILY HYDROcodone/APAP 10-325MG [Salix 10-325] 1 tab PO BID PRN PRN Reason: Pain Metoprolol Succinate (ER) [Toprol XL] 50 mg PO BID Oxazepam [Serax] 10 mg PO DAILY PRN PRN Reason: Anxiety Calcium Acetate 667 mg PO BID Discharge Medication List Aspirin 81 mg PO DAILY 12/28/16 [History] Mirtazapine [Remeron] 30 mg PO HS 12/28/16 [History] QUEtiapine [SEROquel] 150 mg PO HS PRN 12/28/16 [History] Rosuvastatin [Crestor] 10 mg PO HS 12/28/16 [History] cloNIDine HCL [Catapres] 0.3 mg PO BID-W/MEALS 12/28/16 [History] cloNIDine HCL [Catapres] 0.2 mg PO HS 04/18/18 [History] Torsemide [Demadex] 60 mg PO BID 11/16/18 [History] minoxidiL [Loniten] 5 mg PO BID 11/16/18 [History] Esomeprazole Magnesium [NexIUM] 40 mg PO BID 01/18/20 [History] Furosemide [Lasix] 40 mg PO BID 01/18/20 [History] calcitrioL [Calcitriol] 1 mcg PO DAILY 01/18/20 [History] hydrALAZINE HCL [Apresoline] 100 mg PO TID 01/18/20 [History] lisinopriL 20 mg PO BID 01/18/20 [History] Calcium Acetate 667 mg PO BID 06/14/21 [History] HYDROcodone/APAP 10-325MG [Salix 10-325] 1 tab PO BID PRN 06/14/21 [History] Metoprolol Succinate (ER) [Toprol XL] 50 mg PO BID 06/14/21 [History] Oxazepam [Serax] 10 mg PO DAILY PRN 06/14/21 [History] HYDROcodone/APAP 5-325MG [Salix 5] 1 each PO Q4HR PRN #42 tab 06/19/21 [Rx] Follow up Appointment(s)/Referral(s): Jorge Pham DO [Doctor of Osteopathic Medicine] - 1 Week (Patient may follow-up with Darshan Lakhani PA-C or Dr. Aniket Pham at [facility] in 1 week following discharge. ) Rock Fry DO [Primary Care Provider] - 1-2 days Activity/Diet/Wound Care/Special Instructions: 1. Patient may shower Optifoam dressing intact over the right hip; Patient may remove Optifoam dressing in 3 days and shower without a dressing at that time 2. Surgical sites over the left hip and remain dry and intact; Patient may shower without a dressing intact at this time over the left hip 3. Keep knee immobilizer intact at all times except knee immobilizer may be opened for 1 each bathing 4. Patient will remain strict nonweightbearing on the bilateral lower extremities 5. Kulwinder lift may be utilized to help transfer the patient for dialysis 6. Take medications as prescribed Discharge Disposition: TRANSFER TO SNF/ECF
[2021-06-19 12:15] LABS: HCT 24.5 % (34.0-46.0); MCH 30.7 pg (25.0-35.0); MCHC 32.7 g/dL (31.0-37.0); MCV 93.9 fL (80.0-100.0); Mean Platelet Volume 8.8; Platelet Count 126 k/uL (150-450); RBC 2.61 m/uL (3.80-5.40); RDW 15.3 % (11.5-15.5); WBC 6.7 k/uL (3.8-10.6)
[2021-06-19] MEDS ORDERED: TAMSULOSIN 0.4 MG CAP.ER.24H PO SCH (12:30)
--- NOTE | 2021-06-19 14:17 | CDI ---
Documentation Clarification Form Date: 06/19/2021 01:18:43 PM From: Josefina Oliva RN CCDS Admit Date: 06/14/2021 09:57:00 PM Patient Name: Saundra Jaquez Visit Number: [id number] Discharge Date: ATTENTION: The Clinical Documentation Specialists (CDI) and [facility] Coding Staff appreciate your assistance in clarifying documentation. Please respond to the clarification below the line at the bottom and electronically sign. The CDI & [facility] Coding staff will review the response and follow-up if needed. Please note: Queries are made part of the Legal Health Record. If you have any questions, please contact the author of this message via ITS. Dr. Jorge Pham Acute blood loss anemia is documented 06/19, Nephrology progress note, and patient had Left femur intertrochanteric hip screw with a long nail placed for the intertrochanteric fracture and protection of the femur. Closed reduction. Right femur intramedullary rodding with closed reduction, 06/15. Additional clarification is requested regarding the relationship, if any, that exists between the diagnosis and the procedure. Patients Admitting Diagnosis: Polytrauma with multiple long bone fractures. Bilateral femur fractures. Left femur intertrochanteric with subtrochanteric extension femur fracture. Right femur comminuted displaced distal femoral shaft fracture. Status post fall at home. Right tibial plateau fracture. Post-Operative Diagnosis: Same as Pre-operative diagnosis. Procedure performed: Left femur intertrochanteric hip screw with a long nail placed for the intertrochanteric fracture and protection of the femur. Closed reduction. Right femur intramedullary rodding with closed reduction. History/Risk Factors: 70-year-old female presents to the ED after a fall at home after she got tangled up by her dogs. H&P 06/15 Medical History: ESRD Dialysis dependent, HTN and Nicotine use. Medical consult 06/15. Clinical Indicators: Acute blood loss anemia status post blood transfusion this admission. Nephrology progress note 06/19 HGB: 06/14 10.5; 06/15 7.0; 06/17 4.4; 06/17 4.6; 06/18 7.3; 06/18 8.1; 06/19 8.0. Treatment: 06/18: 2 Units PRBC, 06/17 Aransep 60mcq SQ Q7D JOHN current. 06/17 Daily CBC to current. What relationship, if any, exists between the diagnosis of [insert dx] and the procedure: [ ] Acute blood loss anemia is a complication of surgical procedure [ ] Acute blood loss anemia is an expected outcome of the surgical procedure [ ] Acute blood loss anemia is related to patients co-morbid condition(s) of [insert co-morbid dxs] & not a complication of the procedure [ ] Acute blood loss anemia has been ruled out [ ] Other please specify ____ [ ] Unable to determine (Template Last Revised: January 2021) MTDD
[2021-06-19 16:45] VITALS: BP 137/64; PULSE 60; TEMP 98.2
--- NOTE | 2021-06-19 23:42 | P.PN ---
Subjective 70-year-old female came in after a fall without any syncopal episode appears to be mechanical fall. Patient had bilateral femoral fractures, displaced right femoral fracture and left hip intertrochanteric fracture. Patient is scheduled for a open reduction internal fixation. Patient does have a some leukocytosis doesn't have any fever doesn't appear to be septic. Patient does smoke one pack of cigarette per day patient is hemodialysis dependent uncontrolled elevated blood pressures on multiple antidepressant medications. I do not have any EKG available patient denied any previous history of coronary artery disease or Stents in the past patient denied any history of congestive heart failure EKG will be obtained.. 06/16/2021 Patient is seen in follow up this morning having some nausea and continues on 2L of oxygen via NC. Patient states she is having some mild intermittent periods of shortness of breath since the surgery, but also states that "the staff put the oxygen on for the surgery". Will wean Fi02 as tolerated. Patient is esrd and states that she does dialysis two times per week and nephrology is consulted and plans on hemodialysis today. Patient continues to have pain in bilateral lower extremities but states the right is more painful. Most recent hemoglobin was 7.0 and will repeat am labs. Reports of passing gas but no bowel movement. 06/17/2021 This is a pleasant 70 years old female who presents with fall and bilateral femoral fracture, status post left femoral intertrochanteric hip screw with long nail placement and status post right femoral rodding and closed reduction. Today is postop day #2. She is also end-stage renal disease on hemodialysis. Today they took off her Larson catheter Send urine analysis Hemoglobin is 7.0 compared to 10.5 upon admission. Check hemoglobin tomorrow. Also patient potassium was 6.1 however she underwent hemodialysis later on today, check potassium level tomorrow Patient also started on aspirin 325 mg twice daily for DVT prophylaxis per primary team 06/18/2021 Patient is awake and alert, pain is controlled. No new complaints However her hemoglobin dropped yesterday down to 4.4, she received 2 units of blood transfusion and her hemoglobin went up to 7.3 This morning. He remains asymptomatic. She is hemodynamically stable and her blood pressure currently is 130/59 and heart rate is 68. Rest of vitals are stable CBC and BMP are reviewed, hemoglobin is monitored. Rest of labs are stable. Reacting is 4.2 but she is known hemodialysis patient. Her aspirin 325 mg twice a day for DVT prophylaxis was switched to subcutaneous heparin Also we will check occult blood in stool but she did not have bowel movement.. Abdominal exam is soft. Discontinue aspirin and Toradol. Start subcutaneous heparin for DVT prophylaxis however F Hewitt dropping hemoglobin and then may consider to be stopped 06/19/2021 Patient is transferred today to the general medical floor and she's doing well clinically. She is asymptomatic. No chest pain or dyspnea. Abdominal pain. No vomiting. No evidence of bleeding. Hemodynamically she is stable Repeat hemoglobin today is stable at 8.0. Low platelet count is improved to 126K Patient is currently on subcutaneous heparin for DVT prophylaxis, I discussed the case with orthopedic team and they gave okay to continue with heparin for now. Because of her significant bleed which is most likely secondary to her multiple fractures and surgery, we instructed patient to continue holding aspirin 81 mg for 1 week and resume it thereafter, she verbalized understanding and agrees. She states she takes aspirin for secondary protection, with no previous history of stroke or heart attack. I discussed the case today with Dr. lyman Patient is cleared medically to go to rehab today in guarded prognosis Objective - Vital Signs Vital signs: Vital Signs Temp 99.3 F 06/19/21 11:50 Pulse 87 06/19/21 11:50 Resp 18 06/19/21 11:50 BP 114/53 06/19/21 11:50 Pulse Ox 94 L 06/19/21 11:50 Intake & Output 06/18/21 06/19/21 06/19/21 18:59 06:59 18:59 Intake Total 300 1320 Output Total 185 600 Balance 115 720 Intake: IV 300 Sodium Chloride 0.9% 1, 300 000 ml @ 75 mls/hr IV . [id number] JOHN Rx#:[id number] Intake, IV Titration 900 Amount Sodium Chloride 0.9% 1, 900 000 ml @ 75 mls/hr IV . [id number] JOHN Rx#:[id number] Oral 420 Output: Urine 185 600 Uretheral (Larson) 300 Other: Voiding Method Indwelling Catheter Indwelling Catheter # Voids 1 - Exam GENERAL: The patient is alert and oriented x3, not in any acute distress. Well developed, well nourished. HEENT: Pupils are round and equally reacting to light. EOMI. No scleral icterus. No conjunctival pallor. Normocephalic, atraumatic. No pharyngeal erythema. No thyromegaly. CARDIOVASCULAR: S1 and S2 present. No murmurs, rubs, or gallops. PULMONARY: Chest is clear to auscultation, no wheezing or crackles. ABDOMEN: Soft, nontender, nondistended, normoactive bowel sounds. No palpable organomegaly. -MUSCULOSKELETAL: No joint swelling or deformity. Dressing is in place and surgical wounds. Rest of exam deferred to surgery team EXTREMITIES: No cyanosis, clubbing, or pedal edema. NEUROLOGICAL: Gross neurological examination did not reveal any focal deficits. SKIN: No rashes. no petechiae. - Labs CBC & Chem 7: 06/19/21 11:46 06/18/21 07:48 Labs: Abnormal Lab Results - Last 24 Hours (Table) 06/17/21 06/18/21 06/18/21 Range/Units 04:48 13:03 17:36 RBC 2.71 L (3.80-5.40) m/uL Hgb 8.1 L (11.4-16.0) gm/dL Hct 25.8 L (34.0-46.0) % Plt Count 103 L (150-450) k/uL Lymphocytes # 0.4 L (1.0-4.8) k/uL TIBC 191 L (228-460) ug/dL Ferritin 409.4 H (10.0-291.0) ng/mL Urine Protein 2+ H (Negative) Urine Glucose (UA) 1+ H (Negative) Urine Blood Trace H (Negative) 06/19/21 Range/Units 11:46 RBC 2.61 L (3.80-5.40) m/uL Hgb 8.0 L (11.4-16.0) gm/dL Hct 24.5 L (34.0-46.0) % Plt Count 126 L (150-450) k/uL Lymphocytes # (1.0-4.8) k/uL TIBC (228-460) ug/dL Ferritin (10.0-291.0) ng/mL Urine Protein (Negative) Urine Glucose (UA) (Negative) Urine Blood (Negative) Assessment and Plan Assessment: -Bilateral femoral fracture status post left intertrochanteric hip screw with long nail and dried femoral close reduction. Pain management and DVT prophylaxis per primary team. -sever Anemia, secondary to her trauma, multiple fractures and surgery. Repeat hemoglobin is stable. Continue with Protonix. Hold aspirin for 1 week. Started on iron pills -Mild leukocytosis, resolved -End-stage renal disease dialysis dependent nephrology following and patient will be resumed on phosphate binders and diuretics. -Hypertension patient was resumed on all her home medications patient is on multiple medications for blood pressure including lisinopril, hydralazine, metoprolol, minoxidil, clonidine. -Gastroesophageal reflux disease -Continued ongoing nicotine use: Counseling was provided -DVT prophylaxis: As per primary service is okay to continue with subcutaneous heparin. DC aspirin for severe anemia, informed orthopedic team and they are agreeable Patient is medically stable for discharge to rehab today, however she still has guarded prognosis and she is close outpatient follow-up This was instructed to follow up with her PCP in one week after discharge and she agrees
--- NOTE | 2021-06-21 07:13 | CDI ---
Documentation Clarification Form Date: 06/19/2021 01:18:00 PM From: Josefina Oliva RN, CCDS Admit Date: 06/14/2021 09:57:00 PM Patient Name: Saundra Jaquez Visit Number: [id number] Discharge Date: 06/19/2021 06:49:00 PM ATTENTION: The Clinical Documentation Specialists (CDI) and [facility] Coding Staff appreciate your assistance in clarifying documentation. Please respond to the clarification below the line at the bottom and electronically sign. The CDI & [facility] Coding staff will review the response and follow-up if needed. Please note: Queries are made part of the Legal Health Record. If you have any questions, please contact the author of this message via ITS. Dr. Jorge Pham: Acute blood loss anemia is documented 06/19, Nephrology progress note, and patient had Left femur intertrochanteric hip screw with a long nail placed for the intertrochanteric fracture and protection of the femur. Closed reduction. Right femur intramedullary rodding with closed reduction, 06/15. Additional clarification is requested regarding the relationship, if any, that exists between the diagnosis and the procedure. Patients Admitting Diagnosis: Polytrauma with multiple long bone fractures. Bilateral femur fractures. Left femur intertrochanteric with subtrochanteric extension femur fracture. Right femur comminuted displaced distal femoral shaft fracture. Status post fall at home. Right tibial plateau fracture. Post-Operative Diagnosis: Same as Pre-operative diagnosis. Procedure performed: Left femur intertrochanteric hip screw with a long nail placed for the intertrochanteric fracture and protection of the femur. Closed reduction. Right femur intramedullary rodding with closed reduction. History/Risk Factors: 70-year-old female presents to the ED after a fall at home after she got tangled up by her dogs. H&P 06/15 Medical History: ESRD Dialysis dependent, HTN and Nicotine use. Medical consult 06/15. Clinical Indicators: Acute blood loss anemia status post blood transfusion this admission. Nephrology progress note 06/19 HGB: 06/14 10.5; 06/15 7.0; 06/17 4.4; 06/17 4.6; 06/18 7.3; 06/18 8.1; 06/19 8.0. Treatment: 06/18: 2 Units PRBC, 06/17 Aransep 60mcq SQ Q7D JOHN current. 06/17 Daily CBC to current. What relationship, if any, exists between the diagnosis of Acute Blood Loss Anemia and the procedure: [ ] Acute blood loss anemia is a complication of surgical procedure [ x ] Acute blood loss anemia is an expected outcome of the surgical procedure [ x ] Acute blood loss anemia is related to patients co-morbid condition(s), please specify conditions: and is not a complication of the procedure [ ] Acute blood loss anemia has been ruled out [ ] Other please specify ____ [ ] Unable to determine (Template Last Revised: January 2021) The patient has chronic renal failure and has some chronic anemia. She also had major trauma with 3 long bone fractures which caused significant blood loss. In addition she had surgical intervention and some further blood loss with the procedures all of these contributed to her acute blood loss anemia in addition to her chronic anemia due to renal insufficiency. LENNOX
== END 2021-06-19 18:49 | DRG 480 ==
LOC: EC 20:16 → 4SSUR 21:57 → 2SICU 06-17 23:04 → 5NMEDONC 06-18 18:26
PROVIDERS: ADMIT Orthopaedic Surgery Orthopaedic Surgery of the Spine; ATTEND Orthopaedic Surgery Orthopaedic Surgery of the Spine
PROC: 0QS7XZZ Reposition Left Upper Femur, External Approach (ICD-10-PCS; 2021-06-14)
PROC: 0QS736Z Reposition Left Upper Femur with Intramedullary Internal Fixation Device, Percutaneous Approach (ICD-10-PCS; principal; 2021-06-15 08:35)
PROC: 2W3LXYZ Immobilization of Right Lower Extremity using Other Device (ICD-10-PCS; principal; 2021-06-15 08:35)
PROC: 0QSBXZZ Reposition Right Lower Femur, External Approach (ICD-10-PCS; principal; 2021-06-15 08:35)
PROC: 5A1D70Z Performance of Urinary Filtration, Intermittent, Less than 6 Hours Per Day (ICD-10-PCS; 2021-06-16)
DX: S72.142A Displaced intertrochanteric fracture of left femur, initial encounter for closed fracture (principal); S72.351A Displaced comminuted fracture of shaft of right femur, initial encounter for closed fracture; N18.6 End stage renal disease; S82.141A Displaced bicondylar fracture of right tibia, initial encounter for closed fracture; Q61.3 Polycystic kidney, unspecified; J44.1 Chronic obstructive pulmonary disease with (acute) exacerbation; I12.0 Hypertensive chronic kidney disease with stage 5 chronic kidney disease or end stage renal disease; D62 Acute posthemorrhagic anemia; R11.0 Nausea; Z99.2 Dependence on renal dialysis; F32.9 Major depressive disorder, single episode, unspecified; T40.605A Adverse effect of unspecified narcotics, initial encounter; D63.1 Anemia in chronic kidney disease; W18.31XA Fall on same level due to stepping on an object, initial encounter; R09.02 Hypoxemia; Z20.822 Contact with and (suspected) exposure to COVID-19; G89.29 Other chronic pain; E83.9 Disorder of mineral metabolism, unspecified; K21.9 Gastro-esophageal reflux disease without esophagitis; I25.10 Atherosclerotic heart disease of native coronary artery without angina pectoris; F17.210 Nicotine dependence, cigarettes, uncomplicated; E87.70 Fluid overload, unspecified; E87.5 Hyperkalemia; D72.829 Elevated white blood cell count, unspecified; Z79.82 Long term (current) use of aspirin; Z79.899 Other long term (current) drug therapy; Z88.1 Allergy status to other antibiotic agents; Z88.5 Allergy status to narcotic agent; Z88.8 Allergy status to other drugs, medicaments and biological substances; Z90.89 Acquired absence of other organs; Z98.890 Other specified postprocedural states
CPT/HCPCS: 36415; 70450; 71045; 73501; 73521; 80048; 80053; 81001; 82607; 82728; 82746; 83540; 83550; 85025; 85027; 85610; 85730; 86850; 86900; 86901; 86920; 87635; 88304; 90935; 94640; 94760; 96374; 96375; 99285

== ENCOUNTER 2021-06-22 17:18 | Observation (INO) | payer MEDICARE, OTHER ==
[2021-06-22] MEDS ORDERED: HYDROmorphone 1 MG/ML 1 ML SYRINGE IVP STA ×2 (18:56→20:41)
[2021-06-22 19:19] LABS: Basophils # (A) 0.1 k/uL (0-0.2); Basophils % (A) 0 %; Eosinophils # (A) 0.1 k/uL (0-0.7); Eosinophils % (A) 1 %; HCT 27.9 % (34.0-46.0); HGB 9.1 gm/dL (11.4-16.0); Lymphocytes # (A) 0.5 k/uL (1.0-4.8); Lymphocytes % (A) 4 %; MCH 31.4 pg (25.0-35.0); MCHC 32.6 g/dL (31.0-37.0); MCV 96.4 fL (80.0-100.0); Monocytes # (A) 0.9 k/uL (0-1.0); Monocytes % (A) 7 %; Neutrophils # (A) 10.4 k/uL (1.3-7.7); Neutrophils % (A) 85 %; Platelet Count 211 k/uL (150-450); RDW 15.6 % (11.5-15.5); WBC 12.2 k/uL (3.8-10.6)
[2021-06-22 19:29] LABS: Albumin 3.5 g/dL (3.5-5.0); Potassium 5.7 mmol/L (3.5-5.1); Total Bilirubin 0.7 mg/dL (0.2-1.3)
[2021-06-22] MEDS ORDERED: NALOXONE 0.4 MG/ML 1 ML VIAL IV PRN (20:43)
--- NOTE | 2021-06-22 20:43 | ED ---
General Adult HPI - General Chief complaint: Recheck/Abnormal Lab/Rx Stated complaint: Renal Failure Time Seen by Provider: 06/22/21 17:50 Source: patient, EMS Mode of arrival: EMS Limitations: physical limitation - History of Present Illness Initial comments: The patient is a 70-year-old female with history of end-stage renal disease on hemodialysis, COPD, hypertension who presents emergency department after she was unable to get her dialysis today. Patient is coming from [facility]. She had a recent fracture of her right femur and right tib-fib. She had surgery was discharged to rehab. They attempted to sit her up in a chair for 3 hours yesterday for which patient tolerated. Patient went to dialysis today and was unable to sit in the chair. They were unable to complete her dialysis and therefore the patient was discharged back to her facility. She was transferred here as they are concerned about her missed session. Patient has only missed one. She admits to intense pain in her right leg. Denies any shortness of breath, nausea, vomiting. Patient normally receives her dialysis Saturday. 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 - Related Data Home Medications Medication Instructions Recorded Confirmed Mirtazapine [Remeron] 30 mg PO HS@2100 12/28/16 06/29/21 QUEtiapine [SEROquel] 150 mg PO HS PRN 12/28/16 06/29/21 Rosuvastatin [Crestor] 10 mg PO HS@2100 12/28/16 06/29/21 Torsemide [Demadex] 60 mg PO BID@0800,1700 11/16/18 06/29/21 calcitrioL [Calcitriol] 1 mcg PO DAILY@0800 01/18/20 06/29/21 hydrALAZINE HCL [Apresoline] 100 mg PO TID@0600,1400,2200 01/18/20 06/29/21 Calcium Acetate 667 mg PO BID@0800,1700 06/14/21 06/29/21 Metoprolol Succinate (ER) [Toprol 50 mg PO BID@0800,1700 06/14/21 06/29/21 XL] Heparin Sodium,Porcine [Heparin 5,000 unit SQ BID@0800,2100 06/22/21 06/29/21 Sodium] Na Phos,M-B/Na Phos,Di-Ba [Fleet 133 ml RECTAL Q24H PRN 06/22/21 06/29/21 Adult] Pantoprazole [Protonix] 40 mg PO BID@0800,1700 06/22/21 06/29/21 Sennosides-Docusate Sodium 1 tab PO DAILY@0800 06/22/21 06/29/21 [Senokot-S] Tamsulosin [Flomax] 0.4 mg PO DAILY@0800 06/22/21 06/29/21 bisacodyL [Dulcolax] 1 supp RECTAL Q24H PRN 06/22/21 06/29/21 HYDROcodone/APAP 5-325MG [[place] 1 tab PO Q4HR PRN 06/29/21 06/29/21 5-325] HYDROmorphone [Dilaudid] 4 mg PO Q4H PRN 06/29/21 06/29/21 Allergies Allergy/AdvReac Type Severity Reaction Status Date / Time erythromycin base Allergy Unknown Verified 06/29/21 18:21 fentanyl Allergy Unknown Verified 06/29/21 18:21 oxycodone HCl [From Percocet] Allergy Nausea & Verified 06/29/21 18:21 Vomiting succinylcholine Allergy Unknown Verified 06/29/21 18:21 Review of Systems ROS Statement: Those systems with pertinent positive or pertinent negative responses have been documented in the HPI. ROS Other: All systems not noted in ROS Statement are negative. Past Medical History Past Medical History: COPD, GERD/Reflux, Hypertension, Renal Disease Additional Past Medical History / Comment(s): chronic pain; Kidney Dialysis Mon/Th. History of Any Multi-Drug Resistant Organisms: None Reported Past Surgical History: Breast Surgery, Tonsillectomy Additional Past Surgical History / Comment(s): benign Br lumpectomy Past Anesthesia/Blood Transfusion Reactions: No Reported Reaction Past Psychological History: Depression Smoking Status: Current every day smoker Past Alcohol Use History: None Reported Past Drug Use History: None Reported - Past Family History Mother Family Medical History: No Reported History General Exam Limitations: physical limitation General appearance: alert, in no apparent distress Head exam: Present: atraumatic, normocephalic, normal inspection Eye exam: Present: normal appearance, PERRL, EOMI. Absent: scleral icterus, conjunctival injection, periorbital swelling ENT exam: Present: normal exam, mucous membranes moist Neck exam: Present: normal inspection. Absent: tenderness, meningismus, lymphadenopathy Respiratory exam: Present: normal lung sounds bilaterally. Absent: respiratory distress, wheezes, rales, rhonchi, stridor Cardiovascular Exam: Present: regular rate, normal rhythm, normal heart sounds. Absent: systolic murmur, diastolic murmur, rubs, gallop, clicks GI/Abdominal exam: Present: soft, normal bowel sounds. Absent: distended, tenderness, guarding, rebound, rigid Extremities exam: Present: tenderness (bilateral hips and right knee. Right knee in immobilizer. Restricted ROM at both hip joints secondary to pain. Intact le s ensation. 2+ DP and PT pulses), normal capillary refill. Absent: pedal edema, joint swelling, calf tenderness Back exam: Present: normal inspection Neurological exam: Present: alert, oriented X3, CN II-XII intact Psychiatric exam: Present: normal affect, normal mood Skin exam: Present: warm, dry, intact, normal color. Absent: rash Course Vital Signs 06/22/21 06/22/21 06/22/21 17:50 20:59 21:32 Temperature 98.1 F 98.8 F 98.2 F Pulse Rate 80 80 Respiratory 18 16 16 Rate Blood Pressure 161/60 136/83 Blood Pressure 136/49 [Right Arm] O2 Sat by Pulse 93 L 100 92 L Oximetry Medical Decision Making - Medical Decision Making Upon arrival patient is placed into room 10. A thorough history and physical exam is performed. I did give the patient a dose of Dilaudid for pain control. Laboratory studies are conducted. Her potassium is 5.7. Creatinine 5.5. I did call and speak with Dr. Gu who accepted admission for the patient. I will place nephrology on consult. Patient is taken to the floor in stable condition - Lab Data Result diagrams: 06/23/21 07:43 06/23/21 07:43 Lab Results 06/22/21 06/22/21 Range/Units 19:12 19:12 WBC 12.2 H (3.8-10.6) k/uL RBC 2.90 L (3.80-5.40) m/uL Hgb 9.1 L (11.4-16.0) gm/dL Hct 27.9 L (34.0-46.0) % MCV 96.4 (80.0-100.0) fL MCH 31.4 (25.0-35.0) pg MCHC 32.6 (31.0-37.0) g/dL RDW 15.6 H (11.5-15.5) % Plt Count 211 (150-450) k/uL MPV 9.0 Neutrophils % 85 % Lymphocytes % 4 % Monocytes % 7 % Eosinophils % 1 % Basophils % 0 % Neutrophils # 10.4 H (1.3-7.7) k/uL Lymphocytes # 0.5 L (1.0-4.8) k/uL Monocytes # 0.9 (0-1.0) k/uL Eosinophils # 0.1 (0-0.7) k/uL Basophils # 0.1 (0-0.2) k/uL Sodium 133 L (137-145) mmol/L Potassium 5.7 H (3.5-5.1) mmol/L Chloride 94 L (98-107) mmol/L Carbon Dioxide 26 (22-30) mmol/L Anion Gap 13 mmol/L BUN 56 H (7-17) mg/dL Creatinine 5.53 H (0.52-1.04) mg/dL Est GFR (CKD-EPI)AfAm 8 (>60 ml/min/1.73 sqM) Est GFR (CKD-EPI)NonAf 7 (>60 ml/min/1.73 sqM) Glucose 102 H (74-99) mg/dL Calcium 10.0 (8.4-10.2) mg/dL Total Bilirubin 0.7 (0.2-1.3) mg/dL AST 42 H (14-36) U/L ALT 7 (4-34) U/L Alkaline Phosphatase 102 (38-126) U/L Total Protein 6.0 L (6.3-8.2) g/dL Albumin 3.5 (3.5-5.0) g/dL Disposition Clinical Impression: ESRD on hemodialysis, Displaced comminuted fracture of shaft of right femur Disposition: ADMITTED IP TO THIS [facility] Condition: Stable Is patient prescribed a controlled substance at d/c from ED?: No Decision to Admit Reason: Admit from EC Decision Date: 06/22/21 Decision Time: 20:43
[2021-06-22] MEDS: HYDROmorphone 1 MG/ML 1 ML SYRINGE IVP PRN (23:01)
[2021-06-23] MEDS: HYDROmorphone 1 MG/ML 1 ML SYRINGE IVP PRN ×3 (02:01→12:11)
[2021-06-23 08:33] LABS: African American GFR (CKD) 7 (>60 ml/min/1.73 sqM); Anion Gap 13 mmol/L; Blood Urea Nitrogen 59 mg/dL (7-17); Calcium 9.7 mg/dL (8.4-10.2); Carbon Dioxide 25 mmol/L (22-30); Chloride 96 mmol/L (98-107); Glucose 81 mg/dL (74-99); Non-African American GFR(CKD) 6 (>60 ml/min/1.73 sqM); Potassium 5.7 mmol/L (3.5-5.1); Sodium 134 mmol/L (137-145)
[2021-06-23] MEDS: diazePAM 2 MG TAB PO PRN ×2 (10:55→15:42)
--- NOTE | 2021-06-23 11:03 | P.NPCON ---
History of Present Illness - Reason for Consult end stage renal disease - History of Present Illness Reason for consult: End-stage renal disease History of present illness: Patient is a 70-year-old female seen in renal consultation for end-stage renal disease. She is maintained on hemodialysis on Mondays and . Patient was recently admitted for hip fracture and underwent surgical intervention. She was subsequently discharged to rehab facility. Patient went to hemodialysis yesterday but could not sit on the chair and was sent back to the [facility]. She was concerned about missing her dialysis and came to the hospital. She is currently seen was undergoing hemodialysis. She is tolerating the treatment well. Denies chest pain or shortness of breath. No vomiting or diarrhea. No fever or chills. Hemodynamically she stable. Potassium level was high at 5.7 this morning. Otherwise the patient has no active complaints. Vital signs are stable. General: The patient appeared well nourished and normally developed. HEENT: Head exam is unremarkable. Neck is without jugular venous distension. LUNGS: LBreath sounds decreased. HEART: Rate and Rhythm are regular. ABDOMEN: Soft, no distention. EXTREMITITES: No edema. Past Medical History Past Medical History: COPD, GERD/Reflux, Hypertension, Renal Disease Additional Past Medical History / Comment(s): chronic pain; Kidney Dialysis Sat/. History of Any Multi-Drug Resistant Organisms: None Reported Past Surgical History: Breast Surgery, Tonsillectomy Additional Past Surgical History / Comment(s): benign Br lumpectomy Past Anesthesia/Blood Transfusion Reactions: No Reported Reaction Past Psychological History: Depression Smoking Status: Current every day smoker Past Alcohol Use History: None Reported Past Drug Use History: None Reported - Past Family History Mother Family Medical History: No Reported History Medications and Allergies Home Medications Medication Instructions Recorded Confirmed Type Mirtazapine [Remeron] 30 mg PO HS@209912/28/16 06/22/21 History QUEtiapine [SEROquel] 150 mg PO HS PRN 12/28/16 06/22/21 History Rosuvastatin [Crestor] 10 mg PO HS@209912/28/16 06/22/21 History cloNIDine HCL [Catapres] 0.3 mg PO BID-W/MEALS 12/28/16 06/22/21 History cloNIDine HCL [Catapres] 0.2 mg PO HS@209904/18/1806/22/21 History Torsemide [Demadex] 60 mg PO BID@0800,1700 11/16/18 06/22/21 History minoxidiL [Loniten] 5 mg PO BID@0800,1700 11/16/18 06/22/21 History calcitrioL [Calcitriol] 1 mcg PO DAILY@0800 01/18/20 06/22/21 History hydrALAZINE HCL [Apresoline] 100 mg PO TID@0600,1400,2200 01/18/20 06/22/21 History lisinopriL 20 mg PO BID@0800,1700 01/18/20 06/22/21 History Calcium Acetate 667 mg PO BID@0800,1700 06/14/21 06/22/21 History Metoprolol Succinate (ER) [Toprol 50 mg PO BID@0800,1700 06/14/21 06/22/21 H istory XL] HYDROcodone/APAP 5-325MG [[place] 5] 1 each PO Q4HR PRN #42 tab 06/19/21 06/22/21 Rx Ferrous Sulfate [Iron (65 MG 325 mg PO BID@0800,1700 06/22/21 06/22/21 History Elemental)] Heparin Sodium,Porcine [Heparin 5,000 unit SQ BID@0800,2100 06/22/21 06/22/21 History Sodium] Magnesium Hydroxide [Milk of 7,200 mg PO DAILY PRN 06/22/21 06/22/21 History Magnesia Concentrate] Na Phos,M-B/Na Phos,Di-Ba [Fleet 133 ml RECTAL Q24H PRN 06/22/21 06/22/21 History Adult] Pantoprazole [Protonix] 40 mg PO BID@0800,1700 06/22/21 06/22/21 History Sennosides-Docusate Sodium 1 each PO DAILY@0800 06/22/21 06/22/21 History [Senokot-S] Tamsulosin [Flomax] 0.4 mg PO DAILY@0800 06/22/21 06/22/21 History bisacodyL [Dulcolax] 1 supp RECTAL Q24H PRN 06/22/21 06/22/21 History Allergies Allergy/AdvReac Type Severity Reaction Status Date / Time erythromycin base Allergy Unknown Verified 06/22/21 22:39 fentanyl Allergy Unknown Verified 06/22/21 22:39 oxycodone HCl [From Percocet] Allergy Nausea & Verified 06/22/21 22:39 Vomiting succinylcholine Allergy Unknown Verified 06/22/21 22:39 Physical Exam Vitals: Vital Signs Temp Pulse Pulse Resp BP BP Pulse Ox 06/23/21 07:59 91 L 06/23/21 07:48 98.7 F 82 16 115/55 90 L 06/23/21 02:00 98.9 F 91 17 125/45 95 06/22/21 21:32 98.2 F 80 16 136/83 92 L 06/22/21 20:59 98.8 F 16 136/49 100 06/22/21 17:50 98.1 F 80 18 161/60 93 L Intake and Output 06/22/21 06/23/21 06/23/21 22:59 06:59 14:59 Output Total 200 Balance -200 Output: Urine 200 Other: Voiding Method Indwelling Catheter Weight 60.781 kg Results - Lab Results Most recent lab results Calcium 9.7 mg/dL (8.4-10.2) 06/23/21 07:43 06/22/21 19:12 06/23/21 07:43 Assessment and Plan Plan: Assessment: 1. End-stage renal disease maintained on hemodialysis on Mondays and . 2. Recent hip fracture status post surgical intervention. 3. Hyperkalemia secondary to chronic kidney disease and missed dialysis. 4. Anemia of chronic kidney disease. 5. Hyponatremia secondary to chronic kidney disease. 6. Hypertension with chronic kidney disease. Controlled. Plan: Currently seen was undergoing hemodialysis. Next treatment on Saturday. Check iron studies. Thank you for the consultation. I will continue to follow this patient with you during her hospital stay.
[2021-06-23 11:09] LABS: Basophils # (A) 0.04 X 10*3/uL (0.00-0.10); Basophils % (A) 0.4 %; Eosinophils # (A) 0.11 X 10*3/uL (0.04-0.35); HCT 25.1 % (37.2-46.3); HGB 7.9 g/dL (12.0-15.0); Lymphocytes # (A) 0.58 X 10*3/uL (0.90-5.00); Lymphocytes % (A) 5.3 %; MCH 30.5 pg (27.0-32.0); MCHC 31.5 g/dL (32.0-37.0); MCV 96.9 fL (80.0-97.0); Monocytes # (A) 1.33 X 10*3/uL (0.20-1.00); Monocytes % (A) 12.2 %; Neutrophils % (A) 79.3 %; Platelet Count 204 X 10*3/uL (140-440); RBC 2.59 X 10*6/uL (4.10-5.20); RDW 15.9 % (11.5-14.5); WBC 10.86 X 10*3/uL (4.50-10.00)
--- NOTE | 2021-06-23 11:58 | XR ---
EXAMINATION TYPE: XR chest 1V portable DATE OF EXAM: 06/23/2021 COMPARISON: Prior chest x-ray dated 06/14/2021 HISTORY: Fluid overload TECHNIQUE: Single frontal view of the chest is obtained. FINDINGS: Abnormal increased attenuation is present at the right lung base. Prominence the central v ascularity is again noted, interstitium is thought to be improved. Patient is rotated, no evident pne umothorax. Heart may be enlarged but is stable. Aorta is dense. IMPRESSION: Probable right pleural effusion and associated atelectasis versus edema greater than lef t. Suspect some improvement in patient's volume status, aeration within the lungs.
[2021-06-23] MEDS ORDERED: NA PHOS,M-B/NA PHOS,DI-BA 133 ML ENEMA RECTAL PRN (12:00)
[2021-06-23] MEDS ORDERED: HYDROcodone/APAP 5-325MG 1 EACH TAB PO PRN (12:00)
[2021-06-23] MEDS ORDERED: bisacodyL 10 MG SUPP RECTAL PRN (12:00)
[2021-06-23] MEDS ORDERED: QUEtiapine 50 MG TAB PO PRN (12:00)
--- NOTE | 2021-06-23 12:08 | P.HPIM ---
History of Present Illness Patient was a 70-year-old female was recently discharged from [facility] she had a fall and a fracture multiple location in bilateral lower extremities. Patient had bilateral femoral fractures. Patient was discharged to subacute rehabitation where they're unable to perform hemodialysis because patient was unable to sit in the dialysis chair and unable to lay flat because of her bilateral hip pain from her recent hip surgery. Patient was subsequently sent here for that reason. Patient is Saturday and hemodialysis. Patient denied any fever chills nausea vomiting abdominal pain dysuria patient does have leukocytosis which is improving no evidence of infection clinically patient is bit hyponatremic and hyperkalemic patient is on the lisinopril for hypertension. Patient is on multiple other medications for hypertension although her blood pressure is low normal with a systolic blood pressures in 1 teens and diastolic about 55. Patient does have smoking history smokes about 1 pack per day as opposed to 3 pa cks per day in the past patient doesn't believe she'll be able to quit extensive counseling was provided during her last hospital H 12 and as well as now. Patient does have history of COPD doesn't usually wear oxygen presently on 2 L of oxygen with borderline saturations patient is was any undergoing hemodialysis with removal of around 1.2 L of fluid. REVIEW OF SYSTEMS: CONSTITUTIONAL: No fever, no malaise, no fatigue. HEENT: No recent visual problems or hearing problems. Denied any sore throat. CARDIOVASCULAR: No chest pain, orthopnea, PND, no palpitations, no syncope. PULMONARY: No shortness of breath, no cough, no hemoptysis. GASTROINTESTINAL: No diarrhea, no nausea, no vomiting, no abdominal pain. NEUROLOGICAL: No headaches, no weakness, no numbness. HEMATOLOGICAL: Denies any bleeding or petechiae. GENITOURINARY: Denies any burning micturition, frequency, or urgency. MUSCULOSKELETAL/RHEUMATOLOGICAL: Denies any joint pain, swelling, or any muscle pain. ENDOCRINE: Denies any polyuria or polydipsia. The rest of the 14-point review of systems is negative. PHYSICAL EXAMINATION: GENERAL: The patient is alert and oriented x3, not in any acute distress. Well developed, well nourished. HEENT: Pupils are round and equally reacting to light. EOMI. No scleral icterus. No conjunctival pallor. Normocephalic, atraumatic. No pharyngeal erythema. No thyromegaly. CARDIOVASCULAR: S1 and S2 present. No murmurs, rubs, or gallops. PULMONARY: Chest is clear to auscultation, no wheezing or crackles. ABDOMEN: Soft, nontender, nondistended, normoactive bowel sounds. No palpable organomegaly. MUSCULOSKELETAL: No joint swelling or deformity. EXTREMITIES: No cyanosis, clubbing, or pedal edema. NEUROLOGICAL: Gross neurological examination did not reveal any focal deficits. SKIN: No rashes. Assessment and plan -End-stage renal disease and dialysis dependent I was unable to get hemodialysis yesterday at [facility] because of that reason patient was transferred here patient is undergoing hemodialysis here. Social work is working on her placement where dialysis can be performed in her situation. -Hyperkalemia secondary to lisinopril which will be held -Anemia of chronic kidney disease -Hyponatremia secondary to chronic kidney disease -Hypertension: Hold off on lisinopril and hold off on clonidine at this time patient the blood pressures as mentioned above rest of her antidepressant medications will be resumed -Recent hip fracture patient is presently on heparin for DVT prophylaxis -Review that any acute exacerbation -Nicotine abuse: Counseling was provided DVT prophylaxis: Subcutaneous heparin Past Medical History Past Medical History: COPD, GERD/Reflux, Hypertension, Renal Disease Additional Past Medical History / Comment(s): chronic pain; Kidney Dialysis Sat/. History of Any Multi-Drug Resistant Organisms: None Reported Past Surgical History: Breast Surgery, Tonsillectomy Additional Past Surgical History / Comment(s): benign Br lumpectomy Past Anesthesia/Blood Transfusion Reactions: No Reported Reaction Past Psychological History: Depression Smoking Status: Current every day smoker Past Alcohol Use History: None Reported Past Drug Use History: None Reported - Past Family History Mother Family Medical History: No Reported History Medications and Allergies Home Medications Medication Instructions Recorded Confirmed Type Mirtazapine [Remeron] 30 mg PO HS@2100 12/28/16 06/22/21 History QUEtiapine [SEROquel] 150 mg PO HS PRN 12/28/16 06/22/21 History Rosuvastatin [Crestor] 10 mg PO HS@2100 12/28/16 06/22/21 History cloNIDine HCL [Catapres] 0.3 mg PO BID-W/MEALS 12/28/16 06/22/21 History cloNIDine HCL [Catapres] 0.2 mg PO HS@2100 04/18/18 06/22/21 History Torsemide [Demadex] 60 mg PO BID@0800,1700 11/16/18 06/22/21 History minoxidiL [Loniten] 5 mg PO BID@0800,1700 11/16/18 06/22/21 History calcitrioL [Calcitriol] 1 mcg PO DAILY@0800 01/18/20 06/22/21 History hydrALAZINE HCL [Apresoline] 100 mg PO TID@0600,1400,2200 01/18/20 06/22/21 History lisinopriL 20 mg PO BID@0800,1700 01/18/20 06/22/21 History Calcium Acetate 667 mg PO BID@0800,1700 06/14/21 06/22/21 History Metoprolol Succinate (ER) [Toprol 50 mg PO BID@0800,1700 06/14/21 06/22/21 History XL] HYDROcodone/APAP 5-325MG [[place] 5] 1 each PO Q4HR PRN #42 tab 06/19/21 06/22/21 Rx Ferrous Sulfate [Iron (65 MG 325 mg PO BID@0800,1700 06/22/21 06/22/21 History Elemental)] Heparin Sodium,Porcine [Heparin 5,000 unit SQ BID@0800,2100 06/22/21 06/22/21 History Sodium] Magnesium Hydroxide [Milk of 7,200 mg PO DAILY PRN 06/22/21 06/22/21 History Magnesia Concentrate] Na Phos,M-B/Na Phos,Di-Ba [Fleet 133 ml RECTAL Q24H PRN 06/22/21 06/22/21 H istory Adult] Pantoprazole [Protonix] 40 mg PO BID@0800,1700 06/22/21 06/22/21 History Sennosides-Docusate Sodium 1 each PO DAILY@0800 06/22/21 06/22/21 History [Senokot-S] Tamsulosin [Flomax] 0.4 mg PO DAILY@0800 06/22/21 06/22/21 History bisacodyL [Dulcolax] 1 supp RECTAL Q24H PRN 06/22/21 06/22/21 History Allergies Allergy/AdvReac Type Severity Reaction Status Date / Time erythromycin base Allergy Unknown Verified 06/22/21 22:39 fentanyl Allergy Unknown Verified 06/22/21 22:39 oxycodone HCl [From Percocet] Allergy Nausea & Verified 06/22/21 22:39 Vomiting succinylcholine Allergy Unknown Verified 06/22/21 22:39 Physical Exam Vitals: Vital Signs Temp Pulse Pulse Resp BP BP Pulse Ox 06/23/21 07:59 91 L 06/23/21 07:48 98.7 F 82 16 115/55 90 L 06/23/21 02:00 98.9 F 91 17 125/45 95 06/22/21 21:32 98.2 F 80 16 136/83 92 L 06/22/21 20:59 98.8 F 16 136/49 100 06/22/21 17:50 98.1 F 80 18 161/60 93 L Intake and Output 06/22/21 06/23/21 06/23/21 22:59 06:59 14:59 Output Total 200 Balance -200 Output: Urine 200 Other: Voiding Method Indwelling Catheter Weight 60.781 kg Results CBC & Chem 7: 06/23/21 07:43 06/23/21 07:43 Labs: Abnormal Lab Results - Last 24 Hours (Table) 06/22/21 06/22/21 06/23/21 Range/Units 19:12 19:12 07:43 WBC 12.2 H 10.86 H (3.8-10.6) k/uL RBC 2.90 L 2.59 L (3.80-5.40) m/uL Hgb 9.1 L 7.9 L (11.4-16.0) gm/dL Hct 27.9 L 25.1 L (34.0-46.0) % MCHC 31.5 L (32.0-37.0) g/dL RDW 15.6 H 15.9 H (11.5-15.5) % Absolute Nucleated RBC 0.02 H (0.00-0.00) X 10*3/uL Immature Gran # 0.20 H (0.00-0.04) X 10*3/uL Neutrophils # 10.4 H 8.60 H (1.3-7.7) k/uL Lymphocytes # 0.5 L 0.58 L (1.0-4.8) k/uL Monocytes # 1.33 H (0.20-1.00) X 10*3/uL NRBC/100 WBC Diff 0.2 H (0.0-0.0) /100 WBCS Sodium 133 L (137-145) mmol/L Potassium 5.7 H (3.5-5.1) mmol/L Chloride 94 L (98-107) mmol/L BUN 56 H (7-17) mg/dL Creatinine 5.53 H (0.52-1.04) mg/dL Glucose 102 H (74-99) mg/dL AST 42 H (14-36) U/L Total Protein 6.0 L (6.3-8.2) g/dL 06/23/21 Range/Units 07:43 WBC (3.8-10.6) k/uL RBC (3.80-5.40) m/uL Hgb (11.4-16.0) gm/dL Hct (34.0-46.0) % MCHC (32.0-37.0) g/dL RDW (11.5-15.5) % Absolute Nucleated RBC (0.00-0.00) X 10*3/uL Immature Gran # (0.00-0.04) X 10*3/uL Neutrophils # (1.3-7.7) k/uL Lymphocytes # (1.0-4.8) k/uL Monocytes # (0.20-1.00) X 10*3/uL NRBC/100 WBC Diff (0.0-0.0) /100 WBCS Sodium 134 L (137-145) mmol/L Potassium 5.7 H (3.5-5.1) mmol/L Chloride 96 L (98-107) mmol/L BUN 59 H (7-17) mg/dL Creatinine 6.13 H (0.52-1.04) mg/dL Glucose (74-99) mg/dL AST (14-36) U/L Total Protein (6.3-8.2) g/dL Thrombosis Risk Factor Assmnt - Choose All That Apply Any of the Below Risk Factors Present?: No Each Risk Factor Represents 2 Points: Age 61-74 years Each Risk Factor Represents 5 Points: Hip, pelvis, or leg fracture (< 1 month) Thrombosis Risk Factor Assessment Total Risk Factor Score: 7 Thrombosis Risk Factor Assessment Level: High Risk
[2021-06-23] MEDS ORDERED: hydrALAZINE HCL 50 MG TAB PO SCH (14:00)
--- NOTE | 2021-06-23 14:46 | P.DS ---
Providers Date of admission: 06/22/21 20:48 Attending physician: Major Canales MD Consults: 06/22/21 20:46 Consult Physician Urgent Consulting Provider: Roger Lee Consult Reason/Comments: ESRD on HD Do you want consulting provider notified?: Yes [facility] Course: Please refer to HPI for further details of hospitalization. Patient is clinically doing well. The main reason for hospitalization is patient is unable to sit for dialysis or lay down for analysis because of her bilateral hip pain. As per nephrology on the dialysis days her Chambers is being dialyzed and is being ineffective. Nephrology suggested oral Dilaudid on the days of hemodialysis. Prescription for that will be provided and patient will be discharged to subacute rehabitation. Patient had leukocytosis which is reactive in nature improved now. Patient will be discharged today. Patient will need ambulance ride from a subacute rehabitation to dialysis site. Patient Condition at Discharge: Stable Plan - Discharge Summary Discharge Rx Participant: No New Discharge Prescriptions: Continue QUEtiapine [SEROquel] 150 mg PO HS PRN PRN Reason: Insomnia Rosuvastatin [Crestor] 10 mg PO HS@2100 Mirtazapine [Remeron] 30 mg PO HS@2100 Torsemide [Demadex] 60 mg PO BID@0800,1700 hydrALAZINE HCL [Apresoline] 100 mg PO TID@0600,1400,2200 calcitrioL [Calcitriol] 1 mcg PO DAILY@0800 Metoprolol Succinate (ER) [Toprol XL] 50 mg PO BID@0800,1700 Pantoprazole [Protonix] 40 mg PO BID@0800,1700 Ferrous Sulfate [Iron (65 MG Elemental)] 325 mg PO BID@0800,1700 Calcium Acetate 667 mg PO BID@0800,1700 HYDROcodone/APAP 5-325MG [Chambers 5-325] 1 each PO Q4HR PRN #42 tab PRN Reason: Pain Na Phos,M-B/Na Phos,Di-Ba [Fleet Adult] 133 ml RECTAL Q24H PRN PRN Reason: Constipation bisacodyL [Dulcolax] 1 supp RECTAL Q24H PRN PRN Reason: Constipation Heparin Sodium,Porcine [Heparin Sodium] 5,000 unit SQ BID@0800,2100 Sennosides-Docusate Sodium [Senokot-S] 1 each PO DAILY@0800 Tamsulosin [Flomax] 0.4 mg PO DAILY@0800 Magnesium Hydroxide [Milk of Magnesia Concentrate] 7,200 mg PO DAILY PRN PRN Reason: Constipation Discontinued cloNIDine HCL [Catapres] 0.3 mg PO BID-W/MEALS cloNIDine HCL [Catapres] 0.2 mg PO HS@2100 minoxidiL [Loniten] 5 mg PO BID@0800,1700 lisinopriL 20 mg PO BID@0800,1700 Discharge Medication List Mirtazapine [Remeron] 30 mg PO HS@209912/28/16 [History] QUEtiapine [SEROquel] 150 mg PO HS PRN 12/28/16 [History] Rosuvastatin [Crestor] 10 mg PO HS@209912/28/16 [History] Torsemide [Demadex] 60 mg PO BID@0800,1700 11/16/18 [History] calcitrioL [Calcitriol] 1 mcg PO DAILY@0800 01/18/20 [History] hydrALAZINE HCL [Apresoline] 100 mg PO TID@0600,1400,2200 01/18/20 [History] Calcium Acetate 667 mg PO BID@0800,1700 06/14/21 [History] Metoprolol Succinate (ER) [Toprol XL] 50 mg PO BID@0800,1700 06/14/21 [History] HYDROcodone/APAP 5-325MG [Chambers 5-325] 1 each PO Q4HR PRN #42 tab 06/19/21 [Rx] Ferrous Sulfate [Iron (65 MG Elemental)] 325 mg PO BID@0800,1700 06/22/21 [History] Heparin Sodium,Porcine [Heparin Sodium] 5,000 unit SQ BID@0800,2100 06/22/21 [History] Magnesium Hydroxide [Milk of Magnesia Concentrate] 7,200 mg PO DAILY PRN 06/22/21 [History] Na Phos,M-B/Na Phos,Di-Ba [Fleet Adult] 133 ml RECTAL Q24H PRN 06/22/21 [History] Pantoprazole [Protonix] 40 mg PO BID@0800,1700 06/22/21 [History] Sennosides-Docusate Sodium [Senokot-S] 1 each PO DAILY@0800 06/22/21 [History] Tamsulosin [Flomax] 0.4 mg PO DAILY@0800 06/22/21 [History] bisacodyL [Dulcolax] 1 supp RECTAL Q24H PRN 06/22/21 [History] Follow up Appointment(s)/Referral(s): Rock Fry DO [Primary Care Provider] - 3 Days Activity/Diet/Wound Care/Special Instructions: Michelle Vergara
[2021-06-23 14:47] VITALS: BP 131/50; PULSE 89; RESP 16; TEMP 98.3
[2021-06-23] MEDS ORDERED: TORSEMIDE 20 MG TAB PO SCH (17:00)
[2021-06-23] MEDS ORDERED: PANTOPRAZOLE 40 MG TABLET PO SCH (17:00)
[2021-06-23] MEDS ORDERED: METOPROLOL SUCCINATE (ER) 50 MG TAB.ER.24H PO SCH (17:00)
[2021-06-23] MEDS ORDERED: FERROUS SULFATE 325 MG TAB PO SCH (17:00)
[2021-06-23] MEDS ORDERED: CALCIUM ACETATE 667 MG TAB PO SCH (17:30)
[2021-06-23] MEDS ORDERED: MIRTAZAPINE 15 MG TAB PO SCH (21:00)
[2021-06-23] MEDS ORDERED: ATORVASTATIN 20 MG TAB PO SCH (21:00)
[2021-06-23] MEDS ORDERED: HEPARIN SODIUM,PORCINE/PF 5,000 UNIT/0.5 ML SYRINGE SQ SCH (21:00)
[2021-06-23 22:15] LABS: Hepatitis B Surface AB- Quant <3.5 mIU/mL; Hepatitis B Surface Antibody Non-Reactive (Non-Reactive); Hepatitis B Surface Antigen Non-Reactive (Non-Reactive)
[2021-06-24 00:11] LABS: % Iron Saturation 13.97 (12.00-45.00); Ferritin 363.7 ng/mL (10.0-291.0)
[2021-06-24] MEDS ORDERED: TAMSULOSIN 0.4 MG CAP.ER.24H PO SCH (08:00)
[2021-06-24] MEDS ORDERED: SENNOSIDES-DOCUSATE SODIUM 1 EACH TAB PO SCH (08:00)
== END 2021-06-23 16:00 ==
LOC: EC 17:18 → 4SSUR 20:48
PROVIDERS: ADMIT Internal Medicine; ATTEND Internal Medicine
DX: M25.552 Pain in left hip (principal); M25.551 Pain in right hip; S72.351D Displaced comminuted fracture of shaft of right femur, subsequent encounter for closed fracture with routine healing; S72.92XD Unspecified fracture of left femur, subsequent encounter for closed fracture with routine healing; Z99.2 Dependence on renal dialysis; N18.6 End stage renal disease; D63.1 Anemia in chronic kidney disease; D72.829 Elevated white blood cell count, unspecified; E87.1 Hypo-osmolality and hyponatremia; E87.5 Hyperkalemia; F17.200 Nicotine dependence, unspecified, uncomplicated; F32.9 Major depressive disorder, single episode, unspecified; I12.0 Hypertensive chronic kidney disease with stage 5 chronic kidney disease or end stage renal disease; J44.9 Chronic obstructive pulmonary disease, unspecified; T46.4X5A Adverse effect of angiotensin-converting-enzyme inhibitors, initial encounter; Z79.899 Other long term (current) drug therapy; Z20.822 Contact with and (suspected) exposure to COVID-19
CPT/HCPCS: 96376 ×2; 96374; 99285; 36415; 94760; 80053; 80048; 82728; 83540; 83550; 85025 ×2; 86706; 87340; 87635; 71045; G0257; G0378 ×2; J1170 ×2; 90935

== ENCOUNTER 2021-06-29 16:26 | Inpatient (IN) | payer MEDICARE, OTHER ==
[2021-06-29 17:26] LABS: Basophils % (A) 0 %; Eosinophils # (A) 0.1 k/uL (0-0.7); Eosinophils % (A) 1 %; HCT 31.2 % (34.0-46.0); HGB 10.2 gm/dL (11.4-16.0); Hypochromasia Slight; Lymphocytes # (A) 0.5 k/uL (1.0-4.8); Lymphocytes % (A) 5 %; MCH 31.9 pg (25.0-35.0); MCHC 32.9 g/dL (31.0-37.0); MCV 97.1 fL (80.0-100.0); Mean Platelet Volume 8.6; Monocytes # (A) 0.4 k/uL (0-1.0); Monocytes % (A) 4 %; Neutrophils # (A) 8.2 k/uL (1.3-7.7); Neutrophils % (A) 88 %; Platelet Count 293 k/uL (150-450); RBC 3.21 m/uL (3.80-5.40); RDW 15.4 % (11.5-15.5); WBC 9.4 k/uL (3.8-10.6)
[2021-06-29 17:35] LABS: Appearance,Urine Turbid (Clear); Bacteria,Urine Occasional /hpf; Bilirubin,Urine Negative (Negative); Blood,Urine Small (Negative); Color,Urine Yellow; Glucose,Urine (UA) Negative (Negative); Ketones,Urine Negative (Negative); Leukocyte Esterase,Urine Large (Negative); Mucus,Urine Rare /hpf; Nitrite,Urine Negative (Negative); PH, Urine 8.5 (5.0-8.0); Protein,Urine 2+ (Negative); RBC,Urine 29 /hpf (0-5); Specific Gravity,Urine 1.009 (1.001-1.035); Urobilinogen,Urine <2.0 mg/dL (<2.0); WBC,Urine >182 /hpf (0-5)
[2021-06-29 17:36] LABS: Albumin 3.4 g/dL (3.5-5.0); Calcium 9.6 mg/dL (8.4-10.2); Magnesium 1.9 mg/dL (1.6-2.3); Potassium 3.3 mmol/L (3.5-5.1); Total Protein 6.2 g/dL (6.3-8.2)
[2021-06-29 17:46] LABS: INR 1.1 (<1.2); Partial Thromboplastin Time 27.8 sec (22.0-30.0); Prothrombin Time 11.7 sec (9.0-12.0)
--- NOTE | 2021-06-29 17:54 | XR ---
EXAMINATION TYPE: XR chest 1V portable DATE OF EXAM: 06/29/2021 COMPARISON: 06/23/2021 HISTORY: Fluid overload. TECHNIQUE: Single frontal view of the chest is obtained. FINDINGS: There is persistent moderate right basilar opacity with small to moderate pleural effusion . There is mild left basilar atelectasis. No pneumothorax seen. The cardiac silhouette size is enlar ged. The osseous structures are intact. IMPRESSION: Persistent right basilar opacities with pleural effusion.
--- NOTE | 2021-06-29 18:13 | XR ---
RESULT: HISTORY: injury TECHNIQUE: 2 views each of the bilateral femurs. COMPARISON: 06/15/2021 and prior. FINDINGS: Left femur: There is demonstration of subacute left femoral intertrochanteric fracture status post in tramedullary jairo fixation in grossly unchanged near-anatomic alignment. No evidence of hardware compl ication. Right femur: There is demonstration of subacute left distal femur fracture status post intramedullary jairo fixation in grossly unchanged in anatomic alignment. No evidence of hardware complication. No new osseous abnormality. IMPRESSION: Stable bilateral femur fractures status post ORIF.
[2021-06-29] MEDS ORDERED: HYDROmorphone 0.5 MG/0.5 ML SYRINGE IM STA (18:26)
[2021-06-29] MEDS ORDERED: HYDROmorphone 2 MG TAB PO PRN (19:12)
[2021-06-29] MEDS ORDERED: NALOXONE 0.4 MG/ML 1 ML VIAL IV PRN (19:12)
[2021-06-29] MEDS ORDERED: TEMAZEPAM 15 MG CAP PO PRN (19:12)
[2021-06-29] MEDS ORDERED: DOCUSATE 100 MG CAP PO PRN (19:12)
[2021-06-29] MEDS ORDERED: KETOROLAC 15 MG/ML 1 ML VIAL IVP PRN (19:12)
[2021-06-29] MEDS ORDERED: MAG HYDROX/AL HYDROX/SIMETH 30 ML CUP PO PRN (19:12)
--- NOTE | 2021-06-29 19:12 | ED ---
Recheck HPI - General Chief Complaint: Recheck/Abnormal Lab/Rx Stated Complaint: Pain all over Time Seen by Provider: 06/29/21 16:33 Source: patient, EMS Mode of arrival: EMS Limitations: no limitations - History of Present Illness Initial Comments: Patient presents for a few reasons. First she has malaise and is not feeling well. Nothing makes this better or worse. She has taken nothing for this. She wasn't doing any when this began. She has been having progressive weakness for a few days. Her other issue is that she has pain in her legs. She had recent bilateral femur fractures which were fixed. She goes to dialysis twice a week. It is causing her to have more pain with walking to be moved from her care home to get to dialysis. She doesn't like her pain is well-controlled. She has no chest pain. She has no back pain. She has no headache. She has no nausea or vomiting this time. She has no neck pain or stiffness. - Related Data Home Medications Medication Instructions Recorded Confirmed Mirtazapine [Remeron] 30 mg PO HS@209912/28/16 06/29/21 QUEtiapine [SEROquel] 150 mg PO HS PRN 12/28/16 06/29/21 Rosuvastatin [Crestor] 10 mg PO HS@209912/28/16 06/29/21 Torsemide [Demadex] 60 mg PO BID@0800,1700 11/16/18 06/29/21 calcitrioL [Calcitriol] 1 mcg PO DAILY@0800 01/18/20 06/29/21 hydrALAZINE HCL [Apresoline] 100 mg PO TID@0600,1400,2200 01/18/20 06/29/21 Calcium Acetate 667 mg PO BID@0800,1700 06/14/21 06/29/21 Metoprolol Succinate (ER) [Toprol 50 mg PO BID@0800,1700 06/14/21 06/29/21 XL] Heparin Sodium,Porcine [Heparin 5,000 unit SQ BID@0800,209906/22/21 06/29/21 Sodium] Na Phos,M-B/Na Phos,Di-Ba [Fleet 133 ml RECTAL Q24H PRN 06/22/21 06/29/21 Adult] Pantoprazole [Protonix] 40 mg PO BID@0800,1700 06/22/21 06/29/21 Sennosides-Docusate Sodium 1 tab PO DAILY@0800 06/22/21 06/29/21 [Senokot-S] Tamsulosin [Flomax] 0.4 mg PO DAILY@0800 06/22/21 06/29/21 bisacodyL [Dulcolax] 1 supp RECTAL Q24H PRN 06/22/21 06/29/21 HYDROcodone/APAP 5-325MG [[place]ane 1 tab PO Q4HR PRN 06/29/21 06/29/21 5-325] HYDROmorphone [Dilaudid] 4 mg PO Q4H PRN 06/29/21 06/29/21 Allergies Allergy/AdvReac Type Severity Reaction Status Date / Time erythromycin base Allergy Unknown Verified 06/29/21 18:21 fentanyl Allergy Unknown Verified 06/29/21 18:21 oxycodone HCl [From Percocet] Allergy Nausea & Verified 06/29/21 18:21 Vomiting succinylcholine Allergy Unknown Verified 06/29/21 18:21 Review of Systems ROS Statement: Those systems with pertinent positive or pertinent negative responses have been documented in the HPI. ROS Other: All systems not noted in ROS Statement are negative. Past Medical History Past Medical History: COPD, GERD/Reflux, Hypertension, Renal Disease Additional Past Medical History / Comment(s): chronic pain; Kidney Dialysis Mon/Thurs. History of Any Multi-Drug Resistant Organisms: None Reported Past Surgical History: Breast Surgery, Tonsillectomy Additional Past Surgical History / Comment(s): benign Br lumpectomy Past Anesthesia/Blood Transfusion Reactions: No Reported Reaction Past Psychological History: Depression Smoking Status: Current every day smoker Past Alcohol Use History: None Reported Past Drug Use History: None Reported - Past Family History Mother Family Medical History: No Reported History General Exam Limitations: no limitations General appearance: alert, in no apparent distress Head exam: Present: atraumatic, normocephalic, normal inspection Eye exam: Present: normal appearance, PERRL, EOMI. Absent: scleral icterus, conjunctival injection, periorbital swelling ENT exam: Present: normal exam, mucous membranes moist Neck exam: Present: normal inspection. Absent: tenderness, meningismus, lymphadenopathy Respiratory exam: Present: normal lung sounds bilaterally. Absent: respiratory distress, wheezes, rales, rhonchi, stridor Cardiovascular Exam: Present: regular rate, normal rhythm, normal heart sounds. Absent: systolic murmur, diastolic murmur, rubs, gallop, clicks GI/Abdominal exam: Present: soft, normal bowel sounds. Absent: distended, tenderness, guarding, rebound, rigid Extremities exam: Present: normal inspection, full ROM, normal capillary refill. Absent: tenderness, pedal edema, joint swelling, calf tenderness Back exam: Present: normal inspection Neurological exam: Present: alert, oriented X3, CN II-XII intact Psychiatric exam: Present: normal affect, normal mood Skin exam: Present: warm, dry, intact, normal color. Absent: rash Course Vital Signs 06/29/21 16:34 Temperature 98.0 F Pulse Rate 74 Respiratory 20 Rate Blood Pressure 115/75 O2 Sat by Pulse 93 L Oximetry Medical Decision Making - Medical Decision Making Patient complains of malaise. She has UTI. I order IV antibiotics. I treated her pain. She will be admitted to the hospital. - Lab Data Result diagrams: 06/29/21 17:11 06/29/21 17:11 Lab Results 06/29/21 06/29/21 06/29/21 Range/Units 17:11 17:11 17:11 WBC 9.4 (3.8-10.6) k/uL RBC 3.21 L (3.80-5.40) m/uL Hgb 10.2 L (11.4-16.0) gm/dL Hct 31.2 L (34.0-46.0) % MCV 97.1 (80.0-100.0) fL MCH 31.9 (25.0-35.0) pg MCHC 32.9 (31.0-37.0) g/dL RDW 15.4 (11.5-15.5) % Plt Count 293 (150-450) k/uL MPV 8.6 Neutrophils % 88 % Lymphocytes % 5 % Monocytes % 4 % Eosinophils % 1 % Basophils % 0 % Neutrophils # 8.2 H (1.3-7.7) k/uL Lymphocytes # 0.5 L (1.0-4.8) k/uL Monocytes # 0.4 (0-1.0) k/uL Eosinophils # 0.1 (0-0.7) k/uL Basophils # 0.0 (0-0.2) k/uL Hypochromasia Slight PT 11.7 (9.0-12.0) sec INR 1.1 (<1.2) APTT 27.8 (22.0-30.0) sec Sodium (137-145) mmol/L Potassium (3.5-5.1) mmol/L Chloride (98-107) mmol/L Carbon Dioxide (22-30) mmol/L Anion Gap mmol/L BUN (7-17) mg/dL Creatinine (0.52-1.04) mg/dL Est GFR (CKD-EPI)AfAm (>60 ml/min/1.73 sqM) Est GFR (CKD-EPI)NonAf (>60 ml/min/1.73 sqM) Glucose (74-99) mg/dL Plasma Lactic Acid Aquiles (0.7-2.0) mmol/L Calcium (8.4-10.2) mg/dL Magnesium (1.6-2.3) mg/dL Total Bilirubin (0.2-1.3) mg/dL AST (14-36) U/L ALT (4-34) U/L Alkaline Phosphatase (38-126) U/L Troponin I (0.000-0.034) ng/mL Total Protein (6.3-8.2) g/dL Albumin (3.5-5.0) g/dL Urine Color Yellow Urine Appearance Turbid H (Clear) Urine pH 8.5 H (5.0-8.0) Ur Specific [place] 1.009 (1.001-1.035) Urine Protein 2+ H (Negative) Urine Glucose (UA) Negative (Negative) Urine Ketones Negative (Negative) Urine Blood Small H (Negative) Urine Nitrite Negative (Negative) Urine Bilirubin Negative (Negative) Urine Urobilinogen <2.0 (<2.0) mg/dL Ur Leukocyte Esterase Large H (Negative) Urine RBC 29 H (0-5) /hpf Urine WBC >182 H (0-5) /hpf Urine WBC Clumps Many H (None) /hpf Urine Bacteria Occasional H (None) /hpf Urine Mucus Rare H (None) /hpf 06/29/21 06/29/21 06/29/21 Range/Units 17:11 17:11 17:11 WBC (3.8-10.6) k/uL RBC (3.80-5.40) m/uL Hgb (11.4-16.0) gm/dL Hct (34.0-46.0) % MCV (80.0-100.0) fL MCH (25.0-35.0) pg MCHC (31.0-37.0) g/dL RDW (11.5-15.5) % Plt Count (150-450) k/uL MPV Neutrophils % % Lymphocytes % % Monocytes % % Eosinophils % % Basophils % % Neutrophils # (1.3-7.7) k/uL Lymphocytes # (1.0-4.8) k/uL Monocytes # (0-1.0) k/uL Eosinophils # (0-0.7) k/uL Basophils # (0-0.2) k/uL Hypochromasia PT (9.0-12.0) sec INR (<1.2) APTT (22.0-30.0) sec Sodium 134 L (137-145) mmol/L Potassium 3.3 L (3.5-5.1) mmol/L Chloride 94 L (98-107) mmol/L Carbon Dioxide 30 (22-30) mmol/L Anion Gap 10 mmol/L BUN 13 (7-17) mg/dL Creatinine 1.63 H (0.52-1.04) mg/dL Est GFR (CKD-EPI)AfAm 37 (>60 ml/min/1.73 sqM) Est GFR (CKD-EPI)NonAf 32 (>60 ml/min/1.73 sqM) Glucose 128 H (74-99) mg/dL Plasma Lactic Acid Aquiles 1.5 (0.7-2.0) mmol/L Calcium 9.6 (8.4-10.2) mg/dL Magnesium 1.9 (1.6-2.3) mg/dL Total Bilirubin 1.0 (0.2-1.3) mg/dL AST 43 H (14-36) U/L ALT 11 (4-34) U/L Alkaline Phosphatase 124 (38-126) U/L Troponin I 0.027 (0.000-0.034) ng/mL Total Protein 6.2 L (6.3-8.2) g/dL Albumin 3.4 L (3.5-5.0) g/dL Urine Color Urine Appearance (Clear) Urine pH (5.0-8.0) Ur Specific [place] (1.001-1.035) Urine Protein (Negative) Urine Glucose (UA) (Negative) Urine Ketones (Negative) Urine Blood (Negative) Urine Nitrite (Negative) Urine Bilirubin (Negative) Urine Urobilinogen (<2.0) mg/dL Ur Leukocyte Esterase (Negative) Urine RBC (0-5) /hpf Urine WBC (0-5) /hpf Urine WBC Clumps (None) /hpf Urine Bacteria (None) /hpf Urine Mucus (None) /hpf 06/29/21 19:12 Twelve-lead EKG shows ventricular rate 70 bpm, normal MT interval and QRS complex is, no ST elevation or depression, interpreted by me as normal sinus rhythm. Disposition Clinical Impression: UTI (urinary tract infection), Pain management Disposition: ADMITTED IP TO THIS [facility] Condition: Fair Is patient prescribed a controlled substance at d/c from ED?: No Referrals: Favian Parker DO [Primary Care Provider] - 1-2 days
[2021-06-29] MEDS ORDERED: HEPARIN SODIUM,PORCINE 5,000 UNIT/ML 1 ML VIAL SQ SCH (21:00)
[2021-06-29] MEDS: ATORVASTATIN 20 MG TAB PO SCH (21:46)
[2021-06-29] MEDS: hydrALAZINE HCL 50 MG TAB PO SCH (21:46)
[2021-06-29] MEDS: MIRTAZAPINE 15 MG TAB PO SCH (21:47)
[2021-06-29] MEDS: HYDROcodone/APAP 5-325MG 1 EACH TAB PO PRN (22:27)
[2021-06-29] MEDS: QUEtiapine 50 MG TAB PO PRN (22:27)
[2021-06-30] MEDS ORDERED: Potassium Replacement Protocol 1 EACH MISC MISCELLANE PRN (02:34)
[2021-06-30] MEDS: POTASSIUM CHLORIDE ER 20 MEQ TAB.ER PO SCH ×2 (02:44→04:19)
[2021-06-30] MEDS: hydrALAZINE HCL 50 MG TAB PO SCH ×3 (05:55→20:14)
[2021-06-30] MEDS: HYDROcodone/APAP 5-325MG 1 EACH TAB PO PRN ×2 (05:55→16:09)
[2021-06-30] MEDS: PANTOPRAZOLE 40 MG TABLET PO SCH ×2 (07:31→15:49)
[2021-06-30] MEDS: CALCIUM ACETATE 667 MG TAB PO SCH ×2 (07:31→15:48)
[2021-06-30] MEDS: HEPARIN SODIUM,PORCINE/PF 5,000 UNIT/0.5 ML SYRINGE SQ SCH ×2 (07:31→20:13)
[2021-06-30] MEDS: TAMSULOSIN 0.4 MG CAP.ER.24H PO SCH (07:31)
[2021-06-30] MEDS: METOPROLOL SUCCINATE (ER) 50 MG TAB.ER.24H PO SCH ×2 (07:31→15:49)
[2021-06-30] MEDS: TORSEMIDE 20 MG TAB PO SCH ×2 (07:32→15:48)
[2021-06-30] MEDS: HYDROmorphone 2 MG TAB PO PRN ×2 (11:53→20:13)
[2021-06-30] MEDS: CEFEPIME 1 GM in SODIUM CHLORIDE 0.9% 50 ML IVPB SCH ×2 (11:53→20:12)
[2021-06-30 13:44] LABS: Albumin 2.9 g/dL (3.80-4.90); Albumin/Globulin Ratio 1.26 (1.60-3.17); Anion Gap 11.9 mmol/L (4.00-12.00); BUN/Creat Ratio 7.04 Ratio (12.00-20.00); Calcium 9.1 mg/dL (8.7-10.3); Carbon Dioxide 29.1 mmol/L (21.6-31.8); Globulin 2.3 g/dL (1.6-3.3); Non-African American GFR(CKD) 17.3 (60.0-200.0); Potassium 3.7 mmol/L (3.5-5.5); Total Bilirubin 0.3 mg/dL (0.2-1.2); Total Protein 5.2 g/dL (6.2-8.2)
[2021-06-30] MEDS: ATORVASTATIN 20 MG TAB PO SCH (20:13)
[2021-06-30] MEDS: MIRTAZAPINE 15 MG TAB PO SCH (20:14)
[2021-06-30] MEDS: ONDANSETRON 4 MG/2 ML VIAL IVP PRN (20:33)
--- NOTE | 2021-06-30 22:15 | CONS ---
CONSULTATION REASON FOR CONSULT: End-stage renal disease. HISTORY OF PRESENT ILLNESS: The patient is a 70-year-old female with end-stage renal disease, on hemodialysis 2 times per week. The patient has refused to increase treatment to 3 times a week as outpatient. This is in spite of her showing signs of need for increased dialysis. Patient was admitted to the hospital with pain in her hips after recent bilateral hip surgery post fall. Patient is currently at [facility] and has to be brought to the dialysis unit. She has had trouble getting in and out of the chair with severe pain in both hips and this has affected her dialysis. The patient has not been able to get full treatments as outpatient. 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 She will get rehab while she is at the [facility]. Patient did have her full treatment yesterday. She denies any fevers or chills. No chest pains or shortness of breath. PAST MEDICAL HISTORY: End-stage renal disease, hypertension, CKD mineral bone disorder, dyslipidemia, gastroesophageal reflux disease, chronic pain, neuropathy. PAST SURGICAL HISTORY: Tonsillectomy, breast lumpectomy. MEDICATIONS: Prior to admission included: Remeron, Seroquel, Crestor, Demadex, calcitriol, hydralazine, PhosLo, Toprol, Protonix, Flomax, Dulcolax, Dilaudid, [place]. ALLERGIES: INCLUDE ERYTHROMYCIN, FENTANYL, PERCOCET, SUCCINYLCHOLINE. REVIEW OF SYSTEMS: As per HPI. Other systems negative. EXAMINATION: Currently comfortable, awake, not in any acute distress. Alert, oriented x3. Blood pressure this morning 171/60, heart rate 66 per minute. Patient is afebrile. Examination of the heart S1, S2. Examination of the lungs, decreased breath sounds at the bases. Abdomen is soft, nontender. Examination of lower extremities shows edema 2+ bilaterally. HISTORIC SITES REGISTRAR exam grossly intact. LAB: Show a creatinine about 2.7, sodium 137, potassium 3.7. UA shows more than 182 WBCs. Hemoglobin 10.2 g/dL. ASSESSMENT: 1. End-stage renal disease, on hemodialysis on Mondays and . The patient is encouraged to increase to 3 times per week which she has refused as outpatient. 2. Status post fall and bilateral hip fracture status post surgery about a week ago with continued pain requiring rehab. The patient has been admitted to be discharged to rehab facility with dialysis so that she does not have to be transported to a dialysis unit. 3. Chronic kidney disease, mineral bone disorder. 4. Hypertension, partly volume sensitive. 5. Anemia of chronic disease. 6. Pyuria, rule out urinary tract infection. PLAN: Hemodialysis on Saturday. Discussed with discharge planning/perinatal social worker regarding discharged to [facility]. Continue antibiotics for now. Follow up on urine cultures. MMODL / IJN: [id number] /
--- NOTE | 2021-06-30 23:03 | P.HPIM ---
History of Present Illness This is a pleasant 70 years old female with past medical history of COPD, GERD, hypertension, chronic renal disease on dialysis on Mondays and She is a resident at [facility]. No recent history of right femur and hip fra cture. He was recently admitted 06/22-06/23 for inability to sit during dialysis because of bilateral hip pain, thought it is been [place] dialyzed away during HD and states she was a provided with oral Dilaudid upon discharge at dose of 4 mg by mouth every 4 hours when necessary. Today when I saw the patient she was not sure why she was sent to the hospital. She states that her bilateral hip pain is there but is well controlled since last time admitted to the hospital. per Records she Was sent from dialysis Center for pain which is not well controlled and for UTI. Patient has Larson catheter. She denies abdominal pain or specific urinary symptoms. Vitas looks stable. Labs including CBC and INR are unremarkable. Basic metabolic panel showing sodium 134, potassium 3.3, creatinine 1.6. Glucose 128, liver enzymessignificantly elevated. Troponin is negative [place] 0.[place] [address] Urine analysis is suspicious of infection EKG showing normal sinus rhythm at 70 bpm with no significant ST-T changes Chest x-ray: Persistent right basilar opacities with pleural effusion Femur x-ray showed stable bilateral femoral fractures status post ORIF Ceftriaxone and oriented Dilaudid Review of Systems CONSTITUTIONAL: No fever, no malaise, no fatigue. HEENT: No recent visual problems or hearing problems. Denied any sore throat. CARDIOVASCULAR: No orthopnea, PND, no palpitations, no syncope. PULMONARY: No shortness of breath, no cough, no hemoptysis. GASTROINTESTINAL: No diarrhea, no nausea, no vomiting, no abdominal pain. Normoactive bowel sounds. NEUROLOGICAL: No headaches, no weakness, no numbness. HEMATOLOGICAL: Denies any bleeding or petechiae. GENITOURINARY: Denies any burning micturition, frequency, or urgency. MUSCULOSKELETAL/RHEUMATOLOGICAL: Denies any joint pain, swelling, or any muscle pain. ENDOCRINE: Denies any polyuria or polydipsia. Past Medical History Past Medical History: COPD, GERD/Reflux, Hypertension, Renal Disease Additional Past Medical History / Comment(s): chronic pain; Kidney Dialysis Sat/. History of Any Multi-Drug Resistant Organisms: None Reported Past Surgical History: Breast Surgery, Tonsillectomy Additional Past Surgical History / Comment(s): benign Br lumpectomy Past Anesthesia/Blood Transfusion Reactions: No Reported Reaction Past Psychological History: Depression Smoking Status: Current every day smoker Past Alcohol Use History: None Reported Additional Past Alcohol Use History / Comment(s): has smoked for about 45 years; down to 1/2 ppd Past Drug Use History: None Reported - Past Family History Mother Family Medical History: No Reported History Medications and Allergies Home Medications Medication Instructions Recorded Confirmed Type Mirtazapine [Remeron] 30 mg PO HS@209912/28/16 06/29/21 History QUEtiapine [SEROquel] 150 mg PO HS PRN 12/28/16 06/29/21 History Rosuvastatin [Crestor] 10 mg PO HS@209912/28/16 06/29/21 History Torsemide [Demadex] 60 mg PO BID@0800,1700 11/16/18 06/29/21 History calcitrioL [Calcitriol] 1 mcg PO DAILY@0800 01/18/20 06/29/21 History hydrALAZINE HCL [Apresoline] 100 mg PO TID@0600,1400,2200 01/18/20 06/29/21 History Calcium Acetate 667 mg PO BID@0800,1700 06/14/21 06/29/21 History Metoprolol Succinate (ER) [Toprol 50 mg PO BID@0800,1700 06/14/21 06/29/21 History XL] Heparin Sodium,Porcine [Heparin 5,000 unit SQ BID@0800,2100 06/22/21 06/29/21 History Sodium] Na Phos,M-B/Na Phos,Di-Ba [Fleet 133 ml RECTAL Q24H PRN 06/22/21 06/29/21 History Adult] Pantoprazole [Protonix] 40 mg PO BID@0800,1700 06/22/21 06/29/21 History Sennosides-Docusate Sodium 1 tab PO DAILY@0800 06/22/21 06/29/21 History [Senokot-S] Tamsulosin [Flomax] 0.4 mg PO DAILY@0800 06/22/21 06/29/21 History bisacodyL [Dulcolax] 1 supp RECTAL Q24H PRN 06/22/21 06/29/21 History HYDROcodone/APAP 5-325MG [[place] 1 tab PO Q4HR PRN 06/29/21 06/29/21 History 5-325] HYDROmorphone [Dilaudid] 4 mg PO Q4H PRN 06/29/21 06/29/21 History Allergies Allergy/AdvReac Type Severity Reaction Status Date / Time erythromycin base Allergy Unknown Verified 06/29/21 18:21 fentanyl Allergy Unknown Verified 06/29/21 18:21 oxycodone HCl [From Percocet] Allergy Nausea & Verified 06/29/21 18:21 Vomiting succinylcholine Allergy Unknown Verified 06/29/21 18:21 Physical Exam Vitals: Vital Signs Temp Pulse Pulse Resp BP BP Pulse Ox 06/30/21 02:00 98.4 F 71 18 145/67 93 L 06/29/21 21:35 98.6 F 76 16 164/61 92 L 06/29/21 20:28 76 16 06/29/21 19:30 98.4 F 75 20 156/59 92 L 06/29/21 16:34 98.0 F 74 20 115/75 93 L Intake and Output 06/29/21 06/30/21 06/30/21 22:59 06:59 14:59 Output Total 100 200 Balance -100 -200 Output: Urine 100 200 Uretheral (Larson) 100 Other: Voiding Method Indwelling Catheter Weight 58.967 kg GENERAL: The patient is alert and oriented x3, not in any acute distress. Well developed, well nourished. HEENT: Pupils are round and equally reacting to light. EOMI. No scleral icterus. No conjunctival pallor. Normocephalic, atraumatic. No pharyngeal erythema. No thyromegaly. CARDIOVASCULAR: S1 and S2 present. No murmurs, rubs, or gallops. PULMONARY: Chest is clear to auscultation, no wheezing or crackles. ABDOMEN: Soft, nontender, nondistended, normoactive bowel sounds. No palpable organomegaly. MUSCULOSKELETAL: No joint swelling or deformity. EXTREMITIES: No cyanosis, clubbing, or pedal edema. NEUROLOGICAL: Gross neurological examination did not reveal any focal deficits. SKIN: No rashes. No petechiae Results CBC & Chem 7: 06/29/21 17:11 06/30/21 04:38 Labs: Abnormal Lab Results - Last 24 Hours (Table) 06/29/21 06/29/21 06/29/21 Range/Units 17:11 17:11 17:11 RBC 3.21 L (3.80-5.40) m/uL Hgb 10.2 L (11.4-16.0) gm/dL Hct 31.2 L (34.0-46.0) % Neutrophils # 8.2 H (1.3-7.7) k/uL Lymphocytes # 0.5 L (1.0-4.8) k/uL Sodium 134 L (137-145) mmol/L Potassium 3.3 L (3.5-5.1) mmol/L Chloride 94 L (98-107) mmol/L Creatinine 1.63 H (0.52-1.04) mg/dL Glucose 128 H (74-99) mg/dL AST 43 H (14-36) U/L Total Protein 6.2 L (6.3-8.2) g/dL Albumin 3.4 L (3.5-5.0) g/dL Urine Appearance Turbid H (Clear) Urine pH 8.5 H (5.0-8.0) Urine Protein 2+ H (Negative) Urine Blood Small H (Negative) Ur Leukocyte Esterase Large H (Negative) Urine RBC 29 H (0-5) /hpf Urine WBC >182 H (0-5) /hpf Urine WBC Clumps Many H (None) /hpf Urine Bacteria Occasional H (None) /hpf Urine Mucus Rare H (None) /hpf Microbiology - Last 24 Hours (Table) 06/29/21 17:11 Urine Culture - Preliminary Urine,Voided Thrombosis Risk Factor Assmnt - Choose All That Apply Each Risk Factor Represents 2 Points: Age 61-74 years Each Risk Factor Represents 5 Points: Hip, pelvis, or leg fracture (< 1 month) Thrombosis Risk Factor Assessment Total Risk Factor Score: 7 Thrombosis Risk Factor Assessment Level: High Risk Assessment and Plan Assessment: Acute urinary tract infection, most likely secondary to gram-negative bacilli Recent right hip and femur fracture, Status post ORIF Bilateral hip pain secondary to above Right hilar opacity with right-sided pleural effusion chronic kidney disease on hemodialysis Mondays and Hypertension COPD , no acute exacerbation History of GERD Plan: this is a pleasant 70 years old female who presents with UTI, bilateral hip pain Start the patient on cefepime and follow-up urine culture. Nephrology consult for dialysis Also we will consult pulmonary team for her abnormal chest x-ray Continue with oral Dilaudid [place]. Labs and medication were reviewed.. Continue same treatment. Continue with symptomatic treatment. Resume home medication. Monitor lytes and vitals. DVT and GI prophylaxis. Further recommendations depends on the clinical course of the patient DVT prophylaxis: Subcutaneous heparin GI Prophylaxis: Pepcid PT/OT: Pending Prognosis is guarded
[2021-07-01] MEDS: QUEtiapine 50 MG TAB PO PRN ×2 (00:09→23:37)
[2021-07-01] MEDS: hydrALAZINE HCL 50 MG TAB PO SCH ×3 (05:52→20:04)
[2021-07-01] MEDS: HYDROcodone/APAP 5-325MG 1 EACH TAB PO PRN ×4 (05:54→23:29)
[2021-07-01] MEDS: TAMSULOSIN 0.4 MG CAP.ER.24H PO SCH (08:36)
[2021-07-01] MEDS: METOPROLOL SUCCINATE (ER) 50 MG TAB.ER.24H PO SCH (08:36)
[2021-07-01] MEDS: CEFEPIME 1 GM in SODIUM CHLORIDE 0.9% 50 ML IVPB SCH ×2 (08:36→20:06)
[2021-07-01] MEDS: CALCIUM ACETATE 667 MG TAB PO SCH ×2 (08:38→17:09)
[2021-07-01] MEDS: TORSEMIDE 20 MG TAB PO SCH ×2 (08:38→17:09)
[2021-07-01] MEDS: HEPARIN SODIUM,PORCINE/PF 5,000 UNIT/0.5 ML SYRINGE SQ SCH ×2 (08:39→20:06)
[2021-07-01] MEDS: PANTOPRAZOLE 40 MG TABLET PO SCH ×2 (08:48→17:09)
--- NOTE | 2021-07-01 11:31 | P.PN ---
Progress Note - Text Progress Note Date: 07/01/21 The patient was here in the hospital regarding her UTI and I was able to see her while she was here. She was complaining of some significant bilateral leg pain during her dialysis and it seems that her Trout is getting washed out from her dialysis and she has been started on a medications per medicine and I think that is appropriate. She is not planning of new pains in her lower extremities or new numbness and tingling at this point. She has a Larson catheter intact. She denies any fevers. Currently she is afebrile with stable vital signs At her lower extremities her incision sites are very clean. There appear to be healing well. There is some ecchymosis but there is no purulence there is no fluid mass. Her thighs and calves are soft. She has some tenderness over her lateral tibial plateau on the right as expected. She has sustained dorsal flexion plantar flexion and EHL intact. Sensory is intact at her feet. Cap refills less than 2 seconds. X-rays of her bilateral femurs at the left side the jairo is intact. There is no evidence of loosening or displacement at the fracture. At the right side the jairo is intact. There is been some displacement of a large medial fragment at the distal femur. There is no separation at the intercondylar space. The lateral tibial plateau shows evidence of a fracture without further displacement. She had new right knee x-rays done today at bedside while is present. The knee shows the lateral tibial plateau fracture without further displacement. Assessment and plan Multiple major long bone fractures due to a fall from a standing height approximately 2 weeks out Left intertrochanteric femur fracture status post intramedullary rodding Right femur shaft fracture with comminution status post intramedullary rodding Right lateral tibial plateau fracture Chronic renal failure on dialysis Current urinary tract infection Continued bilateral lower extremity nonweightbearing The patient's incision sites are healing well and did not need further dressing. The left hip fracture of her femur seems to be healing appropriately without any evidence of displacement, she needs to remain nonweightbearing on this for at least 6 weeks postop The right femur shaft fracture has significant comminution and has had some mild displacement at the fracture site of the hardware appears to be stable. She needs to remain nonweightbearing on her right femur as well. The right tibial plateau fracture seems to have some satisfactory alignment and I would plan to continue to treat this expectantly. She has extremely poor bone quality and it is very unlikely that further fixation would hold this well. With her nonweightbearing status currently I think that this can have some potential to heal without operative treatment. I explained the severe nature of her injuries for bilateral lower extremities with her. We again talked about the necessity to keep her nonweightbearing to allow adequate healing for her bilateral femurs. She seems to understand this. Apparently she had been a ambulator prior to this injury with these bilateral lower extremity injuries is very difficult to protect if she will able to ambulate again even with special ed assistant device. I explained this to her at length today. She understands these issues. Her bone quality is quite poor and she will need to have continue monitoring and management for this. She is continuing her management per all of her medical issues as per medicine and follow see and will continue dialysis as scheduled. She is continuing her antibiotics as well. His okay for her to continue follow up with us as outpatient.
--- NOTE | 2021-07-01 11:33 | XR ---
EXAMINATION TYPE: XR knee limited RT DATE OF EXAM: 07/01/2021 COMPARISON: 06/29/2020 HISTORY: Pain TECHNIQUE: 2 view submitted FINDINGS: There is intramedullary jairo with a fracture obliquely oriented involving the distal diaphys is. Vascular calcifications are noted. There is a cortical step-off fracture involving the lateral ti bial plateau extending to the articular surface. Diffuse osteopenia noted. IMPRESSION: 1. Lateral tibial plateau displaced fracture. 2. Fracture across the distal femur with intramedullary jairo.
--- NOTE | 2021-07-01 15:03 | P.PN ---
Subjective Progress Note Date: 07/01/21 Follow-up for ESRD. Objective - Vital Signs Vital signs: Vital Signs Temp 98.1 F 07/01/21 14:00 Pulse 73 07/01/21 14:00 Resp 18 07/01/21 14:00 BP 156/61 07/01/21 14:00 Pulse Ox 90 L 07/01/21 14:00 Intake & Output 06/30/21 07/01/21 07/01/21 18:59 06:59 18:59 Output Total 0 250 450 Balance 0 -250 -450 Output: Urine 0 250 450 Other: Voiding Method Indwelling Catheter Indwelling Catheter Indwelling Catheter - Exam No acute distress S1-S2 heard Lungs clear Left upper arm AVG - Labs CBC & Chem 7: 06/29/21 17:11 06/30/21 04:38 Labs: Microbiology - Last 24 Hours (Table) 06/29/21 17:11 Urine Culture - Preliminary Urine,Voided Gram Neg Bacilli Assessment and Plan Assessment: #1 ESRD on Mondays and #2 status post fall with bilateral hip fracture currently in rehab #3 suspected UTI #4 anemia with ESRD #5 hypertension with ESRD Plan: #1 hemodialysis on Saturday. If patient's ready for discharge dialysis as outpatient.
[2021-07-01] MEDS: ATORVASTATIN 20 MG TAB PO SCH (20:04)
[2021-07-01] MEDS: MIRTAZAPINE 15 MG TAB PO SCH (20:04)
[2021-07-01] MEDS: HYDROmorphone 2 MG TAB PO PRN (20:05)
--- NOTE | 2021-07-01 22:03 | P.PN ---
Subjective This is a pleasant 70 years old female with past medical history of COPD, GERD, hypertension, chronic renal disease on dialysis on Mondays and She is a resident at [facility]. No recent history of right femur and hip fracture. He was recently admitted 06/22-06/23 for inability to sit during dialysis because of bilateral hip pain, thought it is been [place] dialyzed away during HD and states she was a provided with oral Dilaudid upon discharge at dose of 4 mg by mouth every 4 hours when necessary. Today when I saw the patient she was not sure why she was sent to the hospital. She states that her bilateral hip pain is there but is well controlled since last time admitted to the hospital. per Records she Was sent from dialysis Center for pain which is not well controlled and for UTI. Patient has Larson catheter. She denies abdominal pain or specific urinary symptoms. Vitas looks stable. Labs including CBC and INR are unremarkable. Basic metabolic panel showing sodium 134, potassium 3.3, creatinine 1.6. Glucose 128, liver enzymessignificantly elevated. Troponin is negative [place] 0.[place] [address] Urine analysis is suspicious of infection EKG showing normal sinus rhythm at 70 bpm with no significant ST-T changes Chest x-ray: Persistent right basilar opacities with pleural effusion Femur x-ray showed stable bilateral femoral fractures status post ORIF Ceftriaxone and oriented Dilaudid 07/01/2021 Patient is awake and alert. She is asymptomatic other than generalized weakness. Also she denies dysuria or change in frequency. Hemodynamically stable. Urine culture is growing Pseudomonas which is sensitive to cefepime her current antibiotics. Can be switched to Cipro/Levaquin upon discharge Objective - Vital Signs Vital signs: Vital Signs Temp 98.1 F 07/01/21 14:00 Pulse 73 07/01/21 14:00 Resp 18 07/01/21 14:00 BP 156/61 07/01/21 14:00 Pulse Ox 90 L 07/01/21 14:00 Intake & Output 06/30/21 07/01/21 07/01/21 18:59 06:59 18:59 Output Total 0 250 450 Balance 0 -250 -450 Output: Urine 0 250 450 Other: Voiding Method Indwelling Catheter Indwelling Catheter Indwelling Catheter - Exam -GENERAL: The patient is alert and oriented x3, not in any acute distress. Well generally weak HEENT: Pupils are round and equally reacting to light. EOMI. No scleral icterus. No conjunctival pallor. Normocephalic, atraumatic. No pharyngeal erythema. No thyromegaly. CARDIOVASCULAR: S1 and S2 present. No murmurs, rubs, or gallops. PULMONARY: Chest is clear to auscultation, no wheezing or crackles. ABDOMEN: Soft, nontender, nondistended, normoactive bowel sounds. No palpable organomegaly. MUSCULOSKELETAL: No joint swelling or deformity. EXTREMITIES: No cyanosis, clubbing, or pedal edema. NEUROLOGICAL: Gross neurological examination did not reveal any focal deficits. SKIN: No rashes. no petechiae. - Labs CBC & Chem 7: 06/29/21 17:11 06/30/21 04:38 Labs: Microbiology - Last 24 Hours (Table) 06/29/21 17:11 Urine Culture - Preliminary Urine,Voided Gram Neg Bacilli Assessment and Plan Assessment: Acute urinary tract infection, most likely secondary to gram-negative bacilli Recent bilateral hip and femur fracture, Status post ORIF Bilateral hip pain secondary to above Right hilar opacity with right-sided pleural effusion chronic kidney disease on hemodialysis Mondays and Hypertension COPD , no acute exacerbation History of GERD Plan: this is a pleasant 70 years old female who presents with UTI, bilateral hip pain Continue with cefepime and and may switch to Cipro/Levaquin upon discharge Nephrology consult for dialysis [id number] for her both hip fracture spur Dr. Pham Continue with oral Dilaudid [place]. Labs and medication were reviewed.. Continue same treatment. Continue with symptomatic treatment. Resume home medication. Monitor lytes and vitals. DVT and GI prophylaxis. Further recommendations depends on the clinical course of the patient DVT prophylaxis: Subcutaneous heparin GI Prophylaxis: Pepcid
[2021-07-02] MEDS ORDERED: HYDROmorphone 2 MG TAB PO STA (00:30)
[2021-07-02] MEDS: HYDROcodone/APAP 5-325MG 1 EACH TAB PO PRN ×3 (05:23→19:52)
[2021-07-02] MEDS: hydrALAZINE HCL 50 MG TAB PO SCH ×3 (06:04→19:49)
[2021-07-02] MEDS: HYDROmorphone 2 MG TAB PO PRN ×2 (08:14→16:14)
[2021-07-02] MEDS: HEPARIN SODIUM,PORCINE/PF 5,000 UNIT/0.5 ML SYRINGE SQ SCH ×2 (08:14→19:48)
[2021-07-02] MEDS: CEFEPIME 1 GM in SODIUM CHLORIDE 0.9% 50 ML IVPB SCH ×2 (08:14→19:48)
[2021-07-02] MEDS: CALCIUM ACETATE 667 MG TAB PO SCH ×2 (08:14→16:13)
[2021-07-02] MEDS: METOPROLOL SUCCINATE (ER) 50 MG TAB.ER.24H PO SCH ×2 (08:14→16:14)
[2021-07-02] MEDS: PANTOPRAZOLE 40 MG TABLET PO SCH ×2 (08:14→16:14)
[2021-07-02] MEDS: TAMSULOSIN 0.4 MG CAP.ER.24H PO SCH (08:14)
[2021-07-02] MEDS: TORSEMIDE 20 MG TAB PO SCH ×2 (08:15→16:13)
--- NOTE | 2021-07-02 15:43 | P.PN ---
Subjective Progress Note Date: 07/02/21 Follow-up for ESRD. Objective - Vital Signs Vital signs: Vital Signs Temp 98.4 F 07/02/21 14:00 Pulse 77 07/02/21 14:00 Resp 18 07/02/21 14:00 BP 171/73 07/02/21 14:00 Pulse Ox 97 07/02/21 14:00 Intake & Output 07/01/21 07/02/21 07/02/21 18:59 06:59 18:59 Output Total 450 350 100 Balance -450 -350 -100 Output: Urine 450 350 100 Other: Voiding Method Indwelling Catheter Indwelling Catheter Indwelling Catheter - Exam No acute distress S1-S2 heard Lungs clear Left upper arm AVG - Labs CBC & Chem 7: 06/29/21 17:11 06/30/21 04:38 Labs: Microbiology - Last 24 Hours (Table) 06/29/21 17:11 Urine Culture - Final Urine,Voided Pseudomonas aeruginosa Assessment and Plan Assessment: #1 ESRD on Mondays and #2 status post fall with bilateral hip fracture currently in rehab #3 suspected UTI #4 anemia with ESRD #5 hypertension with ESRD Plan: #1 hemodialysis on Saturday. #2 antibiotics as per primary team
[2021-07-02] MEDS ORDERED: FLUCONAZOLE 150 MG TAB PO STA (18:49)
[2021-07-02] MEDS: ATORVASTATIN 20 MG TAB PO SCH (19:49)
[2021-07-02] MEDS: MIRTAZAPINE 15 MG TAB PO SCH (19:52)
--- NOTE | 2021-07-02 20:46 | P.PN ---
Subjective This is a pleasant 70 years old female with past medical history of COPD, GERD, hypertension, chronic renal disease on dialysis on Mondays and She is a resident at [facility]. No recent history of right femur and hip fracture. He was recently admitted 06/22-06/23 for inability to sit during dialysis because of bilateral hip pain, thought it is been [place] dialyzed away during HD and states she was a provided with oral Dilaudid upon discharge at dose of 4 mg by mouth every 4 hours when necessary. Today when I saw the patient she was not sure why she was sent to the hospital. She states that her bilateral hip pain is there but is well controlled since last time admitted to the hospital. per Records she Was sent from dialysis Center for pain which is not well controlled and for UTI. Patient has Larson catheter. She denies abdominal pain or specific urinary symptoms. Vitas looks stable. Labs including CBC and INR are unremarkable. Basic metabolic panel showing sodium 134, potassium 3.3, creatinine 1.6. Glucose 128, liver enzymessignificantly elevated. Troponin is negative [place] 0.[place] [address] Urine analysis is suspicious of infection EKG showing normal sinus rhythm at 70 bpm with no significant ST-T changes Chest x-ray: Persistent right basilar opacities with pleural effusion Femur x-ray showed stable bilateral femoral fractures status post ORIF Ceftriaxone and oriented Dilaudid 07/01/2021 Patient is awake and alert. She is asymptomatic other than generalized weakness. Also she denies dysuria or change in frequency. Hemodynamically stable. Urine culture is growing Pseudomonas which is sensitive to cefepime her current antibiotics. Can be switched to Cipro/Levaquin upon discharge 07/02/2021 Patient clinically stable, her weakness is improving gradually. Urine culture is growing Pseudomonas, which is currently covered with cefepime 2 which bacteria is sensitive. Patient instructed need for change Larson catheter and she agrees Patient can switch to oral antibiotics upon discharge Patient evaluated by orthopedic team and the recommended [id number] for both lower extremity and follow-up as an outpatient in 2 weeks, patient informed and she agrees other than that she has mild vaginal itching secondary to antibiotics, one dose of fluconazole is provided Objective - Vital Signs Vital signs: Vital Signs Temp 98.4 F 07/02/21 14:00 Pulse 77 07/02/21 14:00 Resp 18 07/02/21 14:00 BP 171/73 08/01/21 14:00 Pulse Ox 97 07/02/21 14:00 Intake & Output 07/01/21 07/02/21 07/02/21 18:59 06:59 18:59 Output Total 450 350 100 Balance -450 -350 -100 Output: Urine 450 350 100 Other: Voiding Method Indwelling Catheter Indwelling Catheter Indwelling Catheter - Exam -GENERAL: The patient is alert and oriented x3, not in any acute distress. Well generally weak HEENT: Pupils are round and equally reacting to light. EOMI. No scleral icterus. No conjunctival pallor. Normocephalic, atraumatic. No pharyngeal erythema. No thyromegaly. CARDIOVASCULAR: S1 and S2 present. No murmurs, rubs, or gallops. PULMONARY: Chest is clear to auscultation, no wheezing or crackles. ABDOMEN: Soft, nontender, nondistended, normoactive bowel sounds. No palpable organomegaly. MUSCULOSKELETAL: No joint swelling or deformity. EXTREMITIES: No cyanosis, clubbing, or pedal edema. NEUROLOGICAL: Gross neurological examination did not reveal any focal deficits. SKIN: No rashes. no petechiae. - Labs CBC & Chem 7: 06/29/21 17:11 06/30/21 04:38 Labs: Microbiology - Last 24 Hours (Table) 06/29/21 17:11 Urine Culture - Final Urine,Voided Pseudomonas aeruginosa Assessment and Plan Assessment: Acute urinary tract infection, most likely secondary to gram-negative bacilli Recent bilateral hip and femur fracture, Status post ORIF Bilateral hip pain secondary to above Right hilar opacity with right-sided pleural effusion chronic kidney disease on hemodialysis Mondays and Hypertension COPD , no acute exacerbation History of GERD Plan: this is a pleasant 70 years old female who presents with UTI, bilateral hip pain Continue with cefepime and and may switch to Cipro/Levaquin upon discharge Nephrology consult for dialysis [id number] for her both hip fracture spur Dr. Pham Continue with oral Dilaudid [place]. Labs and medication were reviewed.. Continue same treatment. Continue with symptomatic treatment. Resume home medication. Monitor lytes and vitals. DVT and GI prophylaxis. Further recommendations depends on the clinical course of the patient DVT prophylaxis: Subcutaneous heparin GI Prophylaxis: Pepcid
[2021-07-02] MEDS: ONDANSETRON 4 MG/2 ML VIAL IVP PRN (22:02)
[2021-07-02] MEDS: amLODIPine 10 MG TAB PO SCH (23:04)
[2021-07-03] MEDS: QUEtiapine 50 MG TAB PO PRN (02:16)
[2021-07-03] MEDS: hydrALAZINE HCL 50 MG TAB PO SCH ×3 (06:03→23:17)
[2021-07-03] MEDS: CALCIUM ACETATE 667 MG TAB PO SCH ×2 (08:12→17:20)
[2021-07-03] MEDS: TAMSULOSIN 0.4 MG CAP.ER.24H PO SCH (08:13)
[2021-07-03] MEDS: HYDROcodone/APAP 5-325MG 1 EACH TAB PO PRN ×4 (08:13→23:20)
[2021-07-03] MEDS: PANTOPRAZOLE 40 MG TABLET PO SCH ×2 (08:14→17:20)
[2021-07-03] MEDS: METOPROLOL SUCCINATE (ER) 50 MG TAB.ER.24H PO SCH ×2 (08:14→17:20)
[2021-07-03] MEDS: CEFEPIME 1 GM in SODIUM CHLORIDE 0.9% 50 ML IVPB SCH ×2 (08:14→20:50)
[2021-07-03] MEDS: HEPARIN SODIUM,PORCINE/PF 5,000 UNIT/0.5 ML SYRINGE SQ SCH ×2 (08:19→20:50)
--- NOTE | 2021-07-03 10:17 | P.CNPUL ---
History of Present Illness Consult date: 07/03/21 Reason for consult: abnormal CXR/CT Chief complaint: Shortness of breath History of present illness: Patient is a 70-year-old female for extended care facility, she has end-stage lung disease has been on hemodialysis, her past medical history is significant for COPD GERD hypertension hypertensive cardiovascular disease chronic renal failure on hemodialysis patient has been hospitalized recently later part of the last month for the pain in the hips and knees, patient pain medicines are being adjusted, her chest x-ray revealed bilateral hilar opacities with pleural effusion appeared to be related to fluid overload, patient had multiple dialysis since however repeat chest x-rays pending Review of Systems All systems: negative Past Medical History Past Medical History: COPD, GERD/Reflux, Hypertension, Renal Disease Additional Past Medical History / Comment(s): chronic pain; Kidney Dialysis Sat/. History of Any Multi-Drug Resistant Organisms: None Reported Past Surgical History: Breast Surgery, Tonsillectomy Additional Past Surgical History / Comment(s): benign Br lumpectomy Past Anesthesia/Blood Transfusion Reactions: No Reported Reaction Past Psychological History: Depression Smoking Status: Current every day smoker Past Alcohol Use History: None Reported Additional Past Alcohol Use History / Comment(s): has smoked for about 45 years; down to 1/2 ppd Past Drug Use History: None Reported - Past Family History Mother Family Medical History: No Reported History Medications and Allergies Home Medications Medication Instructions Recorded Confirmed Type Mirtazapine [Remeron] 30 mg PO HS@2100 12/28/16 06/29/21 History QUEtiapine [SEROquel] 150 mg PO HS PRN 12/28/16 06/29/21 History Rosuvastatin [Crestor] 10 mg PO HS@2100 12/28/16 06/29/21 History Torsemide [Demadex] 60 mg PO BID@0800,1700 11/16/18 06/29/21 History calcitrioL [Calcitriol] 1 mcg PO DAILY@0800 01/18/20 06/29/21 History hydrALAZINE HCL [Apresoline] 100 mg PO TID@0600,1400,2200 01/18/20 06/29/21 History Calcium Acetate 667 mg PO BID@0800,1700 06/14/21 06/29/21 History Metoprolol Succinate (ER) [Toprol 50 mg PO BID@0800,1700 06/14/21 06/29/21 History XL] Heparin Sodium,Porcine [Heparin 5,000 unit SQ BID@0800,2100 06/22/21 06/29/21 History Sodium] Na Phos,M-B/Na Phos,Di-Ba [Fleet 133 ml RECTAL Q24H PRN 06/22/21 06/29/21 History Adult] Pantoprazole [Protonix] 40 mg PO BID@0800,1700 06/22/21 06/29/21 History Sennosides-Docusate Sodium 1 tab PO DAILY@0800 06/22/21 06/29/21 History [Senokot-S] Tamsulosin [Flomax] 0.4 mg PO DAILY@0800 06/22/21 06/29/21 History bisacodyL [Dulcolax] 1 supp RECTAL Q24H PRN 06/22/21 06/29/21 History HYDROcodone/APAP 5-325MG [[place] 1 tab PO Q4HR PRN 06/29/21 06/29/21 History 5-325] HYDROmorphone [Dilaudid] 4 mg PO Q4H PRN 06/29/21 06/29/21 History Allergies Allergy/AdvReac Type Severity Reaction Status Date / Time erythromycin base Allergy Unknown Verified 06/29/21 18:21 fentanyl Allergy Unknown Verified 06/29/21 18:21 oxycodone HCl [From Percocet] Allergy Nausea & Verified 06/29/21 18:21 Vomiting succinylcholine Allergy Unknown Verified 06/29/21 18:21 Physical Exam Vitals: Vital Signs Temp Pulse Pulse Resp BP Pulse Ox 07/03/21 07:23 98.4 F 57 L 17 141/56 91 L 07/03/21 02:00 98.0 F 77 19 168/69 89 L 07/03/21 00:55 168/88 07/02/21 22:30 182/73 07/02/21 20:09 98.1 F 68 17 184/71 92 L 07/02/21 19:45 68 71 17 07/02/21 14:00 98.4 F 77 18 171/73 97 Intake and Output 07/02/21 07/03/21 07/03/21 22:59 06:59 14:59 Output Total 325 Balance -325 Output: Urine 325 Other: Voiding Method Indwelling Catheter - Constitutional General appearance: average body habitus, cooperative, disheveled - EENT Eyes: EOMI, PERRLA ENT: normal oropharynx Ears: bilateral: normal - Neck Neck: normal ROM Carotids: bilateral: upstroke normal Thyroid: bilateral: normal size - Respiratory Respiratory: bilateral: CTA - Cardiovascular Rhythm: regular Heart sounds: normal: S1, S2 - Gastrointestinal General gastrointestinal: soft - Neurologic Neurologic: CNII-XII intact - Musculoskeletal Musculoskeletal: gait normal, strength equal bilaterally - Psychiatric Psychiatric: A&O x's 3 Results - Laboratory Findings CBC and BMP: 06/29/21 17:11 06/30/21 04:38 PT/INR, D-dimer PT 11.7 sec (9.0-12.0) 06/29/21 17:11 INR 1.1 (<1.2) 06/29/21 17:11 Abnormal lab findings: Abnormal Labs 06/29/21 06/29/21 06/29/21 17:11 17:11 17:11 RBC 3.21 L Hgb 10.2 L Hct 31.2 L Neutrophils # 8.2 H Lymphocytes # 0.5 L Sodium 134 L Potassium 3.3 L Chloride 94 L Creatinine 1.63 H Est GFR (CKD-EPI)AfAm Est GFR (CKD-EPI)NonAf BUN/Creatinine Ratio Glucose 128 H AST 43 H Total Protein 6.2 L Albumin 3.4 L Albumin/Globulin Ratio Urine Appearance Turbid H Urine pH 8.5 H Urine Protein 2+ H Urine Blood Small H Ur Leukocyte Esterase Large H Urine RBC 29 H Urine WBC >182 H Urine WBC Clumps Many H Urine Bacteria Occasional H Urine Mucus Rare H 06/30/21 04:38 RBC Hgb Hct Neutrophils # Lymphocytes # Sodium Potassium Chloride Creatinine 2.7 H Est GFR (CKD-EPI)AfAm 20.0 L Est GFR (CKD-EPI)NonAf 17.3 L BUN/Creatinine Ratio 7.04 L Glucose AST Total Protein 5.2 L Albumin 2.90 L Albumin/Globulin Ratio 1.26 L Urine Appearance Urine pH Urine Protein Urine Blood Ur Leukocyte Esterase Urine RBC Urine WBC Urine WBC Clumps Urine Bacteria Urine Mucus - Diagnostic Findings Chest x-ray: report reviewed, image reviewed Assessment and Plan Assessment: Bilateral pleural effusion and basal atelectasis and hilar opacity appears to be fluid overload End-stage renal disease on hemodialysis UTI likely related to gram-negative rods Bilateral hip and knee fracture status post open reduction internal fixation Hypertension hypertensive cardiovascular disease COPD without any exacerbation Plan: Continue hemodialysis We'll Follow-up chest x-ray Increase activity as tolerated Pain management Deep breathing exercise incentive spirometry Continue antibiotic for UTI Time with Patient: Greater than 30
--- NOTE | 2021-07-03 10:32 | P.PN ---
Subjective Patient is seen in follow-up for end-stage renal disease. She is maintained on hemodialysis on Mondays and . Resting in bed. No active complaints at this time. Vital signs are stable. General: The patient appeared well nourished and normally developed. HEENT: Head exam is unremarkable. Neck is without jugular venous distension. LUNGS: Breath sounds decreased. HEART: Rate and Rhythm are regular. ABDOMEN: Soft, no distention. EXTREMITITES: Trace edema. Objective - Vital Signs Vital signs: Vital Signs Temp 98.4 F 07/03/21 07:23 Pulse 57 L 07/03/21 07:23 Resp 17 07/03/21 07:23 BP 141/56 07/03/21 07:23 Pulse Ox 91 L 07/03/21 07:23 Intake & Output 07/02/21 07/03/21 07/03/21 18:59 06:59 18:59 Output Total 100 325 Balance -100 -325 Output: Urine 100 325 Other: Voiding Method Indwelling Catheter Indwelling Catheter - Labs CBC & Chem 7: 06/29/21 17:11 06/30/21 04:38 Assessment and Plan Plan: Assessment: 1. End-stage liver disease maintained on hemodialysis on Mondays and . 2. Hypertension with chronic disease. Stable. 3. Chronic kidney disease mineral bone disease maintained on PhosLo and calcitriol. 4. Hypertension with chronic kidney disease. 5. Recent hip fractures currently in rehab. 6. Pseudomonas UTI on antibiotics. Plan: Hemodialysis today. Outpatient rehab placement being set up.
[2021-07-03] MEDS: TORSEMIDE 20 MG TAB PO SCH ×2 (11:22→17:20)
--- NOTE | 2021-07-03 12:28 | P.PN ---
Subjective This is a pleasant 70 years old female with past medical history of COPD, GERD, hypertension, chronic renal disease on dialysis on Mondays and She is a resident at [facility]. No recent history of right femur and hip fracture. He was recently admitted 06/22-06/23 for inability to sit during dialysis because of bilateral hip pain, thought it is been [place] dialyzed away during HD and states she was a provided with oral Dilaudid upon discharge at dose of 4 mg by mouth every 4 hours when necessary. Today when I saw the patient she was not sure why she was sent to the hospital. She states that her bilateral hip pain is there but is well controlled since last time admitted to the hospital. per Records she Was sent from dialysis Center for pain which is not well controlled and for UTI. Patient has Larson catheter. She denies abdominal pain or specific urinary symptoms. Vitas looks stable. Labs including CBC and INR are unremarkable. Basic metabolic panel showing sodium 134, potassium 3.3, creatinine 1.6. Glucose 128, liver enzymessignificantly elevated. Troponin is negative [place] 0.[place] [address] Urine analysis is suspicious of infection EKG showing normal sinus rhythm at 70 bpm with no significant ST-T changes Chest x-ray: Persistent right basilar opacities with pleural effusion Femur x-ray showed stable bilateral femoral fractures status post ORIF Ceftriaxone and oriented Dilaudid 07/01/2021 Patient is awake and alert. She is asymptomatic other than generalized weakness. Also she denies dysuria or change in frequency. Hemodynamically stable. Urine culture is growing Pseudomonas which is sensitive to cefepime her current antibiotics. Can be switched to Cipro/Levaquin upon discharge 07/02/2021 Patient clinically stable, her weakness is improving gradually. Urine culture is growing Pseudomonas, which is currently covered with cefepime 2 which bacteria is sensitive. Patient instructed need for change Larson catheter and she agrees Patient can switch to oral antibiotics upon discharge Patient evaluated by orthopedic team and the recommended [id number] for both lower extremity and follow-up as an outpatient in 2 weeks, patient informed and she agrees other than that she has mild vaginal itching secondary to antibiotics, one dose of fluconazole is provided 07/03/2021 Patient weakness keep improving, her vaginal itching from yesterday is significantly improved today after 1 dose of fluconazole. Larson catheter was changes with no issues. She is hemodynamically stable except for oxygen mildly low today 89-91 on room air. She is getting hemodialysis. Pulmonary team on the case. She still on cefepime for UTI Pseudomonas to finish therapy with short course of oral antibiotics upon discharge She's getting hemodialysis today We will repeat chest x-ray today. Objective - Vital Signs Vital signs: Vital Signs Temp 98.4 F 07/03/21 07:23 Pulse 71 07/03/21 08:00 Resp 17 07/03/21 08:00 BP 141/56 07/03/21 07:23 Pulse Ox 91 L 07/03/21 07:23 Intake & Output 07/02/21 07/03/21 07/03/21 18:59 06:59 18:59 Output Total 100 325 Balance -100 -325 Output: Urine 100 325 Other: Voiding Method Indwelling Catheter Indwelling Catheter Indwelling Catheter - Exam -GENERAL: The patient is alert and oriented x3, not in any acute distress. Well generally weak HEENT: Pupils are round and equally reacting to light. EOMI. No scleral icterus. No conjunctival pallor. Normocephalic, atraumatic. No pharyngeal erythema. No thyromegaly. CARDIOVASCULAR: S1 and S2 present. No murmurs, rubs, or gallops. PULMONARY: Chest is clear to auscultation, no wheezing or crackles. ABDOMEN: Soft, nontender, nondistended, normoactive bowel sounds. No palpable organomegaly. MUSCULOSKELETAL: No joint swelling or deformity. EXTREMITIES: No cyanosis, clubbing, or pedal edema. NEUROLOGICAL: Gross neurological examination did not reveal any focal deficits. SKIN: No rashes. no petechiae. - Labs CBC & Chem 7: 06/29/21 17:11 06/30/21 04:38 Assessment and Plan Assessment: Acute urinary tract infection, most likely secondary to Pseudomonas Recent bilateral hip and femur fracture, Status post ORIF . Continue nonweightbearing, patient informed. Follow-up with orthopedics in 2 weeks Bilateral hip pain secondary to above Right hilar opacity with right-sided pleural effusion chronic kidney disease on hemodialysis Mondays and Hypertension COPD , no acute exacerbation History of GERD Plan: this is a pleasant 70 years old female who presents with UTI, bilateral hip pain Continue with cefepime and and may switch to Cipro/Levaquin upon discharge Nephrology consult for dialysis [id number] for her both hip fracture spur Dr. Pham Continue with oral Dilaudid [place]. Labs and medication were reviewed.. Continue same treatment. Continue with symptomatic treatment. Resume home medication. Monitor lytes and vitals. DVT and GI prophylaxis. Further recommendations depends on the clinical course of the patient DVT prophylaxis: Subcutaneous heparin GI Prophylaxis: Pepcid
--- NOTE | 2021-07-03 12:52 | CDI ---
Documentation Clarification Form Date: 07/03/2021 12:41:55 PM From: Briseida Prince CCS, CCDS Admit Date: 07/01/2021 09:09:00 AM Patient Name: Saundra Jaquez Visit Number: [id number] Discharge Date: ATTENTION: The Clinical Documentation Specialists (CDI) and [facility] Coding Staff appreciate your assistance in clarifying documentation. Please respond to the clarification below the line at the bottom and electronically sign. The CDI & [facility] Coding staff will review the response and follow-up if needed. Please note: Queries are made part of the Legal Health Record. If you have any questions, please contact the author of this message via ITS. Dr. Major Patel. Sheet: Per the 06/30 H/P: Patient has a Larson catheter. Per the 07/02 Attending Progress Note: Patient has Larson catheter. Patient instructed on need for change of Larson catheter. Additional clarification regarding the etiology of the UTI is requested. History/Risk Factors: Recent Bilateral Femur Fractures status post ORIF, ESRD on Hemodialysis, Hypertension, COPD, GERD, Depression, Smoker. Clinical Indicators: Presented to the ED on 06/29 via EMS with Bilateral Hip Pain, Malaise, not feeling well, progressive weakness over several days. ED Clinical Impression: UTI & Pain management 06/29 VS: T 98.0, P 74, R 20, BP 115/75, PO 93 RA, BMI: 21.0 06/29 LAB: Hgb 10.2, Hct 31.2, Neut 8.2, Lymph 0.5, Na 134, K 3.3, Creatinine 1.63, Glucose 128, AST 43, Total Protein 6.2, Albumin 3.4 UA: Turbid, pH 8.5, 2+ Protein, Small blood, Negative Nitrite, Large Esterase, RBC 29, WBC >182 06/29 Urine culture: (final): Pseudomonas aeruginosa Treatment: IV Rocephin, IM Dilaudid, po [place], , IV Toradol, IV Zofran, Hemodialysis Please clarify the etiology of the UTI, if known: [ ] UTI is related to the Larson catheter [ ] UTI is not related to the Larson catheter [ ] Other condition, please specify [ ] Unable to determine (Template Last Revised: January 2021) UTI is related to the Larson catheter MTDD
[2021-07-03] MEDS: amLODIPine 10 MG TAB PO SCH (20:49)
[2021-07-03] MEDS: HYDROmorphone 2 MG TAB PO PRN (20:49)
[2021-07-03] MEDS: ATORVASTATIN 20 MG TAB PO SCH (20:50)
[2021-07-03] MEDS: MIRTAZAPINE 15 MG TAB PO SCH (23:17)
[2021-07-04] MEDS: QUEtiapine 50 MG TAB PO PRN (00:52)
[2021-07-04] MEDS: hydrALAZINE HCL 50 MG TAB PO SCH ×3 (05:13→22:18)
--- NOTE | 2021-07-04 08:01 | XR ---
EXAMINATION TYPE: XR chest 1V DATE OF EXAM: 07/04/2021 COMPARISON: 06/20/2021 HISTORY: Shortness of breath TECHNIQUE: Single frontal view of the chest is obtained. FINDINGS: Bilateral infiltrate and pleural effusion stable diffuse interstitial pattern. Heart size stable. Atherosclerotic change aorta. Surgical clips overlying the left axilla. No pneumothorax. Biap ical pleural thickening. IMPRESSION: 1. Stable bilateral infiltrate and pleural effusion correlate for CHF otherwise consider pneumonia. 2. Apical pleural calcification is somewhat displaced. Definitive pleural reflection seen. No definit e pneumothorax. Follow-up inspiration and expiration views could be obtained for confirmation.
[2021-07-04] MEDS: TAMSULOSIN 0.4 MG CAP.ER.24H PO SCH (08:59)
[2021-07-04] MEDS: CALCIUM ACETATE 667 MG TAB PO SCH ×2 (08:59→16:36)
[2021-07-04] MEDS: METOPROLOL SUCCINATE (ER) 50 MG TAB.ER.24H PO SCH ×2 (08:59→16:36)
[2021-07-04] MEDS: PANTOPRAZOLE 40 MG TABLET PO SCH ×2 (08:59→16:36)
[2021-07-04] MEDS: HEPARIN SODIUM,PORCINE/PF 5,000 UNIT/0.5 ML SYRINGE SQ SCH ×2 (08:59→20:48)
[2021-07-04] MEDS: HYDROcodone/APAP 5-325MG 1 EACH TAB PO PRN ×4 (09:21→20:45)
[2021-07-04] MEDS: TORSEMIDE 20 MG TAB PO SCH ×2 (09:22→18:07)
[2021-07-04] MEDS: CEFEPIME 1 GM in SODIUM CHLORIDE 0.9% 50 ML IVPB SCH ×2 (09:30→23:00)
--- NOTE | 2021-07-04 10:04 | P.PN ---
Subjective Patient is seen in follow-up for end-stage renal disease. She is maintained on hemodialysis on Mondays and . Resting in bed. No active complaints at this time. Vital signs are stable. General: The patient appeared well nourished and normally developed. HEENT: Head exam is unremarkable. Neck is without jugular venous distension. LUNGS: Breath sounds decreased. HEART: Rate and Rhythm are regular. ABDOMEN: Soft, no distention. EXTREMITITES: Trace edema. Objective - Vital Signs Vital signs: Vital Signs Temp 97.5 F L 07/04/21 08:19 Pulse 71 07/04/21 08:19 Resp 19 07/04/21 08:19 BP 156/55 07/04/21 08:19 Pulse Ox 96 07/04/21 08:19 Intake & Output 07/03/21 07/04/21 07/04/21 18:59 06:59 18:59 Intake Total 490 Output Total 1000 400 Balance -1000 90 Intake: IV 240 kvo 240 Intake, IV Titration 50 Amount Cefepime 1 gm In Sodium 50 Chloride 0.9% 50 ml @ 12. 5 mls/hr IVPB Q12HR [facility] Rx#:[id number] Oral 200 Output: Urine 400 Hemodialysis 1000 Other: Voiding Method Indwelling Catheter Indwelling Catheter # Bowel Movements 0 - Labs CBC & Chem 7: 06/29/21 17:11 06/30/21 04:38 Assessment and Plan Plan: Assessment: 1. End-stage liver disease maintained on hemodialysis on Mondays and . 2. Hypertension with chronic disease. Stable. 3. Chronic kidney disease mineral bone disease maintained on PhosLo and calcitriol. 4. Hypertension with chronic kidney disease. 5. Recent hip fractures currently in rehab. 6. Pseudomonas UTI on antibiotics. Plan: Hemodialysis on . Outpatient rehab placement being set up.
--- NOTE | 2021-07-04 17:29 | P.PN ---
Subjective Progress Note Date: 07/04/21 Principal diagnosis: Bilateral pleural effusion and basal atelectasis and hilar opacity appears to be fluid overload End-stage renal disease on hemodialysis UTI likely related to gram-negative rods Bilateral hip and knee fracture status post open reduction internal fixation Hypertension hypertensive cardiovascular disease COPD without any exacerbation 07/04/2021, patient seen eval reexamined denies any chest pain, patient has been getting dialysis regularly, Mondays and , hemodynamically stable remains afebrile, oxygen saturation 96%, chest x-ray continue show bilateral pleural effusion and basal atelectasis, urine culture came back positive for Pseudomonas which is sensitive to antibiotics Patient is a 70-year-old female for [facility] care facility, she has end-stage lung disease has been on hemodialysis, her past medical history is significant for COPD GERD hypertension hypertensive cardiovascular disease chronic renal failure on hemodialysis patient has been hospitalized recently later part of the last month for the pain in the hips and knees, patient pain medicines are being adjusted, her chest x-ray revealed bilateral hilar opacities with pleural effusion appeared to be related to fluid overload, patient had multiple dialysis since however repeat chest x-rays pending Objective - Vital Signs Vital signs: Vital Signs Temp 97.5 F L 07/04/21 13:35 Pulse 70 07/04/21 13:35 Resp 18 07/04/21 13:35 BP 148/60 07/04/21 13:35 Pulse Ox 93 L 07/04/21 13:35 Intake & Output 07/03/21 07/04/21 07/04/21 18:59 06:59 18:59 Intake Total 490 Output Total 1000 400 Balance -1000 90 Intake: IV 240 kvo 240 Intake, IV Titration 50 Amount Cefepime 1 gm In Sodium 50 Chloride 0.9% 50 ml @ 12. 5 mls/hr IVPB Q12HR [facility] Rx#:[id number] Oral 200 Output: Urine 400 Hemodialysis 1000 Other: Voiding Method Indwelling Catheter Indwelling Catheter Indwelling Catheter # Bowel Movements 0 - Exam - Constitutional General appearance: average body habitus, cooperative, disheveled - EENT Eyes: EOMI, PERRLA ENT: normal oropharynx Ears: bilateral: normal - Neck Neck: normal ROM Carotids: bilateral: upstroke normal Thyroid: bilateral: normal size - Respiratory Respiratory: bilateral: CTA - Cardiovascular Rhythm: regular Heart sounds: normal: S1, S2 - Gastrointestinal General gastrointestinal: soft - Neurologic Neurologic: CNII-XII intact - Musculoskeletal Musculoskeletal: gait normal, strength equal bilaterally - Psychiatric Psychiatric: A&O x's 3 - Labs CBC & Chem 7: 06/29/21 17:11 06/30/21 04:38 Assessment and Plan Assessment: Bilateral pleural effusion and basal atelectasis and hilar opacity appears to be fluid overload End-stage renal disease on hemodialysis Pseudomonas urinary tract infection Bilateral hip and knee fracture status post open reduction internal fixation Hypertension hypertensive cardiovascular disease COPD without any exacerbation Plan: Continue hemodialysis reviewed Follow-up chest x-ray Increase activity as tolerated Pain management Deep breathing exercise incentive spirometry Continue antibiotic for UTI
[2021-07-04 19:48] VITALS: RESP 16
[2021-07-04] MEDS: amLODIPine 10 MG TAB PO SCH (20:45)
[2021-07-04] MEDS: ATORVASTATIN 20 MG TAB PO SCH (20:45)
[2021-07-04] MEDS: HYDROmorphone 2 MG TAB PO PRN (22:20)
[2021-07-04] MEDS: MIRTAZAPINE 15 MG TAB PO SCH (22:47)
[2021-07-05] MEDS: HYDROcodone/APAP 5-325MG 1 EACH TAB PO PRN ×3 (04:24→13:37)
[2021-07-05] MEDS: hydrALAZINE HCL 50 MG TAB PO SCH ×2 (05:10→13:37)
[2021-07-05] MEDS: CEFEPIME 1 GM in SODIUM CHLORIDE 0.9% 50 ML IVPB SCH (08:09)
[2021-07-05] MEDS: CALCIUM ACETATE 667 MG TAB PO SCH (08:10)
[2021-07-05] MEDS: METOPROLOL SUCCINATE (ER) 50 MG TAB.ER.24H PO SCH (08:10)
[2021-07-05] MEDS: TAMSULOSIN 0.4 MG CAP.ER.24H PO SCH (08:10)
[2021-07-05] MEDS: HEPARIN SODIUM,PORCINE/PF 5,000 UNIT/0.5 ML SYRINGE SQ SCH ×2 (08:10→08:19)
[2021-07-05] MEDS: PANTOPRAZOLE 40 MG TABLET PO SCH (08:10)
--- NOTE | 2021-07-05 10:11 | P.PN ---
Subjective Patient is seen in follow-up for end-stage renal disease. She is maintained on hemodialysis on Mondays and . Resting in bed. No active complaints at this time except feels weak. Blood pressure stable. On room air. Vital signs are stable. General: The patient appeared well nourished and normally developed. HEENT: Head exam is unremarkable. Neck is without jugular venous distension. LUNGS: Breath sounds decreased. HEART: Rate and Rhythm are regular. ABDOMEN: Soft, no distention. EXTREMITITES: Trace edema. Objective - Vital Signs Vital signs: Vital Signs Temp 97.2 F L 07/05/21 08:00 Pulse 70 07/05/21 08:00 Resp 16 07/05/21 08:00 BP 164/72 07/05/21 08:00 Pulse Ox 94 L 07/05/21 08:00 Intake & Output 07/04/21 07/05/21 07/05/21 18:59 06:59 18:59 Intake Total 890 Output Total 250 200 Balance -250 690 Intake: IV 240 kvo 240 Intake, IV Titration 50 Amount Cefepime 1 gm In Sodium 50 Chloride 0.9% 50 ml @ 12. 5 mls/hr IVPB Q12HR [facility] Rx#:[id number] Oral 600 Output: Urine 250 200 Stool 0 Other: Voiding Method Indwelling Catheter Indwelling Catheter # Bowel Movements 0 - Labs CBC & Chem 7: 06/29/21 17:11 06/30/21 04:38 Assessment and Plan Plan: Assessment: 1. End-stage liver disease maintained on hemodialysis on Mondays and . 2. Hypertension with chronic disease. Stable. 3. Chronic kidney disease mineral bone disease maintained on PhosLo and calcitriol. 4. Hypertension with chronic kidney disease. 5. Recent hip fractures currently in rehab. 6. Pseudomonas UTI on antibiotics. Plan: Hemodialysis on . Outpatient rehab placement being set up.
[2021-07-05] MEDS: TORSEMIDE 20 MG TAB PO SCH (11:00)
--- NOTE | 2021-07-05 11:09 | P.DS ---
Providers Date of admission: 07/01/21 09:09 Attending physician: Maciel Martini Consults: 06/30/21 07:20 Consult Physician Routine Consulting Provider: Supriya Cristina Consult Reason/Comments: On dialysis Do you want consulting provider notified?: Yes 06/30/21 23:00 Consult Physician Routine Consulting Provider: Glenroy Rivas Consult Reason/Comments: Right hilar opacity with right-sided pleural effusion Do you want consulting provider notified?: Yes, Notify in am Primary care physician: [facility] Hospital Course: diagnoses: Acute urinary tract infection, secondary to Pseudomonas Recent bilateral hip and femur fracture, Status post ORIF . Continue nonweightbearing, patient informed. Follow-up with orthopedics in 2 weeks Bilateral hip pain secondary to above, controlled with norco and diludid Right hilar opacity with right-sided pleural effusion , mostly secondary to fluid overload, recommend follow up with [facility] as outpt chronic kidney disease on hemodialysis Mondays and Hypertension COPD , no acute exacerbation History of GERD hospital course: This is a pleasant 70 years old female with past medical history of COPD, GERD, hypertension, chronic renal disease on dialysis on Mondays and She is a resident at [facility]. No recent history of right femur and hip fracture. He was recently admitted 06/22-06/23 for inability to sit during dialysis because of bilateral hip pain, thought it is been [facility]man dialyzed away during HD and states she was a provided with oral Dilaudid upon discharge at dose of 4 mg by mouth every 4 hours when necessary. this time presents with increased weakness related to her UTI, urine culture came back positive for per Records she Was sent from dialysis Center for pain which is not well controlled and for UTI. Patient has Garcia catheter. She denies abdominal pain or specific urinary symptoms. Pseudomonas which is sensitive to cefepime her current antibiotics. garcia catheter was changed as well. pt with no leukocyt osis or fever, no suprapubic tendernsss, her generalized weakness is improving gradually and pt is medically stable for discharge on 10 days of oral cipro to which Pseudomonas sensitive too as well Patient evaluated by orthopedic team and the recommended [id number] for both lower extremity and follow-up as an outpatient in 2 weeks, she has some abnormal cxr ( stable bilateral infiltrates , and pleural effusion , stable diffuse interstitial pattern, correlate for CHF, otherwise consider pneumonia, apical pleural calcification si somewhat displaced, definitive pleural reflection is seen, no definite pneumonthorax, follow up inspiration and expiration views could be obtained for confirmation) pt is back to her baseline with no s/s . Patient denies any other systemic complaints. No chest pain or dyspnea, no GI or urinary complaints or change in habits. No fever Was cleared for discharge by pulmonary and nephrology team Problems and management plan were discussed with the patient and he verbalized understanding and acceptance Patient was found stable and can be discharged home however he needs follow-up as an outpatient. Patient was instructed to follow up with PCP within one week and patient agrees. pt was insturcted to follow up with in 2 weeks and pulmonary team in 2-3 week and she agrees Physical exam Gen: patient is a AAOx3, no distress CVS: S1-S2, RRR, no murmur Lungs: B/L CTA, no wheezing Abdomen: soft, no distention, no tenderness, positive bowel sounds. garcia catheter is in place Extremity: no leg edema or induration. b/l hip wound are closed and healing Time spent more than 35 minutes Patient Condition at Discharge: Fair Plan - Discharge Summary Discharge Rx Participant: No New Discharge Prescriptions: No Action QUEtiapine [SEROquel] 150 mg PO HS PRN PRN Reason: Insomnia Rosuvastatin [Crestor] 10 mg PO HS@2100 Mirtazapine [Remeron] 30 mg PO HS@2100 Torsemide [Demadex] 60 mg PO BID@0800,1700 hydrALAZINE HCL [Apresoline] 100 mg PO TID@0600,1400,2200 calcitrioL [Calcitriol] 1 mcg PO DAILY@0800 Metoprolol Succinate (ER) [Toprol XL] 50 mg PO BID@0800,1700 Pantoprazole [Protonix] 40 mg PO BID@0800,1700 HYDROcodone/APAP 5-325MG [Whitman 5-325] 1 tab PO Q4HR PRN PRN Reason: Pain HYDROmorphone [Dilaudid] 4 mg PO Q4H PRN PRN Reason: Pain Calcium Acetate 667 mg PO BID@0800,1700 Na Phos,M-B/Na Phos,Di-Ba [Fleet Adult] 133 ml RECTAL Q24H PRN PRN Reason: Constipation bisacodyL [Dulcolax] 1 supp RECTAL Q24H PRN PRN Reason: Constipation Heparin Sodium,Porcine [Heparin Sodium] 5,000 unit SQ BID@0800,2100 Sennosides-Docusate Sodium [Senokot-S] 1 tab PO DAILY@0800 Tamsulosin [Flomax] 0.4 mg PO DAILY@0800 Discharge Medication List Mirtazapine [Remeron] 30 mg PO HS@209912/28/16 [History] QUEtiapine [SEROquel] 150 mg PO HS PRN 12/28/16 [History] Rosuvastatin [Crestor] 10 mg PO HS@209912/28/16 [History] Torsemide [Demadex] 60 mg PO BID@0800,1700 11/16/18 [History] calcitrioL [Calcitriol] 1 mcg PO DAILY@0800 01/18/20 [History] hydrALAZINE HCL [Apresoline] 100 mg PO TID@0600,1400,2200 01/18/20 [History] Calcium Acetate 667 mg PO BID@0800,1700 06/14/21 [History] Metoprolol Succinate (ER) [Toprol XL] 50 mg PO BID@0800,1700 06/14/21 [History] Heparin Sodium,Porcine [Heparin Sodium] 5,000 unit SQ BID@0800,2100 06/22/21 [History] Na Phos,M-B/Na Phos,Di-Ba [Fleet Adult] 133 ml RECTAL Q24H PRN 06/22/21 [History] Pantoprazole [Protonix] 40 mg PO BID@0800,1700 06/22/21 [History] Sennosides-Docusate Sodium [Senokot-S] 1 tab PO DAILY@0800 06/22/21 [History] Tamsulosin [Flomax] 0.4 mg PO DAILY@0806/22/21 [History] bisacodyL [Dulcolax] 1 supp RECTAL Q24H PRN 06/22/21 [History] HYDROcodone/APAP 5-325MG [[place]man 5-325] 1 tab PO Q4HR PRN 06/29/21 [History] HYDROmorphone [Dilaudid] 4 mg PO Q4H PRN 06/29/21 [History] Follow up Appointment(s)/Referral(s): Favian Parker DO [Primary Care Provider] - 1-2 days Jorge Pham DO [Doctor of Osteopathic Medicine] - 2 Weeks Glenroy Rivas MD [STAFF PHYSICIAN] - 1 Week Activity/Diet/Wound Care/Special Instructions: Renal diet For her left hip fracture we recommend to to remain nonweightbearing on this for at least 6 weeks postop She needs to remain nonweightbearing on her right femur as well. Follow-up with Dr. Ankit rivera as an outpatient
[2021-07-05 13:43] VITALS: BP 175/65; PULSE 72; TEMP 98.6
== END 2021-07-05 14:36 | DRG 698 ==
LOC: EC 16:26 → 4SSUR 19:13 → OBSVTOIN 07-01 09:09
PROVIDERS: ADMIT Internal Medicine; ATTEND Internal Medicine
PROC: 5A1D70Z Performance of Urinary Filtration, Intermittent, Less than 6 Hours Per Day (ICD-10-PCS; principal; 2021-07-03)
DX: T83.511A Infection and inflammatory reaction due to indwelling urethral catheter, initial encounter (principal); N18.6 End stage renal disease; S72.142A Displaced intertrochanteric fracture of left femur, initial encounter for closed fracture; I13.11 Hypertensive heart and chronic kidney disease without heart failure, with stage 5 chronic kidney disease, or end stage renal disease; S82.141A Displaced bicondylar fracture of right tibia, initial encounter for closed fracture; J98.11 Atelectasis; E83.9 Disorder of mineral metabolism, unspecified; D63.1 Anemia in chronic kidney disease; Z99.2 Dependence on renal dialysis; J44.9 Chronic obstructive pulmonary disease, unspecified; Z20.822 Contact with and (suspected) exposure to COVID-19; N39.0 Urinary tract infection, site not specified; B96.5 Pseudomonas (aeruginosa) (mallei) (pseudomallei) as the cause of diseases classified elsewhere; E87.70 Fluid overload, unspecified; E78.5 Hyperlipidemia, unspecified; K21.9 Gastro-esophageal reflux disease without esophagitis; G89.29 Other chronic pain; G62.9 Polyneuropathy, unspecified; F32.9 Major depressive disorder, single episode, unspecified; F17.210 Nicotine dependence, cigarettes, uncomplicated; Z71.6 Tobacco abuse counseling; Z79.899 Other long term (current) drug therapy; Z90.89 Acquired absence of other organs; Z87.2 Personal history of diseases of the skin and subcutaneous tissue; Z98.890 Other specified postprocedural states; Z88.4 Allergy status to anesthetic agent; Y84.6 Urinary catheterization as the cause of abnormal reaction of the patient, or of later complication, without mention of misadventure at the time of the procedure; W18.30XA Fall on same level, unspecified, initial encounter; Z88.1 Allergy status to other antibiotic agents; Z88.5 Allergy status to narcotic agent
CPT/HCPCS: 36415; 71045; 80053; 81001; 83605; 83735; 83880; 84484; 85025; 85610; 85730; 87077; 87086; 87186; 87635; 90935; 93005; 94760; 96365; 96372; 99285

== ENCOUNTER 2021-10-18 18:48 | Inpatient (IN) | payer MEDICARE, OTHER ==
--- NOTE | 2021-10-18 20:34 | ED ---
General Adult HPI - General Stated complaint: vomiting Time Seen by Provider: 10/18/21 20:29 - History of Present Illness Initial comments: 70 year-old female patient presents to the emergency department today for abdominal pain. States pain is 10/10. She also reports nausea and vomiting. Symptoms started at 0430 this morning. History end-stage renal disease, last dialysis was , she does two days per week that fluctuate. Denies diarrhea. Denies any fever or chills. - Related Data Home Medications Medication Instructions Recorded Confirmed Mirtazapine [Remeron] 30 mg PO HS@2100 12/28/16 06/29/21 Rosuvastatin [Crestor] 10 mg PO HS@2100 12/28/16 06/29/21 Torsemide [Demadex] 60 mg PO BID@0800,1700 11/16/18 06/29/21 calcitrioL [Calcitriol] 1 mcg PO DAILY@0800 01/18/20 06/29/21 hydrALAZINE HCL [Apresoline] 100 mg PO TID@0600,1400,2200 01/18/20 06/29/21 Calcium Acetate 667 mg PO BID@0800,1700 06/14/21 06/29/21 Metoprolol Succinate (ER) [Toprol 50 mg PO BID@0800,1700 06/14/21 06/29/21 XL] Heparin Sodium,Porcine [Heparin 5,000 unit SQ BID@0800,2100 06/22/21 06/29/21 Sodium] Na Phos,M-B/Na Phos,Di-Ba [Fleet 133 ml RECTAL Q24H PRN 06/22/21 06/29/21 Adult] Pantoprazole [Protonix] 40 mg PO BID@0800,1700 06/22/21 06/29/21 Tamsulosin [Flomax] 0.4 mg PO DAILY@0800 06/22/21 06/29/21 bisacodyL [Dulcolax] 1 supp RECTAL Q24H PRN 06/22/21 06/29/21 Previous Rx's Medication Instructions Recorded Ciprofloxacin HCl [Cipro] 500 mg PO DAILY 10 Days #10 tab 07/05/21 Docusate [Colace] 100 mg PO BID PRN cap 07/05/21 HYDROcodone/APAP 5-325MG [[place]iko 1 tab PO Q4HR PRN #6 tab 07/05/21 5-325] HYDROmorphone [Dilaudid] 4 mg PO Q4H PRN #6 tab 07/05/21 Mag Hydrox/Al Hydrox/Simeth 15 ml PO Q6HR PRN ml 07/05/21 [Maalox] Zolpidem Tartrate [Ambien] 5 mg PO HS PRN #3 tab 07/05/21 amLODIPine [Norvasc] 10 mg PO HS tab 07/05/21 Allergies Allergy/AdvReac Type Severity Reaction Status Date / Time erythromycin base Allergy Unknown Verified 10/18/21 20:34 fentanyl Allergy Unknown Verified 10/18/21 20:34 oxycodone HCl [From Percocet] Allergy Nausea & Verified 10/18/21 20:34 Vomiting succinylcholine Allergy Unknown Verified 10/18/21 20:34 Review of Systems ROS Statement: Those systems with pertinent positive or pertinent negative responses have been documented in the HPI. ROS Other: All systems not noted in ROS Statement are negative. Past Medical History Past Medical History: COPD, GERD/Reflux, Hypertension, Renal Disease Additional Past Medical History / Comment(s): chronic pain; Kidney Dialysis Mon/Thurs. History of Any Multi-Drug Resistant Organisms: None Reported Past Surgical History: Breast Surgery, Tonsillectomy Additional Past Surgical History / Comment(s): benign Br lumpectomy Past Anesthesia/Blood Transfusion Reactions: No Reported Reaction Past Psychological History: Depression Smoking Status: Current every day smoker Past Alcohol Use History: None Reported Past Drug Use History: None Reported - Past Family History Mother Family Medical History: No Reported History General Exam General appearance: alert, in no apparent distress, other (This is a well- developed, well-nourished adult female patient in mild distress related to pain.) ENT exam: Present: normal exam, normal oropharynx, mucous membranes moist Respiratory exam: Present: normal lung sounds bilaterally. Absent: respiratory distress, wheezes, rales, rhonchi, stridor Cardiovascular Exam: Present: normal rhythm, tachycardia, normal heart sounds. Absent: systolic murmur, diastolic murmur, rubs, gallop, clicks GI/Abdominal exam: Present: soft, tenderness (Lower abdominal), normal bowel sounds. Absent: distended, guarding, rebound, rigid Neurological exam: Present: alert, oriented X3, CN II-XII intact Psychiatric exam: Present: normal affect, normal mood Skin exam: Present: warm, dry, intact, normal color. Absent: rash Course Vital Signs 10/18/21 10/19/21 20:30 02:31 Temperature 99.0 F 98.6 F Pulse Rate 102 H 94 Respiratory 20 16 Rate Blood Pressure 199/76 145/60 O2 Sat by Pulse 95 97 Oximetry Medical Decision Making - Medical Decision Making 70-year-old female patient presented to the emergency department today for evaluation of lower abdominal pain that started early this morning. She is also reported nausea and vomiting. Physical examination did reveal lower abdominal tenderness. CT scan showed no acute abdomen and pelvis process. Labs reviewed and were unremarkable. Upon reevaluation she quite uncomfortable. Abdomen remains tender. She'll be admitted to the hospital for intractable abdominal pain. She is agreeable this plan. Case discussed with my attending Dr. Moseley. - Lab Data Result diagrams: 10/18/21 21:30 10/18/21 21:30 Lab Results 10/18/21 10/18/21 10/18/21 Range/Units 21:30 21:30 21:30 WBC 9.2 (3.8-10.6) k/uL RBC 3.82 (3.80-5.40) m/uL Hgb 11.7 (11.4-16.0) gm/dL Hct 36.2 (34.0-46.0) % MCV 94.7 (80.0-100.0) fL MCH 30.7 (25.0-35.0) pg MCHC 32.4 (31.0-37.0) g/dL RDW 14.7 (11.5-15.5) % Plt Count 185 (150-450) k/uL MPV 8.6 Neutrophils % 86 % Lymphocytes % 6 % Monocytes % 5 % Eosinophils % 0 % Basophils % 0 % Neutrophils # 7.9 H (1.3-7.7) k/uL Lymphocytes # 0.6 L (1.0-4.8) k/uL Monocytes # 0.4 (0-1.0) k/uL Eosinophils # 0.0 (0-0.7) k/uL Basophils # 0.0 (0-0.2) k/uL Sodium 139 (137-145) mmol/L Potassium 4.5 (3.5-5.1) mmol/L Chloride 93 L (98-107) mmol/L Carbon Dioxide 30 (22-30) mmol/L Anion Gap 16 mmol/L BUN 43 H (7-17) mg/dL Creatinine 4.04 H (0.52-1.04) mg/dL Est GFR (CKD-EPI)AfAm 12 (>60 ml/min/1.73 sqM) Est GFR (CKD-EPI)NonAf 11 (>60 ml/min/1.73 sqM) Glucose 97 (74-99) mg/dL Plasma Lactic Acid Aquiles 1.8 (0.7-2.0) mmol/L Calcium 10.5 H (8.4-10.2) mg/dL Total Bilirubin 0.6 (0.2-1.3) mg/dL AST 32 (14-36) U/L ALT 20 (4-34) U/L Alkaline Phosphatase 126 (38-126) U/L Total Protein 7.0 (6.3-8.2) g/dL Albumin 3.9 (3.5-5.0) g/dL Lipase 34 (23-300) U/L - Radiology Data Radiology results: report reviewed, image reviewed CT abdomen and pelvis without contrast was obtained. Report was reviewed in its entirety. Impression by Dr. Stevens shows no acute abdominopelvic process. Redemonstrated enlargement of the bilateral kidneys with extensive cyst that most likely polycystic kidney disease. Bilateral pleural effusions, right greater than left. Cardiomegaly and moderate pericardial effusion. Disposition Clinical Impression: Intractable abdominal pain Disposition: ADMITTED IP TO THIS [facility] Condition: Serious Decision to Admit Reason: Admit from EC Decision Date: 10/19/21 Decision Time: 00:56
[2021-10-18] MEDS ORDERED: MORPHINE SULFATE 2 MG/ML SYRINGE IVP STA (20:36)
[2021-10-18] MEDS ORDERED: ONDANSETRON 4 MG/2 ML VIAL IVP STA (20:36)
[2021-10-18 21:51] LABS: Basophils % (A) 0 %; Eosinophils % (A) 0 %; HCT 36.2 % (34.0-46.0); HGB 11.7 gm/dL (11.4-16.0); Lymphocytes # (A) 0.6 k/uL (1.0-4.8); Lymphocytes % (A) 6 %; MCH 30.7 pg (25.0-35.0); MCHC 32.4 g/dL (31.0-37.0); MCV 94.7 fL (80.0-100.0); Mean Platelet Volume 8.6; Monocytes # (A) 0.4 k/uL (0-1.0); Monocytes % (A) 5 %; Neutrophils # (A) 7.9 k/uL (1.3-7.7); Neutrophils % (A) 86 %; Platelet Count 185 k/uL (150-450); RBC 3.82 m/uL (3.80-5.40); RDW 14.7 % (11.5-15.5); WBC 9.2 k/uL (3.8-10.6)
[2021-10-18 22:01] LABS: Albumin 3.9 g/dL (3.5-5.0); Calcium 10.5 mg/dL (8.4-10.2); Potassium 4.5 mmol/L (3.5-5.1); Total Bilirubin 0.6 mg/dL (0.2-1.3)
--- NOTE | 2021-10-18 22:58 | CT ---
EXAMINATION TYPE: CT abdomen pelvis wo con DATE OF EXAM: 10/18/2021 COMPARISON: 11/16/2018 HISTORY: abdominal pain CT DLP: 459 mGycm Automated exposure control for dose reduction was used. TECHNIQUE: Helical acquisition of images was performed from the lung bases through the pelvis. CONTRAST: Performed without Oral Contrast and without intravenous contrast. Lack of intravenous contrast limits evaluation of the dominant pelvic viscera and vasculature. FINDINGS: LUNG BASES: Emphysematous changes. Bilateral pleural effusions, right greater than left. Cardiomegaly . Moderate pericardial effusion. LIVER: Too small to characterize hypodense lesions of the liver and hepatic cysts. BILIARY SYSTEM: Gallbladder unremarkable. PANCREAS: No acute peripancreatic inflammatory stranding. SPLEEN: Not enlarged. ADRENALS: Difficult to visualize. KIDNEYS: Extensive innumerable renal cysts and enlargement of the bilateral kidneys. BOWEL: No evidence of bowel obstruction. Colonic diverticulosis. No acute diverticulitis. Incomplete visualization of the left abdomen and bowel loops. Air-fluid levels in the colon. PERITONEUM: No pneumoperitoneum. No free fluid. LYMPH NODES: No lymphadenopathy. PELVIS: Obscured by streak artifact from bilateral hip hardware. VASCULATURE: Abdominal aorta normal in caliber with marked calcified atherosclerotic disease. MUSCULOSKELETAL: Incompletely visualized bilateral hip surgical hardware. Old compression deformity of L2 and L5. IMPRESSION: 1. No acute abdominopelvic process. 2. Redemonstrated enlargement of the bilateral kidneys with extensive cysts most likely polycystic ki dney disease. 3. Bilateral pleural effusions, right greater than left. 4. Cardiomegaly and moderate pericardial effusion.
[2021-10-19] MEDS ORDERED: MORPHINE SULFATE 4 MG/ML SYRINGE IVP STA (00:01)
[2021-10-19] MEDS ORDERED: NALOXONE 0.4 MG/ML 1 ML VIAL IV PRN (00:54)
[2021-10-19 00:57] LABS: Appearance,Urine Clear (Clear); Bilirubin,Urine Negative (Negative); Blood,Urine Negative (Negative); Color,Urine Light Yellow; Glucose,Urine (UA) 1+ (Negative); Ketones,Urine Negative (Negative); Leukocyte Esterase,Urine Negative (Negative); Nitrite,Urine Negative (Negative); PH, Urine 8.5 (5.0-8.0); Protein,Urine 2+ (Negative); RBC,Urine 1 /hpf (0-5); Specific Gravity,Urine 1.008 (1.001-1.035); Urobilinogen,Urine <2.0 mg/dL (<2.0); WBC,Urine <1 /hpf (0-5)
[2021-10-19] MEDS ORDERED: ONDANSETRON ODT 4 MG TAB PO PRN (09:46)
--- NOTE | 2021-10-19 12:18 | P.HPIM ---
History of Present Illness H&P Date: 10/19/21 Chief Complaint: abdominal pain This is a pleasant 70-year-old female who presented to the with complaints of abdominal pain that started 3 days ago. Abdominal pain is tender to palpation. Patient describes as 10/10 and sharp in nature. Past medical history significant for COPD, GERD/reflux, hypertension, renal disease, chronic pain. Patient does admit to smoking about 8 cigarettes per day she states that she has cut down recently, denies alcohol use. Patient recently underwent a bilateral hip fracture repair status post fall in June 2021 was discharged to rehab. She is now back at home with her goes to dialysis outpatient. Patient had vomiting that started 430 a.m. this morning. She denies any blood in the vomit however she states that she had a little bit of pink tinged his sputum couple times. She denies any blood in her bowels, denies diarrhea. Last bowel movement was yesterday. She denies any headache, lightheadedness, dizziness and she denies any chest pain, chest pressure, palpitations. She denies any cough or shortness of breath. Patient has a history of end-stage renal disease and she does hemodialysis twice a day Saturday and she does follow with nephrology. Creatinine today is 4.04. Covid PCR was negative, urinalysis showed a pH 8.5, positive for protein and glucose. Negative for any signs of infection. Abdomen pelvis CT shows no acute abdominal pelvic process, redemonstrated enlargement of the bilateral kidneys with extensive cysts most likely polycystic kidney disease. Bilateral pleural effusions right greater than left. Cardiomegaly and moderate pericardial effusion. Echocardiogram is ordered. Nephrology is consulted, patient will need dialysis this admission. Consult placed to general surgery as patients lower and left lower quadrant are tender to palpation still. Pain has improved to about a 3/10. She can try clear liquids advance as tolerated to full liquid. REVIEW OF SYSTEMS: CONSTITUTIONAL: No fever, no malaise, no fatigue. HEENT: No recent visual problems or hearing problems. Denied any sore throat. CARDIOVASCULAR: No chest pain, orthopnea, PND, no palpitations, no syncope. PULMONARY: No shortness of breath, no cough, no hemoptysis. GASTROINTESTINAL: No diarrhea, no nausea. Reports sharp abdominal pain over the course of 3 days, reports vomiting that started at 4:30 this morning. Vomiting has stopped. NEUROLOGICAL: No headaches, no weakness, no numbness. HEMATOLOGICAL: Denies any bleeding or petechiae. GENITOURINARY: Denies any burning micturition, frequency, or urgency. MUSCULOSKELETAL/RHEUMATOLOGICAL: Denies any joint pain, swelling, or any muscle pain. ENDOCRINE: Denies any polyuria or polydipsia. The rest of the 14-point review of systems is negative. PHYSICAL EXAMINATION: GENERAL: The patient is alert and oriented x3, not in any acute distress. Well developed, well nourished. HEENT: Pupils are round and equally reacting to light. EOMI. No scleral icterus. No conjunctival pallor. Normocephalic, atraumatic. No pharyngeal erythema. No thyromegaly. CARDIOVASCULAR: S1 and S2 present. No murmurs, rubs, or gallops. PULMONARY: Chest is clear to auscultation, no wheezing or crackles. ABDOMEN: Soft, nondistended, normoactive bowel sounds. No palpable organomegaly. Abdominal tenderness to the left lower and medial quadrants. No CVA tenderness noted. MUSCULOSKELETAL: No joint swelling or deformity. EXTREMITIES: No cyanosis, clubbing, or pedal edema. NEUROLOGICAL: Gross neurological examination did not reveal any focal deficits. SKIN: No rashes. Assessment and plan Assessment -End-stage renal disease maintained on hemodialysis 2 days a week, creatinine 4.04 -Bilateral pleural effusion and pericardial effusion secondary to fluid overload related to end-stage renal disease -Left lower and medial abdominal pain tender to palpation with vomiting, unknown etiology, no complaints of diarrhea, or blood in the stool -Polycystic kidney disease -History of COPD not in acute exacerbation -Chronic nicotine dependence, currently smoking -Recent history of bilateral hip fracture with surgical repair in June of 2021 -Hypertension -Depression -GI prophylaxis: Protonix -DVT prophylaxis: SQ hep FULL CODE Plan -Nephrology consultation Hold nephrotoxic agents Echocardiogram ordered, pending results may consult cardiology General surgery consultation Clear liquid diet advance as tolerated -Nicotine patch -Repat labs tomorrow Past Medical History Past Medical History: COPD, GERD/Reflux, Hypertension, Renal Disease Additional Past Medical History / Comment(s): chronic pain; Kidney Dialysis Mon/Thurs. History of Any Multi-Drug Resistant Organisms: None Reported Past Surgical History: Breast Surgery, Tonsillectomy Additional Past Surgical History / Comment(s): benign Br lumpectomy Past Anesthesia/Blood Transfusion Reactions: No Reported Reaction Past Psychological History: Depression Smoking Status: Current every day smoker Past Alcohol Use History: None Reported Additional Past Alcohol Use History / Comment(s): has smoked for about 45 years; down to 1/2 ppd Past Drug Use History: None Reported - Past Family History Mother Family Medical History: No Reported History Medications and Allergies Home Medications Medication Instructions Recorded Confirmed Type Mirtazapine [Remeron] 30 mg PO HS@2100 12/28/16 10/19/21 History Rosuvastatin [Crestor] 10 mg PO HS@2100 12/28/16 10/19/21 History Torsemide [Demadex] 60 mg PO BID@0800,1700 11/16/18 10/19/21 History calcitrioL [Calcitriol] 1 mcg PO BID 01/18/20 10/19/21 History hydrALAZINE HCL [Apresoline] 100 mg PO TID@0600,1400,2200 01/18/20 10/19/21 History Calcium Acetate 667 mg PO BID@0800,1700 06/14/21 10/19/21 History Metoprolol Succinate (ER) [Toprol 50 mg PO BID@0800,1700 06/14/21 10/19/21 History XL] Aspirin EC [Ecotrin Low Dose] 81 mg PO DAILY 10/19/21 10/19/21 History Esomeprazole Magnesium [NexIUM] 40 mg PO BID 10/19/21 10/19/21 History Furosemide [Lasix] 40 mg PO HS 10/19/21 10/19/21 History Furosemide [Lasix] 80 mg PO DAILY 10/19/21 10/19/21 History HYDROcodone/APAP 10-325MG [[place] 2 tab PO TID 10/19/21 10/19/21 History 10-325] Metoclopramide [Reglan] 5 mg PO BID 10/19/21 10/19/21 History Ondansetron Odt [Zofran Odt] 4 mg PO TID PRN 10/19/21 10/19/21 History Oxazepam [Serax] 10 mg PO DAILY PRN 10/19/21 10/19/21 History QUEtiapine [SEROquel] 150 mg PO HS 10/19/21 10/19/21 History Sevelamer [Renvela] 1,600 mg PO BID 10/19/21 10/19/21 History Spironolactone [Aldactone] 25 mg PO DAILY 10/19/21 10/19/21 History cloNIDine HCL [Catapres] 0.2 mg PO HS 10/19/21 10/19/21 History cloNIDine HCL [Catapres] 0.3 mg PO BID@0800,1200 10/19/21 10/19/21 History levOCARNitine [Levocarnitine] 330 mg PO TID 10/19/21 10/19/21 History lisinopriL [Zestril] 20 mg PO BID 10/19/21 10/19/21 History minoxidiL [Loniten] 5 mg PO BID 10/19/21 10/19/21 History Allergies Allergy/AdvReac Type Severity Reaction Status Date / Time erythromycin base Allergy Unknown Verified 10/18/21 20:34 fentanyl Allergy Unknown Verified 10/18/21 20:34 oxycodone HCl [From Percocet] Allergy Nausea & Verified 10/18/21 20:34 Vomiting succinylcholine Allergy Unknown Verified 10/18/21 20:34 Physical Exam Vitals: Vital Signs Temp Pulse Pulse Resp BP BP Pulse Ox 10/19/21 07:00 98.3 F 77 16 138/55 93 L 10/19/21 02:59 98.7 F 94 16 151/56 96 10/19/21 02:31 98.6 F 94 16 145/60 97 10/18/21 20:30 99.0 F 102 H 20 199/76 95 Intake and Output 10/18/21 10/19/21 10/19/21 22:59 06:59 14:59 Other: Voiding Method Bedside Commode # Voids 1 Weight 50.349 kg 50.349 kg Results CBC & Chem 7: 10/18/21 21:30 10/18/21 21:30 Labs: Abnormal Lab Results - Last 24 Hours (Table) 10/18/21 10/18/21 10/19/21 Range/Units 21:30 21:30 00:44 Neutrophils # 7.9 H (1.3-7.7) k/uL Lymphocytes # 0.6 L (1.0-4.8) k/uL Chloride 93 L (98-107) mmol/L BUN 43 H (7-17) mg/dL Creatinine 4.04 H (0.52-1.04) mg/dL Calcium 10.5 H (8.4-10.2) mg/dL Urine pH 8.5 H (5.0-8.0) Urine Protein 2+ H (Negative) Urine Glucose (UA) 1+ H (Negative) Assessment and Plan Time with Patient: Greater than 30
[2021-10-19] MEDS: PANTOPRAZOLE 40 MG TABLET PO SCH ×2 (12:36→20:54)
[2021-10-19] MEDS: NICOTINE 14MG/24HR PATCH TRANSDERM SCH (12:36)
--- NOTE | 2021-10-19 13:00 | ECHOF ---
Referral Reason:pericardial effusion MEASUREMENTS -------- HEIGHT: 167.6 cm WEIGHT: 50.3 kg BP: 138/55 RVIDd: 3.3 cm (< 3.3) IVSd: 1.2 cm (0.6 - 1.1) LVIDd: 4.9 cm (3.9 - 5.3) LVPWd: 1.2 cm (0.6 - 1.1) IVSs: 1.8 cm LVIDs: 3.1 cm LVPWs: 1.6 cm LA Diam: 4.2 cm (2.7 - 3.8) LAESV Index (A-L): 44.49 ml/m Ao Diam: 3.2 cm (2.0 - 3.7) AV Cusp: 1.8 cm (1.5 - 2.6) MV EXCURSION: 14.317 mm (> 18.000) MV EF SLOPE: 78 mm/s (70 - 150) EPSS: 0.9 cm MV E John: 1.53 m/s MV DecT: 184 ms MV A John: 1.06 m/s MV E/A Ratio: 1.44 AV maxP.79 mmHg AV meanP.41 mmHg RAP: 5.00 mmHg RVSP: 62.95 mmHg FINDINGS -------- Sinus rhythm. This was a technically adequate study. The left ventricular size is normal. There is borderline concentric left ventricular hypertrophy. Overall left ventricular systolic function is normal with, an EF between 60 - 65 %. The right ventricle is mildly enlarged. LA is severely dilated >40 ml/m2 The right atrium is normal in size. Interatrial and interventricular septum intact. Aneurysmal Interatrial septum. There is mild aortic valve sclerosis. Trace amount of aortic regurgitation. There is mild aortic stenosis present. Peak/mean gradient across the Aortic Valve is 17.79mmHg / 8.41mmHg. The mitral valve leaflets are mildly thickened. Mild mitral annular calcification present. Mild-t o-moderate mitral regurgitation is present. Mild tricuspid regurgitation present. There is severe pulmonary hypertension. The right ventricul ar systolic pressure, as measured by Doppler, is 62.95mmHg. Trace/mild (physiologic) pulmonic regurgitation. The aortic root size is normal. IVC Not well visulized. There is no pericardial effusion. CONCLUSIONS -------- 1. The left ventricular size is normal. 2. There is borderline concentric left ventricular hypertrophy. 3. Overall left ventricular systolic function is normal with, an EF between 60 - 65 %. 4. The right ventricle is mildly enlarged. 5. LA is severely dilated >40 ml/m2 6. Aneurysmal Interatrial septum. 7. There is mild aortic valve sclerosis. 8. Trace amount of aortic regurgitation. 9. There is mild aortic stenosis present. 10. Peak/mean gradient across the Aortic Valve is 17.79mmHg / 8.41mmHg. 11. The mitral valve leaflets are mildly thickened. 12. Mild mitral annular calcification present. 13. Hdlh-ut-agfdephs mitral regurgitation is present. 14. Mild tricuspid regurgitation present. 15. There is severe pulmonary hypertension. 16. The right ventricular systolic pressure, as measured by Doppler, is 62.95mmHg. 17. Trace/mild (physiologic) pulmonic regurgitation. 18. There is no pericardial effusion. RN CAMP: Ban Hope RDCS
[2021-10-19] MEDS: HYDROcodone/APAP 10-325MG 1 EACH TAB PO SCH (17:38)
--- NOTE | 2021-10-19 18:30 | CONS ---
CONSULTATION REASON FOR CONSULTATION: End-stage renal disease. HISTORY OF PRESENT ILLNESS: Patient is a 70-year-old female who was admitted to the hospital with complaints of abdominal pain. Patient stated that she had been quite weak, was not able to eat much. She denied any fever or chills. CT of the abdomen done in the ER did not reveal any significant abnormalities. Patient has bilateral renal cysts. Her CT did show evidence of pericardial effusion. An echocardiogram was performed later on this morning which showed no pericardial effusion. Her EF was 60% to 65%, and left atrium was severely dilated. Severe pulmonary hypertension was noted as well. Patient is maintained on dialysis two times a week. She has refused to increase her frequency to three times on multiple occasions. This has been discussed several times with her as outpatient. Her chemistry on this admission does not appear to be too bad. PAST MEDICAL HISTORY: Significant for end-stage renal disease, CKD mineral bone disorder, gastroesophageal reflux disease, COPD, recent bilateral lower extremity fractures with prolonged rehab for about 4 months. PAST SURGICAL HISTORY: Breast surgery, tonsillectomy, recent hip surgeries. SOCIAL HISTORY: Positive for smoking. No history of drug abuse or alcohol abuse. REVIEW OF SYSTEMS: As per HPI. MEDICATIONS: Medications prior to admission included levocarnitine, Zestril, Loniten, [place], hydralazine clonidine, calcitriol, Demadex, Aldactone, Crestor, Lasix, PhosLo, aspirin. PHYSICAL EXAMINATION: Patient is comfortable, awake, not in any acute distress. Blood pressure was 138/55, heart rate 77 per minute. Patient is afebrile. EXAMINATION OF THE HEART: S1 and S2. Systolic murmur is heard. I am not sure if there is a pericardial rub. EXAMINATION OF LUNGS: Good air entry bilaterally. No crackles or wheezing is heard. Abdomen is soft, non-tender. Examination of lower extremities shows no significant edema.. JUDICIAL ASSISTANT EXAM: Grossly intact. LABS: Hemoglobin 11.7, sodium 139, potassium 4.5, coronavirus PCR not detected. UA shows 2+ protein, 1+ glucose. ASSESSMENT: 1. End-stage renal disease, on hemodynamically stable on Mondays and as outpatient. Patient dialyzes only 2 days a week. 2. History of recent bilateral hip and knee fracture, status post open reduction and internal fixation with prolonged rehab for about 4 months. 3. Abdominal pain with negative abdominal CT. Symptoms have improved. Patient did tolerate oral intake today. No diarrhea noted\. No fever. 4. Chronic kidney disease mineral bone disorder. PLAN: Hemodialysis today. Maintain phosphate binders. Continue with the Rocaltrol. Since the echocardiogram has not shown any pericardial effusion, we can continue with the [id number] dialysis for now. Patient has repeatedly refused increasing her frequency to 3 times a week previously. MMODL / IJN: [id number] /
[2021-10-19] MEDS: MORPHINE SULFATE 4 MG/ML SYRINGE IV PRN (19:29)
[2021-10-19] MEDS: NON FORMULARY DRUG (Levocarnitine [Levocarnitine] 330 MG Tablet) PO SCH ×2 (20:49→20:56)
[2021-10-19] MEDS: CALCIUM ACETATE 667 MG TAB PO SCH (20:49)
[2021-10-19] MEDS: METOPROLOL SUCCINATE (ER) 50 MG TAB.ER.24H PO SCH (20:54)
[2021-10-19] MEDS: ATORVASTATIN 20 MG TAB PO SCH (20:54)
[2021-10-19] MEDS: HEPARIN SODIUM,PORCINE/PF 5,000 UNIT/0.5 ML SYRINGE SQ SCH (20:55)
[2021-10-19] MEDS: SEVELAMER 800 MG TAB PO SCH (20:55)
[2021-10-20 03:28] LABS: Hepatitis B Surface AB- Quant 3.5 mIU/mL; Hepatitis B Surface Antibody Nonreactive (Nonreactive); Hepatitis B Surface Antigen Nonreactive (Nonreactive)
[2021-10-20] MEDS: PANTOPRAZOLE 40 MG TABLET PO SCH ×2 (07:57→18:35)
[2021-10-20] MEDS: METOPROLOL SUCCINATE (ER) 50 MG TAB.ER.24H PO SCH ×2 (07:57→18:34)
[2021-10-20] MEDS: ASPIRIN 81 MG PO SCH (07:57)
[2021-10-20] MEDS: HYDROcodone/APAP 10-325MG 1 EACH TAB PO SCH (07:57)
[2021-10-20] MEDS: HEPARIN SODIUM,PORCINE/PF 5,000 UNIT/0.5 ML SYRINGE SQ SCH ×2 (07:58→20:12)
[2021-10-20] MEDS: CALCIUM ACETATE 667 MG TAB PO SCH ×2 (07:59→18:35)
[2021-10-20] MEDS: SEVELAMER 800 MG TAB PO SCH ×2 (07:59→18:35)
[2021-10-20] MEDS: NON FORMULARY DRUG (Levocarnitine [Levocarnitine] 330 MG Tablet) PO SCH ×3 (08:01→20:14)
[2021-10-20] MEDS: NICOTINE 14MG/24HR PATCH TRANSDERM SCH (08:01)
[2021-10-20 10:54] LABS: African American GFR (CKD) 15 (>60 ml/min/1.73 sqM); Anion Gap 6 mmol/L; Blood Urea Nitrogen 25 mg/dL (7-17); Calcium 9.5 mg/dL (8.4-10.2); Carbon Dioxide 32 mmol/L (22-30); Chloride 96 mmol/L (98-107); Glucose 87 mg/dL (74-99); Non-African American GFR(CKD) 13 (>60 ml/min/1.73 sqM); Potassium 4.5 mmol/L (3.5-5.1); Sodium 134 mmol/L (137-145)
[2021-10-20 11:45] LABS: Basophils % (A) 1 %; Eosinophils # (A) 0.1 k/uL (0-0.7); Eosinophils % (A) 2 %; Lymphocytes # (A) 0.6 k/uL (1.0-4.8); Lymphocytes % (A) 10 %; MCH 30.3 pg (25.0-35.0); MCHC 31.8 g/dL (31.0-37.0); MCV 95.1 fL (80.0-100.0); Mean Platelet Volume 8.2; Monocytes # (A) 0.3 k/uL (0-1.0); Monocytes % (A) 5 %; Neutrophils # (A) 4.7 k/uL (1.3-7.7); Neutrophils % (A) 80 %; Platelet Count 157 k/uL (150-450); RBC 3.26 m/uL (3.80-5.40); RDW 15.1 % (11.5-15.5); WBC 5.9 k/uL (3.8-10.6)
[2021-10-20 11:49] LABS: HGB 9.9 gm/dL (11.4-16.0)
[2021-10-20] MEDS: HYDROcodone/APAP 10-325MG 1 EACH TAB PO PRN (15:19)
--- NOTE | 2021-10-20 16:28 | P.GSCN ---
History of Present Illness Consult date: 10/20/21 History of present illness: CHIEF COMPLAINT: Vomiting HISTORY OF PRESENT ILLNESS: This is a 70-year-old female who presented to the emergency room with complaints of middle abdominal pain with nausea and vomiting 4 days. Patient reports multiple episodes of vomiting. Patient reports a few specks of blood in her emesis after she had multiple episodes of vomiting. She denies any diarrhea or constipation. She denies any fever chills or sweats. She has a known history of end-stage renal disease and has not missed any dialysis appointments. She had a computed tomography scan of abdomen and pelvis which showed no acute abdominal pelvis process. Patient's diet was advanced by medicine service. And she currently tolerating full liquid diet this morning. And is scheduled to start a regular diet this afternoon. Patient reports improvement in her abdominal pain and no further episodes of vomiting. Surgical service consult it in regards to abdominal pain. PAST MEDICAL HISTORY: End-stage renal disease on hemodialysis, COPD, GERD, hypertension, chronic pain, depression PAST SURGICAL HISTORY: Breast surgery, tonsillectomy MEDICATIONS: See list. ALLERGIES: See list. SOCIAL HISTORY: No illicit drug use. REVIEW OF SYSTEMS: CONSTITUTIONAL: Denies fever or chills. HEENT: Denies blurred vision, vision changes, or eye pain. Denies hemoptysis CARDIOVASCULAR: Denies chest pain or pressure. RESPIRATORY: No shortness of breath. GASTROINTESTINAL: See HPI for pertinent findings HEMATOLOGIC: Denies bleeding disorders. GENITOURINARY: Denies any blood in urine or increased urinary frequency. SKIN: Denies pruitis. Denies rash. PHYSICAL EXAM: VITAL SIGNS: Reviewed GENERAL: Well-developed in no acute distress. HEENT: No sclera icterus. Extraocular movements grossly intact. Moist buccal mucosa. Head is atraumatic, normocephalic. No nasal drainage. ABDOMEN: Soft. Nondistended. Nontender NEUROLOGIC: Alert and oriented. Cranial nerves II through XII grossly intact. LABORATORY DATA: WBC is 5.9 Hgb 9.9 down from 11.7 platelets 157 Sodium 134 potassium 4.5 creatinine 3.50 Lactic acid 1.8 LFTs normal Lipase normal Urinalysis negative for infection COVID-19 not detected Hepatitis B nonreactive IMAGING: Computed tomography scan abdomen and pelvis no acute abdominal pelvic process. We demonstrated enlargement of the bilateral kidneys with extensive cysts most likely polycystic kidney disease. Bilateral pleural effusions right greater than left. Cardiomegaly and moderate pericardial effusion ASSESSMENT: 1. Abdominal pain with nausea and vomiting. Computed tomography scan shows no evidence of acute abdominal pelvic process. Patient's symptoms have resolved. She is tolerating diet. PLAN: -Continue to advance diet as tolerated -No surgical intervention planned -Continue conservative management -Patient can be discharged from surgical standpoint if she tolerates advancement of diet Thank you for this consultation Physician Graphics Specialist note has been reviewed by physician. Signing provider agrees with the documented findings, assessment, and plan of care. Past Medical History Past Medical History: COPD, GERD/Reflux, Hypertension, Renal Disease Additional Past Medical History / Comment(s): chronic pain; Kidney Dialysis Mon/Th. History of Any Multi-Drug Resistant Organisms: None Reported Past Surgical History: Breast Surgery, Tonsillectomy Additional Past Surgical History / Comment(s): benign Br lumpectomy Past Anesthesia/Blood Transfusion Reactions: No Reported Reaction Past Psychological History: Depression Smoking Status: Current every day smoker Past Alcohol Use History: None Reported Additional Past Alcohol Use History / Comment(s): has smoked for about 45 years; down to 1/2 ppd Past Drug Use History: None Reported - Past Family History Mother Family Medical History: No Reported History Medications and Allergies Home Medications Medication Instructions Recorded Confirmed Type Mirtazapine [Remeron] 30 mg PO HS@2100 12/28/16 10/19/21 History Rosuvastatin [Crestor] 10 mg PO HS@2100 12/28/16 10/19/21 History Torsemide [Demadex] 60 mg PO BID@0800,1700 11/16/18 10/19/21 History calcitrioL [Calcitriol] 1 mcg PO BID 01/18/20 10/19/21 History hydrALAZINE HCL [Apresoline] 100 mg PO TID@0600,1400,2200 01/18/20 10/19/21 History Calcium Acetate 667 mg PO BID@0800,1700 06/14/21 10/19/21 History Metoprolol Succinate (ER) [Toprol 50 mg PO BID@0800,1700 06/14/21 10/19/21 History XL] Aspirin EC [Ecotrin Low Dose] 81 mg PO DAILY 10/19/21 10/19/21 History Esomeprazole Magnesium [NexIUM] 40 mg PO BID 10/19/21 10/19/21 History Furosemide [Lasix] 40 mg PO HS 10/19/21 10/19/21 History Furosemide [Lasix] 80 mg PO DAILY 10/19/21 10/19/21 History HYDROcodone/APAP 10-325MG [[place] 2 tab PO TID 10/19/21 10/19/21 History 10-325] Metoclopramide [Reglan] 5 mg PO BID 10/19/21 10/19/21 History Ondansetron Odt [Zofran Odt] 4 mg PO TID PRN 10/19/21 10/19/21 History Oxazepam [Serax] 10 mg PO DAILY PRN 10/19/21 10/19/21 History QUEtiapine [SEROquel] 150 mg PO HS 10/19/21 10/19/21 History Sevelamer [Renvela] 1,600 mg PO BID 10/19/21 10/19/21 History Spironolactone [Aldactone] 25 mg PO DAILY 10/19/21 10/19/21 History cloNIDine HCL [Catapres] 0.2 mg PO HS 10/19/21 10/19/21 History cloNIDine HCL [Catapres] 0.3 mg PO BID@0800,1200 10/19/21 10/19/21 History levOCARNitine [Levocarnitine] 330 mg PO TID 10/19/21 10/19/21 History lisinopriL [Zestril] 20 mg PO BID 10/19/21 10/19/21 History minoxidiL [Loniten] 5 mg PO BID 10/19/21 10/19/21 History Allergies Allergy/AdvReac Type Severity Reaction Status Date / Time erythromycin base Allergy Unknown Verified 10/18/21 20:34 fentanyl Allergy Unknown Verified 10/18/21 20:34 oxycodone HCl [From Percocet] Allergy Nausea & Verified 10/18/21 20:34 Vomiting succinylcholine Allergy Unknown Verified 10/18/21 20:34 Surgical - Exam Vital Signs Temp Pulse Resp BP Pulse Ox 99.0 F 102 H 20 199/76 95 10/18/21 20:30 10/18/21 20:30 10/18/21 20:30 10/18/21 20:30 10/18/21 20:30 Results - Labs 10/20/21 10:16 10/20/21 10:16 Abnormal Lab Results - Last 24 Hours (Table) 10/20/21 10/20/21 Range/Units 10:16 10:16 RBC 3.26 L (3.80-5.40) m/uL Hgb 9.9 L D (11.4-16.0) gm/dL Hct 31.0 L (34.0-46.0) % Lymphocytes # 0.6 L (1.0-4.8) k/uL Sodium 134 L (137-145) mmol/L Chloride 96 L (98-107) mmol/L Carbon Dioxide 32 H (22-30) mmol/L BUN 25 H (7-17) mg/dL Creatinine 3.50 H (0.52-1.04) mg/dL Diabetes panel 10/20/21 Range/Units 10:16 Sodium 134 L (137-145) mmol/L Potassium 4.5 (3.5-5.1) mmol/L Chloride 96 L (98-107) mmol/L Carbon Dioxide 32 H (22-30) mmol/L BUN 25 H (7-17) mg/dL Creatinine 3.50 H (0.52-1.04) mg/dL Glucose 87 (74-99) mg/dL Calcium 9.5 (8.4-10.2) mg/dL Calcium panel 10/20/21 Range/Units 10:16 Calcium 9.5 (8.4-10.2) mg/dL Pituitary panel 10/20/21 Range/Units 10:16 Sodium 134 L (137-145) mmol/L Potassium 4.5 (3.5-5.1) mmol/L Chloride 96 L (98-107) mmol/L Carbon Dioxide 32 H (22-30) mmol/L BUN 25 H (7-17) mg/dL Creatinine 3.50 H (0.52-1.04) mg/dL Glucose 87 (74-99) mg/dL Calcium 9.5 (8.4-10.2) mg/dL Adrenal panel 10/20/21 Range/Units 10:16 Sodium 134 L (137-145) mmol/L Potassium 4.5 (3.5-5.1) mmol/L Chloride 96 L (98-107) mmol/L Carbon Dioxide 32 H (22-30) mmol/L BUN 25 H (7-17) mg/dL Creatinine 3.50 H (0.52-1.04) mg/dL Glucose 87 (74-99) mg/dL Calcium 9.5 (8.4-10.2) mg/dL
--- NOTE | 2021-10-20 18:31 | PN ---
PROGRESS NOTE Patient is seen for followup for end-stage renal disease. She is maintained on dialysis twice a week. The patient was admitted to the hospital with abdominal pain. Her pain had improved initially but patient stated that she had mild abdominal pain again yesterday. However, she is able to tolerate oral intake and is asking for her diet to be advanced. PHYSICAL EXAMINATION: On examination today, blood pressure was 143/55, heart rate 61 per minute. Patient is afebrile. Examination of the heart S1, S2. Examination of the lungs, decreased breath sounds at the bases. Abdomen is soft, nontender. Examination lower extremities shows no evidence of edema. WEIGHT CALCULATOR exam grossly intact. LAB: Show hemoglobin 9.9 sodium 134, potassium 4.5. ASSESSMENT: 1. End-stage renal disease, maintained on hemodialysis twice a week. 2. History of recent bilateral hip and knee fracture status post open reduction internal fixation with prolonged rehab for about four months. This was sometime in July. 3. Abdominal pain with negative CT. No diarrhea. No fever and no vomiting noted at this time. 4. Chronic kidney disease mineral bone disorder. PLAN: The next hemodialysis on Saturday if the patient is still in the hospital. Otherwise, she will be dialyzed as outpatient on Saturday for the Saturday, Saturday, Saturday schedule, which has been changed for the . DERRICK / LUCHON: [id number] /
[2021-10-20] MEDS: ATORVASTATIN 20 MG TAB PO SCH (20:12)
--- NOTE | 2021-10-20 23:21 | P.PN ---
Subjective Progress Note Date: 10/20/21 This is a pleasant 70-year-old female who presented to the with complaints of abdominal pain that started 3 days ago. Abdominal pain is tender to palpation. Patient describes as 10/10 and sharp in nature. Past medical history significant for COPD, GERD/reflux, hypertension, renal disease, chronic pain. Patient does admit to smoking about 8 cigarettes per day she states that she has cut down recently, denies alcohol use. Patient recently underwent a bilateral hip fracture repair status post fall in June 2021 was discharged to rehab. She is now back at home with her goes to dialysis outpatient. Patient had vomiting that started 430 a.m. this morning. She denies any blood in the vomit however she states that she had a little bit of pink tinged his sputum couple times. She denies any blood in her bowels, denies diarrhea. Last bowel movement was yesterday. She denies any headache, lightheadedness, dizziness and she denies any chest pain, chest pressure, palpitations. She denies any cough or shortness of breath. Patient has a history of end-stage renal disease and she does hemodialysis twice a day Saturday and she does follow with nephrology. Creatinine today is 4.04. Covid PCR was negative, urinalysis showed a pH 8.5, positive for protein and glucose. Negative for any signs of infection. Abdomen pelvis CT shows no acute abdominal pelvic process, redemonst rated enlargement of the bilateral kidneys with extensive cysts most likely polycystic kidney disease. Bilateral pleural effusions right greater than left. Cardiomegaly and moderate pericardial effusion. Echocardiogram is ordered. Nephrology is consulted, patient will need dialysis this admission. Consult placed to general surgery as patients lower and left lower quadrant are tender to palpation still. Pain has improved to about a 3/10. She can try clear liquids advance as tolerated to full liquid. 10/20/2021 Patient is seen in follow up this morning and is being closely monitored. Diaz jett was evaluated by nephrology and received hemodialysis yesterday and will continue current regimen of Sat/ treatments. Patient with continued abdominal pain and maintained on clear liquids. General surgery consulted and pending. Patient denies any further vomiting and requesting her diet be i ncreased. No reports of chest pain or palpitations. Patient is afebrile. Labs: WBC is 5.9, hemoglobin is 9.9, sodium is 134, potassium is 4.5, bun is 25, cr is 3.5, calcium is 9.5 REVIEW OF SYSTEMS: CONSTITUTIONAL: No fever, no malaise, no fatigue. CARDIOVASCULAR: No chest pain, orthopnea, PND, no palpitations, no syncope. PULMONARY: No shortness of breath, no cough, no hemoptysis. GASTROINTESTINAL: No diarrhea, no nausea. Reports continued abdominal pain although somewhat better than yesterday, reports hunger NEUROLOGICAL: No headaches, no weakness, no numbness. GENITOURINARY: Denies any burning micturition, frequency, or urgency. PHYSICAL EXAMINATION: GENERAL: The patient is alert and oriented x3, thin built, appears older than stated age. Temp is 97.8, pulse is 61, resp are 16, blood pressure is 143/55, pulse ox if 100 % on 2L via NC HEENT: Pupils are round and equally reacting to light. EOMI. No scleral icterus. No conjunctival pallor. Normocephalic, atraumatic. No pharyngeal erythema. No thyromegaly. CARDIOVASCULAR: S1 and S2 muffled PULMONARY: diminished breath sounds bilaterally with some scattered rhonchi noted. No wheezing noted. ABDOMEN: Soft, nondistended, normoactive bowel sounds. No palpable organomegaly. Abdominal tenderness to the left lower quadrants. MUSCULOSKELETAL: No joint swelling or deformity. EXTREMITIES: No cyanosis, clubbing, or pedal edema. NEUROLOGICAL: Gross neurological examination did not reveal any focal deficits. SKIN: No rashes. Assessment : -End-stage renal disease maintained on hemodialysis 2 days a week -Bilateral pleural effusion and pericardial effusion secondary to fluid overload related to end-stage renal disease -Left lower abdominal pain, unknown etiology, possible gastritis with vomiting -Polycystic kidney disease -History of COPD, not in acute exacerbation -Chronic ongoing nicotine dependence -Recent history of bilateral hip fracture with surgical repair in June of 2021 -Hypertension -Depression -GI prophylaxis: Protonix -DVT prophylaxis: SQ hep -FULL CODE Plan: Recommend to continue with current medications, management, and symptomatic treatment. Patient maintained on clear liquid diet asking for advance in diet stating she feels hungry. Patient continues with abdominal pain although less intense. Nephrology following and patient received dialysis yesterday. Patient maintained on twice weekly dialysis of Mon/Thurs. General surgery consulted for continued abdominal pain recommending no surgical intervention at this time and advance diet to monitor for tolerance. Due to multiple complex medical issues, prognosis is guarded. Further recommendations to follow. Possible discharge in 24 hours. Objective - Vital Signs Vital signs: Vital Signs Temp 97.8 F 10/20/21 07:00 Pulse 61 10/20/21 07:00 Resp 16 10/20/21 07:00 BP 143/55 10/20/21 07:00 Pulse Ox 100 10/20/21 07:00 Intake & Output 10/19/21 10/20/21 10/20/21 18:59 06:59 18:59 Intake Total 650 0 Output Total 1800 Balance -1150 0 Weight 50.349 kg Intake: Oral 350 0 Hemodialysis 300 Output: Hemodialysis 1800 Other: Voiding Method Bedside Commode Bedpan # Voids 0 1 # Bowel Movements 0 - Labs CBC & Chem 7: 10/20/21 10:16 10/20/21 10:16
[2021-10-21] MEDS: CALCIUM ACETATE 667 MG TAB PO SCH ×2 (09:05→17:47)
[2021-10-21] MEDS: SEVELAMER 800 MG TAB PO SCH ×2 (09:05→23:23)
[2021-10-21] MEDS: ASPIRIN 81 MG PO SCH (09:05)
[2021-10-21] MEDS: NICOTINE 14MG/24HR PATCH TRANSDERM SCH (09:06)
[2021-10-21] MEDS: HEPARIN SODIUM,PORCINE/PF 5,000 UNIT/0.5 ML SYRINGE SQ SCH ×2 (09:06→20:24)
[2021-10-21] MEDS: NON FORMULARY DRUG (Levocarnitine [Levocarnitine] 330 MG Tablet) PO SCH ×3 (09:06→23:23)
[2021-10-21] MEDS: METOPROLOL SUCCINATE (ER) 50 MG TAB.ER.24H PO SCH ×2 (09:06→17:47)
[2021-10-21] MEDS: PANTOPRAZOLE 40 MG TABLET PO SCH ×3 (09:12→23:23)
[2021-10-21] MEDS: HYDROcodone/APAP 10-325MG 1 EACH TAB PO PRN ×2 (09:40→19:28)
--- NOTE | 2021-10-21 11:12 | P.PN ---
Progress Note - Text Progress Note Date: 10/21/21 Patient denies any significant abdominal pain today. On exam her vital signs are stable. Her abdomen soft. Resolving abdominal pain. No surgical intervention is planned.
[2021-10-21] MEDS ORDERED: LACTULOSE 20 GM/30 ML CUP PO ONE (11:57)
--- NOTE | 2021-10-21 11:57 | P.PN ---
Subjective Progress Note Date: 10/21/21 Principal diagnosis: 70-year-old female with ESRD on dialysis twice a week on Saturday and . She came in with abdominal pain. Pain continues episodic pain-free interval. N o precipitating or relieving factors known. No nausea vomiting good appetite. No fever chills. She is constipated for the last 4 days since admission. Workup has included a computed tomography scan of the abdomen and pelvis, which showed huge kidneys bilateral pleural effusion extensive cysts cardiomegaly and moderate pericardial effusion Past history significant for COPD GERD and history of smoking Objective - Vital Signs Vital signs: Vital Signs Temp 98.8 F 10/21/21 10:19 Pulse 69 10/21/21 10:19 Resp 17 10/21/21 10:19 BP 181/67 10/21/21 10:19 Pulse Ox 98 10/21/21 10:19 Intake & Output 10/20/21 10/21/21 10/21/21 18:59 06:59 18:59 Intake Total 0 100 Balance 0 100 Intake: Oral 0 100 Other: Voiding Method Bedpan Bedpan # Voids 0 1 # Bowel Movements 0 On examination she is awake alert oriented somewhat cachectic HEENT exam no JVP neck is supple no facial asymmetry Lungs clear to auscultation good air entry bilaterally Heart unremarkable for any murmur rub gallop Abdomen soft there is some rebound tenderness Extremity exam was no edema Logically awake alert oriented - Labs CBC & Chem 7: 10/20/21 10:16 10/20/21 10:16 Labs: Abnormal Lab Results - Last 24 Hours (Table) 10/20/21 Range/Units 10:16 RBC 3.26 L (3.80-5.40) m/uL Hgb 9.9 L D (11.4-16.0) gm/dL Hct 31.0 L (34.0-46.0) % Lymphocytes # 0.6 L (1.0-4.8) k/uL Assessment and Plan Assessment: Impression 1. 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 Abdominal pain for the last 4-5 days needing admission computed tomography scan of the abdomen and pelvis shows significantly enlarged kidneys with cysts. Possible uremic peritonitis could be considered, there is no other signs of uremia though 3. Moderate pericardial effusion no evidence of temp not 4. Bilateral pleural effusionsright greater than left. Recommendation 1. Try lactulose 30 mL one dose now and see if this will help her relieve her constipation and her pain 2. Will be dialyzed tomorrow
[2021-10-21] MEDS: MORPHINE SULFATE 4 MG/ML SYRINGE IV PRN ×2 (14:51→20:22)
[2021-10-21] MEDS ORDERED: amLODIPine 10 MG TAB PO SCH (15:15)
[2021-10-21] MEDS: FUROSEMIDE 40 MG TAB PO SCH (19:29)
[2021-10-21] MEDS: ONDANSETRON 4 MG/2 ML VIAL IVP PRN (19:30)
--- NOTE | 2021-10-21 20:55 | PN ---
PROGRESS NOTE DATE OF SERVICE: 10/21/2021 This 70-year-old woman who was admitted with end-stage renal disease is also complaining of bilateral pleural effusion. Patient also has significant abdominal pain. The patient has significant polycystic ovary disease. I reviewed the CT scan personally. It showed significant cyst almost going up to pelvis on both sides, right more than the left, occupying a significant part of the abdominal wall also. is following the patient. Surgery is following the patient closely also. Past medical history reviewed. The patient has some mild pericardial effusion, pleural effusion also. REVIEW OF SYSTEMS: CARDIOVASCULAR SYSTEM: No angina, palpitations. RESPIRATION: As mentioned earlier. GI: As mentioned earlier. : As mentioned earlier. NERVOUS SYSTEM: No numbness, weakness. CURRENT MEDICATIONS: Reviewed. They include [place], Norvasc, aspirin, Lipitor, Rocaltrol, PhosLo. Doses and other medications are also reviewed. PHYSICAL EXAMINATION: Patient alert and oriented x3. Pulse 66, blood pressure 170/64, respirations 17, temperature 98.2, pulse ox 98% on 2 L. HEENT: Conjunctivae normal. NECK: No jugular venous distention. CARDIOVASCULAR: S1, S2 muffled. RESPIRATION: Breath sounds diminished at the bases. A few scattered rhonchi. ABDOMEN: Soft. Mild diffuse distention. Mild diffuse tenderness. No guarding or rigidity. No mass palpable. LEGS: No edema. No swelling. NERVOUS SYSTEM: Higher functions as mentioned earlier. Moves all 4 limbs. No focal motor or sensory deficit. LYMPHATICS: No lymph node palpable in neck, axillae or groin. SKIN: No ulcer, rash, bleeding. JOINTS: No active deforming arthropathy. LABS: WBC 5.2, hemoglobin 9.9, sodium 134, potassium 4.5, creatinine 3.57. ASSESSMENT: 1. Abdominal pain, possibly secondary to diffuse enlargement and massive enlargement of the polycystic kidneys with secondary compression and even extension to the pelvis. 2. End-stage renal disease, on hemodialysis 2 times a week. 3. Bilateral pleural effusion and pericardial effusion secondary to fluid overload as well as renal failure. 4. Lower abdominal pain. 5. Polycystic kidney disease. 6. History of chronic obstructive pulmonary disease. 7. Chronic ongoing nicotine dependence. 8. Recent history of bilateral hip replacement with surgery repair. 9. Hypertension. 10.Depression. 11.GI prophylaxis. 12.Deep vein thrombosis prophylaxis. 13.Hyponatremia. 14.Anemia, normocytic anemia of chronic disease. 15.Severe protein-calorie malnutrition with body mass index of 17.9. 16.FULL CODE. RECOMMENDATIONS AND DISCUSSION: I recommend to continue current medications, continue with symptomatic treatment. Otherwise at this time I recommend symptomatic treatment of pain. Will add Norvasc to the current regimen. Otherwise, continue to monitor. Prognosis guarded because of multiple complex medical issues. Further recommendations to follow. Discussed with Nephrology. Eventually surgery and nephrectomy may be an option if the pain is not relieved. Guarded prognosis. Further recommendations to follow. MMODL / IJN: [id number] / MTDD
[2021-10-21] MEDS: cloNIDine HCL 0.2 MG TAB PO SCH (21:34)
[2021-10-21] MEDS: lisinopriL 20 MG TAB PO SCH (22:13)
[2021-10-21] MEDS: hydrALAZINE HCL 50 MG TAB PO SCH (23:22)
[2021-10-21] MEDS: ATORVASTATIN 20 MG TAB PO SCH (23:22)
[2021-10-21] MEDS: minoxidiL 2.5 MG TAB PO SCH (23:23)
[2021-10-21] MEDS: METOCLOPRAMIDE 5 MG TAB PO SCH (23:23)
[2021-10-21] MEDS: MIRTAZAPINE 15 MG TAB PO SCH (23:23)
[2021-10-22] MEDS: MORPHINE SULFATE 4 MG/ML SYRINGE IV PRN ×3 (02:19→14:54)
[2021-10-22] MEDS: cloNIDine HCL 0.1 MG TAB PO SCH ×2 (07:11→15:00)
[2021-10-22] MEDS: hydrALAZINE HCL 50 MG TAB PO SCH ×3 (07:11→20:59)
[2021-10-22] MEDS: METOPROLOL SUCCINATE (ER) 50 MG TAB.ER.24H PO SCH ×2 (07:12→17:28)
[2021-10-22] MEDS: NON FORMULARY DRUG (Levocarnitine [Levocarnitine] 330 MG Tablet) PO SCH ×3 (07:13→20:59)
[2021-10-22] MEDS: lisinopriL 20 MG TAB PO SCH ×2 (07:13→20:59)
[2021-10-22] MEDS: minoxidiL 2.5 MG TAB PO SCH ×2 (07:13→20:59)
[2021-10-22] MEDS: FUROSEMIDE 40 MG TAB PO SCH ×2 (07:18→17:28)
[2021-10-22] MEDS: TORSEMIDE 20 MG TAB PO SCH ×2 (07:18→17:28)
[2021-10-22 08:24] LABS: Basophils % (A) 0 %; Eosinophils # (A) 0.1 k/uL (0-0.7); Eosinophils % (A) 1 %; HCT 33.8 % (34.0-46.0); HGB 10.5 gm/dL (11.4-16.0); Lymphocytes # (A) 0.4 k/uL (1.0-4.8); Lymphocytes % (A) 8 %; MCH 30.1 pg (25.0-35.0); MCHC 31.1 g/dL (31.0-37.0); MCV 96.8 fL (80.0-100.0); Mean Platelet Volume 8.1; Monocytes # (A) 0.3 k/uL (0-1.0); Monocytes % (A) 5 %; Neutrophils # (A) 4.3 k/uL (1.3-7.7); Neutrophils % (A) 81 %; Platelet Count 152 k/uL (150-450); RBC 3.49 m/uL (3.80-5.40); RDW 14.4 % (11.5-15.5); WBC 5.3 k/uL (3.8-10.6)
[2021-10-22] MEDS: HYDROcodone/APAP 10-325MG 1 EACH TAB PO PRN ×2 (08:36→15:37)
[2021-10-22 08:42] LABS: African American GFR (CKD) 8 (>60 ml/min/1.73 sqM); Anion Gap 13 mmol/L; Blood Urea Nitrogen 54 mg/dL (7-17); Calcium 9.7 mg/dL (8.4-10.2); Carbon Dioxide 24 mmol/L (22-30); Chloride 97 mmol/L (98-107); Glucose 65 mg/dL (74-99); Non-African American GFR(CKD) 7 (>60 ml/min/1.73 sqM); Sodium 134 mmol/L (137-145)
[2021-10-22 08:43] LABS: Potassium 6.3 mmol/L (3.5-5.1)
[2021-10-22] MEDS: SEVELAMER 800 MG TAB PO SCH ×2 (09:43→20:59)
[2021-10-22] MEDS: CALCIUM ACETATE 667 MG TAB PO SCH ×2 (09:43→17:28)
[2021-10-22] MEDS: PANTOPRAZOLE 40 MG TABLET PO SCH ×4 (09:43→20:15)
[2021-10-22] MEDS: METOCLOPRAMIDE 5 MG TAB PO SCH ×2 (09:43→20:15)
--- NOTE | 2021-10-22 12:41 | P.PN ---
Subjective Progress Note Date: 10/22/21 Principal diagnosis: 70-year-old female with ESRD on dialysis twice a week on Saturday and . She came in with abdominal pain. Pain continues to have pain and then episodic pain-free interval. No precipitating or relieving factors known. No nausea vomiting good appetite. No fever chills. She is constipated for the last 4 days since admission. Workup has included a computed tomography scan of the abdomen and pelvis, which showed huge kidneys bilateral pleural effusion extensive cysts cardiomegaly and moderate pericardial effusion She was given lactulose yesterday but she took only small amount. Has not had a bowel movement. She refuses to take any and edema. Is willing to take Dulcolax tablet. Other possible cause is uremic peritonitis because of under dialysis. She is not willing to go on 3 times a week. The third possibility is large kidneys occupying the whole abdomen and pelvis on computed tomography scan, but then she will need major surgery which she is unwilling to consider) Past history significant for COPD GERD and history of smoking Objective - Vital Signs Vital signs: Vital Signs Temp 98.1 F 10/22/21 05:00 Pulse 91 10/22/21 05:00 Resp 16 10/22/21 05:00 BP 106/61 10/22/21 05:00 Pulse Ox 92 L 10/22/21 05:00 Intake & Output 10/21/21 10/22/21 10/22/21 18:59 06:59 18:59 Intake Total 60 200 Output Total 120 Balance -60 200 Intake: Oral 60 200 Output: Urine 120 Other: Voiding Method Bedpan Bedpan Bedpan # Voids 2 1 On examination is awake alert oriented. She does not have any asterixis. Appetite is poor HEENT exam no JVP neck is supple no facial asymmetry Lungs are clear to auscultation good air entry bilaterally Heart sounds unremarkable for any murmur rub gallop Abdomen soft and has rebound tenderness. Neurologic kidney is felt Extremity examination reveals no edema Neurologically awake alert oriented no asterixis - Labs CBC & Chem 7: 10/22/21 08:00 10/22/21 08:00 Labs: Abnormal Lab Results - Last 24 Hours (Table) 10/22/21 10/22/21 Range/Units 08:00 08:00 RBC 3.49 L (3.80-5.40) m/uL Hgb 10.5 L (11.4-16.0) gm/dL Hct 33.8 L (34.0-46.0) % Lymphocytes # 0.4 L (1.0-4.8) k/uL Sodium 134 L (137-145) mmol/L Potassium 6.3 H* (3.5-5.1) mmol/L Chloride 97 L (98-107) mmol/L BUN 54 H (7-17) mg/dL Creatinine 5.91 H (0.52-1.04) mg/dL Glucose 65 L (74-99) mg/dL Assessment and Plan Assessment: Impression 1. 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 Abdominal pain for the last 4-5 days needing admission computed tomography scan of the abdomen and pelvis shows significantly enlarged kidneys with cysts. Possible uremic peritonitis could be considered, there is no other signs of uremia though no other signs of uremia 3. Moderate pericardial effusion no evidence of tamponade 4. Bilateral pleural effusion sright greater than left. 5. Constipation 5 days, refused lactulose yesterday Recommendation 1. Try Dulcolax tablet one every 6 urine 2 2. Consider increasing the dialysis frequency to 3-1/2 hours 3 times a week 3. She was dialyzed today therefore Dialysis can be tomorrow or the day after but she is insisting on having Dr. Cristina make that decision
--- NOTE | 2021-10-22 12:52 | P.PN ---
Progress Note - Text Progress Note Date: 10/22/21 Patient is currently receiving dialysis. She states she has some crampy abdominal pain. She is tolerating regular diet. On exam vitals are stable. Abdomen soft. Resolved abdominal pain. Patient will continue receive supportive care.
[2021-10-22] MEDS ORDERED: bisacodyL 5 MG TABLET.DR PO STA (14:05)
[2021-10-22] MEDS: NICOTINE 14MG/24HR PATCH TRANSDERM SCH (14:50)
[2021-10-22] MEDS: ASPIRIN 81 MG PO SCH (15:00)
[2021-10-22] MEDS: HEPARIN SODIUM,PORCINE/PF 5,000 UNIT/0.5 ML SYRINGE SQ SCH ×2 (15:00→20:16)
--- NOTE | 2021-10-22 20:30 | PN ---
PROGRESS NOTE DATE OF SERVICE: 10/22/2021 This 70-year-old woman who was admitted with abdominal pain with possible diffuse massive enlargement of the polycystic kidneys is being closely monitored. No chest pain. No palpitations. No fever. The patient is still complaining of ( ) and ( ) is following the patient closely. PHYSICAL EXAMINATION: Alert and oriented. Pulse 69, blood pressure 147/60, respiration 16, temperature 97.8, pulse ox 91% on 2.5 L. HEENT: Conjunctivae normal. Oral mucosa moist. NECK: No jugular venous distention. No lymph node enlargement. CARDIOVASCULAR: S1, S2, muffled. No S3, no S4, RESPIRATORY: Diminished breath sounds at the bases. A few scattered rhonchi. ABDOMEN: Soft, mild diffuse distention, mild diffuse tenderness. No guarding, no rigidity. No mass palpable. LEGS: No edema, no swelling. NERVOUS SYSTEM: No focal deficits. LAB: WBC ( ), hemoglobin 10.5, sodium 134, potassium 6.3. ASSESSMENT: 1. Abdominal pain possibly secondary to diffuse enlargement and massive enlargement of polycystic kidneys with secondary compression and even extension into the pelvis. 2. End-stage renal disease on hemodialysis two times a week. 3. Hyperkalemia secondary to renal failure. 4. Bilateral pleural effusion, pericardial effusion, possibly fluid overload as well as renal failure. 5. Lower abdominal pain. 6. Polycystic kidney disease. 7. History of chronic obstructive pulmonary disease. 8. Chronic ongoing nicotine dependence. 9. Recent history of bilateral hip replacement with surgery and repair. 10.Hypertension. 11.History of depression. 12.GI prophylaxis. 13.DVT prophylaxis. 14.Hyponatremia. 15.Anemia, normocytic anemia of chronic disease. 16.Severe protein-calorie malnutrition with body mass index of 17.9. 17.FULL CODE. RECOMMENDATIONS AND DISCUSSION: In this 69-year-old woman who presented with multiple complex medical issues, we will monitor the patient closely. Pain management. Closely follow with Nephrology. Prognosis guarded. I would also recommend PT/OT evaluation also. Baseline chest x- ray. Guarded prognosis because of multiple complex medical issues. Continue the hemodialysis. Further recommendations to follow. MMODL / IJN: [id number] /
[2021-10-22] MEDS: ATORVASTATIN 20 MG TAB PO SCH (20:59)
[2021-10-22] MEDS: MIRTAZAPINE 15 MG TAB PO SCH (20:59)
[2021-10-22] MEDS: cloNIDine HCL 0.2 MG TAB PO SCH (20:59)
[2021-10-23] MEDS: HYDROcodone/APAP 10-325MG 1 EACH TAB PO PRN ×2 (03:49→09:18)
[2021-10-23] MEDS: hydrALAZINE HCL 50 MG TAB PO SCH ×3 (05:49→19:52)
[2021-10-23] MEDS: HEPARIN SODIUM,PORCINE/PF 5,000 UNIT/0.5 ML SYRINGE SQ SCH ×2 (08:27→19:51)
[2021-10-23] MEDS: ASPIRIN 81 MG PO SCH (08:28)
[2021-10-23] MEDS: METOCLOPRAMIDE 5 MG TAB PO SCH (08:28)
[2021-10-23] MEDS: FUROSEMIDE 40 MG TAB PO SCH ×2 (08:28→17:51)
[2021-10-23] MEDS: lisinopriL 20 MG TAB PO SCH ×2 (08:28→19:51)
[2021-10-23] MEDS: minoxidiL 2.5 MG TAB PO SCH ×2 (08:28→19:52)
[2021-10-23] MEDS: TORSEMIDE 20 MG TAB PO SCH ×2 (08:29→17:51)
[2021-10-23] MEDS: PANTOPRAZOLE 40 MG TABLET PO SCH ×3 (08:29→17:51)
[2021-10-23] MEDS: cloNIDine HCL 0.1 MG TAB PO SCH ×2 (08:29→16:41)
[2021-10-23] MEDS: CALCIUM ACETATE 667 MG TAB PO SCH ×2 (08:29→17:44)
[2021-10-23] MEDS: METOPROLOL SUCCINATE (ER) 50 MG TAB.ER.24H PO SCH ×2 (08:29→17:51)
[2021-10-23] MEDS: NICOTINE 14MG/24HR PATCH TRANSDERM SCH (08:35)
[2021-10-23] MEDS: NON FORMULARY DRUG (Levocarnitine [Levocarnitine] 330 MG Tablet) PO SCH ×3 (08:35→19:52)
[2021-10-23] MEDS: SEVELAMER 800 MG TAB PO SCH ×3 (09:18→19:52)
--- NOTE | 2021-10-23 09:21 | P.PN ---
Subjective Patient is seen in follow-up for end-stage renal disease. She is maintained on hemodialysis 2 days a week. Underwent dialysis yesterday. No chest pain or shortness of breath. Vital signs are stable. HEENT: Head exam is unremarkable. LUNGS: Breath sounds decreased. HEART: Rate and Rhythm are regular. ABDOMEN: Soft, no distention. EXTREMITITES: No edema. Objective - Vital Signs Vital signs: Vital Signs Temp 98.1 F 10/23/21 05:00 Pulse 65 10/23/21 05:00 Resp 18 10/23/21 05:00 BP 146/65 10/23/21 05:00 Pulse Ox 97 10/23/21 05:00 Intake & Output 10/22/21 10/23/21 10/23/21 18:59 06:59 18:59 Intake Total 200 120 Balance 200 120 Intake: Oral 200 120 Other: Voiding Method Bedpan Bedpan # Voids 0 3 - Labs CBC & Chem 7: 10/22/21 08:00 10/22/21 08:00 Assessment and Plan Plan: Assessment: 1. End-stage renal disease maintained on hemodialysis 2 days a week. Patient has refused 3 times a week dialysis multiple times. 2. Hyperkalemia secondary to chronic kidney disease and his lisinopril. Expect improvement postdialysis. 3. Chronic kidney disease mineral bone disease maintained on phosphate binders and calcitriol. 4. Fluid overload. Plan: Check potassium level today. Hemodialysis tomorrow. Patient does not want to do a treatment today. If potassium level elevated, will need to stop lisinopril.
[2021-10-23 10:55] LABS: Basophils % (A) 0 %; Eosinophils # (A) 0.1 k/uL (0-0.7); Eosinophils % (A) 2 %; HCT 31.9 % (34.0-46.0); HGB 10.3 gm/dL (11.4-16.0); Lymphocytes # (A) 0.3 k/uL (1.0-4.8); Lymphocytes % (A) 9 %; MCH 30.2 pg (25.0-35.0); MCHC 32.3 g/dL (31.0-37.0); MCV 93.6 fL (80.0-100.0); Mean Platelet Volume 8.7; Monocytes # (A) 0.3 k/uL (0-1.0); Monocytes % (A) 8 %; Neutrophils # (A) 3.1 k/uL (1.3-7.7); Neutrophils % (A) 78 %; Platelet Count 163 k/uL (150-450); RBC 3.41 m/uL (3.80-5.40); RDW 15.2 % (11.5-15.5); WBC 3.9 k/uL (3.8-10.6)
[2021-10-23 11:27] LABS: African American GFR (CKD) 10 (>60 ml/min/1.73 sqM); Anion Gap 11 mmol/L; Blood Urea Nitrogen 33 mg/dL (7-17); Calcium 10.1 mg/dL (8.4-10.2); Carbon Dioxide 29 mmol/L (22-30); Chloride 97 mmol/L (98-107); Glucose 95 mg/dL (74-99); Non-African American GFR(CKD) 9 (>60 ml/min/1.73 sqM); Potassium 4.4 mmol/L (3.5-5.1); Sodium 137 mmol/L (137-145)
[2021-10-23] MEDS: ONDANSETRON 4 MG/2 ML VIAL IVP PRN ×2 (12:12→21:41)
[2021-10-23] MEDS ORDERED: IOPAMIDOL CONTRAST (ORAL USE) VIAL PO PRN (13:13)
--- NOTE | 2021-10-23 13:15 | P.PN ---
Subjective Progress Note Date: 10/23/21 CHIEF COMPLAINT: Abdominal pain HISTORY OF PRESENT ILLNESS: Surgical service is following regards patient's abdominal pain. She reports that she is having more pain today her abdomen is a little more distended. She did have one episode of vomiting yesterday after she was given medications. She denies any bowel movement. Currently on a regular diet Afebrile. WBC 3.9 hemoglobin 10.3 potassium is down from 6.3-4.4 patient had hemodialysis yesterday. PHYSICAL EXAM: VITAL SIGNS: Reviewed. GENERAL: Well-developed in no acute distress. HEENT: No sclera icterus. Extraocular movements grossly intact. Moist buccal mucosa. Head is atraumatic, normocephalic. ABDOMEN: Distended. Diffuse tenderness. NEUROLOGIC: Alert and oriented. Cranial nerves II through XII grossly intact. ASSESSMENT: 1. Abdominal pain with nausea and vomiting PLAN: -Check computed tomography scan of abdomen and pelvis with oral contrast for further evaluation of abdominal pain -Continue supportive care -Continue to observe -Add Colace -Encouraged patient to continue to ambulate and work with PT Physician Box Fabricator note has been reviewed by physician. Signing provider agrees with the documented findings, assessment, and plan of care. Objective - Vital Signs Vital signs: Vital Signs Temp 98.1 F 10/23/21 05:00 Pulse 65 10/23/21 05:00 Resp 18 10/23/21 05:00 BP 146/65 10/23/21 05:00 Pulse Ox 97 10/23/21 05:00 Intake & Output 10/22/21 10/23/21 10/23/21 18:59 06:59 18:59 Intake Total 200 120 Balance 200 120 Intake: Oral 200 120 Other: Voiding Method Bedpan Bedpan # Voids 0 3 - Labs CBC & Chem 7: 10/23/21 10:12 10/23/21 10:12 Labs: Abnormal Lab Results - Last 24 Hours (Table) 10/23/21 10/23/21 Range/Units 10:12 10:12 RBC 3.41 L (3.80-5.40) m/uL Hgb 10.3 L (11.4-16.0) gm/dL Hct 31.9 L (34.0-46.0) % Lymphocytes # 0.3 L (1.0-4.8) k/uL Chloride 97 L (98-107) mmol/L BUN 33 H (7-17) mg/dL Creatinine 4.67 H (0.52-1.04) mg/dL
--- NOTE | 2021-10-23 14:44 | US ---
EXAMINATION TYPE: US abdomen complete DATE OF EXAM: 10/23/2021 COMPARISON: CT 10/18/2021 CLINICAL HISTORY: abdominal pain, vomiting. EXAM MEASUREMENTS: Liver Length: 7.2 cm Gallbladder Wall: non visualization CBD: non visualization Spleen: non visualization Right Kidney: unmeasurable Left Kidney: unmeasurable Pancreas: non visualization Liver: extremely limited due to extensive midline bowel gas. Gallbladder: non visualization CBD: non visualization Spleen: non visualization Right Kidney: appearance of polycystic kidney, unable to accurately measures Left Kidney: appearance of polycystic kidney, unable to accurately measures Upper IVC: non visualization Abd Aorta: non visualization Incidental note is made of right pleural effusion. Grossly distended stomach at 16.9 cm. Abdomen is e xtremely hard. Non diagnostic exam due to extensive midline bowel gas. IMPRESSION: Limited exam. Right pleural effusion. Renal parenchyma is replaced by cysts.
--- NOTE | 2021-10-23 14:59 | P.PN ---
Subjective Progress Note Date: 10/23/21 This is a pleasant 70-year-old female who presented to the hospital with acute abdominal pain with associated vomiting. 10/23/2021 Patient is evaluated today sitting up in the chair. She states that she has ongoing abdominal pain which is sharp in nature rating it about an 8 out of 10. Abdomen is ribbon lapper tender to palpation in the lower umbilical region. Patient is able to tolerate a diet however she did have some vomiting this morning. There was no blood in the vomit. She had dialysis yesterday with 1L off and plans for dialysis tomorrow. Labs today show a BUN of 33, creatinine 4.67, potassium improved to 4.4, sodium 137, chloride 97, white count 3.9, hemoglobin 10.3 which is stable. Vital show a temp of 98.1, heart rate 65 sinus rhythm, blood pressure 146/65 and she is 97% on 2L NC. GI services are unavailable this week. Abdominal ultrasound shows right pleural effusion, renal parenchyma is replaced by cysts. The stomach is grossly distended at 16.9 cm, abdomen is extremely hard, nondiagnostic exam due to extensive midline bowel gas. Surgery ordered a computed tomography scan of the abdomen and pelvis with oral contrast and added Colace. We will add Mylicon chews. I did ask nursing staff to do postvoid residuals. ROS Constitutional: Denied any fatigue denied any fever. Cardio vascular: denied any chest pain, palpitations Gastrointestinal: Denies diarrhea, Reports nausea, abdominal pain, vomiting - denies blood Pulmonary: Denied any shortness of breath cough Neurologic denied any new focal deficits All inpatient medications were reviewed and appropriate changes in these medications as dictated in the interval history and assessment and plan. PHYSICAL EXAMINATION: GENERAL: The patient is alert and oriented x3, not in any acute distress. Well developed, well nourished. HEENT: Pupils are round and equally reacting to light. EOMI. No scleral icterus. No conjunctival pallor. Normocephalic, atraumatic. No pharyngeal erythema. No thyromegaly. CARDIOVASCULAR: S1 and S2 present. No murmurs, rubs, or gallops. PULMONARY: Chest is clear to auscultation, no wheezing or crackles. ABDOMEN: Firm, distended, tender to palpation lower umbilical region. MUSCULOSKELETAL: No joint swelling or deformity. EXTREMITIES: No cyanosis, clubbing, or pedal edema. NEUROLOGICAL: Gross neurological examination did not reveal any focal deficits. SKIN: No rashes. Assessment and plan Assessment Abdominal pain possibly secondary to diffuse enlargement or masses enlarged polycystic kidneys with secondary compression and even extension into the pelvis End-stage renal disease on hemodialysis 2 times a week Hyperkalemia secondary to renal failure, resolved, continue to monitor Bilateral pleural effusion, pericardial effusion, possibly fluid overload as well as renal failure Polycystic kidney disease History of COPD Severe pulmonary hypertension Chronic ongoing nicotine dependence Recent history of bilateral hip replacement with surgery of repair Hypertension History of depression Hyponatremia Anemia, normocytic anemia of chronic disease GI prophylaxis: Protonix DVT prophylaxis: Subcu heparin FULL CODE Plan Add Colace, Mylicon Abdominal ultrasound completed Abdominal pelvis CT with contrast ordered for today Dialysis tomorrow Further recommendations from surgery and nephrology consultations Repeat labs tomorrow post void residuals Objective - Vital Signs Vital signs: Vital Signs Temp 98.1 F 10/23/21 05:00 Pulse 65 10/23/21 05:00 Resp 18 10/23/21 05:00 BP 146/65 10/23/21 05:00 Pulse Ox 97 10/23/21 05:00 Intake & Output 10/22/21 10/23/21 10/23/21 18:59 06:59 18:59 Intake Total 200 120 Output Total 300 Balance 200 120 -300 Weight 50.349 kg Intake: Oral 200 120 Output: Emesis 300 Other: Voiding Method Bedpan Bedpan # Voids 0 3 - Labs CBC & Chem 7: 10/23/21 10:12 10/23/21 10:12 Labs: Abnormal Lab Results - Last 24 Hours (Table) 10/23/21 10/23/21 Range/Units 10:12 10:12 RBC 3.41 L (3.80-5.40) m/uL Hgb 10.3 L (11.4-16.0) gm/dL Hct 31.9 L (34.0-46.0) % Lymphocytes # 0.3 L (1.0-4.8) k/uL Chloride 97 L (98-107) mmol/L BUN 33 H (7-17) mg/dL Creatinine 4.67 H (0.52-1.04) mg/dL Assessment and Plan Time with Patient: Greater than 30
[2021-10-23] MEDS: MORPHINE SULFATE 4 MG/ML SYRINGE IV PRN ×2 (15:11→18:59)
[2021-10-23] MEDS: SIMETHICONE 80 MG CHEWABLE PO SCH ×3 (16:41→19:52)
--- NOTE | 2021-10-23 17:43 | CT ---
EXAMINATION TYPE: CT abdomen pelvis wo con DATE OF EXAM: 10/23/2021 COMPARISON: HISTORY: Abdomen pain/distention. Pt not able to tolerate oral contrast CT DLP: 366.20 mGycm Automated exposure control for dose reduction was used. Images obtained from the diaphragm to the floor the pelvis without contrast. There is moderate size right pleural effusion. There is bilateral lower lobe pulmonary consolidation and atelectasis. Heart is deviated to the left side consistent with some increased atelectasis on the left side compared to the right. There is small calcified granulomata in the liver. The bile ducts are not dilated. Spleen is intact. There is distended gas and fluid-filled stomach. There is no sign of pancreatic mass. There is extens suzy retroperitoneal cystic changes involving both kidneys related advanced polycystic kidney disease. Kidneys measure up to 24 cm in length. Abdominal aorta is atheromatous. I see no definite retroperitoneal adenopathy. There are multiple dilated fluid-filled loops of small bowel throughout the abdomen. Small bowel dila brandon up to 5.5 cm. There is no sign of free air. Urinary bladder shows no evidence of a mass. There are sigmoid diverticula. There is no sign of diverticulitis. There is no evidence of free air. Appendix not seen. No sign of thickened appendix. There is normal alignment of the lumbar vertebra. There is L2 compression deformity 50% with anterior wedging. There is 35% compression deformity of L5. There is bilateral hip nailing. There is no evide nce of acute pelvic fracture. IMPRESSION: Pleural effusions with consolidation and volume loss in the lower lobes that appears slightly worse t swartz last exam. Markedly dilated small bowel consistent with mechanical distal small bowel obstruction and is increas ed compared to old exam. Transition point not seen. Large bowel is not dilated. There is clearing of the small amount of free fluid in the pelvis compared to old exam. Advanced polycystic kidney disease.
[2021-10-23] MEDS: DOCUSATE 100 MG CAP PO SCH ×2 (17:45→19:51)
[2021-10-23] MEDS: cloNIDine HCL 0.2 MG TAB PO SCH (19:51)
[2021-10-23] MEDS: ATORVASTATIN 20 MG TAB PO SCH (19:51)
[2021-10-23] MEDS: MIRTAZAPINE 15 MG TAB PO SCH (19:52)
[2021-10-24] MEDS: MORPHINE SULFATE 4 MG/ML SYRINGE IV PRN (00:03)
--- NOTE | 2021-10-24 01:33 | XR ---
EXAMINATION TYPE: XR chest 1V portable DATE OF EXAM: 10/24/2021 COMPARISON: 07/04/2021 HISTORY: Check tube placement TECHNIQUE: Single view FINDINGS: There is blunting of the costophrenic angles. Thoracic aorta is atheromatous. There is naso gastric tube in the stomach. There is mild pulmonary congestion. IMPRESSION: Mild congestive heart failure. Chronic pleural effusions and basilar pulmonary infiltrates. No change compared to old exam.
[2021-10-24] MEDS: hydrALAZINE HCL 50 MG TAB PO SCH ×3 (05:28→23:19)
[2021-10-24 06:10] LABS: HCT 31.9 % (34.0-46.0); HGB 10.5 gm/dL (11.4-16.0); MCH 31.1 pg (25.0-35.0); Mean Platelet Volume 8.2; Platelet Count 191 k/uL (150-450); RBC 3.39 m/uL (3.80-5.40); RDW 15.4 % (11.5-15.5); WBC 5.1 k/uL (3.8-10.6)
[2021-10-24 06:35] LABS: Band Neutrophils % 3 %; Eosinophils # (M) 0.05 k/uL (0-0.7); Lymphocytes # (M) 0.46 k/uL (1.0-4.8); Monocytes # (M) 0.51 k/uL (0-1.0); Neutrophils % (M) 77 %; Nucleated Red Blood Cells 0 /100 WBC (0-0); Total Cells Counted 100
[2021-10-24] MEDS: CALCIUM ACETATE 667 MG TAB PO SCH ×2 (09:22→16:06)
[2021-10-24] MEDS: PANTOPRAZOLE 40 MG TABLET PO SCH ×2 (09:22→16:06)
[2021-10-24] MEDS: SIMETHICONE 80 MG CHEWABLE PO SCH ×4 (09:23→22:12)
[2021-10-24] MEDS: NON FORMULARY DRUG (Levocarnitine [Levocarnitine] 330 MG Tablet) PO SCH ×3 (09:23→22:12)
[2021-10-24] MEDS: SEVELAMER 800 MG TAB PO SCH ×2 (09:23→22:09)
[2021-10-24] MEDS: HEPARIN SODIUM,PORCINE/PF 5,000 UNIT/0.5 ML SYRINGE SQ SCH (09:23)
[2021-10-24] MEDS: DOCUSATE 100 MG CAP PO SCH ×2 (09:23→22:08)
[2021-10-24 09:52] LABS: African American GFR (CKD) 8.3 (60.0-200.0); Anion Gap 25.5 mmol/L (4.00-12.00); BUN/Creat Ratio 8.11 Ratio (12.00-20.00); Blood Urea Nitrogen 45.4 mg/dL (9.0-27.0); Calcium 9.8 mg/dL (8.7-10.3); Carbon Dioxide 23.5 mmol/L (21.6-31.8); Non-African American GFR(CKD) 7.2 (60.0-200.0); Potassium 5.1 mmol/L (3.5-5.5)
[2021-10-24] MEDS: METOPROLOL SUCCINATE (ER) 50 MG TAB.ER.24H PO SCH ×2 (10:19→22:08)
[2021-10-24] MEDS: minoxidiL 2.5 MG TAB PO SCH ×2 (10:21→22:09)
[2021-10-24] MEDS: TORSEMIDE 20 MG TAB PO SCH ×2 (10:21→10:31)
[2021-10-24] MEDS: lisinopriL 20 MG TAB PO SCH (10:21)
[2021-10-24] MEDS: NICOTINE 14MG/24HR PATCH TRANSDERM SCH (10:21)
[2021-10-24] MEDS: ASPIRIN 81 MG PO SCH (10:21)
[2021-10-24] MEDS: cloNIDine HCL 0.1 MG TAB PO SCH ×2 (10:21→10:59)
[2021-10-24] MEDS: FUROSEMIDE 40 MG TAB PO SCH (10:31)
--- NOTE | 2021-10-24 11:14 | P.PN ---
Subjective Patient is seen in follow-up for end-stage renal disease. She is maintained on hemodialysis 2 days a week. Underwent dialysis on Saturday. Was vomiting yesterday. Has an NG tube. No chest pain or shortness of breath. Vital signs are stable. HEENT: Head exam is unremarkable. LUNGS: Breath sounds decreased. HEART: Rate and Rhythm are regular. ABDOMEN: Soft, no distention. EXTREMITITES: No edema. Objective - Vital Signs Vital signs: Vital Signs Temp 98.2 F 10/24/21 04:29 Pulse 82 10/24/21 10:24 Resp 20 10/24/21 10:24 BP 150/57 10/24/21 10:24 Pulse Ox 99 10/24/21 10:24 Intake & Output 10/23/21 10/24/21 10/24/21 18:59 06:59 18:59 Output Total 396 700 Balance -396 -700 Weight 50.349 kg Output: Gastric Drainage 700 Post Void Residual 96 Emesis 300 Other: Voiding Method Bedpan # Voids 0 1 - Labs CBC & Chem 7: 10/24/21 05:24 10/24/21 05:24 Labs: Abnormal Lab Results - Last 24 Hours (Table) 10/23/21 10/24/21 10/24/21 Range/Units 10:12 05:24 05:24 RBC 3.39 L (3.80-5.40) m/uL Hgb 10.5 L (11.4-16.0) gm/dL Hct 31.9 L (34.0-46.0) % Lymphocytes # (Manual) 0.46 L (1.0-4.8) k/uL Chloride 97 L 93 L (98-107) mmol/L Anion Gap 25.50 H (4.00-12.00) mmol/L BUN 33 H 45.4 H (7-17) mg/dL Creatinine 4.67 H 5.6 H (0.52-1.04) mg/dL Est GFR (CKD-EPI)AfAm 8.3 L (60.0-200.0) Est GFR (CKD-EPI)NonAf 7.2 L (60.0-200.0) BUN/Creatinine Ratio 8.11 L (12.00-20.00) Ratio Glucose 68 L (70-110) mg/dL Assessment and Plan Plan: Assessment: 1. End-stage renal disease maintained on hemodialysis 2 days a week. Patient has refused 3 times a week dialysis multiple times. 2. Hyperkalemia secondary to chronic kidney disease and his lisinopril. Improved postdialysis. 3. Chronic kidney disease mineral bone disease maintained on phosphate binders and calcitriol. 4. Fluid overload. Improved with ultrafiltration. 5. Small bowel obstruction. Currently has NG tube. Surgery following. Plan: Hemodialysis tomorrow. Patient refusing treatment today. Hold lisinopril as potassium is on the higher side. Add amloidine.
--- NOTE | 2021-10-24 12:46 | P.PN ---
Subjective Progress Note Date: 10/24/21 This is a pleasant 70-year-old female who presented to the hospital with acute abdominal pain with associated vomiting. 10/23/2021 Patient is evaluated today sitting up in the chair. She states that she has ongoing abdominal pain which is sharp in nature rating it about an 8 out of 10. Abdomen is farm machine tender to palpation in the lower umbilical region. Patient is able to tolerate a diet however she did have some vomiting this morning. There was no blood in the vomit. She had dialysis yesterday with 1L off and plans for dialysis tomorrow. Labs today show a BUN of 33, creatinine 4.67, potassium improved to 4.4, sodium 137, chloride 97, white count 3.9, hemoglobin 10.3 which is stable. Vital show a temp of 98.1, heart rate 65 sinus rhythm, blood pressure 146/65 and she is 97% on 2L NC. GI services are unavailable this week. Abdominal ultrasound shows right pleural effusion, renal parenchyma is replaced by cysts. The stomach is grossly distended at 16.9 cm, abdomen is extremely hard, nondiagnostic exam due to extensive midline bowel gas. Surgery ordered a computed tomography scan of the abdomen and pelvis with oral contrast and added Colace. We will add Mylicon chews. I did ask nursing staff to do postvoid residuals. 10/24/2021 Patient evaluated same in the bed. Abdomen pelvis CT revealed pleural effusion with consolidation and volume loss in the lower lobes that appears to be worse last exam. There is markedly dilated small bowel consistent with mechanical distal small bowel obstruction and is increased compared to old exam. Transition point not seen. Large bowel is nondilated. There is clearing of the small amount of free fluid in the pelvis compared to old exam. Advanced polycystic kidney disease. NG tube was placed, patient is now nothing by mouth. Chest x-ray today showed mild congestive heart failure, chronic profusion some basilar pulmonary infiltrates. There was some confusion with patient's diuretics, lasix was discontinued. Plan is for dialysis tomorrow, patient refused today. Labs today: hemoglobin 10.5, sodium 142, potassium 5.1, BUN 45, creatinine 5.6. Her BNP today is 51,500. BP today 128/66, afebrile. ROS Constitutional: Denied any fatigue denied any fever. Cardio vascular: denied any chest pain, palpitations Gastrointestinal: Denies diarrhea, Reports nausea, abdominal pain, vomited 1x throughout the night Pulmonary: Denied any shortness of breath cough Neurologic denied any new focal deficits All inpatient medications were reviewed and appropriate changes in these medications as dictated in the interval history and assessment and plan. PHYSICAL EXAMINATION: GENERAL: The patient is alert and oriented x3, mild discomfort noted. Well developed, well nourished. NG tube in place HEENT: Pupils are round and equally reacting to light. EOMI. No scleral icterus. No conjunctival pallor. Normocephalic, atraumatic. No pharyngeal erythema. No thyromegaly. CARDIOVASCULAR: S1 and S2 present. No murmurs, rubs, or gallops. PULMONARY: Diminished bases ABDOMEN: Firm, distended, tender to palpation lower umbilical region. MUSCULOSKELETAL: No joint swelling or deformity. EXTREMITIES: No cyanosis, clubbing, or pedal edema. NEUROLOGICAL: Gross neurological examination did not reveal any focal deficits. SKIN: No rashes. generalized ecchymosis Assessment and plan Assessment Possible mechanical small bowel obstruction with abdominal distention Abdominal pain possibly secondary to diffuse enlargement or masses enlarged polycystic kidneys with secondary compression and even extension into the pelvis End-stage renal disease on hemodialysis 2 times a week Hyperkalemia secondary to renal failure, resolved, continue to monitor Bilateral pleural effusion, pericardial effusion, possibly fluid overload as well as renal failure Polycystic kidney disease History of COPD Severe pulmonary hypertension Chronic ongoing nicotine dependence Recent history of bilateral hip replacement with surgery of repair Hypertension History of depression Hyponatremia Anemia, normocytic anemia of chronic disease GI prophylaxis: Protonix DVT prophylaxis: Subcu heparin FULL CODE Plan Continue with NG tube and NPO diet per surgical team Plan for explaratory lap, lysis of adhesions tomorrow Dialysis planned for tomorrow Discontinue lasix, continue on demadex 60 mg po daily Continue IV antibiotics, order IS Pain management Continue all other supportive care Repeat labs tomorrow Objective - Vital Signs Vital signs: Vital Signs Temp 98.2 F 10/24/21 04:29 Pulse 67 10/24/21 04:29 Resp 18 10/24/21 04:29 BP 121/56 10/24/21 04:29 Pulse Ox 99 10/24/21 04:29 Intake & Output 10/23/21 10/24/21 10/24/21 18:59 06:59 18:59 Output Total 396 700 Balance -396 -700 Weight 50.349 kg Output: Gastric Drainage 700 Post Void Residual 96 Emesis 300 Other: Voiding Method Bedpan # Voids 0 1 - Labs CBC & Chem 7: 10/24/21 05:24 10/24/21 05:24 Labs: Abnormal Lab Results - Last 24 Hours (Table) 10/23/21 10/23/21 10/24/21 Range/Units 10:12 10:12 05:24 RBC 3.41 L 3.39 L (3.80-5.40) m/uL Hgb 10.3 L 10.5 L (11.4-16.0) gm/dL Hct 31.9 L 31.9 L (34.0-46.0) % Lymphocytes # 0.3 L (1.0-4.8) k/uL Lymphocytes # (Manual) 0.46 L (1.0-4.8) k/uL Chloride 97 L (98-107) mmol/L BUN 33 H (7-17) mg/dL Creatinine 4.67 H (0.52-1.04) mg/dL Assessment and Plan Time with Patient: Greater than 30
[2021-10-24] MEDS: ONDANSETRON 4 MG/2 ML VIAL IVP PRN (13:41)
[2021-10-24 14:57] LABS: INR 1.5 (<1.2); Prothrombin Time 15.3 sec (9.0-12.0)
--- NOTE | 2021-10-24 17:33 | CT ---
EXAMINATION TYPE: CT abdomen pelvis w con DATE OF EXAM: 10/24/2021 COMPARISON: Yesterday HISTORY: abdominal pain, hx of renal disease CT DLP: 672.1 mGycm Automated exposure control for dose reduction was used. CONTRAST: Performed with IV Contrast, patient injected with 80cc mL of Isovue 300. There is moderate right pleural effusion. There is airspace consolidation and atelectasis at both joana g bases. Heart is enlarged. There is nasogastric tube at the gastric fundus. Liver shows no focal defect. Gallbladder is large me asuring 4.2 cm in diameter. There is extensive cystic changes throughout both kidneys related to poly cystic kidney disease. Kidneys are markedly enlarged. Spleen is intact. There is no evidence of pancr eatic mass. There is no free air. There is no ascites. There is some dilated multiple loops of fluid and air-filled small bowel with fluid levels in the mid and lower abdomen. Large bowel gas pattern is fairly normal. There is compression deformity of L5 and L2 vertebra up to 50%. IMPRESSION: Dilated air and fluid-filled small bowel suggestive of mechanical small bowel obstruction or severe i leus without change compared to yesterday. No free air. Basilar pulmonary consolidation and atelectasis with moderate right pleural effusion unchanged.
[2021-10-24] MEDS ORDERED: HYDROmorphone (PF) 1 MG/ML ONE (19:12)
[2021-10-24] MEDS ORDERED: HEPARIN SODIUM,PORCINE 5,000 UNIT/ML 1 ML VIAL ONE (19:12)
[2021-10-24] MEDS ORDERED: PROPOFOL 10 MG/ML 20 ML VIAL IV ONE (19:12)
[2021-10-24] MEDS ORDERED: PHENYLEPHRINE-0.9% NACL SYG 1,000 MCG/10 ML SYRINGE ONE (19:12)
[2021-10-24] MEDS ORDERED: NEOSTIGMINE 1 MG/ML 10 ML VIAL ONE (19:12)
[2021-10-24] MEDS ORDERED: LIDOCAINE 1% INJ 10MG/ML (20 ML MDV) ONE (19:12)
[2021-10-24] MEDS ORDERED: GLYCOPYRROLATE 0.2 MG/ML 2 ML VIAL ONE (19:12)
[2021-10-24] MEDS ORDERED: ROCURONIUM 10 MG/ML (5 ML VIAL) IV ONE (19:12)
[2021-10-24] MEDS ORDERED: SODIUM CHLORIDE 0.9% 1,000 ML IV ONE (19:15)
--- NOTE | 2021-10-24 20:16 | P.OP ---
Date of Procedure: 10/24/21 Preoperative Diagnosis: Small bowel obstruction Postoperative Diagnosis: Small bowel obstruction Hydropic gallbladder Polycystic kidney Procedure(s) Performed: Exploratory laparotomy lysis of adhesion cholecystectomy Anesthesia: LEILANI Surgeon: Alf Holden Estimated Blood Loss (ml): 25 Pathology: other (Gallbladder) Condition: stable Disposition: PACU Description of Procedure: Patient's placed on the operative table in the supine position. She received general endotracheal tube anesthesia. Her abdomen was prepped and draped usual fashion. The abdomen was entered through midline incision. There is grossly dilated small bowel. The small bowel was run. There appeared to be an adhesive band in the right lower quadrant. There was also a massive kidney cyst which was intentional valve. The kidney cyst unroofed. The adhesion was lysed. The small bowel structure was then relieved. Enteric contents was seen entering into the cecum. The small bowel was run. There is no other obstruction seen. The gallbladder appeared grossly abnormal and quite enlarged. This point decided to perform an open cholecystectomy. The gallbladder was taken down in a dome down technique. The cystic duct was then clipped with 3 clips proximally. The cystic artery was clipped with 2 clips being placed proximal. The cystic duct was then cut with the Metzenbaum scissors his arteries and cystic cut with the Metzenbaum scissors. The specimens of pathology. The liver bed was then transferred bleeding. Several small bleeding points were coagulated. The abdomen was areas of bleeding seen. The fascia was then closed with looped #1 PDS suture. Skin was closed with danielle. Patient top she will was sent to recovery room in stable condition.
[2021-10-24] MEDS ORDERED: HYDROmorphone 0.5 MG/0.5 ML SYRINGE IVP ONE ×2 (20:53→21:04)
[2021-10-24] MEDS: ATORVASTATIN 20 MG TAB PO SCH (22:08)
[2021-10-24] MEDS: cloNIDine HCL 0.2 MG TAB PO SCH (22:08)
[2021-10-24] MEDS: MIRTAZAPINE 15 MG TAB PO SCH (22:09)
[2021-10-24] MEDS: HYDROmorphone 1 MG/ML 1 ML SYRINGE IVP PRN (22:23)
[2021-10-25] MEDS: ONDANSETRON 4 MG/2 ML VIAL IVP PRN ×2 (00:31→12:38)
[2021-10-25] MEDS: HEPARIN SODIUM,PORCINE/PF 5,000 UNIT/0.5 ML SYRINGE SQ SCH ×3 (00:32→23:42)
[2021-10-25] MEDS: HYDROmorphone 1 MG/ML 1 ML SYRINGE IVP PRN ×5 (02:21→21:11)
[2021-10-25] MEDS: hydrALAZINE HCL 50 MG TAB PO SCH ×3 (04:24→23:54)
[2021-10-25 06:32] LABS: HCT 32.2 % (34.0-46.0); HGB 10.5 gm/dL (11.4-16.0); MCH 30.5 pg (25.0-35.0); MCHC 32.7 g/dL (31.0-37.0); MCV 93.3 fL (80.0-100.0); Mean Platelet Volume 8.8; Platelet Count 274 k/uL (150-450); RBC 3.45 m/uL (3.80-5.40); RDW 15.8 % (11.5-15.5)
[2021-10-25 07:10] LABS: African American GFR (CKD) 6 (>60 ml/min/1.73 sqM); Anion Gap 25 mmol/L; Blood Urea Nitrogen 63 mg/dL (7-17); Carbon Dioxide 19 mmol/L (22-30); Chloride 96 mmol/L (98-107); Glucose 103 mg/dL (74-99); Non-African American GFR(CKD) 5 (>60 ml/min/1.73 sqM); Potassium 5.8 mmol/L (3.5-5.1); Sodium 140 mmol/L (137-145)
[2021-10-25] MEDS: METOPROLOL SUCCINATE (ER) 50 MG TAB.ER.24H PO SCH ×2 (08:19→18:12)
[2021-10-25] MEDS: NON FORMULARY DRUG (Levocarnitine [Levocarnitine] 330 MG Tablet) PO SCH ×3 (10:48→23:54)
[2021-10-25] MEDS: NICOTINE 14MG/24HR PATCH TRANSDERM SCH (10:49)
[2021-10-25] MEDS: amLODIPine 5 MG TAB PO SCH (10:50)
[2021-10-25] MEDS: cloNIDine HCL 0.1 MG TAB PO SCH ×2 (10:50→12:34)
[2021-10-25] MEDS: CALCIUM ACETATE 667 MG TAB PO SCH ×2 (10:52→16:38)
[2021-10-25] MEDS: PANTOPRAZOLE 40 MG TABLET PO SCH (10:52)
[2021-10-25] MEDS: minoxidiL 2.5 MG TAB PO SCH ×2 (10:54→23:44)
--- NOTE | 2021-10-25 10:56 | P.PN ---
Subjective Patient is seen in follow-up for end-stage renal disease. She is maintained on hemodialysis 2 days a week. Underwent exploratory laparotomy with lysis of adhesions for small bowel obstruction on October 24. Currently has an NG tube. Vital signs are stable. HEENT: Head exam is unremarkable. LUNGS: Breath sounds decreased. HEART: Rate and Rhythm are regular. ABDOMEN: Generalized tenderness. EXTREMITITES: No edema. Objective - Vital Signs Vital signs: Vital Signs Temp 98.0 F 10/25/21 04:23 Pulse 128 H 10/25/21 08:15 Resp 20 10/25/21 04:23 BP 105/58 10/25/21 08:15 Pulse Ox 94 L 10/25/21 04:23 Intake & Output 10/24/21 10/25/21 10/25/21 18:59 06:59 18:59 Intake Total 200 Output Total 1620 Balance -1420 Weight 50.349 kg Intake: IV 200 Oral 0 Output: Gastric Drainage 1150 Urine 120 Emesis 300 Estimated Blood Loss 50 Other: Voiding Method Bedpan Bedpan # Voids 0 0 - Labs CBC & Chem 7: 10/25/21 05:59 10/25/21 05:52 Labs: Abnormal Lab Results - Last 24 Hours (Table) 10/24/21 10/25/21 10/25/21 Range/Units 14:13 05:52 05:59 RBC 3.45 L (3.80-5.40) m/uL Hgb 10.5 L (11.4-16.0) gm/dL Hct 32.2 L (34.0-46.0) % RDW 15.8 H (11.5-15.5) % PT 15.3 H (9.0-12.0) sec INR 1.5 H (<1.2) Potassium 5.8 H (3.5-5.1) mmol/L Chloride 96 L (98-107) mmol/L Carbon Dioxide 19 L (22-30) mmol/L BUN 63 H (7-17) mg/dL Creatinine 7.05 H* (0.52-1.04) mg/dL Glucose 103 H (74-99) mg/dL Assessment and Plan Plan: Assessment: 1. End-stage renal disease maintained on hemodialysis 2 days a week. Patient has refused 3 times a week dialysis multiple times. 2. Hyperkalemia secondary to chronic kidney disease and his lisinopril. 3. Chronic kidney disease mineral bone disease maintained on phosphate binders and calcitriol. Currently nothing by mouth. 4. Fluid overload. Improved with ultrafiltration. 5. Small bowel obstruction. Currently has NG tube. Status post exploratory laparotomy, lysis of adhesions and cholecystectomy on 10/24/2021. Plan: Hemodialysis day. Lisinopril has been discontinued. Hold antihypertensives for systolic blood pressure less than 120. Currently NPO.
--- NOTE | 2021-10-25 11:24 | P.PN ---
Progress Note - Text Progress Note Date: 10/25/21 Patient's complaints of incisional pain. She is postoperative day 11 from exploratory laparotomy lysis of adhesion for small bowel obstruction. On exam vital signs are stable. Her nasogastric tube still has significant output. Abdomen soft incision is clean and intact. Patient will continue receive supportive care. She will remain with NG tube to low intermittent suction.
[2021-10-25] MEDS: SIMETHICONE 80 MG CHEWABLE PO SCH ×3 (12:34→23:54)
[2021-10-25] MEDS: SEVELAMER 800 MG TAB PO SCH ×2 (12:35→23:41)
[2021-10-25] MEDS: TORSEMIDE 20 MG TAB PO SCH (13:25)
[2021-10-25] MEDS: ASPIRIN 81 MG PO SCH (13:25)
[2021-10-25] MEDS: DOCUSATE ORAL SOLN 100 MG/10 ML CUP PO SCH (13:27)
[2021-10-25 13:36] LABS: Band Neutrophils % 6 %; Lymphocytes # (M) 0.63 k/uL (1.0-4.8); Metamyelocytes # (M) 0.09 k/uL (0); Metamyelocytes % 1 %; Monocytes # (M) 0.72 k/uL (0-1.0); Neutrophils % (M) 78 %; Nucleated Red Blood Cells 0 /100 WBC (0-0); RBC Morphology Normal; Total Cells Counted 100
--- NOTE | 2021-10-25 14:06 | P.PN ---
Subjective Progress Note Date: 10/25/21 This is a pleasant 70-year-old female who presented to the hospital with acute abdominal pain with associated vomiting. 10/23/2021 Patient is evaluated today sitting up in the chair. She states that she has ongoing abdominal pain which is sharp in nature rating it about an 8 out of 10. Abdomen is sleeve machine tender to palpation in the lower umbilical region. Patient is able to tolerate a diet however she did have some vomiting this morning. There was no blood in the vomit. She had dialysis yesterday with 1L off and plans for dialysis tomorrow. Labs today show a BUN of 33, creatinine 4.67, potassium improved to 4.4, sodium 137, chloride 97, white count 3.9, hemoglobin 10.3 which is stable. Vital show a temp of 98.1, heart rate 65 sinus rhythm, blood pressure 146/65 and she is 97% on 2L NC. GI services are unavailable this week. Abdominal ultrasound shows right pleural effusion, renal parenchyma is replaced by cysts. The stomach is grossly distended at 16.9 cm, abdomen is extremely hard, nondiagnostic exam due to extensive midline bowel gas. Surgery ordered a computed tomography scan of the abdomen and pelvis with oral contrast and added Colace. We will add Mylicon chews. I did ask nursing staff to do postvoid residuals. 10/24/2021 Patient evaluated same in the bed. Abdomen pelvis CT revealed pleural effusion with consolidation and volume loss in the lower lobes that appears to be worse last exam. There is markedly dilated small bowel consistent with mechanical distal small bowel obstruction and is increased compared to old exam. Transition point not seen. Large bowel is nondilated. There is clearing of the small amount of free fluid in the pelvis compared to old exam. Advanced polycystic kidney disease. NG tube was placed, patient is now nothing by mouth. Chest x-ray today showed mild congestive heart failure, chronic profusion some basilar pulmonary infiltrates. There was some confusion with patient's diuretics from home, lasix was discontinued, and she will continue on oral demadex. Plan is for dialysis tomorrow, patient refused today. Labs today: hem oglobin 10.5, sodium 142, potassium 5.1, BUN 45, creatinine 5.6. Her BNP today is 51,500. BP today 128/66, afebrile. Patient is evaluted today post op day #1 exploratory laporatomy with lysis of adhesions and open cholecystectomy. NG was continued after surgery, and patient has a woundvac for wound closure. She is being followed closely by surgical team and nephrology. Patient is receiving pain management via IV dilaudid, and she has IV zofran on board. Will adjust medications to IV if possible as patient is NPO. She was able to take metoprolol this morning as her heart rate was little elevated in the 120s. Patient's creatinine was 7 today she did get dialysis this morning. Additional labs show a hemoglobin of 10.5, potassium 5.8, chloride 96, CO2 19, glucose 103. Vital signs today show a temperature of 97.8, heart rate 85 sinus rhythm, blood pressure 123/51 and she is on nasal cannula 2 L and saturation 96%. Continue to encourage incentive spirometry. There was possibility of consultation urology for polycystic kidney disease however this can be addressed outpatient. ROS Constitutional: Denied any fatigue denied any fever. Cardio vascular: denied any chest pain, palpitations Gastrointestinal: Reports incisional and diffuse adbominal pain, passing gas. Pulmonary: Denied any shortness of breath cough Neurologic denied any new focal deficits All inpatient medications were reviewed and appropriate changes in these medications as dictated in the interval history and assessment and plan. PHYSICAL EXAMINATION: GENERAL: The patient is alert and oriented x3, mild discomfort noted. Well developed, well nourished. NG tube in place HEENT: Pupils are round and equally reacting to light. EOMI. No scleral icterus. No conjunctival pallor. Normocephalic, atraumatic. No pharyngeal erythema. No thyromegaly. CARDIOVASCULAR: S1 and S2 present. No murmurs, rubs, or gallops. Tachycardic at the time of my assessment. PULMONARY: Diminished bases ABDOMEN: Post surgical abdomen with woundvac in place and abdominal binder, tender MUSCULOSKELETAL: No joint swelling or deformity. EXTREMITIES: No cyanosis, clubbing, or pedal edema. NEUROLOGICAL: Gross neurological examination did not reveal any focal deficits. SKIN: No rashes. generalized ecchymosis upper extremities, post surgical abdomen with woundvac. Assessment and plan Assessment POD #1 exploratory laporatomy with lysis of adhesions for small bowel obstruction End-stage renal disease on hemodialysis 2 times a week Hyperkalemia secondary to renal failure Bilateral pleural effusion, pericardial effusion, possibly fluid overload from renal failure Polycystic kidney disease, advanced History of COPD Severe pulmonary hypertension Chronic ongoing nicotine dependence Recent history of bilateral hip replacement with surgery of repair Hypertension History of depression Hyponatremia Anemia, normocytic anemia of chronic disease GI prophylaxis: Protonix DVT prophylaxis: Subcu heparin FULL CODE Plan Continue with NG tube and NPO diet per surgical team Dialysis Today, recommendations per nephrology Continue to encourge IS Pain management Continue all other supportive care Repeat labs tomorrow Objective - Vital Signs Vital signs: Vital Signs Temp 97.8 F 10/25/21 12:56 Pulse 85 10/25/21 12:56 Resp 20 10/25/21 12:56 BP 123/51 10/25/21 12:56 Pulse Ox 96 10/25/21 12:50 Intake & Output 10/24/21 10/25/21 10/25/21 18:59 06:59 18:59 Intake Total 200 300 Output Total 1620 500 Balance -1420 -200 Weight 50.349 kg Intake: IV 200 Oral 0 Hemodialysis 300 Output: Gastric Drainage 1150 Urine 120 Emesis 300 Hemodialysis 500 Estimated Blood Loss 50 Other: Voiding Method Bedpan Bedpan # Voids 0 0 - Labs CBC & Chem 7: 10/25/21 05:59 10/25/21 05:52 Labs: Abnormal Lab Results - Last 24 Hours (Table) 10/24/21 10/25/21 10/25/21 Range/Units 14:13 05:52 05:59 RBC 3.45 L (3.80-5.40) m/uL Hgb 10.5 L (11.4-16.0) gm/dL Hct 32.2 L (34.0-46.0) % RDW 15.8 H (11.5-15.5) % Lymphocytes # (Manual) 0.63 L (1.0-4.8) k/uL Metamyelocytes # (Man) 0.09 H (0) k/uL PT 15.3 H (9.0-12.0) sec INR 1.5 H (<1.2) Potassium 5.8 H (3.5-5.1) mmol/L Chloride 96 L (98-107) mmol/L Carbon Dioxide 19 L (22-30) mmol/L BUN 63 H (7-17) mg/dL Creatinine 7.05 H* (0.52-1.04) mg/dL Glucose 103 H (74-99) mg/dL Assessment and Plan Time with Patient: Greater than 30
[2021-10-25] MEDS: DOCUSATE 100 MG CAP PO SCH (14:11)
--- NOTE | 2021-10-25 14:41 | CDI ---
Documentation Clarification Form Date: 10/25/2021 02:25:49 PM From: Briseida Prince CCS, CCDS Admit Date: 10/20/2021 02:10:00 PM Patient Name: Saundra Jaquez Visit Number: [id number] Discharge Date: ATTENTION: The Clinical Documentation Specialists (CDI) and [facility] Coding Staff appreciate your assistance in clarifying documentation. Please respond to the clarification below the line at the bottom and electronically sign. The CDI & [facility] Coding staff will review the response and follow-up if needed. Please note: Queries are made part of the Legal Health Record. If you have any questions, please contact the author of this message via ITS. Dr. Mandi Barclay: Your patient has the documented diagnosis of unspecified CHF in the 10/24 CXR: Mild congestive heart failure and the 10/24 and 10/25 Attending Progress Notes: Chest x-ray today showed mild congestive heart failure, chronic profusion some basilar pulmonary infiltrates. Additional information regarding the Type & Acuity of CHF is requested. History/Risk Factors per the 10/19 H/P: COPD, GERD, Hypertension, ESRD on Hemodialysis, Polycystic Kidney Disease, Smoker. Clinical Indicators per the 10/18 ED Note: Presented to the ED with vomiting, abdominal pain, nausea. Last dialysis was (10/12). Admitted with Intractable Abdominal Pain 10/20 VS: T 98.4, P 63, R 18, BP 145/62, PO 100 2Lnc, BMI: 17.9 10/20 LAB: Hgb 9.9, Hct 31.0, Lymph 0.6; Na 134, Cl 96, CO2 32, BUN 25, Creatinine 3.50 10/24 BNP: 51,500 10/24 CXR: Mild CHF: Chronic pleural effusion and basilar pulmonary infiltrates. Echocardiogram Results 10/19: Sinus rhythm. Borderline concentric left ventricular hypertrophy. Systolic function normal w/EF 60-65%. Mild aortic valve sclerosis, trace regurgitation. Mild aortic stenosis. Mild-mod MR, Mild TR. Severe pulmonary hypertension. Trace/mil pulmonic regurgitation. Treatment 10/19: Hemodialysis, NGT, Oral Nutrition supplement, IV Morphine 2 mg x1, IV Zofran 4 mg x2, IV Morphine 4 mg x2, Heparin sq. 11/23: IV Dilaudid 1 mg prn q3Hr, 0.5 mg x2; Patient's home dose Lasix 80 mg daily Not Given. Per the 10/25 Attending Progress Note: There was some confusion with the patient's diuretics from home, Lasix will be discontinued, continue oral Demadex. In your professional opinion, can you please clarify the Type & Acuity of CHF if known? [ ] Acute Diastolic Heart Failure [ ] Chronic Diastolic Heart Failure [ ] Acute on Chronic Diastolic Heart Failure [ ] CHF is ruled out [ ] Other, please specify [ ] Unable to determine (Template Last Revised: January 2021) no HF MTDD
--- NOTE | 2021-10-25 19:59 | XR ---
EXAMINATION TYPE: XR chest 1V portable DATE OF EXAM: 10/25/2021 COMPARISON: 10/24/2021 HISTORY: Tube placement TECHNIQUE: FINDINGS: Heart and mediastinum are shifted to the left side. There is infiltrate and atelectasis at both lung bases. There is blunting of the costophrenic angles. There is nasogastric tube looped on it self in the distal esophagus. There are multiple dilated gas-filled loops of bowel in the upper abdom en. IMPRESSION: NG tube is looped in the esophagus. There is evidence for some congestive heart failure w ith pleural effusions and basilar pulmonary infiltrates without much change compared to yesterday.
[2021-10-25] MEDS: ATORVASTATIN 20 MG TAB PO SCH (23:43)
[2021-10-25] MEDS: PANTOPRAZOLE 40 MG/10 ML VIAL IVP SCH (23:43)
[2021-10-25] MEDS: cloNIDine HCL 0.2 MG TAB PO SCH (23:44)
[2021-10-26] MEDS: MIRTAZAPINE 15 MG TAB PO SCH ×2 (01:04→21:26)
[2021-10-26] MEDS: DOCUSATE ORAL SOLN 100 MG/10 ML CUP PO SCH ×3 (01:04→21:25)
[2021-10-26] MEDS: hydrALAZINE HCL 50 MG TAB PO SCH ×3 (06:19→21:28)
[2021-10-26 07:48] LABS: Basophils % (A) 0 %; Eosinophils % (A) 0 %; HCT 27.3 % (34.0-46.0); Lymphocytes # (A) 0.4 k/uL (1.0-4.8); Lymphocytes % (A) 5 %; MCH 30.7 pg (25.0-35.0); MCHC 32.2 g/dL (31.0-37.0); MCV 95.3 fL (80.0-100.0); Monocytes # (A) 0.4 k/uL (0-1.0); Monocytes % (A) 6 %; Neutrophils % (A) 85 %; Platelet Count 199 k/uL (150-450); RBC 2.86 m/uL (3.80-5.40); RDW 15.8 % (11.5-15.5); WBC 7.1 k/uL (3.8-10.6)
[2021-10-26 07:50] LABS: HGB 8.8 gm/dL (11.4-16.0)
[2021-10-26] MEDS: CALCIUM ACETATE 667 MG TAB PO SCH ×2 (08:51→14:18)
[2021-10-26] MEDS: NON FORMULARY DRUG (Levocarnitine [Levocarnitine] 330 MG Tablet) PO SCH ×3 (08:53→21:32)
[2021-10-26] MEDS: minoxidiL 2.5 MG TAB PO SCH ×2 (08:53→21:26)
[2021-10-26] MEDS ORDERED: PANTOPRAZOLE 40 MG/10 ML VIAL IVP SCH (09:00)
[2021-10-26] MEDS: HEPARIN SODIUM,PORCINE/PF 5,000 UNIT/0.5 ML SYRINGE SQ SCH ×2 (09:02→21:26)
[2021-10-26] MEDS: ASPIRIN 81 MG PO SCH (09:03)
[2021-10-26] MEDS: PANTOPRAZOLE 40 MG/10 ML VIAL IVP SCH ×2 (09:03→21:26)
[2021-10-26] MEDS: cloNIDine HCL 0.1 MG TAB PO SCH ×2 (09:03→11:37)
[2021-10-26] MEDS: amLODIPine 5 MG TAB PO SCH (09:04)
[2021-10-26] MEDS: METOPROLOL SUCCINATE (ER) 50 MG TAB.ER.24H PO SCH ×2 (09:04→17:23)
[2021-10-26] MEDS: SEVELAMER 800 MG TAB PO SCH ×2 (09:04→21:27)
[2021-10-26] MEDS: NICOTINE 14MG/24HR PATCH TRANSDERM SCH (09:04)
[2021-10-26] MEDS: TORSEMIDE 20 MG TAB PO SCH (09:05)
[2021-10-26] MEDS: SIMETHICONE 80 MG CHEWABLE PO SCH ×4 (09:05→21:26)
[2021-10-26 11:20] LABS: BUN/Creat Ratio 8.54 Ratio (12.00-20.00); Blood Urea Nitrogen 37.9 mg/dL (9.0-27.0); Carbon Dioxide 24.7 mmol/L (20.0-27.5); Magnesium 2.1 mg/dL (1.5-2.4); Non-African American GFR(CKD) 9.5 (60.0-200.0); Potassium 4.5 mmol/L (3.5-5.5)
--- NOTE | 2021-10-26 12:00 | P.PN ---
Subjective Progress Note Date: 10/26/21 This is a pleasant 70-year-old female who presented to the hospital with acute abdominal pain with associated vomiting. 10/23/2021 Patient is evaluated today sitting up in the chair. She states that she has ongoing abdominal pain which is sharp in nature rating it about an 8 out of 10. Abdomen is rattling machine tender to palpation in the lower umbilical region. Patient is able to tolerate a diet however she did have some vomiting this morning. There was no blood in the vomit. She had dialysis yesterday with 1L off and plans for dialysis tomorrow. Labs today show a BUN of 33, creatinine 4.67, potassium improved to 4.4, sodium 137, chloride 97, white count 3.9, hemoglobin 10.3 which is stable. Vital show a temp of 98.1, heart rate 65 sinus rhythm, blood pressure 146/65 and she is 97% on 2L NC. GI services are unavailable this week. Abdominal ultrasound shows right pleural effusion, renal parenchyma is replaced by cysts. The stomach is grossly distended at 16.9 cm, abdomen is extremely hard, nondiagnostic exam due to extensive midline bowel gas. Surgery ordered a computed tomography scan of the abdomen and pelvis with oral contrast and added Colace. We will add Mylicon chews. I did ask nursing staff to do postvoid residuals. 10/24/2021 Patient evaluated same in the bed. Abdomen pelvis CT revealed pleural effusion with consolidation and volume loss in the lower lobes that appears to be worse last exam. There is markedly dilated small bowel consistent with mechanical distal small bowel obstruction and is increased compared to old exam. Transition point not seen. Large bowel is nondilated. There is clearing of the small amount of free fluid in the pelvis compared to old exam. Advanced polycystic kidney disease. NG tube was placed, patient is now nothing by mouth. Chest x-ray today showed mild congestive heart failure, chronic profusion some basilar pulmonary infiltrates. There was some confusion with patient's diuretics from home, lasix was discontinued, and she will continue on oral demadex. Plan is for dialysis tomorrow, patient refused today. Labs today: hem oglobin 10.5, sodium 142, potassium 5.1, BUN 45, creatinine 5.6. Her BNP today is 51,500. BP today 128/66, afebrile. Patient is evaluted today post op day #1 exploratory laporatomy with lysis of adhesions and open cholecystectomy. NG was continued after surgery, and patient has a woundvac for wound closure. She is being followed closely by surgical team and nephrology. Patient is receiving pain management via IV dilaudid, and she has IV zofran on board. Will adjust medications to IV if possible as patient is NPO. She was able to take metoprolol this morning as her heart rate was little elevated in the 120s. Patient's creatinine was 7 today she did get dialysis this morning. Additional labs show a hemoglobin of 10.5, potassium 5.8, chloride 96, CO2 19, glucose 103. Vital signs today show a temperature of 97.8, heart rate 85 sinus rhythm, blood pressure 123/51 and she is on nasal cannula 2 L and saturation 96%. Continue to encourage incentive spirometry. There was possibility of consultation urology for polycystic kidney disease however this can be addressed outpatient. 10/26/2021 Patient evaluated today sitting up in the bed. She states overall her abdominal pain is improving, and she denies nausea. She is still hooked up to NGT. Chest xray this morning does show the NGT tube looped in the esophagus, and also, evidence for congestive heart failure with pleural effusions and basilar pulmonary infiltrates without much change compared to yesterday. Lungs are clear, patient did get dialyzed yesterday and is on demadex daily. Wound vac in place. Vitals today show BP of 147/66, 100 on 3L NC, heart rate 83, temperature 98.4. Hemoglobin today is 8.8, sodium 141, potassium 4.5, chloride 95, anion gap 21, BUN 37.9, creatinine 4.4, glucose 92, mag 2.1. ROS Constitutional: Denied any fatigue denied any fever. Cardio vascular: denied any chest pain, palpitations Gastrointestinal: Reports incisional and diffuse adbominal pain, improving, passing gas Pulmonary: Denied any shortness of breath cough Neurologic denied any new focal deficits All inpatient medications were reviewed and appropriate changes in these medications as dictated in the interval history and assessment and plan. PHYSICAL EXAMINATION: GENERAL: The patient is alert and oriented x3, mild discomfort noted. Well developed, well nourished. NG tube in place HEENT: Pupils are round and equally reacting to light. EOMI. No scleral icterus. No conjunctival pallor. Normocephalic, atraumatic. No pharyngeal erythema. No thyromegaly. CARDIOVASCULAR: S1 and S2 present. No murmurs, rubs, or gallops. Tachycardic at the time of my assessment. PULMONARY: Diminished bases ABDOMEN: Post surgical abdomen with woundvac in place and abdominal binder, tender MUSCULOSKELETAL: No joint swelling or deformity. EXTREMITIES: No cyanosis, clubbing, or pedal edema. NEUROLOGICAL: Gross neurological examination did not reveal any focal deficits. SKIN: No rashes. generalized ecchymosis upper extremities, post surgical abdomen with woundvac. Assessment and plan Assessment POD #2 exploratory laporatomy with lysis of adhesions for small bowel obstruction End-stage renal disease on hemodialysis 2 times a week Hyperkalemia secondary to renal failure Bilateral pleural effusion, pericardial effusion, possibly fluid overload from renal failure Polycystic kidney disease, advanced History of COPD Severe pulmonary hypertension Chronic ongoing nicotine dependence Recent history of bilateral hip replacement with surgery of repair Hypertension History of depression Hyponatremia Anemia, normocytic anemia of chronic disease GI prophylaxis: Protonix DVT prophylaxis: Subcu heparin FULL CODE Plan Continue with NG tube and NPO diet per surgical team Continue to encourge IS Pain management Continue all other supportive care Repeat labs tomorrow Objective - Vital Signs Vital signs: Vital Signs Temp 98.4 F 10/26/21 04:59 Pulse 83 10/26/21 04:59 Resp 16 10/26/21 04:59 BP 147/66 10/26/21 04:59 Pulse Ox 100 10/26/21 04:59 Intake & Output 10/25/21 10/26/21 10/26/21 18:59 06:59 18:59 Intake Total 460 Output Total 1500 Balance -1040 Intake: Intake, IV Titration 160 Amount Sodium Chloride 0.9% 1, 160 000 ml @ 0 mls/hr IV .[facility] -[facility] ONE Rx#:[id number] Oral 0 Hemodialysis 300 Output: Gastric Drainage 1000 Hemodialysis 500 Other: Voiding Method Bedpan Bedpan # Voids 0 0 - Labs CBC & Chem 7: 10/26/21 07:15 10/26/21 07:15 Labs: Abnormal Lab Results - Last 24 Hours (Table) 10/25/21 10/26/21 Range/Units 05:59 07:15 RBC 2.86 L (3.80-5.40) m/uL Hgb 8.8 L D (11.4-16.0) gm/dL Hct 27.3 L (34.0-46.0) % RDW 15.8 H (11.5-15.5) % Lymphocytes # 0.4 L (1.0-4.8) k/uL Lymphocytes # (Manual) 0.63 L (1.0-4.8) k/uL Metamyelocytes # (Man) 0.09 H (0) k/uL Assessment and Plan Time with Patient: Greater than 30
--- NOTE | 2021-10-26 13:42 | P.PN ---
Subjective Progress Note Date: 10/26/21 CHIEF COMPLAINT: Small bowel obstruction HISTORY OF PRESENT ILLNESS: The patient is a 70-year-old female status post lysis of adhesions. She is resting comfortably. No flatus. No bowel movements. ROS: No fevers or chills. No new chest pain. No productive sputum PHYSICAL EXAM: VITAL SIGNS: Reviewed CONSTITUTIONAL: Well developed and in no acute distress. EYES: Conjuctivae without sclera icterus. Extraocular movements grossly intact. HEAD, EARS, NOSE, THROAT: Moist buccal mucosa. Head is atraumatic, normocephalic. Hears conversational speech. No nasal drainage. NECK: No thyroidomegaly. RESPIRATORY: Non-labored respirations and equal bilateral excursions. CARDIOVASCULAR: 2+ radial pulses. ABDOMEN: Incisions intact. No peritonitis. PREVENA intact. MUSCULOSKELETAL: No gross deformity of the lower extremities noted. No clubbing. No cyanosis. SKIN: Good skin turgor. Well perfused. NEUROLOGIC: Cranial nerves I through XII grossly intact. No focal or lateralizing signs. PSYCH: Appropriate affect. Alert and oriented to person, place and time. CLINICAL LABS: Reviewed. Hgb 10.5 to 8.8, anemia. WBC normal 7.1 ASSESSMENT: 1. Small bowel obstruction PLAN: 1. Continue NG tube 2. Physical and occupation therapy encourage. Objective - Vital Signs Vital signs: Vital Signs Temp 97.9 F 10/26/21 11:36 Pulse 77 10/26/21 11:36 Resp 18 10/26/21 11:36 BP 113/45 10/26/21 11:36 Pulse Ox 93 L 10/26/21 11:36 Intake & Output 10/25/21 10/26/21 10/26/21 18:59 06:59 18:59 Intake Total 460 Output Total 1500 Balance -1040 Intake: Intake, IV Titration 160 Amount Sodium Chloride 0.9% 1, 160 000 ml @ 0 mls/hr IV .[employer] [facility] Rx#:[id number] Oral 0 Hemodialysis 300 Output: Gastric Drainage 1000 Hemodialysis 500 Other: Voiding Method Bedpan Bedpan Bedpan # Voids 0 0 - Labs CBC & Chem 7: 10/26/21 07:15 10/26/21 07:15 Labs: Abnormal Lab Results - Last 24 Hours (Table) 10/25/21 10/26/21 10/26/21 Range/Units 05:59 07:15 07:15 RBC 2.86 L (3.80-5.40) m/uL Hgb 8.8 L D (11.4-16.0) gm/dL Hct 27.3 L (34.0-46.0) % RDW 15.8 H (11.5-15.5) % Lymphocytes # 0.4 L (1.0-4.8) k/uL Lymphocytes # (Manual) 0.63 L (1.0-4.8) k/uL Metamyelocytes # (Man) 0.09 H (0) k/uL Chloride 95 L (96-109) mmol/L Anion Gap 21.00 H (10.00-18.00) mmol/L BUN 37.9 H (9.0-27.0) mg/dL Creatinine 4.4 H (0.6-1.5) mg/dL Est GFR (CKD-EPI)AfAm 11.0 L (60.0-200.0) Est GFR (CKD-EPI)NonAf 9.5 L (60.0-200.0) BUN/Creatinine Ratio 8.54 L (12.00-20.00) Ratio Assessment and Plan (1) Small bowel obstruction Current Visit: Yes Status: Acute Code(s): K56.609 - UNSP INTESTNL OBST, UNSP TO PARTIAL VERSUS COMPLETE OBST SNOMED Code(s): 167971118
[2021-10-26] MEDS: HYDROmorphone 1 MG/ML 1 ML SYRINGE IVP PRN (14:29)
--- NOTE | 2021-10-26 16:32 | P.PN ---
Subjective Progress Note Date: 10/26/21 Follow-up for ESRD. Still has NG tube in place. Objective - Vital Signs Vital signs: Vital Signs Temp 97.9 F 10/26/21 11:36 Pulse 77 10/26/21 11:36 Resp 18 10/26/21 11:36 BP 113/45 10/26/21 11:36 Pulse Ox 93 L 10/26/21 11:36 Intake & Output 10/25/21 10/26/21 10/26/21 18:59 06:59 18:59 Intake Total 460 Output Total 1500 Balance -1040 Intake: Intake, IV Titration 160 Amount Sodium Chloride 0.9% 1, 160 000 ml @ 0 mls/hr IV .[employer] ONE Rx#:[id number] Oral 0 Hemodialysis 300 Output: Gastric Drainage 1000 Hemodialysis 500 Other: Voiding Method Bedpan Bedpan Bedpan # Voids 0 0 - Exam No acute distress S1-S2 heard Lungs clear No edema - Labs CBC & Chem 7: 10/26/21 07:15 10/26/21 07:15 Labs: Abnormal Lab Results - Last 24 Hours (Table) 10/26/21 10/26/21 Range/Units 07:15 07:15 RBC 2.86 L (3.80-5.40) m/uL Hgb 8.8 L D (11.4-16.0) gm/dL Hct 27.3 L (34.0-46.0) % RDW 15.8 H (11.5-15.5) % Lymphocytes # 0.4 L (1.0-4.8) k/uL Chloride 95 L (96-109) mmol/L Anion Gap 21.00 H (10.00-18.00) mmol/L BUN 37.9 H (9.0-27.0) mg/dL Creatinine 4.4 H (0.6-1.5) mg/dL Est GFR (CKD-EPI)AfAm 11.0 L (60.0-200.0) Est GFR (CKD-EPI)NonAf 9.5 L (60.0-200.0) BUN/Creatinine Ratio 8.54 L (12.00-20.00) Ratio Assessment and Plan Assessment: #1 ESRD on hemodialysis, 2 times a week. #2 small bowel obstruction #3 hypertension with ESRD #4 anemia with ESRD #5 hyperkalemia secondary to missed dialysis/lisinopril. Improved with dialysis Plan: #1 hemodialysis on Saturday. #2 supportive care
[2021-10-26] MEDS: ATORVASTATIN 20 MG TAB PO SCH (21:26)
[2021-10-26] MEDS: cloNIDine HCL 0.2 MG TAB PO SCH (21:26)
[2021-10-27] MEDS: hydrALAZINE HCL 50 MG TAB PO SCH ×3 (06:04→21:28)
[2021-10-27 07:49] LABS: Basophils % (A) 0 %; Eosinophils % (A) 1 %; HCT 29.6 % (34.0-46.0); HGB 9.9 gm/dL (11.4-16.0); Lymphocytes # (A) 0.5 k/uL (1.0-4.8); Lymphocytes % (A) 6 %; MCH 31.1 pg (25.0-35.0); MCHC 33.3 g/dL (31.0-37.0); MCV 93.5 fL (80.0-100.0); Mean Platelet Volume 9.5; Monocytes # (A) 0.3 k/uL (0-1.0); Monocytes % (A) 4 %; Neutrophils # (A) 7.1 k/uL (1.3-7.7); Neutrophils % (A) 87 %; Platelet Count 150 k/uL (150-450); RBC 3.17 m/uL (3.80-5.40); RDW 15.4 % (11.5-15.5); WBC 8.1 k/uL (3.8-10.6)
[2021-10-27 08:20] LABS: Anion Gap 16 mmol/L; Blood Urea Nitrogen 60 mg/dL (7-17); Calcium 9.3 mg/dL (8.4-10.2); Carbon Dioxide 19 mmol/L (22-30); Chloride 101 mmol/L (98-107); Glucose 63 mg/dL (74-99); Magnesium 2.2 mg/dL (1.6-2.3); Potassium 5.4 mmol/L (3.5-5.1); Sodium 136 mmol/L (137-145)
[2021-10-27 08:26] LABS: African American GFR (CKD) 9 (>60 ml/min/1.73 sqM); Non-African American GFR(CKD) 8 (>60 ml/min/1.73 sqM)
[2021-10-27] MEDS: NON FORMULARY DRUG (Levocarnitine [Levocarnitine] 330 MG Tablet) PO SCH ×3 (08:37→21:34)
[2021-10-27] MEDS: PANTOPRAZOLE 40 MG/10 ML VIAL IVP SCH ×2 (08:42→21:26)
[2021-10-27] MEDS: HEPARIN SODIUM,PORCINE/PF 5,000 UNIT/0.5 ML SYRINGE SQ SCH ×2 (12:54→21:27)
[2021-10-27] MEDS: cloNIDine HCL 0.1 MG TAB PO SCH ×2 (12:54→14:04)
[2021-10-27] MEDS: NICOTINE 14MG/24HR PATCH TRANSDERM SCH (12:54)
[2021-10-27] MEDS: minoxidiL 2.5 MG TAB PO SCH ×2 (12:54→21:27)
[2021-10-27] MEDS: amLODIPine 5 MG TAB PO SCH (12:54)
[2021-10-27] MEDS: CALCIUM ACETATE 667 MG TAB PO SCH ×2 (12:54→17:16)
[2021-10-27] MEDS: DOCUSATE ORAL SOLN 100 MG/10 ML CUP PO SCH ×2 (12:54→21:26)
[2021-10-27] MEDS: METOPROLOL SUCCINATE (ER) 50 MG TAB.ER.24H PO SCH ×2 (12:54→17:16)
[2021-10-27] MEDS: ASPIRIN 81 MG PO SCH (12:54)
[2021-10-27] MEDS: SEVELAMER 800 MG TAB PO SCH ×2 (12:55→21:32)
[2021-10-27] MEDS: SIMETHICONE 80 MG CHEWABLE PO SCH ×4 (12:55→21:26)
[2021-10-27] MEDS: TORSEMIDE 20 MG TAB PO SCH (12:55)
[2021-10-27] MEDS: MORPHINE SULFATE 4 MG/ML SYRINGE IV PRN (14:13)
--- NOTE | 2021-10-27 15:01 | P.PN ---
Subjective Progress Note Date: 10/27/21 CHIEF COMPLAINT: Small bowel obstruction HISTORY OF PRESENT ILLNESS: The patient is a 70-year-old female status post lysis of adhesions. She is sitting up in a chair. Her is at bedside, "She needs something to eat," he exclaims. He confirms she has past history of aspiration. She has NG tube. She has started to pass flatus today. No bowel movememnts. ROS: No fevers or chills. No new chest pain. No productive sputum PHYSICAL EXAM: VITAL SIGNS: Reviewed CONSTITUTIONAL: Well developed and in no acute distress. EYES: Conjuctivae without sclera icterus. Extraocular movements grossly intact. HEAD, EARS, NOSE, THROAT: Moist buccal mucosa. Head is atraumatic, normocephalic. Hears conversational speech. No nasal drainage. NECK: No thyroidomegaly. RESPIRATORY: Non-labored respirations and equal bilateral excursions. CARDIOVASCULAR: 2+ radial pulses. ABDOMEN: No peritonitis. PREVENA intact. MUSCULOSKELETAL: No gross deformity of the lower extremities noted. No clubbing. No cyanosis. SKIN: Dry skin. NEUROLOGIC: Cranial nerves II through XII grossly intact. No focal or later alizing signs. PSYCH: Alert and oriented to person.. CLINICAL LABS: Reviewed. Hgb up 8.8 to 9.9 with anemia. WBC normal at 8.1. ASSESSMENT: 1. Small bowel obstruction PLAN: 1. PICC line ordered for TPN 2. Dietitian consult for TPN 3. Start popsicles. 4. Will obtain abdominal xray for objective assessment of ileus. Objective - Vital Signs Vital signs: Vital Signs Temp 98.4 F 10/27/21 13:12 Pulse 68 10/27/21 13:12 Resp 14 10/27/21 13:12 BP 162/57 10/27/21 13:12 Pulse Ox 91 L 10/27/21 13:12 Intake & Output 10/26/21 10/27/21 10/27/21 18:59 06:59 18:59 Intake Total 200 0 Output Total 10 Balance 200 -10 Weight 50 kg 50 kg Intake: Intake, IV Titration 200 Amount Sodium Chloride 0.9% 1, 200 000 ml @ 0 mls/hr IV .[employer] -[facility] ONE Rx#:[id number] Oral 0 Output: Gastric Drainage 10 Other: Voiding Method Bedpan Bedpan Bedside Commode Bedpan # Voids 0 - Labs CBC & Chem 7: 10/27/21 06:36 10/27/21 06:36 Labs: Abnormal Lab Results - Last 24 Hours (Table) 10/27/21 10/27/21 Range/Units 06:36 06:36 RBC 3.17 L (3.80-5.40) m/uL Hgb 9.9 L (11.4-16.0) gm/dL Hct 29.6 L (34.0-46.0) % Lymphocytes # 0.5 L (1.0-4.8) k/uL Sodium 136 L (137-145) mmol/L Potassium 5.4 H (3.5-5.1) mmol/L Carbon Dioxide 19 L (22-30) mmol/L BUN 60 H (7-17) mg/dL Creatinine 5.14 H (0.52-1.04) mg/dL Glucose 63 L (74-99) mg/dL Assessment and Plan (1) Small bowel obstruction Current Visit: Yes Status: Acute Code(s): K56.609 - UNSP INTESTNL OBST, UNSP TO PARTIAL VERSUS COMPLETE OBST SNOMED Code(s): 442957287 (2) Inadequate dietary intake of protein Current Visit: Yes Status: Acute Code(s): E63.9 - NUTRITIONAL DEFICIENCY, UNSPECIFIED SNOMED Code(s): 265840114 (3) Anemia Current Visit: Yes Status: Acute Code(s): D64.9 - ANEMIA, UNSPECIFIED SNOMED Code(s): 242911336
--- NOTE | 2021-10-27 15:33 | P.PN ---
Subjective Progress Note Date: 10/27/21 Follow-up for ESRD. Still has NG tube in place. Objective - Vital Signs Vital signs: Vital Signs Temp 98.4 F 10/27/21 13:12 Pulse 68 10/27/21 13:12 Resp 14 10/27/21 13:12 BP 162/57 10/27/21 13:12 Pulse Ox 91 L 10/27/21 13:12 Intake & Output 10/26/21 10/27/21 10/27/21 18:59 06:59 18:59 Intake Total 200 0 Output Total 10 Balance 200 -10 Weight 50 kg 50 kg Intake: Intake, IV Titration 200 Amount Sodium Chloride 0.9% 1, 200 000 ml @ 0 mls/hr IV .[facility] -[facility] ONE Rx#:[id number] Oral 0 Output: Gastric Drainage 10 Other: Voiding Method Bedpan Bedpan Bedside Commode Bedpan # Voids 0 - Exam No acute distress S1-S2 heard Lungs clear No edema - Labs CBC & Chem 7: 10/27/21 06:36 10/27/21 06:36 Labs: Abnormal Lab Results - Last 24 Hours (Table) 10/27/21 10/27/21 Range/Units 06:36 06:36 RBC 3.17 L (3.80-5.40) m/uL Hgb 9.9 L (11.4-16.0) gm/dL Hct 29.6 L (34.0-46.0) % Lymphocytes # 0.5 L (1.0-4.8) k/uL Sodium 136 L (137-145) mmol/L Potassium 5.4 H (3.5-5.1) mmol/L Carbon Dioxide 19 L (22-30) mmol/L BUN 60 H (7-17) mg/dL Creatinine 5.14 H (0.52-1.04) mg/dL Glucose 63 L (74-99) mg/dL Assessment and Plan Assessment: #1 ESRD on hemodialysis, 2 times a week. #2 small bowel obstruction #3 hypertension with ESRD #4 anemia with ESRD #5 hyperkalemia secondary to missed dialysis/lisinopril. Improved with dialysis Plan: #1 hemodialysis on Saturday. #2 supportive care
--- NOTE | 2021-10-27 15:44 | P.PN ---
Subjective Progress Note Date: 10/27/21 Principal diagnosis: SBO; s/p exploratory laporatomy with lysis of adhesions for small bowel obstruction End-stage renal disease on hemodialysis 2 times a week Hyperkalemia secondary to renal failure Bilateral pleural effusion, pericardial effusion, possibly fluid overload from renal failure 70-year-old female who presented to the with complaints of abdominal pain that started 3 days ago. Abdominal pain is tender to palpation. Patient describes as 10/10 and sharp in nature. Past medical history significant for COPD, GERD/reflux, hypertension, renal disease, chronic pain. Patient does admit to smoking about 8 cigarettes per day she states that she has cut down recently, denies alcohol use. Patient recently underwent a bilateral hip fractu re repair status post fall in June 2021 was discharged to rehab. She is now back at home with her goes to dialysis outpatient. Patient had vomiting that started 430 a.m. this morning. She denies any blood in the vomit however she states that she had a little bit of pink tinged his sputum couple times. She denies any blood in her bowels, denies diarrhea. Last bowel movement was yesterday. She denies any headache, lightheadedness, dizziness and she denies any chest pain, chest pressure, palpitations. She denies any cough or shortness of breath. Patient has a history of end-stage renal disease and she does hemodialysis twice a day Saturday and she does follow with nephrology. Creatinine today is 4.04. Covid PCR was negative, urinalysis showed a pH 8.5, positive for protein and glucose. Negative for any signs of infection. Abdomen pelvis CT shows no acute abdominal pelvic process, redemonstrated enlargement of the bilateral kidneys with extensive cysts most likely polycystic kidney disease. Bilateral pleural effusions right greater than left. Cardiomegaly and moderate pericardial effusion. Echocardiogram is ordered. Nephrology is consulted, patient will need dialysis this admission. Consult placed to general surgery as patients lower and left lower quadrant are tender to palpation still. Pain has improved to about a 3/10. She can try clear liquids advance as tolerated to full liquid. Objective - Vital Signs Vital signs: Vital Signs Temp 98.2 F 10/27/21 05:00 Pulse 84 10/27/21 05:00 Resp 18 10/27/21 05:00 BP 153/64 10/27/21 05:00 Pulse Ox 92 L 10/27/21 05:00 Intake & Output 10/26/21 10/27/21 10/27/21 18:59 06:59 18:59 Intake Total 200 0 Output Total 10 Balance 200 -10 Weight 50 kg 50 kg Intake: Intake, IV Titration 200 Amount Sodium Chloride 0.9% 1, 200 000 ml @ 0 mls/hr IV .[employer] ONE Rx#:[id number] Oral 0 Output: Gastric Drainage 10 Other: Voiding Method Bedpan Bedpan Bedside Commode Bedpan # Voids 0 - Labs CBC & Chem 7: 10/27/21 06:36 10/27/21 06:36 Labs: Abnormal Lab Results - Last 24 Hours (Table) 10/27/21 10/27/21 Range/Units 06:36 06:36 RBC 3.17 L (3.80-5.40) m/uL Hgb 9.9 L (11.4-16.0) gm/dL Hct 29.6 L (34.0-46.0) % Lymphocytes # 0.5 L (1.0-4.8) k/uL Sodium 136 L (137-145) mmol/L Potassium 5.4 H (3.5-5.1) mmol/L Carbon Dioxide 19 L (22-30) mmol/L BUN 60 H (7-17) mg/dL Creatinine 5.14 H (0.52-1.04) mg/dL Glucose 63 L (74-99) mg/dL Assessment and Plan Assessment: pleural effusions related to renal failure and overload, current echo shows an EF of 60-65%, the left atrium is severely dilated, however this can be related to fluid overload from kidney disease. POD #2 exploratory laporatomy with lysis of adhesions for small bowel obstruction End-stage renal disease on hemodialysis 2 times a week Hyperkalemia secondary to renal failure Bilateral pleural effusion, pericardial effusion, possibly fluid overload from renal failure Polycystic kidney disease, advanced History of COPD Severe pulmonary hypertension Chronic ongoing nicotine dependence Recent history of bilateral hip replacement with surgery of repair Hypertension History of depression Hyponatremia Anemia, normocytic anemia of chronic disease GI prophylaxis: Protonix DVT prophylaxis: Subcu heparin FULL CODE Plan Continue with NG tube and NPO diet per surgical team Continue to encourge IS Pain management Continue all other supportive care Repeat labs tomorrow
[2021-10-27 17:37] LABS: Albumin 3.2 g/dL (3.5-5.0); Phosphorus 6.5 mg/dL (2.5-4.5)
[2021-10-27] MEDS: MIRTAZAPINE 15 MG TAB PO SCH (21:26)
[2021-10-27] MEDS: ATORVASTATIN 20 MG TAB PO SCH (21:26)
[2021-10-27] MEDS: cloNIDine HCL 0.2 MG TAB PO SCH (21:27)
[2021-10-28] MEDS: hydrALAZINE HCL 50 MG TAB PO SCH ×3 (06:14→21:36)
[2021-10-28] MEDS: NON FORMULARY DRUG (Levocarnitine [Levocarnitine] 330 MG Tablet) PO SCH ×3 (07:01→21:06)
[2021-10-28 07:39] LABS: Ionized Calcium 4.5 mg/dL (4.5-5.3)
[2021-10-28 08:18] LABS: Anion Gap 18 mmol/L; Blood Urea Nitrogen 69 mg/dL (7-17); Calcium 9.6 mg/dL (8.4-10.2); Carbon Dioxide 24 mmol/L (22-30); Chloride 94 mmol/L (98-107); Glucose 74 mg/dL (74-99); Magnesium 1.9 mg/dL (1.6-2.3); Phosphorus 6.2 mg/dL (2.5-4.5); Potassium 4.6 mmol/L (3.5-5.1); Sodium 136 mmol/L (137-145)
[2021-10-28 08:24] LABS: African American GFR (CKD) 7 (>60 ml/min/1.73 sqM); Non-African American GFR(CKD) 6 (>60 ml/min/1.73 sqM)
[2021-10-28] MEDS: SIMETHICONE 80 MG CHEWABLE PO SCH ×2 (08:39→13:18)
[2021-10-28] MEDS: PANTOPRAZOLE 40 MG/10 ML VIAL IVP SCH ×2 (08:46→21:35)
[2021-10-28] MEDS: HEPARIN SODIUM,PORCINE/PF 5,000 UNIT/0.5 ML SYRINGE SQ SCH ×2 (08:46→21:05)
--- NOTE | 2021-10-28 10:37 | P.PN ---
Subjective Patient is seen in follow-up for end-stage renal disease. She is maintained on hemodialysis 2 days a week. Underwent exploratory laparotomy with lysis of adhesions for small bowel obstruction on October 24. Currently has an NG tube. Blood pressure stable. Vital signs are stable. HEENT: Head exam is unremarkable. NG tube noted. LUNGS: Breath sounds decreased. HEART: Rate and Rhythm are regular. ABDOMEN: Generalized tenderness. EXTREMITITES: No edema. Objective - Vital Signs Vital signs: Vital Signs Temp 98.2 F 10/28/21 04:20 Pulse 74 10/28/21 04:20 Resp 16 10/28/21 04:20 BP 122/54 10/28/21 08:40 Pulse Ox 95 10/28/21 04:20 Intake & Output 10/27/21 10/28/21 10/28/21 18:59 06:59 18:59 Intake Total 110 Output Total 300 Balance 110 -300 Weight 50 kg 53 kg Intake: Oral 110 Output: Emesis 300 Other: Voiding Method Bedside Commode Bedpan # Voids 1 - Labs CBC & Chem 7: 10/27/21 06:36 10/28/21 06:32 Labs: Abnormal Lab Results - Last 24 Hours (Table) 10/27/21 10/28/21 Range/Units 17:01 06:32 Sodium 136 L (137-145) mmol/L Chloride 94 L (98-107) mmol/L BUN 69 H (7-17) mg/dL Creatinine 6.17 H (0.52-1.04) mg/dL Phosphorus 6.5 H 6.2 H (2.5-4.5) mg/dL Albumin 3.2 L (3.5-5.0) g/dL Triglycerides 186.00 H (0.00-149.00) mg/dL Assessment and Plan Plan: Assessment: 1. End-stage renal disease maintained on hemodialysis 2 days a week. Patient has refused 3 times a week dialysis multiple times. 2. Hyperkalemia secondary to chronic kidney disease and lisinopril. Improved postdialysis. 3. Chronic kidney disease mineral bone disease maintained on phosphate binders and calcitriol. Currently nothing by mouth. 4. Fluid overload. Improved with ultrafiltration. 5. Small bowel obstruction. Currently has NG tube. Status post exploratory laparotomy, lysis of adhesions and cholecystectomy on 10/24/2021. Plan: Hemodialysis today. Lisinopril has been discontinued. Hold antihypertensives for systolic blood pressure less than 120. Currently NPO.
[2021-10-28] MEDS: MORPHINE SULFATE 4 MG/ML SYRINGE IV PRN (10:47)
[2021-10-28] MEDS: NICOTINE 14MG/24HR PATCH TRANSDERM SCH (10:50)
[2021-10-28] MEDS: amLODIPine 5 MG TAB PO SCH (12:40)
[2021-10-28] MEDS: minoxidiL 2.5 MG TAB PO SCH ×2 (12:40→21:35)
[2021-10-28] MEDS: ASPIRIN 81 MG PO SCH (12:40)
[2021-10-28] MEDS: METOPROLOL SUCCINATE (ER) 50 MG TAB.ER.24H PO SCH ×2 (12:41→17:56)
[2021-10-28] MEDS: cloNIDine HCL 0.1 MG TAB PO SCH ×2 (12:41→13:18)
[2021-10-28] MEDS: DOCUSATE ORAL SOLN 100 MG/10 ML CUP PO SCH ×2 (12:41→21:36)
[2021-10-28] MEDS: SEVELAMER 800 MG TAB PO SCH ×2 (12:42→21:36)
[2021-10-28] MEDS: TORSEMIDE 20 MG TAB PO SCH (12:42)
[2021-10-28] MEDS: CALCIUM ACETATE 667 MG TAB PO SCH ×2 (13:19→17:56)
--- NOTE | 2021-10-28 14:41 | P.PN ---
Subjective Progress Note Date: 10/28/21 CHIEF COMPLAINT: Small bowel obstruction HISTORY OF PRESENT ILLNESS: The patient is a 70-year-old female status post lysis of adhesions. She is sitting up in bed. She is passing flatus. is at bedside. She had hemodialysis. gives more history that she barely ambulates due to prosthesis of the hips. ROS: No fevers or chills. No new chest pain. PHYSICAL EXAM: VITAL SIGNS: Reviewed CONSTITUTIONAL: Well developed and in no acute distress. EYES: Conjuctivae without sclera icterus. Extraocular movements grossly intact. HEAD, EARS, NOSE, THROAT: Moist buccal mucosa. Head is atraumatic, normocephalic. Hears conversational speech. No nasal drainage. NECK: No thyroidomegaly. RESPIRATORY: Non-labored respirations and equal bilateral excursions. CARDIOVASCULAR: 2+ radial pulses. ABDOMEN: No peritonitis. PREVENA intact. MUSCULOSKELETAL: No gross deformity of the lower extremities noted. No clubbing. No cyanosis. SKIN: Dry skin. NEUROLOGIC: Cranial nerves II through XII grossly intact. No focal or lateralizing signs. PSYCH: Alert and oriented to person.. STUDIES: Chest x-ray reviewed. CLINICAL LABS: Reviewed. Potassium normal at 4.6 ASSESSMENT: 1. Small bowel obstruction PLAN: 1. Options of removal of NG tube and start of clears reviewed vs continue NG tu be pending bowel movement. Patient opted for removal of NG tube with possibility of replacement for new nausea or vomiting. 2. May have start of clear liquid diet renal modified. Objective - Vital Signs Vital signs: Vital Signs Temp 98.0 F 10/28/21 13:00 Pulse 81 10/28/21 13:00 Resp 18 10/28/21 13:00 BP 125/75 10/28/21 13:00 Pulse Ox 95 10/28/21 04:20 Intake & Output 10/27/21 10/28/21 10/28/21 18:59 06:59 18:59 Intake Total 110 300 Output Total 2600 Balance 110 -2300 Weight 50 kg 53 kg Intake: Oral 110 Hemodialysis 300 Output: Emesis 300 Hemodialysis 2300 Other: Voiding Method Bedside Commode Bedside Commode Bedpan Bedpan # Voids 1 - Labs CBC & Chem 7: 10/27/21 06:36 10/28/21 06:32 Labs: Abnormal Lab Results - Last 24 Hours (Table) 10/27/21 10/28/21 Range/Units 17:01 06:32 Sodium 136 L (137-145) mmol/L Chloride 94 L (98-107) mmol/L BUN 69 H (7-17) mg/dL Creatinine 6.17 H (0.52-1.04) mg/dL Phosphorus 6.5 H 6.2 H (2.5-4.5) mg/dL Albumin 3.2 L (3.5-5.0) g/dL Triglycerides 186.00 H (0.00-149.00) mg/dL Assessment and Plan (1) Small bowel obstruction Current Visit: Yes Status: Acute Code(s): K56.609 - UNSP INTESTNL OBST, UNSP TO PARTIAL VERSUS COMPLETE OBST SNOMED Code(s): 823681599 (2) Inadequate dietary intake of protein Current Visit: Yes Status: Acute Code(s): E63.9 - NUTRITIONAL DEFICIENCY, UNSPECIFIED SNOMED Code(s): 865377272 (3) Anemia Current Visit: Yes Status: Acute Code(s): D64.9 - ANEMIA, UNSPECIFIED SNOMED Code(s): 468649715
--- NOTE | 2021-10-28 17:12 | P.PN ---
Subjective Progress Note Date: 10/28/21 Principal diagnosis: SBO; s/p exploratory laporatomy with lysis of adhesions for small bowel obstruction End-stage renal disease on hemodialysis 2 times a week Hyperkalemia secondary to renal failure Bilateral pleural effusion, pericardial effusion, possibly fluid overload from renal failure 70-year-old female who presented to the with complaints of abdominal pain that started 3 days ago. Abdominal pain is tender to palpation. Patient describes as 10/10 and sharp in nature. Past medical history significant for COPD, GERD/reflux, hypertension, renal disease, chronic pain. Patient does admit to smoking about 8 cigarettes per day she states that she has cut down recently, denies alcohol use. Patient recently underwent a bilateral hip fractu re repair status post fall in June 2021 was discharged to rehab. She is now back at home with her goes to dialysis outpatient. Patient had vomiting that started 430 a.m. this morning. She denies any blood in the vomit however she states that she had a little bit of pink tinged his sputum couple times. She denies any blood in her bowels, denies diarrhea. Last bowel movement was yesterday. She denies any headache, lightheadedness, dizziness and she denies any chest pain, chest pressure, palpitations. She denies any cough or shortness of breath. Patient has a history of end-stage renal disease and she does hemodialysis twice a day Saturday and she does follow with nephrology. Creatinine today is 4.04. Covid PCR was negative, urinalysis showed a pH 8.5, positive for protein and glucose. Negative for any signs of infection. Abdomen pelvis CT shows no acute abdominal pelvic process, redemonstrated enlargement of the bilateral kidneys with extensive cysts most likely polycystic kidney disease. Bilateral pleural effusions right greater than left. Cardiomegaly and moderate pericardial effusion. Echocardiogram is ordered. Nephrology is consulted, patient will need dialysis this admission. Consult placed to general surgery as patients lower and left lower quadrant are tender to palpation still. Pain has improved to about a 3/10. She can try clear liquids advance as tolerated to full liquid. 10/28/2021 Someone to patient's bedside due to concerns about patient's family concerned about PICC line not be placed today for TPN; according to he was informed that patient will have PICC line placed with start of TPN yesterday; detailed meeting with patient and at bedside and explained to patient and family that PICC line order by surgery was placed later in the day when PICC line staff had left for the day and will only be available for emergency situations; had numerous questions about nutrition and body TPN was not ordered earlier than yesterday; I did go over patient's condition and bowel obstruction management in great detail and starting of TPN is a decision made by surgery I did promise to family that I would be calling the cook house laborer to try to page PICC line placement staff and see if this would be available for PICC line placement today or tomorrow; is agreeable to that [place] [phone] and was informed that PICC line team was paged twice and haven't returned the page yet; this was communicated to the patient and family at bedside Patient reports feeling weak and tired since dialysis; has been passing some flatus Vital signs are reviewed and are stable with temperature of 98 5, pulse 74, respirations 16 and blood pressure 125/63 with O2 saturation 95% on room air Lab review reveals sodium 136, potassium 4.6, BUN/creatinine of 69/6.17 Patient evaluated by surgery and plan is to remove the NG tube and patient will be started on a clear liquid diet; NG tube will have to be replaced if patient develops nausea vomiting again We will monitor closely Objective - Vital Signs Vital signs: Vital Signs Temp 98.2 F 10/28/21 04:20 Pulse 74 10/28/21 04:20 Resp 16 10/28/21 08:00 BP 122/54 10/28/21 08:40 Pulse Ox 95 10/28/21 04:20 Intake & Output 10/27/21 10/28/21 10/28/21 18:59 06:59 18:59 Intake Total 110 Output Total 300 Balance 110 -300 Weight 50 kg 53 kg Intake: Oral 110 Output: Emesis 300 Other: Voiding Method Bedside Commode Bedside Commode Bedpan Bedpan # Voids 1 - Exam GENERAL: The patient is alert and oriented x3, mild discomfort noted. Well developed, well nourished. NG tube in place HEENT: Pupils are round and equally reacting to light. EOMI. No scleral icterus. No conjunctival pallor. Normocephalic, atraumatic. No pharyngeal erythema. No thyromegaly. CARDIOVASCULAR: S1 and S2 present. No murmurs, rubs, or gallops. Tachycardic at the time of my assessment. PULMONARY: Diminished bases ABDOMEN: Post surgical abdomen with woundvac in place and abdominal binder, tender MUSCULOSKELETAL: No joint swelling or deformity. EXTREMITIES: No cyanosis, clubbing, or pedal edema. NEUROLOGICAL: Gross neurological examination did not reveal any focal deficits. - Labs CBC & Chem 7: 10/27/21 06:36 10/28/21 06:32 Labs: Abnormal Lab Results - Last 24 Hours (Table) 10/27/21 10/28/21 Range/Units 17:01 06:32 Sodium 136 L (137-145) mmol/L Chloride 94 L (98-107) mmol/L BUN 69 H (7-17) mg/dL Creatinine 6.17 H (0.52-1.04) mg/dL Phosphorus 6.5 H 6.2 H (2.5-4.5) mg/dL Albumin 3.2 L (3.5-5.0) g/dL Triglycerides 186.00 H (0.00-149.00) mg/dL Assessment and Plan Assessment: pleural effusions related to renal failure and overload, current echo shows an EF of 60-65%, the left atrium is severely dilated, however this can be related to fluid overload from kidney disease. POD #2 exploratory laporatomy with lysis of adhesions for small bowel obstruction End-stage renal disease on hemodialysis 2 times a week Hyperkalemia secondary to renal failure Bilateral pleural effusion, pericardial effusion, possibly fluid overload from renal failure Polycystic kidney disease, advanced History of COPD Severe pulmonary hypertension Chronic ongoing nicotine dependence Recent history of bilateral hip replacement with surgery of repair Hypertension History of depression Hyponatremia Anemia, normocytic anemia of chronic disease GI prophylaxis: Protonix DVT prophylaxis: Subcu heparin FULL CODE Plan Continue with NG tube and NPO diet per surgical team Continue to encourge IS Pain management Continue all other supportive care Repeat labs tomorrow
[2021-10-28] MEDS: SIMETHICONE 40 MG/0.6 ML DROPS 2,000 MG/30 ML BOTTLE PO SCH (17:56)
[2021-10-28] MEDS: cloNIDine HCL 0.2 MG TAB PO SCH (21:35)
[2021-10-28] MEDS: ATORVASTATIN 20 MG TAB PO SCH (21:35)
[2021-10-28] MEDS: MIRTAZAPINE 15 MG TAB PO SCH (22:19)
[2021-10-29] MEDS: SIMETHICONE 40 MG/0.6 ML DROPS 2,000 MG/30 ML BOTTLE PO SCH ×5 (00:08→22:16)
[2021-10-29 05:44] LABS: Basophils % (A) 0 %; Eosinophils % (A) 0 %; HCT 27.8 % (34.0-46.0); Lymphocytes # (A) 0.3 k/uL (1.0-4.8); Lymphocytes % (A) 3 %; MCH 30.2 pg (25.0-35.0); MCHC 32.5 g/dL (31.0-37.0); MCV 92.8 fL (80.0-100.0); Mean Platelet Volume 8.2; Monocytes # (A) 0.4 k/uL (0-1.0); Monocytes % (A) 4 %; Neutrophils % (A) 91 %; Platelet Count 167 k/uL (150-450); RBC 2.99 m/uL (3.80-5.40); RDW 15.1 % (11.5-15.5); WBC 9.9 k/uL (3.8-10.6)
[2021-10-29] MEDS: hydrALAZINE HCL 50 MG TAB PO SCH ×3 (06:12→22:16)
[2021-10-29] MEDS: PANTOPRAZOLE 40 MG/10 ML VIAL IVP SCH ×2 (08:33→22:16)
[2021-10-29] MEDS: SEVELAMER 800 MG TAB PO SCH ×2 (08:33→22:16)
[2021-10-29] MEDS: cloNIDine HCL 0.1 MG TAB PO SCH ×2 (08:34→13:15)
[2021-10-29] MEDS: ASPIRIN 81 MG PO SCH (08:34)
[2021-10-29] MEDS: minoxidiL 2.5 MG TAB PO SCH ×2 (08:34→22:15)
[2021-10-29] MEDS: CALCIUM ACETATE 667 MG TAB PO SCH ×2 (08:34→17:53)
[2021-10-29] MEDS: METOPROLOL SUCCINATE (ER) 50 MG TAB.ER.24H PO SCH ×2 (08:34→17:54)
[2021-10-29] MEDS: DOCUSATE ORAL SOLN 100 MG/10 ML CUP PO SCH ×2 (08:34→22:15)
[2021-10-29] MEDS: TORSEMIDE 20 MG TAB PO SCH (08:35)
[2021-10-29] MEDS: HEPARIN SODIUM,PORCINE/PF 5,000 UNIT/0.5 ML SYRINGE SQ SCH ×2 (08:35→22:15)
[2021-10-29] MEDS: NICOTINE 14MG/24HR PATCH TRANSDERM SCH (08:35)
[2021-10-29] MEDS: amLODIPine 5 MG TAB PO SCH (08:35)
[2021-10-29] MEDS: NON FORMULARY DRUG (Levocarnitine [Levocarnitine] 330 MG Tablet) PO SCH ×3 (08:36→22:16)
[2021-10-29] MEDS: HYDROcodone/APAP 10-325MG 1 EACH TAB PO PRN (08:42)
--- NOTE | 2021-10-29 10:23 | P.PN ---
Subjective Patient is seen in follow-up for end-stage renal disease. She is maintained on hemodialysis 2 days a week. Underwent exploratory laparotomy with lysis of adhesions for small bowel obstruction on October 24. NG tube removed. Denies pain at this time. Blood pressure stable. Vital signs are stable. HEENT: Head exam is unremarkable. LUNGS: Breath sounds decreased. HEART: Rate and Rhythm are regular. ABDOMEN: Soft, no distention. EXTREMITITES: No edema. Objective - Vital Signs Vital signs: Vital Signs Temp 97.5 F L 10/29/21 04:10 Pulse 94 10/29/21 08:35 Resp 24 10/29/21 04:10 BP 117/64 10/29/21 08:35 Pulse Ox 96 10/29/21 04:10 Intake & Output 10/28/21 10/29/21 10/29/21 18:59 06:59 18:59 Intake Total 540 1010 Output Total 2600 Balance -206 1010 Weight 53.1 kg Intake: Oral 240 1010 Hemodialysis 300 Output: Emesis 300 Hemodialysis 2300 Other: Voiding Method Bedside Commode Bedpan - Labs CBC & Chem 7: 10/29/21 04:53 10/28/21 06:32 Labs: Abnormal Lab Results - Last 24 Hours (Table) 10/29/21 Range/Units 04:53 RBC 2.99 L (3.80-5.40) m/uL Hgb 9.0 L (11.4-16.0) gm/dL Hct 27.8 L (34.0-46.0) % Neutrophils # 9.0 H (1.3-7.7) k/uL Lymphocytes # 0.3 L (1.0-4.8) k/uL Assessment and Plan Plan: Assessment: 1. End-stage renal disease maintained on hemodialysis 2 days a week. Patient has refused 3 times a week dialysis multiple times. 2. Hyperkalemia secondary to chronic kidney disease and lisinopril. Improved postdialysis. 3. Chronic kidney disease mineral bone disease maintained on phosphate binders and calcitriol. 4. Fluid overload. Improved with ultrafiltration. 5. Small bowel obstruction. NG tube removed. Status post exploratory laparotomy, lysis of adhesions and cholecystectomy on 10/24/2021. Plan: Hemodialysis tomorrow. Lisinopril has been discontinued. Hold antihypertensives for systolic blood pressure less than 120.
[2021-10-29 10:49] LABS: African American GFR (CKD) 14.3 (60.0-200.0); Anion Gap 17.9 mmol/L (10.00-18.00); BUN/Creat Ratio 7.09 Ratio (12.00-20.00); Blood Urea Nitrogen 25.3 mg/dL (9.0-27.0); Calcium 9.2 mg/dL (8.7-10.3); Carbon Dioxide 23.9 mmol/L (20.0-27.5); Magnesium 1.7 mg/dL (1.5-2.4); Non-African American GFR(CKD) 12.3 (60.0-200.0); Phosphorus 3.1 mg/dL (2.4-5.1); Potassium 3.7 mmol/L (3.5-5.5)
--- NOTE | 2021-10-29 13:13 | P.PN ---
Subjective Progress Note Date: 10/29/21 CHIEF COMPLAINT: Small bowel obstruction HISTORY OF PRESENT ILLNESS: The patient is a 70-year-old female status post lysis of adhesions. She is sitting up in chair. "I feel great!" She is passing moderate flatus. No stools. No reports of abdominal pain. She is tolerating clear liquid diet. ROS: No fevers or chills. No new chest pain. PHYSICAL EXAM: VITAL SIGNS: Reviewed CONSTITUTIONAL: Well developed and in no acute distress. EYES: Conjuctivae without sclera icterus. Extraocular movements grossly intact. Wears glasses. HEAD, EARS, NOSE, THROAT: Moist buccal mucosa. Head is atraumatic, no rmocephalic. Hears conversational speech. No nasal drainage. NECK: No thyroidomegaly. RESPIRATORY: Non-labored respirations and equal bilateral excursions. CARDIOVASCULAR: 2+ radial pulses. ABDOMEN: No peritonitis. Dressing intact. MUSCULOSKELETAL: No gross deformity of the lower extremities noted. No clubbing. No cyanosis. SKIN: Well perfused. NEUROLOGIC: Cranial nerves II through XII grossly intact. No focal or lateralizing signs. PSYCH: Alert and oriented to person.. CLINICAL LABS: Reviewed. WBC 9.9 and normal. Hgb down 9.9 to 9.0 ASSESSMENT: 1. Small bowel obstruction 2. Anemia PLAN: 1. She is doing well with liquids. Will advance to full liquid diet. 2. Patient offered suppository which she declined. Otherwise, she is stable. Objective - Vital Signs Vital signs: Vital Signs Temp 98.0 F 10/29/21 11:58 Pulse 72 10/29/21 11:58 Resp 18 10/29/21 11:58 BP 84/44 10/29/21 11:58 Pulse Ox 93 L 10/29/21 11:58 Intake & Output 10/28/21 10/29/21 10/29/21 18:59 06:59 18:59 Intake Total 540 1010 Output Total 2600 Balance -2059 1010 Weight 53.1 kg Intake: Oral 240 1010 Hemodialysis 300 Output: Emesis 300 Hemodialysis 2300 Other: Voiding Method Bedside Commode Bedpan - Labs CBC & Chem 7: 10/29/21 04:53 10/29/21 04:53 Labs: Abnormal Lab Results - Last 24 Hours (Table) 11/28/21 11/28/21 Range/Units 04:53 04:53 RBC 2.99 L (3.80-5.40) m/uL Hgb 9.0 L (11.4-16.0) gm/dL Hct 27.8 L (34.0-46.0) % Neutrophils # 9.0 H (1.3-7.7) k/uL Lymphocytes # 0.3 L (1.0-4.8) k/uL Creatinine 3.6 H (0.6-1.5) mg/dL Est GFR (CKD-EPI)AfAm 14.3 L (60.0-200.0) Est GFR (CKD-EPI)NonAf 12.3 L (60.0-200.0) BUN/Creatinine Ratio 7.09 L (12.00-20.00) Ratio Assessment and Plan (1) Small bowel obstruction Current Visit: Yes Status: Acute Code(s): K56.609 - UNSP INTESTNL OBST, UNSP TO PARTIAL VERSUS COMPLETE OBST SNOMED Code(s): 299907264 (2) Inadequate dietary intake of protein Current Visit: Yes Status: Acute Code(s): E63.9 - NUTRITIONAL DEFICIENCY, UNSPECIFIED SNOMED Code(s): 007064810 (3) Anemia Current Visit: Yes Status: Acute Code(s): D64.9 - ANEMIA, UNSPECIFIED SNOMED Code(s): 834749401
--- NOTE | 2021-10-29 20:22 | P.PN ---
Subjective Progress Note Date: 10/22/21 Principal diagnosis: SBO; s/p exploratory laporatomy with lysis of adhesions for small bowel obstruction End-stage renal disease on hemodialysis 2 times a week Hyperkalemia secondary to renal failure Bilateral pleural effusion, pericardial effusion, possibly fluid overload from renal failure 70-year-old female who presented to the with complaints of abdominal pain that started 3 days ago. Abdominal pain is tender to palpation. Patient describes as 10/10 and sharp in nature. Past medical history significant for COPD, GERD/reflux, hypertension, renal disease, chronic pain. Patient does admit to smoking about 8 cigarettes per day she states that she has cut down recently, denies alcohol use. Patient recently underwent a bilateral hip fractu re repair status post fall in June 2021 was discharged to rehab. She is now back at home with her goes to dialysis outpatient. Patient had vomiting that started 430 a.m. this morning. She denies any blood in the vomit however she states that she had a little bit of pink tinged his sputum couple times. She denies any blood in her bowels, denies diarrhea. Last bowel movement was yesterday. She denies any headache, lightheadedness, dizziness and she denies any chest pain, chest pressure, palpitations. She denies any cough or shortness of breath. Patient has a history of end-stage renal disease and she does hemodialysis twice a day Saturday and she does follow with nephrology. Creatinine today is 4.04. Covid PCR was negative, urinalysis showed a pH 8.5, positive for protein and glucose. Negative for any signs of infection. Abdomen pelvis CT shows no acute abdominal pelvic process, redemonstrated enlargement of the bilateral kidneys with extensive cysts most likely polycystic kidney disease. Bilateral pleural effusions right greater than left. Cardiomegaly and moderate pericardial effusion. Echocardiogram is ordered. Nephrology is consulted, patient will need dialysis this admission. Consult placed to general surgery as patients lower and left lower quadrant are tender to palpation still. Pain has improved to about a 3/10. She can try clear liquids advance as tolerated to full liquid. 10/28/2021 Someone to patient's bedside due to concerns about patient's family concerned about PICC line not be placed today for TPN; according to he was informed that patient will have PICC line placed with start of TPN yesterday; detailed meeting with patient and at bedside and explained to patient and family that PICC line order by surgery was placed later in the day when PICC line staff had left for the day and will only be available for emergency situations; had numerous questions about nutrition and body TPN was not ordered earlier than yesterday; I did go over patient's condition and bowel obstruction management in great detail and starting of TPN is a decision made by surgery I did promise to family that I would be calling the dyehouse worker to try to page PICC line placement staff and see if this would be available for PICC line placement today or tomorrow; is agreeable to that [place] [phone] and was informed that PICC line team was paged twice and haven't returned the page yet; this was communicated to the patient and family at bedside Patient reports feeling weak and tired since dialysis; has been passing some flatus Vital signs are reviewed and are stable with temperature of 98 5, pulse 74, respirations 16 and blood pressure 125/63 with O2 saturation 95% on room air Lab review reveals sodium 136, potassium 4.6, BUN/creatinine of 69/6.17 Patient evaluated by surgery and plan is to remove the NG tube and patient will be started on a clear liquid diet; NG tube will have to be replaced if patient develops nausea vomiting again We will monitor closely 10/29/2021 Patient is seen and evaluated sitting up at night; she is more awake and alert this morning; NG tube has been removed; denies any complaints Vital signs are reviewed, temperature 98.0, pulse 72, respiration 18, blood pressure of 88/44, O2 saturation 93% NG tube has been removed and patient hasn't placed on a clear liquid diet which she is tolerating well; recommend full liquid diet; await surgery evaluation Objective - Vital Signs Vital signs: Vital Signs Temp 98.0 F 10/29/21 11:58 Pulse 72 10/29/21 11:58 Resp 18 10/29/21 11:58 BP 84/44 10/29/21 11:58 Pulse Ox 93 L 10/29/21 11:58 Intake & Output 10/28/21 10/29/21 10/29/21 18:59 06:59 18:59 Intake Total 540 1010 Output Total 2600 Balance -2059 1010 Weight 53.1 kg Intake: Oral 240 1010 Hemodialysis 300 Output: Emesis 300 Hemodialysis 2300 Other: Voiding Method Bedside Commode Bedpan - Exam GENERAL: The patient is alert and oriented x3, mild discomfort noted. Well developed, well nourished. NG tube in place HEENT: Pupils are round and equally reacting to light. EOMI. No scleral icterus. No conjunctival pallor. Normocephalic, atraumatic. No pharyngeal erythema. No th yromegaly. CARDIOVASCULAR: S1 and S2 present. No murmurs, rubs, or gallops. Tachycardic at the time of my assessment. PULMONARY: Diminished bases ABDOMEN: Post surgical abdomen with woundvac in place and abdominal binder, tender MUSCULOSKELETAL: No joint swelling or deformity. EXTREMITIES: No cyanosis, clubbing, or pedal edema. NEUROLOGICAL: Gross neurological examination did not reveal any focal deficits. - Labs CBC & Chem 7: 10/29/21 04:53 10/29/21 04:53 Labs: Abnormal Lab Results - Last 24 Hours (Table) 10/29/21 10/29/21 Range/Units 04:53 04:53 RBC 2.99 L (3.80-5.40) m/uL Hgb 9.0 L (11.4-16.0) gm/dL Hct 27.8 L (34.0-46.0) % Neutrophils # 9.0 H (1.3-7.7) k/uL Lymphocytes # 0.3 L (1.0-4.8) k/uL Creatinine 3.6 H (0.6-1.5) mg/dL Est GFR (CKD-EPI)AfAm 14.3 L (60.0-200.0) Est GFR (CKD-EPI)NonAf 12.3 L (60.0-200.0) BUN/Creatinine Ratio 7.09 L (12.00-20.00) Ratio Assessment and Plan Assessment: pleural effusions related to renal failure and overload, current echo shows an EF of 60-65%, the left atrium is severely dilated, however this can be related to fluid overload from kidney disease. POD #2 exploratory laporatomy with lysis of adhesions for small bowel obstruction End-stage renal disease on hemodialysis 2 times a week Hyperkalemia secondary to renal failure Bilateral pleural effusion, pericardial effusion, possibly fluid overload from renal failure Polycystic kidney disease, advanced History of COPD Severe pulmonary hypertension Chronic ongoing nicotine dependence Recent history of bilateral hip replacement with surgery of repair Hypertension History of depression Hyponatremia Anemia, normocytic anemia of chronic disease GI prophylaxis: Protonix DVT prophylaxis: Subcu heparin FULL CODE Plan Continue with NG tube and NPO diet per surgical team Continue to encourge IS Pain management Continue all other supportive care Repeat labs tomorrow
[2021-10-29] MEDS: MIRTAZAPINE 15 MG TAB PO SCH (22:15)
[2021-10-29] MEDS: ATORVASTATIN 20 MG TAB PO SCH (22:15)
[2021-10-29] MEDS: cloNIDine HCL 0.2 MG TAB PO SCH (22:15)
[2021-10-30] MEDS: ONDANSETRON 4 MG/2 ML VIAL IVP PRN (00:58)
[2021-10-30] MEDS: HYDROcodone/APAP 10-325MG 1 EACH TAB PO PRN ×2 (03:07→14:23)
[2021-10-30] MEDS: hydrALAZINE HCL 50 MG TAB PO SCH ×3 (05:06→21:48)
[2021-10-30] MEDS ORDERED: FAT EMULSION 20% 500 ML in EMPTY BAG 1 BAG IV SCH (09:00)
[2021-10-30] MEDS: cloNIDine HCL 0.1 MG TAB PO SCH ×4 (09:41→22:04)
[2021-10-30] MEDS: amLODIPine 5 MG TAB PO SCH (09:41)
[2021-10-30] MEDS: CALCIUM ACETATE 667 MG TAB PO SCH ×2 (09:41→17:12)
[2021-10-30] MEDS: METOPROLOL SUCCINATE (ER) 50 MG TAB.ER.24H PO SCH ×2 (09:41→17:12)
[2021-10-30] MEDS: ASPIRIN 81 MG PO SCH (09:42)
[2021-10-30] MEDS: DOCUSATE ORAL SOLN 100 MG/10 ML CUP PO SCH ×2 (09:42→22:00)
[2021-10-30] MEDS: minoxidiL 2.5 MG TAB PO SCH (09:42)
[2021-10-30] MEDS: NON FORMULARY DRUG (Levocarnitine [Levocarnitine] 330 MG Tablet) PO SCH ×3 (09:42→21:54)
[2021-10-30] MEDS: NICOTINE 14MG/24HR PATCH TRANSDERM SCH (09:43)
[2021-10-30] MEDS: TORSEMIDE 20 MG TAB PO SCH (09:44)
[2021-10-30] MEDS: SIMETHICONE 40 MG/0.6 ML DROPS 2,000 MG/30 ML BOTTLE PO SCH ×4 (09:44→22:04)
[2021-10-30] MEDS: SEVELAMER 800 MG TAB PO SCH ×2 (09:44→22:03)
[2021-10-30] MEDS: PANTOPRAZOLE 40 MG/10 ML VIAL IVP SCH ×2 (09:44→22:03)
[2021-10-30] MEDS: HEPARIN SODIUM,PORCINE/PF 5,000 UNIT/0.5 ML SYRINGE SQ SCH ×2 (10:58→22:01)
[2021-10-30 10:59] LABS: African American GFR (CKD) 11.1 (60.0-200.0); Anion Gap 14.8 mmol/L (10.00-18.00); BUN/Creat Ratio 8.45 Ratio (12.00-20.00); Blood Urea Nitrogen 37.2 mg/dL (9.0-27.0); Carbon Dioxide 26.2 mmol/L (20.0-27.5); Magnesium 1.6 mg/dL (1.5-2.4); Non-African American GFR(CKD) 9.6 (60.0-200.0); Phosphorus 3.3 mg/dL (2.4-5.1); Potassium 3.9 mmol/L (3.5-5.5)
[2021-10-30] MEDS ORDERED: ACETAMINOPHEN TAB 325 MG TAB PO PRN (11:45)
--- NOTE | 2021-10-30 11:49 | P.PN ---
Subjective Progress Note Date: 10/30/21 CHIEF COMPLAINT: Abdominal pain HISTORY OF PRESENT ILLNESS: Patient is status post exploratory laparotomy, lysis of adhesions and cholecystectomy for small bowel obstruction, hydropic gallbladder and polycystic kidney. Patient is getting hemodialysis this morning. She reports that her pain has improved greatly. She is having flatus. Denies any nausea or vomiting. She was able to eat off half of her bowl of oatmeal this morning. Afebrile. WBC from yesterday is 9.9 PHYSICAL EXAM: VITAL SIGNS: Reviewed. GENERAL: Well-developed in no acute distress. HEENT: No sclera icterus. Extraocular movements grossly intact. Moist buccal mucosa. Head is atraumatic, normocephalic. ABDOMEN: Soft. Nondistended. Incisional dressing clean dry and intact. has Prevana dressing NEUROLOGIC: Alert and oriented. Cranial nerves II through XII grossly intact. ASSESSMENT: 1. Status post exploratory laparotomy, lysis of adhesions and cholecystectomy for small bowel obstruction, hydropic gallbladder and polycystic kidney PLAN: -Continue full liquid diet -Encouraged patient ambulate -Encouraged patient to use incentive spirometer -GI prophylaxis Protonix and DVT prophylaxis subcu heparin Physician Pumpman note has been reviewed by physician. Signing provider agrees with the documented findings, assessment, and plan of care. Objective - Vital Signs Vital signs: Vital Signs Temp 97.8 F 10/30/21 04:59 Pulse 94 10/30/21 10:36 Resp 16 10/30/21 04:59 BP 95/54 10/30/21 10:36 Pulse Ox 98 10/30/21 07:51 Intake & Output 10/29/21 10/30/21 10/30/21 18:59 06:59 18:59 Weight 53.1 kg Other: Voiding Method Bedside Commode Bedside Commode # Voids 1 0 - Labs CBC & Chem 7: 10/29/21 04:53 10/30/21 05:07 Labs: Abnormal Lab Results - Last 24 Hours (Table) 10/30/21 Range/Units 05:07 Chloride 94 L (96-109) mmol/L BUN 37.2 H (9.0-27.0) mg/dL Creatinine 4.4 H (0.6-1.5) mg/dL Est GFR (CKD-EPI)AfAm 11.1 L (60.0-200.0) Est GFR (CKD-EPI)NonAf 9.6 L (60.0-200.0) BUN/Creatinine Ratio 8.45 L (12.00-20.00) Ratio Glucose 115 H (70-110) mg/dL
--- NOTE | 2021-10-30 15:11 | PN ---
PROGRESS NOTE Patient is seen for followup for end-stage renal disease. She is currently seen on hemodialysis. Her blood pressure has been on the lower side and we were not able to take much fluid off. Overall, patient is complaining of abdominal pain. She feels tired today. EXAMINATION: This morning blood pressure was 90/48, heart rate 81 per minute. She is afebrile. Examination of the heart S1, S2. Examination of lungs decreased breath sounds at the bases. Abdomen: Soft, tender. There is abdominal binder present. Examination of lower extremities shows no significant edema. COMMERCIAL SALES SPECIALIST exam is grossly intact. LABS: Show sodium 135, potassium 3.9, BUN of 37, serum creatinine 4.4, hemoglobin 9.0 g/dL. ASSESSMENT: 1. End-stage renal disease maintained on hemodialysis twice a week. Patient has refused to increase to 3 times a week on multiple occasions as outpatient. 2. Bowel obstruction status post lysis of adhesions on 10/24/2021. 3. Volume overload with chest x-ray showing evidence of congestive heart failure and pleural effusions on October 25 status post ultrafiltration. We were not able to get much fluid off today. The patient has had about 2.3 L of fluid taken off on October 28 which she had tolerated fairly well. I will repeat a chest x-ray in a.m. 4. CKD mineral bone disorder. 5. Hyperkalemia, currently improved. PLAN: Check chest x-ray in a.m. Decrease ultrafiltration as blood pressure remains low. Encourage increased oral intake as tolerated. MMODL / IJN: [id number] /
--- NOTE | 2021-10-30 15:16 | P.PN ---
Subjective 10/30/21 Patient is still complaining of significant abdominal pain patient has a surgical drain in place. Patient doesn't have any fever or chills. Patient blood pressure is low patient was started on multiple and have his medications MINOXIDIL CUT DOWN THE CLONIDINE. Depending on the blood pressures will let titrated other medications. Patient's is pretty status although improved Constitutional: Denied any fatigue denied any fever. Cardio vascular: denied any chest pain, palpitations Gastrointestinal denied any nausea vomiting Pulmonary: Denied any shortness of breath cough Neurologic denied any new focal deficits All inpatient medications were reviewed and appropriate changes in these medications as dictated in the interval history and assessment and plan. SBO; s/p exploratory laporatomy with lysis of adhesions for small bowel obstruction End-stage renal disease on hemodialysis 2 times a week Hyperkalemia secondary to renal failure Bilateral pleural effusion, pericardial effusion, possibly fluid overload from r enal failure 70-year-old female who presented to the with complaints of abdominal pain that started 3 days ago. Abdominal pain is tender to palpation. Patient describes as 10/10 and sharp in nature. Past medical history significant for COPD, GERD/reflux, hypertension, renal disease, chronic pain. Patient does admit to smoking about 8 cigarettes per day she states that she has cut down recently, denies alcohol use. Patient recently underwent a bilateral hip fracture repair status post fall in June 2021 was discharged to rehab. She is now back at home with her goes to dialysis outpatient. Patient had vomiting that started 430 a.m. this morning. She denies any blood in the vomit however she states that she had a little bit of pink tinged his sputum couple times. She denies any blood in her bowels, denies diarrhea. Last bowel movement was yesterday. She denies any headache, lightheadedness, dizziness and she denies any chest pain, chest pressure, palpitations. She denies any cough or shortness of breath. Patient has a history of end-stage renal disease and she does hemodialysis twice a day Saturday and she does follow with nephrology. Creatinine today is 4.04. Covid PCR was negative, urinalysis showed a pH 8.5, positive for protein and glucose. Negative for any signs of infection. Abdomen pelvis CT shows no acute abdominal pelvic process, redemonstrated enlargement of the bilateral kidneys with extensive cysts most likely polycystic kidney disease. Bilateral pleural effusions right greater than left. Cardiomegaly and moderate pericardial effusion. Echocardiogram is ordered. Nephrology is consulted, patient will need dialysis this admission. Consult placed to general surgery as patients lower and left lower quadrant are tender to palpation still. Pain has improved to about a 3/10. She can try clear liquids advance as tolerated to full liquid. 10/28/2021 Someone to patient's bedside due to concerns about patient's family concerned about PICC line not be placed today for TPN; according to he was informed that patient will have PICC line placed with start of TPN yesterday; detailed meeting with patient and at bedside and explained to patient and family that PICC line order by surgery was placed later in the day when PICC line staff had left for the day and will only be available for emergency situations; had numerous questions about nutrition and body TPN was not ordered earlier than yesterday; I did go over patient's condition and bowel obstruction management in great detail and starting of TPN is a decision made by surgery I did promise to family that I would be calling the powerhouse attendant to try to page PICC line placement staff and see if this would be available for PICC line placement today or tomorrow; is agreeable to that [place] [phone] and was informed that PICC line team was paged twice and haven't returned the page yet; this was communicated to the patient and family at bedside Patient reports feeling weak and tired since dialysis; has been passing some flatus Vital signs are reviewed and are stable with temperature of 98 5, pulse 74, respirations 16 and blood pressure 125/63 with O2 saturation 95% on room air Lab review reveals sodium 136, potassium 4.6, BUN/creatinine of 69/6.17 Patient evaluated by surgery and plan is to remove the NG tube and patient will be started on a clear liquid diet; NG tube will have to be replaced if patient develops nausea vomiting again We will monitor closely 10/29/2021 Patient is seen and evaluated sitting up at night; she is more awake and alert this morning; NG tube has been removed; denies any complaints Vital signs are reviewed, temperature 98.0, pulse 72, respiration 18, blood pressure of 88/44, O2 saturation 93% NG tube has been removed and patient hasn't placed on a clear liquid diet which she is tolerating well; recommend full liquid diet; await surgery evaluation - Exam GENERAL: The patient is alert and oriented x3, mild discomfort noted. Well developed, well nourished. NG tube in place HEENT: Pupils are round and equally reacting to light. EOMI. No scleral icterus. No conjunctival pallor. Normocephalic, atraumatic. No pharyngeal erythema. No thyromegaly. CARDIOVASCULAR: S1 and S2 present. No murmurs, rubs, or gallops. Tachycardic at the time of my assessment. PULMONARY: Diminished bases ABDOMEN: Post surgical abdomen with woundvac in place and abdominal binder, tender MUSCULOSKELETAL: No joint swelling or deformity. EXTREMITIES: No cyanosis, clubbing, or pedal edema. NEUROLOGICAL: Gross neurological examination did not reveal any focal deficits. Assessment and Plan Assessment: pleural effusions related to renal failure and overload, current echo shows an EF of 60-65%, the left atrium is severely dilated, however this can be related to fluid overload from kidney disease. POD #3 exploratory laporatomy with lysis of adhesions for small bowel obstruction, continues to have abdominal pain patient has a wound VAC discussed with the general surgery. Patient is on not liquid diet at this time. End-stage renal disease on hemodialysis 2 times a week Hyperkalemia secondary to renal failure Bilateral pleural effusion, pericardial effusion, possibly fluid overload from renal failure Polycystic kidney disease, advanced History of COPD Severe pulmonary hypertension Chronic ongoing nicotine dependence Recent history of bilateral hip replacement with surgery of repair Hypertension History of depression Hyponatremia Anemia, normocytic anemia of chronic disease GI prophylaxis: Protonix DVT prophylaxis: Subcu heparin Objective - Vital Signs Vital signs: Vital Signs Temp 97.9 F 10/30/21 12:48 Pulse 94 10/30/21 14:21 Resp 20 10/30/21 12:48 BP 94/52 10/30/21 14:21 Pulse Ox 93 L 10/30/21 12:48 Intake & Output 10/29/21 10/30/21 10/30/21 18:59 06:59 18:59 Output Total 300 Balance -300 Weight 53.1 kg Output: Hemodialysis 300 Other: Voiding Method Bedside Commode Bedside Commode # Voids 1 0 - Labs CBC & Chem 7: 10/29/21 04:53 10/30/21 05:07 Labs: Abnormal Lab Results - Last 24 Hours (Table) 10/30/21 Range/Units 05:07 Chloride 94 L (96-109) mmol/L BUN 37.2 H (9.0-27.0) mg/dL Creatinine 4.4 H (0.6-1.5) mg/dL Est GFR (CKD-EPI)AfAm 11.1 L (60.0-200.0) Est GFR (CKD-EPI)NonAf 9.6 L (60.0-200.0) BUN/Creatinine Ratio 8.45 L (12.00-20.00) Ratio Glucose 115 H (70-110) mg/dL
[2021-10-30] MEDS: ATORVASTATIN 20 MG TAB PO SCH (22:00)
[2021-10-30] MEDS: MIRTAZAPINE 15 MG TAB PO SCH (22:00)
[2021-10-30] MEDS: PIPERACILLIN-TAZOBACTAM 3.375 GM in SODIUM CHLORIDE 0.9% 100 ML IVPB SCH (22:04)
[2021-10-31] MEDS: hydrALAZINE HCL 50 MG TAB PO SCH ×3 (05:31→21:41)
[2021-10-31 06:25] LABS: HCT 25.2 % (34.0-46.0); HGB 8.2 gm/dL (11.4-16.0); MCH 30.6 pg (25.0-35.0); MCHC 32.6 g/dL (31.0-37.0); Mean Platelet Volume 8.5; Platelet Count 152 k/uL (150-450); RBC 2.67 m/uL (3.80-5.40); RDW 15.2 % (11.5-15.5); WBC 12.1 k/uL (3.8-10.6)
[2021-10-31] MEDS: amLODIPine 5 MG TAB PO SCH (07:41)
[2021-10-31] MEDS: cloNIDine HCL 0.1 MG TAB PO SCH ×3 (07:41→21:41)
[2021-10-31] MEDS: minoxidiL 2.5 MG TAB PO SCH (07:42)
[2021-10-31] MEDS: NICOTINE 14MG/24HR PATCH TRANSDERM SCH (07:42)
[2021-10-31] MEDS: METOPROLOL SUCCINATE (ER) 50 MG TAB.ER.24H PO SCH ×2 (09:06→18:03)
[2021-10-31] MEDS: NON FORMULARY DRUG (Levocarnitine [Levocarnitine] 330 MG Tablet) PO SCH ×3 (09:06→21:46)
[2021-10-31 09:29] LABS: African American GFR (CKD) 14.1 (60.0-200.0); BUN/Creat Ratio 8.42 Ratio (12.00-20.00); Blood Urea Nitrogen 30.3 mg/dL (9.0-27.0); Calcium 8.9 mg/dL (8.7-10.3); Non-African American GFR(CKD) 12.2 (60.0-200.0); Potassium 3.8 mmol/L (3.5-5.5)
[2021-10-31] MEDS: SEVELAMER 800 MG TAB PO SCH ×2 (09:33→21:40)
[2021-10-31] MEDS: PIPERACILLIN-TAZOBACTAM 3.375 GM in SODIUM CHLORIDE 0.9% 100 ML IVPB SCH ×2 (09:33→21:40)
[2021-10-31] MEDS: ASPIRIN 81 MG PO SCH (09:33)
[2021-10-31] MEDS: CALCIUM ACETATE 667 MG TAB PO SCH ×2 (09:33→18:03)
[2021-10-31] MEDS: DOCUSATE ORAL SOLN 100 MG/10 ML CUP PO SCH ×2 (09:34→21:41)
[2021-10-31] MEDS: PANTOPRAZOLE 40 MG/10 ML VIAL IVP SCH ×2 (09:34→21:39)
[2021-10-31] MEDS: TORSEMIDE 20 MG TAB PO SCH (09:34)
[2021-10-31] MEDS: HYDROcodone/APAP 10-325MG 1 EACH TAB PO PRN ×2 (09:37→21:40)
[2021-10-31] MEDS: SIMETHICONE 40 MG/0.6 ML DROPS 2,000 MG/30 ML BOTTLE PO SCH ×4 (10:20→21:46)
[2021-10-31] MEDS: HEPARIN SODIUM,PORCINE/PF 5,000 UNIT/0.5 ML SYRINGE SQ SCH ×2 (10:59→21:41)
--- NOTE | 2021-10-31 11:29 | P.PN ---
Subjective Progress Note Date: 10/31/21 CHIEF COMPLAINT: Abdominal pain HISTORY OF PRESENT ILLNESS: Patient is status post exploratory laparotomy, lysis of adhesions and cholecystectomy for small bowel obstruction, hydropic gallbladder and polycystic kidney. Patient is sitting up in bed comfortably. She reports that her abdominal pain is getting better each day. She denies any nausea or vomiting. She is tolerating diet. Patient is having drainage from her incision site. She had an additional suture removed from the mid incision today. Culture of drainage is pending. She is afebrile. WBC is up to 12.1. Hgb 8 point She is having flatus. No bowel movement. PHYSICAL EXAM: VITAL SIGNS: Reviewed. GENERAL: Well-developed in no acute distress. HEENT: No sclera icterus. Extraocular movements grossly intact. Moist buccal mucosa. Head is atraumatic, normocephalic. ABDOMEN: Soft. Nondistended. Incisional site foul smelling drainage at the mid incision and distal incision. NEUROLOGIC: Alert and oriented. Cranial nerves II through XII grossly intact. ASSESSMENT: 1. Status post exploratory laparotomy, lysis of adhesions and cholecystectomy for small bowel obstruction, hydropic gallbladder and polycystic kidney 2. Incisional infection PLAN: -Zosyn added yesterday for drainage from incision -Follow up on culture from incisional drainage -Continue full liquid diet -Encouraged patient ambulate -Encouraged patient to use incentive spirometer -GI prophylaxis Protonix and DVT prophylaxis subcu heparin Physician Hospital Ward Clerk note has been reviewed by physician. Signing provider agrees with the documented findings, assessment, and plan of care. Objective - Vital Signs Vital signs: Vital Signs Temp 99.1 F 10/31/21 07:05 Pulse 51 L 10/31/21 07:53 Resp 18 10/31/21 07:05 BP 100/53 10/31/21 07:53 Pulse Ox 98 10/31/21 07:05 Intake & Output 10/30/21 10/31/21 10/31/21 18:59 06:59 18:59 Output Total 300 Balance -300 Weight 53.1 kg 54 kg Output: Urine 0 Hemodialysis 300 Other: Voiding Method Bedside Commode Bedside Commode # Voids 2 - Labs CBC & Chem 7: 10/31/21 05:54 10/31/21 05:54 Labs: Abnormal Lab Results - Last 24 Hours (Table) 10/31/21 10/31/21 Range/Units 05:54 05:54 WBC 12.1 H (3.8-10.6) k/uL RBC 2.67 L (3.80-5.40) m/uL Hgb 8.2 L (11.4-16.0) gm/dL Hct 25.2 L (34.0-46.0) % BUN 30.3 H (9.0-27.0) mg/dL Creatinine 3.6 H (0.6-1.5) mg/dL Est GFR (CKD-EPI)AfAm 14.1 L (60.0-200.0) Est GFR (CKD-EPI)NonAf 12.2 L (60.0-200.0) BUN/Creatinine Ratio 8.42 L (12.00-20.00) Ratio Microbiology - Last 24 Hours (Table) 10/30/21 15:43 Wound Culture - Preliminary Abdomen
[2021-10-31] MEDS ORDERED: DARBEPOETIN ALFA 60 MCG/0.3 ML SYRINGE SQ SCH (12:00)
--- NOTE | 2021-10-31 15:05 | PN ---
PROGRESS NOTE Patient is seen for followup for end-stage renal disease. She is dialyzed 2 days a week. Currently patient is feeling slightly better than yesterday. She is maintained on liquid diet. Abdominal pain is slightly improved. PHYSICAL EXAMINATION: Blood pressure this morning 101/41, heart rate 99 per minute. She is afebrile. Examination of the heart S1, S2. Examination of the lungs, bilateral breath sounds are heard. Abdomen: Soft, tender. Exam of lower extremities: No significant edema. LAB: Show potassium 3.8 today, serum creatinine 3.6. ASSESSMENT: 1. End-stage renal disease, on hemodialysis twice a week the status post dialysis yesterday. We will plan for a treatment on . 2. Bowel obstruction status post lysis of adhesions on 10/24/2021. 3. Chronic kidney disease mineral bone disorder. 4. Hyperkalemia, currently improved. 5. Volume overload, now improved. PLAN: Repeat dialysis on . Encourage increased oral intake. MMODL / IJN: [id number] /
[2021-10-31] MEDS: ATORVASTATIN 20 MG TAB PO SCH (21:40)
[2021-10-31] MEDS: MIRTAZAPINE 15 MG TAB PO SCH (21:42)
--- NOTE | 2021-11-01 00:08 | P.PN ---
Subjective Progress Note Date: 10/31/21 This is a pleasant 70-year-old female who presented to the hospital with acute abdominal pain with associated vomiting. 10/31/2021 Patient evaluated today sitting up in bed, NG is out and patient is hoping to be advanced to a regular diet today. Abdominal wound vac in place, and cultures have been sent, currently pending. She is passing as, however has not had a BM yet since surgery. Positive bowel sounds. She is denying any nausea or vomiting. Labs today: WBC 12.1, hemoglobin 8.2, sodium 138, potassium 3.8, BUN 30.3, Creatinine 3.6. Vitals today: Temp, 98.8, heart rate 88, Blood pressure 107/51, on 2L NC - 97%. Patient does appear in better spirits, and overall states her abdominal pain is improving, and she feels a little better each day. ROS Constitutional: Denied any fatigue denied any fever. Cardio vascular: denied any chest pain, palpitations Gastrointestinal: Reports incisional and diffuse adbominal pain, improving, passing gas Pulmonary: Denied any shortness of breath cough Neurologic denied any new focal deficits All inpatient medications were reviewed and appropriate changes in these medications as dictated in the interval history and assessment and plan. PHYSICAL EXAMINATION: GENERAL: The patient is alert and oriented x3, mild discomfort noted. Well developed, well nourished. HEENT: Pupils are round and equally reacting to light. EOMI. No scleral icterus. No conjunctival pallor. Normocephalic, atraumatic. No pharyngeal erythema. No thyromegaly. CARDIOVASCULAR: S1 and S2 present. No murmurs, rubs, or gallops. PULMONARY: Diminished bases ABDOMEN: Post surgical abdomen with woundvac in place and abdominal binder, tender MUSCULOSKELETAL: No joint swelling or deformity. EXTREMITIES: No cyanosis, clubbing, or pedal edema. NEUROLOGICAL: Gross neurological examination did not reveal any focal deficits. SKIN: No rashes. generalized ecchymosis upper extremities, post surgical abdomen with woundvac. Assessment and plan Assessment Post operative for exploratory laporatomy with lysis of adhesions, cholecystectomy for small bowel obstruction, hydropic gallbladder and polycystic kidney. Incisional infection, foul smelling drainage noted, cultures pending End-stage renal disease on hemodialysis 2 times a week Hyperkalemia secondary to renal failure, improved Bilateral pleural effusion, pericardial effusion, possibly fluid overload from renal failure - improving Polycystic kidney disease, advanced History of COPD Severe pulmonary hypertension Chronic ongoing nicotine dependence Recent history of bilateral hip replacement with surgery of repair Hypertension History of depression Hyponatremia Anemia, normocytic anemia of chronic disease GI prophylaxis: Protonix DVT prophylaxis: Subcu heparin FULL CODE Plan Continue IV antibiotics, wound cultures are pending Continue full liquid diet as recommended by surgical team Continue to encourge IS, ambulation Pain management Continue all other supportive care Repeat labs tomorrow Dialysis Objective - Vital Signs Vital signs: Vital Signs Temp 99.1 F 10/31/21 07:05 Pulse 99 10/31/21 11:31 Resp 18 10/31/21 07:05 BP 101/41 10/31/21 11:31 Pulse Ox 98 10/31/21 07:05 Intake & Output 10/30/21 10/31/21 10/31/21 18:59 06:59 18:59 Output Total 300 Balance -300 Weight 53.1 kg 54 kg Output: Urine 0 Hemodialysis 300 Other: Voiding Method Bedside Commode Bedside Commode Toilet # Voids 2 - Labs CBC & Chem 7: 10/31/21 05:54 10/31/21 05:54 Labs: Abnormal Lab Results - Last 24 Hours (Table) 10/31/21 10/31/21 Range/Units 05:54 05:54 WBC 12.1 H (3.8-10.6) k/uL RBC 2.67 L (3.80-5.40) m/uL Hgb 8.2 L (11.4-16.0) gm/dL Hct 25.2 L (34.0-46.0) % BUN 30.3 H (9.0-27.0) mg/dL Creatinine 3.6 H (0.6-1.5) mg/dL Est GFR (CKD-EPI)AfAm 14.1 L (60.0-200.0) Est GFR (CKD-EPI)NonAf 12.2 L (60.0-200.0) BUN/Creatinine Ratio 8.42 L (12.00-20.00) Ratio Microbiology - Last 24 Hours (Table) 10/30/21 15:43 Wound Culture - Preliminary Abdomen Assessment and Plan Time with Patient: Greater than 30
[2021-11-01] MEDS: hydrALAZINE HCL 50 MG TAB PO SCH ×3 (06:05→21:06)
[2021-11-01] MEDS: minoxidiL 2.5 MG TAB PO SCH (08:03)
[2021-11-01] MEDS: CALCIUM ACETATE 667 MG TAB PO SCH ×2 (08:04→16:39)
[2021-11-01] MEDS: amLODIPine 5 MG TAB PO SCH (08:04)
[2021-11-01] MEDS: cloNIDine HCL 0.1 MG TAB PO SCH ×3 (08:04→21:06)
[2021-11-01] MEDS: ASPIRIN 81 MG PO SCH (08:04)
[2021-11-01] MEDS: METOPROLOL SUCCINATE (ER) 50 MG TAB.ER.24H PO SCH ×2 (08:04→16:39)
[2021-11-01] MEDS: DOCUSATE ORAL SOLN 100 MG/10 ML CUP PO SCH ×2 (08:04→21:08)
[2021-11-01] MEDS: TORSEMIDE 20 MG TAB PO SCH (08:04)
[2021-11-01] MEDS: PANTOPRAZOLE 40 MG/10 ML VIAL IVP SCH ×2 (08:05→21:08)
[2021-11-01] MEDS: NON FORMULARY DRUG (Levocarnitine [Levocarnitine] 330 MG Tablet) PO SCH ×3 (08:05→20:32)
[2021-11-01] MEDS: SEVELAMER 800 MG TAB PO SCH ×2 (08:05→21:08)
[2021-11-01] MEDS: NICOTINE 14MG/24HR PATCH TRANSDERM SCH (08:05)
[2021-11-01] MEDS: PIPERACILLIN-TAZOBACTAM 3.375 GM in SODIUM CHLORIDE 0.9% 100 ML IVPB SCH ×2 (08:05→21:06)
[2021-11-01] MEDS: SIMETHICONE 40 MG/0.6 ML DROPS 2,000 MG/30 ML BOTTLE PO SCH ×4 (08:07→21:22)
[2021-11-01] MEDS: HEPARIN SODIUM,PORCINE/PF 5,000 UNIT/0.5 ML SYRINGE SQ SCH ×2 (08:18→21:06)
[2021-11-01] MEDS: HYDROcodone/APAP 10-325MG 1 EACH TAB PO PRN ×2 (08:19→21:22)
--- NOTE | 2021-11-01 14:34 | P.PN ---
Subjective Progress Note Date: 11/01/21 CHIEF COMPLAINT: Abdominal pain HISTORY OF PRESENT ILLNESS: Patient is status post exploratory laparotomy, lysis of adhesions and cholecystectomy for small bowel obstruction, hydropic gallbladder and polycystic kidney. Patient is sitting up in bed comfortably. She reports that her abdominal pain is getting better each day. Patient reports eating more at dinnertime last night. She had a few bites of her breakfast. She denies any nausea or vomiting. Culture of incisional drainage is pending. Patient reports having flatus. No bowel movement. Labs pending PHYSICAL EXAM: VITAL SIGNS: Reviewed. GENERAL: Well-developed in no acute distress. HEENT: No sclera icterus. Extraocular movements grossly intact. Moist buccal mucosa. Head is atraumatic, normocephalic. ABDOMEN: Soft. Nondistended. Incisional site foul smelling drainage at the mid incision and distal incision. NEUROLOGIC: Alert and oriented. Cranial nerves II through XII grossly intact. ASSESSMENT: 1. Status post exploratory laparotomy, lysis of adhesions and cholecystectomy for small bowel obstruction, hydropic gallbladder and polycystic kidney 2. Abdominal Incisional infection PLAN: -Continue IV Zosyn -Follow up on culture from incisional drainage -Continue regular diet -Follow up on CBC -Encouraged patient ambulate -Encouraged patient to use incentive spirometer -GI prophylaxis Protonix and DVT prophylaxis subcu heparin Physician [employer] Animal Caretaker note has been reviewed by physician. Signing provider agrees with the documented findings, assessment, and plan of care. Objective - Vital Signs Vital signs: Vital Signs Temp 98.2 F 11/01/21 11:10 Pulse 69 11/01/21 11:10 Resp 18 11/01/21 11:10 BP 127/60 11/01/21 06:53 Pulse Ox 98 11/01/21 11:10 Intake & Output 10/31/21 11/01/21 11/01/21 18:59 06:59 18:59 Weight 54 kg Other: Voiding Method Toilet Toilet # Voids 0 2 - Labs CBC & Chem 7: 10/31/21 05:54 10/31/21 05:54
[2021-11-01 14:45] LABS: HCT 26.7 % (34.0-46.0); HGB 8.5 gm/dL (11.4-16.0); MCH 30.5 pg (25.0-35.0); MCHC 32.1 g/dL (31.0-37.0); MCV 95.2 fL (80.0-100.0); Mean Platelet Volume 8.5; Platelet Count 204 k/uL (150-450); RDW 15.7 % (11.5-15.5); WBC 12.2 k/uL (3.8-10.6)
--- NOTE | 2021-11-01 15:38 | P.PN ---
Subjective Progress Note Date: 11/01/21 This is a pleasant 70-year-old female who presented to the hospital with acute abdominal pain with associated vomiting. 10/31/2021 Patient evaluated today sitting up in bed, NG is out and patient is hoping to be advanced to a regular diet today. Abdominal wound vac in place, and cultures have been sent, currently pending. She is passing as, however has not had a BM yet since surgery. Positive bowel sounds. She is denying any nausea or vomiting. Labs today: WBC 12.1, hemoglobin 8.2, sodium 138, potassium 3.8, BUN 30.3, Creatinine 3.6. Vitals today: Temp, 98.8, heart rate 88, Blood pressure 107/51, on 2L NC - 97%. Patient does appear in better spirits, and overall states her abdominal pain is improving, and she feels a little better each day. 11/01/2021 Patient to sleep in the bed. She is not wanting to work with physical therapy due to abdominal pain. They're going to work with timing her pain management so that she can begin physical therapy. Patient was advanced to a regular diet and tolerating, there is no nausea vomiting or diarrhea. She is almost surgery, she is passing gas. Wound VAC remains in place, wound cultures are pending. Labs today show a white blood cell count 12.2, hemoglobin 8.5. Vitals are stable today. ROS Constitutional: Denies fever chills, reports mild fatigue. Cardio vascular: denied any chest pain, palpitations Gastrointestinal: Reports incisional and diffuse adbominal pain, improving, passing gas Pulmonary: Denied any shortness of breath, cough Neurologic denied any new focal deficits All inpatient medications were reviewed and appropriate changes in these medications as dictated in the interval history and assessment and plan. PHYSICAL EXAMINATION: GENERAL: The patient is alert and oriented x3, mild discomfort noted. Well developed, well nourished. HEENT: Pupils are round and equally reacting to light. EOMI. No scleral icterus. No conjunctival pallor. Normocephalic, atraumatic. No pharyngeal erythema. No thyromegaly. CARDIOVASCULAR: S1 and S2 present. Murmur noted. PULMONARY: Diminished bases ABDOMEN: Post surgical abdomen with woundvac in place and abdominal binder, tender MUSCULOSKELETAL: No joint swelling or deformity. EXTREMITIES: No cyanosis, clubbing, or pedal edema. NEUROLOGICAL: Gross neurological examination did not reveal any focal deficits. SKIN: No rashes. generalized ecchymosis upper extremities, post surgical abdomen with woundvac. Assessment and plan Assessment Post operative for exploratory laporatomy with lysis of adhesions, cholecystectomy for small bowel obstruction, hydropic gallbladder and polycystic kidney. Incisional infection, cultures pending End-stage renal disease on hemodialysis 2 times a week Fluid overload with pleural effusion secondary to above, improving Hyperkalemia secondary to renal failure, improved Polycystic kidney disease, advanced History of COPD Severe pulmonary hypertension Chronic ongoing nicotine dependence Recent history of bilateral hip replacement with surgery of repair Hypertension History of depression Hyponatremia Anemia, normocytic anemia of chronic disease GI prophylaxis: Protonix DVT prophylaxis: Subcu heparin FULL CODE Plan Continue IV antibiotics, wound cultures are pending Continue to encourge IS, ambulation Pain management Continue all other supportive care Repeat labs tomorrow Dialysis Objective - Vital Signs Vital signs: Vital Signs Temp 98.2 F 11/01/21 11:10 Pulse 69 11/01/21 11:10 Resp 18 11/01/21 11:10 BP 127/60 11/01/21 06:53 Pulse Ox 98 11/01/21 11:10 Intake & Output 10/31/21 11/01/21 11/01/21 18:59 06:59 18:59 Weight 54 kg Other: Voiding Method Toilet Toilet # Voids 0 2 - Labs CBC & Chem 7: 11/01/21 14:17 10/31/21 05:54 Labs: Abnormal Lab Results - Last 24 Hours (Table) 11/01/21 Range/Units 14:17 WBC 12.2 H (3.8-10.6) k/uL RBC 2.80 L (3.80-5.40) m/uL Hgb 8.5 L (11.4-16.0) gm/dL Hct 26.7 L (34.0-46.0) % RDW 15.7 H (11.5-15.5) % Assessment and Plan Time with Patient: Greater than 30
--- NOTE | 2021-11-01 16:03 | PN ---
PROGRESS NOTE Patient is seen for followup for end-stage renal disease. She is dialyzed twice a week. No significant complaints today. Overall, patient states she is feeling about the same. The abdominal pain is about the same. Intake has not increased much, according to the patient. On examination today, blood pressure is 127/60, heart rate 82 per minute. Patient is afebrile. EXAMINATION OF THE HEART: S1 and S2. EXAMINATION OF LUNGS: Bilateral breath sounds are heard. Abdomen is soft, non-tender. Examination of lower extremities shows no evidence of edema. Patient is wearing an abdominal binder. PATIENT EXPERIENCE COORDINATOR EXAM: Grossly intact. Labs show hemoglobin 8.5 g/dL from 11/01 and creatinine was 3.6 on 10/31/2021. ASSESSMENT: 1. End-stage renal disease, on hemodialysis twice a week. We will arrange for hemodialysis in a.m. 2. Fluid overload, currently improved. 3. Bowel obstruction, status post lysis of adhesions. 4. Anemia of chronic disease, maintained on Aranesp. PLAN: Hemodialysis in a.m. Encourage increased oral intake as tolerated. MMODL / IJN: [id number] /
[2021-11-01] MEDS: MIRTAZAPINE 15 MG TAB PO SCH (21:08)
[2021-11-01] MEDS: ATORVASTATIN 20 MG TAB PO SCH (21:08)
[2021-11-02] MEDS: hydrALAZINE HCL 50 MG TAB PO SCH ×3 (05:19→21:00)
[2021-11-02] MEDS: HYDROcodone/APAP 10-325MG 1 EACH TAB PO PRN ×2 (05:21→14:03)
[2021-11-02 05:24] LABS: Basophils % (A) 0 %; Eosinophils # (A) 0.1 k/uL (0-0.7); Eosinophils % (A) 1 %; HGB 8.1 gm/dL (11.4-16.0); Lymphocytes # (A) 0.4 k/uL (1.0-4.8); Lymphocytes % (A) 3 %; MCH 30.9 pg (25.0-35.0); MCHC 32.5 g/dL (31.0-37.0); MCV 95.2 fL (80.0-100.0); Mean Platelet Volume 8.5; Monocytes # (A) 0.5 k/uL (0-1.0); Monocytes % (A) 4 %; Neutrophils # (A) 12.5 k/uL (1.3-7.7); Neutrophils % (A) 90 %; Platelet Count 214 k/uL (150-450); RBC 2.63 m/uL (3.80-5.40); RDW 15.8 % (11.5-15.5)
[2021-11-02] MEDS: SEVELAMER 800 MG TAB PO SCH ×2 (07:55→20:59)
[2021-11-02] MEDS: ASPIRIN 81 MG PO SCH (07:56)
[2021-11-02] MEDS: NICOTINE 14MG/24HR PATCH TRANSDERM SCH (07:57)
[2021-11-02] MEDS: SIMETHICONE 40 MG/0.6 ML DROPS 2,000 MG/30 ML BOTTLE PO SCH ×4 (07:58→21:00)
[2021-11-02] MEDS: DOCUSATE ORAL SOLN 100 MG/10 ML CUP PO SCH ×2 (07:58→21:00)
[2021-11-02] MEDS: HEPARIN SODIUM,PORCINE/PF 5,000 UNIT/0.5 ML SYRINGE SQ SCH ×4 (07:59→21:06)
[2021-11-02] MEDS: cloNIDine HCL 0.1 MG TAB PO SCH (08:14)
[2021-11-02] MEDS: TORSEMIDE 20 MG TAB PO SCH (08:15)
[2021-11-02] MEDS: CALCIUM ACETATE 667 MG TAB PO SCH ×2 (09:49→16:37)
[2021-11-02] MEDS: METOPROLOL SUCCINATE (ER) 50 MG TAB.ER.24H PO SCH ×2 (09:49→16:37)
[2021-11-02] MEDS: NON FORMULARY DRUG (Levocarnitine [Levocarnitine] 330 MG Tablet) PO SCH ×3 (09:49→20:58)
[2021-11-02] MEDS: amLODIPine 5 MG TAB PO SCH (09:49)
[2021-11-02] MEDS: PANTOPRAZOLE 40 MG/10 ML VIAL IVP SCH ×2 (09:50→20:59)
[2021-11-02] MEDS: minoxidiL 2.5 MG TAB PO SCH (09:50)
--- NOTE | 2021-11-02 13:16 | P.PN ---
Subjective Progress Note Date: 11/02/21 This is a pleasant 70-year-old female who presented to the hospital with acute abdominal pain with associated vomiting. 10/31/2021 Patient evaluated today sitting up in bed, NG is out and patient is hoping to be advanced to a regular diet today. Abdominal wound vac in place, and cultures have been sent, currently pending. She is passing as, however has not had a BM yet since surgery. Positive bowel sounds. She is denying any nausea or vomiting. Labs today: WBC 12.1, hemoglobin 8.2, sodium 138, potassium 3.8, BUN 30.3, Creatinine 3.6. Vitals today: Temp, 98.8, heart rate 88, Blood pressure 107/51, on 2L NC - 97%. Patient does appear in better spirits, and overall states her abdominal pain is improving, and she feels a little better each day. 11/01/2021 Patient to sleep in the bed. She is not wanting to work with physical therapy due to abdominal pain. They're going to work with timing her pain management so that she can begin physical therapy. Patient was advanced to a regular diet and tolerating, there is no nausea vomiting or diarrhea. She is almost surgery, she is passing gas. Wound cultures are pending. Labs today show a white blood cell count 12.2, hemoglobin 8.5. Vitals are stable today. 11/02/2021 Patient is getting dialysis at the time of assessment. She reports abdominal pain is improving. Wound looks better, there is no more foul-smelling drainage is minimal erythema surrounding the area where the staple was removed. Cultures are still pending. Patient has not had a bowel movement since surgery, she is passing gas. Discussed with surgery today. Patient encouraged to work with physical therapy and needs to increase her activity level and continue to use i ncentive spirometer. White blood cell count today is 14, hemoglobin 8.1. Patient is afebrile, blood pressure on the lower side today 94/47. ROS Constitutional: Denies feve.r chills, reports mild fatigue. Cardio vascular: denied any chest pain, palpitations Gastrointestinal: Reports incisional and diffuse adbominal pain, improving, passing gas, no BM yet Pulmonary: Denied any shortness of breath, cough Neurologic denied any new focal deficits All inpatient medications were reviewed and appropriate changes in these medications as dictated in the interval history and assessment and plan. PHYSICAL EXAMINATION: GENERAL: The patient is alert and oriented x3, mild discomfort noted. Well de veloped, well nourished. HEENT: Pupils are round and equally reacting to light. EOMI. No scleral icterus. No conjunctival pallor. Normocephalic, atraumatic. No pharyngeal erythema. No thyromegaly. CARDIOVASCULAR: S1 and S2 present. Murmur noted. PULMONARY: Diminished bases ABDOMEN: Post surgical abdomen with woundvac in place and abdominal binder, tender MUSCULOSKELETAL: No joint swelling or deformity. EXTREMITIES: No cyanosis, clubbing, or pedal edema. NEUROLOGICAL: Gross neurological examination did not reveal any focal deficits. SKIN: No rashes. generalized ecchymosis upper extremities, post surgical abdomen with woundvac. Assessment and plan Assessment Post operative for exploratory laporatomy with lysis of adhesions, cholecystectomy for small bowel obstruction, hydropic gallbladder and polycystic kidney. Incisional infection, cultures pending End-stage renal disease on hemodialysis 2 times a week Fluid overload with pleural effusion secondary to above, improving Hyperkalemia secondary to renal failure, improved Polycystic kidney disease, advanced History of COPD Severe pulmonary hypertension Chronic ongoing nicotine dependence Recent history of bilateral hip replacement with surgery of repair Hypertension History of depression Hyponatremia Anemia, normocytic anemia of chronic disease GI prophylaxis: Protonix DVT prophylaxis: Subcu heparin FULL CODE Plan Continue IV antibiotics, wound cultures are pending Continue to encourge IS, ambulation Pain management Continue all other supportive care Repeat labs tomorrow Pending PT/OT evaluation for rehab vs home on discharge Objective - Vital Signs Vital signs: Vital Signs Temp 98.2 F 11/02/21 07:40 Pulse 65 11/02/21 07:40 Resp 14 11/02/21 07:40 BP 94/47 11/02/21 07:40 Pulse Ox 95 11/02/21 04:31 Intake & Output 11/01/21 11/02/21 11/02/21 18:59 06:59 18:59 Intake Total 120 700 Output Total 0 Balance 120 700 Weight 53.5 kg Intake: Intake, IV Titration 100 Amount Piperacillin-Tazobactam 3 100 .375 gm In Sodium Chloride 0.9% 100 ml @ 25 mls/hr IVPB Q12HR [facility] Rx #:[id number] Oral 120 600 Output: Urine 0 Other: Voiding Method Toilet Toilet - Labs CBC & Chem 7: 11/02/21 04:28 10/31/21 05:54 Labs: Abnormal Lab Results - Last 24 Hours (Table) 11/01/21 11/02/21 Range/Units 14:17 04:28 WBC 12.2 H 14.0 H (3.8-10.6) k/uL RBC 2.80 L 2.63 L (3.80-5.40) m/uL Hgb 8.5 L 8.1 L (11.4-16.0) gm/dL Hct 26.7 L 25.0 L (34.0-46.0) % RDW 15.7 H 15.8 H (11.5-15.5) % Neutrophils # 12.5 H (1.3-7.7) k/uL Lymphocytes # 0.4 L (1.0-4.8) k/uL Microbiology - Last 24 Hours (Table) 10/30/21 15:43 Gram Stain - Final Abdomen Wound Culture - Final
[2021-11-02] MEDS ORDERED: bisacodyL 10 MG SUPP RECTAL STA (13:39)
[2021-11-02] MEDS: PIPERACILLIN-TAZOBACTAM 3.375 GM in SODIUM CHLORIDE 0.9% 100 ML IVPB SCH (14:02)
--- NOTE | 2021-11-02 15:15 | P.PN ---
Subjective Progress Note Date: 11/02/21 CHIEF COMPLAINT: Abdominal pain HISTORY OF PRESENT ILLNESS: Patient is status post exploratory laparotomy, lysis of adhesions and cholecystectomy for small bowel obstruction, hydropic gallbladder and polycystic kidney. Patient is sitting up in bed comfortably. She reports that her abdominal pain is getting better each day. Patient tolerating diet. Denies any nausea vomiting. She is having flatus. No bowel movement. Afebrile. WBC did go up to from 12 to 14. Wound culture from incision site showed improvement. wound culture grew normal edith. Afebrile. Hgb 8.1 platelets 214 Patient seen and examined with Dr. renteria PHYSICAL EXAM: VITAL SIGNS: Reviewed. GENERAL: Well-developed in no acute distress. HEENT: No sclera icterus. Extraocular movements grossly intact. Moist buccal mucosa. Head is atraumatic, normocephalic. ABDOMEN: Soft. Nondistended. Incisional drainage showing improvement. No erythema noted along the incision. NEUROLOGIC: Alert and oriented. Cranial nerves II through XII grossly intact. ASSESSMENT: 1. Status post exploratory laparotomy, lysis of adhesions and cholecystectomy for small bowel obstruction, hydropic gallbladder and polycystic kidney 2. Abdominal Incisional infection PLAN: -We'll give a Dulcolax suppository to help stimulate bowel movement -Continue IV Zosyn -Continue regular diet -Follow up on CBC -Encouraged patient ambulate -Encouraged patient to use incentive spirometer -GI prophylaxis Protonix and DVT prophylaxis subcu heparin Physician Returns Supervisor note has been reviewed by physician. Signing provider agrees with the documented findings, assessment, and plan of care. Objective - Vital Signs Vital signs: Vital Signs Temp 97.2 F L 11/02/21 13:16 Pulse 79 11/02/21 13:16 Resp 18 11/02/21 13:16 BP 102/60 11/02/21 14:16 Pulse Ox 95 11/02/21 04:31 Intake & Output 11/01/21 11/02/21 11/02/21 18:59 06:59 18:59 Intake Total 120 700 Output Total 0 550 Balance 120 700 -550 Weight 53.5 kg Intake: Intake, IV Titration 100 Amount Piperacillin-Tazobactam 3 100 .375 gm In Sodium Chloride 0.9% 100 ml @ 25 mls/hr IVPB Q12HR [facility] Rx #:[id number] Oral 120 600 Output: Urine 0 Hemodialysis 550 Other: Voiding Method Toilet Toilet - Labs CBC & Chem 7: 11/02/21 04:28 10/31/21 05:54 Labs: Abnormal Lab Results - Last 24 Hours (Table) 11/02/21 Range/Units 04:28 WBC 14.0 H (3.8-10.6) k/uL RBC 2.63 L (3.80-5.40) m/uL Hgb 8.1 L (11.4-16.0) gm/dL Hct 25.0 L (34.0-46.0) % RDW 15.8 H (11.5-15.5) % Neutrophils # 12.5 H (1.3-7.7) k/uL Lymphocytes # 0.4 L (1.0-4.8) k/uL Microbiology - Last 24 Hours (Table) 10/30/21 15:43 Gram Stain - Final Abdomen Wound Culture - Final
--- NOTE | 2021-11-02 15:57 | PN ---
PROGRESS NOTE Patient is seen for followup for end-stage renal disease. She is currently seen on hemodialysis. Patient's blood pressure is on the lower side. We are trying for about a liter of ultrafiltration. Abdominal pain is about the same. Patient denies any other new complaints. She would like her diet switched to regular diet. Usually as outpatient patient does not require any significant dietary restrictions. On examination today, blood pressure 102/60, heart rate 79 per minute. She is afebrile. EXAMINATION OF THE HEART: S1 and S2. EXAMINATION OF LUNGS: Decreased breath sounds at the bases. Abdomen is soft. Tenderness noted. Examination of lower extremities shows no significant edema. BUSINESS INSURANCE AGENT EXAM: Grossly intact. Labs show hemoglobin 8.1. No new labs available in terms of BMP. ASSESSMENT: 1. End-stage renal disease, maintained on dialysis twice a week. Will plan for next treatment on Saturday. 2. Abdominal pain, bowel obstruction, status post lysis of adhesions. 3. Volume overload, now improved. PLAN: Switch to regular diet. No need for potassium or phosphorus restriction. Next dialysis on Saturday. Increase oral intake as per Surgery. MMODL / IJN: [id number] /
[2021-11-02] MEDS: MORPHINE SULFATE 4 MG/ML SYRINGE IV PRN (16:27)
[2021-11-02] MEDS: ONDANSETRON 4 MG/2 ML VIAL IVP PRN (16:37)
[2021-11-02 18:39] LABS: Magnesium 1.5 mg/dL (1.5-2.4)
[2021-11-02 18:50] LABS: African American GFR (CKD) 9.3 (60.0-200.0); BUN/Creat Ratio 10.98 Ratio (12.00-20.00); Calcium 9.4 mg/dL (8.7-10.3); Potassium 4.3 mmol/L (3.5-5.5)
[2021-11-02] MEDS: ATORVASTATIN 20 MG TAB PO SCH (20:59)
[2021-11-02] MEDS: MIRTAZAPINE 15 MG TAB PO SCH (21:00)
[2021-11-03] MEDS: PIPERACILLIN-TAZOBACTAM 3.375 GM in SODIUM CHLORIDE 0.9% 100 ML IVPB SCH ×2 (02:32→14:46)
[2021-11-03] MEDS: hydrALAZINE HCL 50 MG TAB PO SCH ×3 (05:17→20:25)
[2021-11-03 06:40] LABS: Basophils % (A) 0 %; Eosinophils # (A) 0.1 k/uL (0-0.7); Eosinophils % (A) 0 %; HGB 7.7 gm/dL (11.4-16.0); Lymphocytes # (A) 0.4 k/uL (1.0-4.8); Lymphocytes % (A) 3 %; MCH 29.9 pg (25.0-35.0); MCHC 32.2 g/dL (31.0-37.0); Mean Platelet Volume 8.8; Monocytes # (A) 0.7 k/uL (0-1.0); Monocytes % (A) 4 %; Neutrophils # (A) 14.6 k/uL (1.3-7.7); Neutrophils % (A) 90 %; Platelet Count 244 k/uL (150-450); RBC 2.58 m/uL (3.80-5.40); RDW 15.6 % (11.5-15.5); WBC 16.2 k/uL (3.8-10.6)
[2021-11-03] MEDS: CALCIUM ACETATE 667 MG TAB PO SCH ×2 (08:15→16:51)
[2021-11-03] MEDS: SEVELAMER 800 MG TAB PO SCH ×2 (08:15→20:26)
[2021-11-03] MEDS: PANTOPRAZOLE 40 MG/10 ML VIAL IVP SCH ×2 (08:15→20:25)
[2021-11-03] MEDS: ASPIRIN 81 MG PO SCH (08:16)
[2021-11-03] MEDS: METOPROLOL SUCCINATE (ER) 50 MG TAB.ER.24H PO SCH ×2 (08:16→16:50)
[2021-11-03] MEDS: TORSEMIDE 20 MG TAB PO SCH (08:16)
[2021-11-03] MEDS: DOCUSATE ORAL SOLN 100 MG/10 ML CUP PO SCH ×2 (08:17→20:25)
[2021-11-03] MEDS: SIMETHICONE 40 MG/0.6 ML DROPS 2,000 MG/30 ML BOTTLE PO SCH ×4 (08:17→20:24)
[2021-11-03] MEDS: NICOTINE 14MG/24HR PATCH TRANSDERM SCH (08:18)
[2021-11-03] MEDS: HEPARIN SODIUM,PORCINE/PF 5,000 UNIT/0.5 ML SYRINGE SQ SCH ×2 (08:23→20:26)
[2021-11-03 09:57] LABS: Anion Gap 13.4 mmol/L (10.00-18.00); BUN/Creat Ratio 8.68 Ratio (12.00-20.00); Blood Urea Nitrogen 26.9 mg/dL (9.0-27.0); Calcium 9.6 mg/dL (8.7-10.3); Carbon Dioxide 21.6 mmol/L (20.0-27.5); Non-African American GFR(CKD) 14.6 (60.0-200.0); Potassium 4.3 mmol/L (3.5-5.5)
[2021-11-03] MEDS: NON FORMULARY DRUG (Levocarnitine [Levocarnitine] 330 MG Tablet) PO SCH ×3 (10:26→20:21)
[2021-11-03 10:58] VITALS: BMI 19.2
--- NOTE | 2021-11-03 12:29 | P.PN ---
Subjective Progress Note Date: 11/03/21 CHIEF COMPLAINT: Abdominal pain HISTORY OF PRESENT ILLNESS: Patient is status post exploratory laparotomy, lysis of adhesions and cholecystectomy for small bowel obstruction, hydropic gallbladder and polycystic kidney. Patient is sitting up in bed comfortably. She reports that her abdominal pain is getting better each day. Patient tolerating diet. Denies any nausea vomiting. Patient is having bowel movements and flatus. Afebrile. White count continues to increase its up to 16.2 HCV 7.7. Wound culture grew normal edith. Patient seen and examined with Dr. renteria PHYSICAL EXAM: VITAL SIGNS: Reviewed. GENERAL: Well-developed in no acute distress. HEENT: No sclera icterus. Extraocular movements grossly intact. Moist buccal mucosa. Head is atraumatic, normocephalic. ABDOMEN: Soft. Nondistended. Incisional drainage showing improvement. There is erythema along the middle of the incision NEUROLOGIC: Alert and oriented. Cranial nerves II through XII grossly intact. ASSESSMENT: 1. Status post exploratory laparotomy, lysis of adhesions and cholecystectomy for small bowel obstruction, hydropic gallbladder and polycystic kidney 2. Abdominal Incisional infection 3. Leukocytosis PLAN: -Consult infectious disease regarding leukocytosis -Continue IV Zosyn -Continue regular diet -Monitor WBC -Encouraged patient ambulate -Encouraged patient to use incentive spirometer -GI prophylaxis Protonix and DVT prophylaxis subcu heparin Physician Railroad Car Cleaner note has been reviewed by physician. Signing provider agrees with the documented findings, assessment, and plan of care. Objective - Vital Signs Vital signs: Vital Signs Temp 98.4 F 11/03/21 04:30 Pulse 79 11/03/21 08:13 Resp 20 11/03/21 04:30 BP 102/68 11/03/21 08:13 Pulse Ox 97 11/03/21 04:30 Intake & Output 11/02/21 11/03/21 11/03/21 18:59 06:59 18:59 Intake Total 100 100 240 Output Total 550 1 Balance -450 99 240 Weight 54 kg 54 kg Intake: Intake, IV Titration 100 100 Amount Piperacillin-Tazobactam 3 100 .375 gm In Sodium Chloride 0.9% 100 ml @ 25 mls/hr IVPB Q12H [facility] Rx# :[id number] Piperacillin-Tazobactam 3 100 .375 gm In Sodium Chloride 0.9% 100 ml @ 25 mls/hr IVPB Q12HR [facility] Rx #:[id number] Oral 240 Output: Stool 1 Hemodialysis 550 Other: Voiding Method Toilet # Bowel Movements 3 1 - Labs CBC & Chem 7: 11/03/21 05:55 11/03/21 05:55 Labs: Abnormal Lab Results - Last 24 Hours (Table) 11/02/21 11/03/21 11/03/21 Range/Units 04:28 05:55 05:55 WBC 16.2 H (3.8-10.6) k/uL RBC 2.58 L (3.80-5.40) m/uL Hgb 7.7 L (11.4-16.0) gm/dL Hct 24.0 L (34.0-46.0) % RDW 15.6 H (11.5-15.5) % Neutrophils # 14.6 H (1.3-7.7) k/uL Lymphocytes # 0.4 L (1.0-4.8) k/uL Carbon Dioxide 18.0 L (20.0-27.5) mmol/L BUN 56.0 H (9.0-27.0) mg/dL Creatinine 5.1 H 3.1 H (0.6-1.5) mg/dL Est GFR (CKD-EPI)AfAm 9.3 L 17.0 L (60.0-200.0) Est GFR (CKD-EPI)NonAf 8.0 L 14.6 L (60.0-200.0) BUN/Creatinine Ratio 10.98 L 8.68 L (12.00-20.00) Ratio
[2021-11-03] MEDS: ATORVASTATIN 20 MG TAB PO SCH (20:25)
[2021-11-03] MEDS: MIRTAZAPINE 15 MG TAB PO SCH (20:25)
[2021-11-03] MEDS: HYDROcodone/APAP 10-325MG 1 EACH TAB PO PRN (20:34)
--- NOTE | 2021-11-04 00:22 | P.PN ---
Subjective Progress Note Date: 11/03/21 This is a pleasant 70-year-old female who presented to the hospital with acute abdominal pain with associated vomiting. 10/31/2021 Patient evaluated today sitting up in bed, NG is out and patient is hoping to be advanced to a regular diet today. Abdominal wound vac in place, and cultures have been sent, currently pending. She is passing as, however has not had a BM yet since surgery. Positive bowel sounds. She is denying any nausea or vomiting. Labs today: WBC 12.1, hemoglobin 8.2, sodium 138, potassium 3.8, BUN 30.3, Creatinine 3.6. Vitals today: Temp, 98.8, heart rate 88, Blood pressure 107/51, on 2L NC - 97%. Patient does appear in better spirits, and overall states her abdominal pain is improving, and she feels a little better each day. 11/01/2021 Patient to sleep in the bed. She is not wanting to work with physical therapy due to abdominal pain. They're going to work with timing her pain management so that she can begin physical therapy. Patient was advanced to a regular diet and tolerating, there is no nausea vomiting or diarrhea. She is almost surgery, she is passing gas. Wound cultures are pending. Labs today show a white blood cell count 12.2, hemoglobin 8.5. Vitals are stable today. 11/02/2021 Patient is getting dialysis at the time of assessment. She reports abdominal pain is improving. Wound looks better, there is no more foul-smelling drainage is minimal erythema surrounding the area where the staple was removed. Cultures are still pending. Patient has not had a bowel movement since surgery, she is passing gas. Discussed with surgery today. Patient encouraged to work with physical therapy and needs to increase her activity level and continue to use i ncentive spirometer. White blood cell count today is 14, hemoglobin 8.1. Patient is afebrile, blood pressure on the lower side today 94/47. 11/03/2021 Patient evaluated today resting in bed. WBC continues to climb, up to 16 today. ID was consulted. Present in the room during physical therapy evaluation, patient was able to sit on the edge of the bed. Lungs were clear to auscultation in all lung veliz, she denies any dysuria urgency or frequency. She does report a congested cough that began about 2 days ago. Additionally, there is a small area on the lower midline abdominal incision that has some surrounding erythema with purulent/clear discharge small. Oral cavity is free form thrush. Patient denies fever, chills. Labs today: WBC 16.2, hemoglobin 7.7, sodium 139, potassium 4.3, BUN 26.9, creatinine 3.1, GFR is up to 14.6. Patient is afebrile, heart rate 70, temp 133/62. Patients IS is not at the bedside, ordered another one and discussed importance of utilization. Hoping for disc harge saturday, patient would like to return home. Tomorrow she needs to get up to the chair for meals. Patient did have a moderate soft brown BM after receiving dulcolax suppository. ROS Constitutional: Denies feve.r chills, reports mild fatigue. Cardio vascular: denied any chest pain, palpitations Gastrointestinal: Reports incisional and diffuse adbominal pain, improving, passing gas, reports BM Pulmonary: Denied any shortness of breath, cough Neurologic denied any new focal deficits All inpatient medications were reviewed and appropriate changes in these medications as dictated in the interval history and assessment and plan. PHYSICAL EXAMINATION: GENERAL: The patient is alert and oriented x3, mild discomfort noted. Well developed, well nourished. HEENT: Pupils are round and equally reacting to light. EOMI. No scleral icterus. No conjunctival pallor. Normocephalic, atraumatic. No pharyngeal erythema. No thyromegaly. CARDIOVASCULAR: S1 and S2 present. Murmur noted. PULMONARY: Diminished bases ABDOMEN: Post surgical abdomen with woundvac in place and abdominal binder, tender MUSCULOSKELETAL: No joint swelling or deformity. EXTREMITIES: No cyanosis, clubbing, or pedal edema. NEUROLOGICAL: Gross neurological examination did not reveal any focal deficits. SKIN: No rashes. generalized ecchymosis upper extremities, post surgical abdomen with woundvac. Assessment and plan Assessment Post operative for exploratory laporatomy with lysis of adhesions, cholecystectomy for small bowel obstruction, hydropic gallbladder and polycystic kidney. Incisional infection, cultures negative End-stage renal disease on hemodialysis 2 times a week Fluid overload with pleural effusion secondary to above, improving Hyperkalemia secondary to renal failure, improved Polycystic kidney disease, advanced History of COPD Severe pulmonary hypertension Chronic ongoing nicotine dependence Recent history of bilateral hip replacement with surgery of repair Hypertension History of depression Hyponatremia Anemia, normocytic anemia of chronic disease GI prophylaxis: Protonix DVT prophylaxis: Subcu heparin FULL CODE Plan Continue IV antibiotics, ID consult. Continue to encourge IS, ambulation Pain management Continue all other supportive care Repeat labs tomorrow Pending PT/OT evaluation for rehab vs home on discharge Objective - Vital Signs Vital signs: Vital Signs Temp 98.4 F 11/03/21 04:30 Pulse 79 11/03/21 08:13 Resp 20 11/03/21 04:30 BP 102/68 11/03/21 08:13 Pulse Ox 97 11/03/21 04:30 Intake & Output 11/02/21 11/03/21 11/03/21 18:59 06:59 18:59 Intake Total 100 100 240 Output Total 550 1 Balance -450 99 240 Weight 54 kg 54 kg Intake: Intake, IV Titration 100 100 Amount Piperacillin-Tazobactam 3 100 .375 gm In Sodium Chloride 0.9% 100 ml @ 25 mls/hr IVPB Q12H [facility] Rx# :[id number] Piperacillin-Tazobactam 3 100 .375 gm In Sodium Chloride 0.9% 100 ml @ 25 mls/hr IVPB Q12HR [facility] Rx #:[id number] Oral 240 Output: Stool 1 Hemodialysis 550 Other: Voiding Method Toilet # Bowel Movements 3 1 - Labs CBC & Chem 7: 11/03/21 05:55 11/03/21 05:55 Labs: Abnormal Lab Results - Last 24 Hours (Table) 11/02/21 11/03/21 11/03/21 Range/Units 04:28 05:55 05:55 WBC 16.2 H (3.8-10.6) k/uL RBC 2.58 L (3.80-5.40) m/uL Hgb 7.7 L (11.4-16.0) gm/dL Hct 24.0 L (34.0-46.0) % RDW 15.6 H (11.5-15.5) % Neutrophils # 14.6 H (1.3-7.7) k/uL Lymphocytes # 0.4 L (1.0-4.8) k/uL Carbon Dioxide 18.0 L (20.0-27.5) mmol/L BUN 56.0 H (9.0-27.0) mg/dL Creatinine 5.1 H 3.1 H (0.6-1.5) mg/dL Est GFR (CKD-EPI)AfAm 9.3 L 17.0 L (60.0-200.0) Est GFR (CKD-EPI)NonAf 8.0 L 14.6 L (60.0-200.0) BUN/Creatinine Ratio 10.98 L 8.68 L (12.00-20.00) Ratio
[2021-11-04] MEDS: PIPERACILLIN-TAZOBACTAM 3.375 GM in SODIUM CHLORIDE 0.9% 100 ML IVPB SCH ×2 (02:04→16:30)
[2021-11-04] MEDS: hydrALAZINE HCL 50 MG TAB PO SCH ×3 (05:10→21:27)
[2021-11-04 08:05] LABS: Basophils # (A) 0.1 k/uL (0-0.2); Basophils % (A) 0 %; Eosinophils # (A) 0.1 k/uL (0-0.7); Eosinophils % (A) 1 %; HCT 27.7 % (34.0-46.0); HGB 8.8 gm/dL (11.4-16.0); Hypochromasia Slight; Lymphocytes # (A) 0.5 k/uL (1.0-4.8); Lymphocytes % (A) 3 %; MCH 29.9 pg (25.0-35.0); MCHC 31.7 g/dL (31.0-37.0); MCV 94.2 fL (80.0-100.0); Mean Platelet Volume 8.6; Monocytes # (A) 0.6 k/uL (0-1.0); Monocytes % (A) 4 %; Neutrophils # (A) 14.8 k/uL (1.3-7.7); Neutrophils % (A) 91 %; Platelet Count 280 k/uL (150-450); RBC 2.95 m/uL (3.80-5.40); RDW 15.7 % (11.5-15.5); WBC 16.3 k/uL (3.8-10.6)
--- NOTE | 2021-11-04 09:03 | P.CONS ---
History of Present Illness - Reason for Consult Consult date: 11/03/21 leukocytosis Requesting physician: Alf Holden - Chief Complaint abd pain x days - History of Present Illness History of present illness : Patient is 70-year-old female presenting to the hospital more than 2 weeks ago with abdominal pain with associated nausea and vomiting started the morning of presentation to the hospital in this patient did have history of end-stage renal disease on hemodialysis patient did have a CT abdominal pelvis on the that was negative for acute intra-abdominal process patient also have repeat CAT scan done on the dilated small bowel consistent with mechanical distal small bowel obstruction CAT scan was also repeated on the did not show any change from a CAT scan to the earlier patient was taken to the OR on the this patient was status post exploratory laparotomy lysis of adhesion and cholecystectomy no mention of any perforation this patient did not have any fever during this hospital admission patient did have a normal white count until 10/29/2021 the white count has been going high since 10/31/2021 and is up to 16.2 today that has prompted this infectious disease consultation patient was noticed to have some drainage from the abdominal lower and which has been cultured and was negative for any pathogens except some skin edith patient has been started on Zosyn as of yesterday with the patient has been tolerating so far patient did mention that her abdominal pain has slightly decreased in intensity compared to yesterday no further nausea vomiting patient denies having any chest pain shortness of breath or cough and no diarrhea Review of system: CONSTITUTIONAL: Positive for weakness denies fever. EYES: No complaint. ENT: No complaint. RESPIRATORY: No complaint. CARDIOVASCULAR: No complaint. GENITOURINARY: No complaint. GASTROINTESTINAL as per history of present illness. MUSCULOSKELETAL: No complaint. INTEGUMENTARY: No complaint. PSYCHOLOGIC: No complaint. ENDOCRINE: No complaint. NEUROLOGIC: No complaint. Past medical history : Reviewed, documented below Past surgical history : Reviewed, documented below Social history: Reviewed, documented below Medications: Reviewed, as documented below EXAMINATION: Vital sigans= Reviewed and documented below GENERAL DESCRIPTION: Elderly female lying in bed, no distress. No tachypnea or accessory muscle of respiration use. HEENT: Shows Pallor , no scleral icterus. Oral mucous membrane is dry. NECK: Trachea central, no thyromegaly. LUNGS: Unlabored breathing. Clear to auscultation anteriorly. No wheeze or crackle. HEART: S1, S2, regular rate and rhythm. ABDOMEN: Soft, abdominal incision looks clean minimal drainage at the lower and no surrounding redness no significant tenderness EXTREMITIES: No edema of feet. SKIN: No rash, no masses palpable. NEUROLOGICAL: The patient is awake, alert, oriented x3, mood and affect normal. LABS AND RADIOLOGY: Reviewed results see below Assessment : Patient with leukocytosis in this patient has been in the hospital for more than 2 weeks now presented with abdominal pain he did have multiple CT abdominal pelvis with evidence of small bowel obstruction status post laparotomy on 10/26/2021 status post lysis of adhesion for the small bowel obstruction and cholecystectomy no mention of any perforation on the operative report patient started having a worsening of the white count as of 10/31/2021 she did have minimal drainage from the lower end of the incision which grew normal skin edith source of elevated white count likely abdominal and will need to cover for the enteric gram-negative both aerobes and anaerobes in this patient reporting some improvement with the Zosyn that was started yesterday as far as abdominal pain is concerned Plan: 1-blood cultures CRP will be obtained with a.m. lab 2-patient to continue with the Zosyn 3.375 g every 12 hours 3-if any further worsening of the white count or abdominal pain will benefit from repeat CT abdominal pelvis We will follow on clinical condition and cultures to further adjust medication if needed Thank you for this consultation we will follow the patient along with you Past Medical History Past Medical History: COPD, GERD/Reflux, Hypertension, Renal Disease Additional Past Medical History / Comment(s): chronic pain; Kidney Dialysis Mon/Thurs. History of Any Multi-Drug Resistant Organisms: None Reported Past Surgical History: Breast Surgery, Tonsillectomy Additional Past Surgical History / Comment(s): benign Br lumpectomy Past Anesthesia/Blood Transfusion Reactions: No Reported Reaction Past Psychological History: Depression Smoking Status: Current every day smoker Past Alcohol Use History: None Reported Additional Past Alcohol Use History / Comment(s): has smoked for about 45 years; down to 1/2 ppd Past Drug Use History: None Reported - Past Family History Mother Family Medical History: No Reported History Medications and Allergies Home Medications Medication Instructions Recorded Confirmed Type Mirtazapine [Remeron] 30 mg PO HS@2100 12/28/16 10/19/21 History Rosuvastatin [Crestor] 10 mg PO HS@2100 12/28/16 10/19/21 History Torsemide [Demadex] 60 mg PO BID@0800,1700 11/16/18 10/19/21 History calcitrioL [Calcitriol] 1 mcg PO BID 01/18/20 10/19/21 History hydrALAZINE HCL [Apresoline] 100 mg PO TID@0600,1400,2200 01/18/20 10/19/21 History Calcium Acetate 667 mg PO BID@0800,1700 06/14/21 10/19/21 History Metoprolol Succinate (ER) [Toprol 50 mg PO BID@0800,1700 06/14/21 10/19/21 History XL] Aspirin EC [Ecotrin Low Dose] 81 mg PO DAILY 10/19/21 10/19/21 History Esomeprazole Magnesium [NexIUM] 40 mg PO BID 10/19/21 10/19/21 History Furosemide [Lasix] 40 mg PO HS 10/19/21 10/19/21 History Furosemide [Lasix] 80 mg PO DAILY 10/19/21 10/19/21 History HYDROcodone/APAP 10-325MG [[place] 2 tab PO TID 10/19/21 10/19/21 History 10-325] Metoclopramide [Reglan] 5 mg PO BID 10/19/21 10/19/21 History Ondansetron Odt [Zofran ODT] 4 mg PO TID PRN 10/19/21 10/19/21 History Oxazepam [Serax] 10 mg PO DAILY PRN 10/19/21 10/19/21 History QUEtiapine [SEROquel] 150 mg PO HS 10/19/21 10/19/21 History Sevelamer [Renvela] 1,600 mg PO BID 10/19/21 10/19/21 History cloNIDine HCL [Catapres] 0.2 mg PO HS 10/19/21 10/19/21 History cloNIDine HCL [Catapres] 0.3 mg PO BID@0800,1200 10/19/21 10/19/21 History levOCARNitine [Levocarnitine] 330 mg PO TID 10/19/21 10/19/21 History lisinopriL [Zestril] 20 mg PO BID 10/19/21 10/19/21 History minoxidiL [Loniten] 5 mg PO BID 10/19/21 10/19/21 History Pantoprazole [Protonix] 40 mg PO AC-BID 30 Days #60 tab 10/20/21 Rx Allergies Allergy/AdvReac Type Severity Reaction Status Date / Time erythromycin base Allergy Unknown Verified 10/18/21 20:34 fentanyl Allergy Unknown Verified 10/18/21 20:34 oxycodone HCl [From Percocet] Allergy Nausea & Verified 10/18/21 20:34 Vomiting succinylcholine Allergy Unknown Verified 10/18/21 20:34 Physical Exam Vitals: Vital Signs Temp Pulse Pulse Resp BP Pulse Ox 11/03/21 13:00 97.9 F 76 16 154/55 93 L 11/03/21 08:13 79 102/68 11/03/21 04:30 98.4 F 74 20 123/62 97 11/02/21 20:22 98.3 F 88 20 109/64 96 11/02/21 19:55 20 11/02/21 16:43 97 136/70 Intake and Output 11/03/21 11/03/21 11/03/21 06:59 14:59 22:59 Intake Total 100 240 Output Total 1 Balance 99 240 Intake: Intake, IV Titration 100 Amount Piperacillin-Tazobactam 3 100 .375 gm In Sodium Chloride 0.9% 100 ml @ 25 mls/hr IVPB Q12HR [facility] Rx #:[id number] Oral 240 Output: Stool 1 Other: # Bowel Movements 1 Weight 54 kg 54 kg Results CBC & Chem 7: 11/04/21 07:30 11/03/21 05:55 Labs: Abnormal Lab Results - Last 24 Hours (Table) 11/02/21 11/03/21 11/03/21 Range/Units 04:28 05:55 05:55 WBC 16.2 H (3.8-10.6) k/uL RBC 2.58 L (3.80-5.40) m/uL Hgb 7.7 L (11.4-16.0) gm/dL Hct 24.0 L (34.0-46.0) % RDW 15.6 H (11.5-15.5) % Neutrophils # 14.6 H (1.3-7.7) k/uL Lymphocytes # 0.4 L (1.0-4.8) k/uL Carbon Dioxide 18.0 L (20.0-27.5) mmol/L BUN 56.0 H (9.0-27.0) mg/dL Creatinine 5.1 H 3.1 H (0.6-1.5) mg/dL Est GFR (CKD-EPI)AfAm 9.3 L 17.0 L (60.0-200.0) Est GFR (CKD-EPI)NonAf 8.0 L 14.6 L (60.0-200.0) BUN/Creatinine Ratio 10.98 L 8.68 L (12.00-20.00) Ratio
[2021-11-04] MEDS: NICOTINE 14MG/24HR PATCH TRANSDERM SCH (09:17)
[2021-11-04] MEDS: NON FORMULARY DRUG (Levocarnitine [Levocarnitine] 330 MG Tablet) PO SCH ×3 (09:17→20:37)
[2021-11-04] MEDS: SIMETHICONE 40 MG/0.6 ML DROPS 2,000 MG/30 ML BOTTLE PO SCH ×4 (09:17→20:37)
[2021-11-04] MEDS: CALCIUM ACETATE 667 MG TAB PO SCH ×2 (09:51→16:32)
[2021-11-04] MEDS: TORSEMIDE 20 MG TAB PO SCH (09:51)
[2021-11-04] MEDS: ASPIRIN 81 MG PO SCH (09:51)
[2021-11-04] MEDS: DOCUSATE ORAL SOLN 100 MG/10 ML CUP PO SCH ×2 (09:51→21:26)
[2021-11-04] MEDS: METOPROLOL SUCCINATE (ER) 50 MG TAB.ER.24H PO SCH ×2 (09:51→16:33)
[2021-11-04] MEDS: PANTOPRAZOLE 40 MG/10 ML VIAL IVP SCH ×2 (09:52→20:42)
[2021-11-04] MEDS: HEPARIN SODIUM,PORCINE/PF 5,000 UNIT/0.5 ML SYRINGE SQ SCH ×2 (09:52→21:26)
[2021-11-04] MEDS: SEVELAMER 800 MG TAB PO SCH ×2 (09:57→21:27)
--- NOTE | 2021-11-04 11:12 | P.PN ---
Progress Note - Text Progress Note Date: 11/04/21 Patient states she feels well. She denies a significant abdominal pain. On exam vital signs are stable. Abdomen soft. Status post total laparotomy with lysis of adhesion due to valve structure. Patient will continue supportive care.
--- NOTE | 2021-11-04 11:28 | P.PN ---
Subjective Progress Note Date: 11/04/21 This is a pleasant 70-year-old female who presented to the hospital with acute abdominal pain with associated vomiting. 10/31/2021 Patient evaluated today sitting up in bed, NG is out and patient is hoping to be advanced to a regular diet today. Abdominal wound vac in place, and cultures have been sent, currently pending. She is passing as, however has not had a BM yet since surgery. Positive bowel sounds. She is denying any nausea or vomiting. Labs today: WBC 12.1, hemoglobin 8.2, sodium 138, potassium 3.8, BUN 30.3, Creatinine 3.6. Vitals today: Temp, 98.8, heart rate 88, Blood pressure 107/51, on 2L NC - 97%. Patient does appear in better spirits, and overall states her abdominal pain is improving, and she feels a little better each day. 11/01/2021 Patient to sleep in the bed. She is not wanting to work with physical therapy due to abdominal pain. They're going to work with timing her pain management so that she can begin physical therapy. Patient was advanced to a regular diet and tolerating, there is no nausea vomiting or diarrhea. She is almost surgery, she is passing gas. Wound cultures are pending. Labs today show a white blood cell count 12.2, hemoglobin 8.5. Vitals are stable today. 11/02/2021 Patient is getting dialysis at the time of assessment. She reports abdominal pain is improving. Wound looks better, there is no more foul-smelling drainage is minimal erythema surrounding the area where the staple was removed. Cultures are still pending. Patient has not had a bowel movement since surgery, she is passing gas. Discussed with surgery today. Patient encouraged to work with physical therapy and needs to increase her activity level and continue to use i ncentive spirometer. White blood cell count today is 14, hemoglobin 8.1. Patient is afebrile, blood pressure on the lower side today 94/47. 11/03/2021 Patient evaluated today resting in bed. WBC continues to climb, up to 16 today. ID was consulted. Present in the room during physical therapy evaluation, patient was able to sit on the edge of the bed. Lungs were clear to auscultation in all lung veliz, she denies any dysuria urgency or frequency. She does report a congested cough that began about 2 days ago. Additionally, there is a small area on the lower midline abdominal incision that has some surrounding erythema with purulent/clear discharge small. Oral cavity is free form thrush. Patient denies fever, chills. Labs today: WBC 16.2, hemoglobin 7.7, sodium 139, potassium 4.3, BUN 26.9, creatinine 3.1, GFR is up to 14.6. Patient is afebrile, heart rate 70, temp 133/62. Patients IS is not at the bedside, ordered another one and discussed importance of utilization. Hoping for disc harge saturday, patient would like to return home. Tomorrow she needs to get up to the chair for meals. Patient did have a moderate soft brown BM after receiving dulcolax suppository. 11/04/2021 Patient evaluated today resting in bed. Discussed with patient would like her up in chairs for meals. Patient states that she might, depends on how you feel. Discussed the importance of ambulating, increasing activity level, and incentive spirometer use. Reordered a new one and set it up by the patient. White count today 16.3, platelet 8.8. Temp 97.9, heart rate 67, blood pressure 121/70 and she is 95% on 2 L nasal cannula. Although, she probably doesn't need oxygen. ID was consulted for ongoing leukocytosis post surgical. Labs are pending, procalcitonin, CRP, BMP. Next hemodialysis scheduled from Saturday, patient will most likely get HD saturday and hopefully will be ready for discharge. and patient would like her to return home, but she needs to increase her activity level. Patient reports bowel movement again throughout the evening. ROS Constitutional: Denies fever chills, reports mild fatigue. Cardio vascular: denied any chest pain, palpitations Gastrointestinal: Reports incisional and diffuse adbominal pain, improving, passing gas, reports BM Pulmonary: Denied any shortness of breath, cough Neurologic denied any new focal deficits All inpatient medications were reviewed and appropriate changes in these medications as dictated in the interval history and assessment and plan. PHYSICAL EXAMINATION: GENERAL: The patient is alert and oriented x3, mild discomfort noted. Well developed, well nourished. HEENT: Pupils are round and equally reacting to light. EOMI. No scleral icterus. No conjunctival pallor. Normocephalic, atraumatic. No pharyngeal erythema. No thyromegaly. CARDIOVASCULAR: S1 and S2 present. Murmur noted. PULMONARY: Diminished bases ABDOMEN: Post surgical abdomen with midline surgical incision MUSCULOSKELETAL: No joint swelling or deformity. EXTREMITIES: No cyanosis, clubbing, or pedal edema. NEUROLOGICAL: Gross neurological examination did not reveal any focal deficits. SKIN: No rashes. generalized ecchymosis upper extremities, post surgical abdomen with woundvac. Assessment and plan Assessment Post operative for exploratory laporatomy with lysis of adhesions, cholecystectomy for small bowel obstruction, hydropic gallbladder and polycystic kidney. Incisional infection, cultures negative End-stage renal disease on hemodialysis 2 times a week Fluid overload with pleural effusion secondary to above, improving Hyperkalemia secondary to renal failure, improved Polycystic kidney disease, advanced History of COPD Severe pulmonary hypertension Chronic ongoing nicotine dependence Recent history of bilateral hip replacement with surgery of repair Hypertension History of depression Hyponatremia Anemia, normocytic anemia of chronic disease GI prophylaxis: Protonix DVT prophylaxis: Subcu heparin FULL CODE Plan Continue IV antibiotics, ID consult. Continue to encourge IS, ambulation Pain management Continue all other supportive care Repeat labs tomorrow Pending PT/OT evaluation for rehab vs home on discharge Objective - Vital Signs Vital signs: Vital Signs Temp 97.9 F 11/04/21 04:38 Pulse 67 11/04/21 04:38 Resp 16 11/03/21 20:09 BP 121/70 11/04/21 04:38 Pulse Ox 95 11/04/21 04:38 Intake & Output 11/03/21 11/04/21 11/04/21 18:59 06:59 18:59 Intake Total 3280 Output Total 0 Balance 3280 0 Weight 54 kg 57 kg Intake: Intake, IV Titration 320 Amount Piperacillin-Tazobactam 3 200 .375 gm In Sodium Chloride 0.9% 100 ml @ 25 mls/hr IVPB Q12H [facility] Rx# :[id number] Sodium Chloride 0.9% 1, 120 000 ml @ 0 mls/hr IV .[facility] Rx#:[id number] Oral 2960 Output: Urine 0 Other: Voiding Method Toilet # Voids 2 3 # Bowel Movements 2 3 - Labs CBC & Chem 7: 11/04/21 07:30 11/03/21 05:55 Labs: Abnormal Lab Results - Last 24 Hours (Table) 11/04/21 Range/Units 07:30 WBC 16.3 H (3.8-10.6) k/uL RBC 2.95 L (3.80-5.40) m/uL Hgb 8.8 L (11.4-16.0) gm/dL Hct 27.7 L (34.0-46.0) % RDW 15.7 H (11.5-15.5) % Neutrophils # 14.8 H (1.3-7.7) k/uL Lymphocytes # 0.5 L (1.0-4.8) k/uL
[2021-11-04 12:55] LABS: ALT 11 U/L (4-34); AST 20 U/L (14-36); African American GFR (CKD) 15 (>60 ml/min/1.73 sqM); Albumin 2.4 g/dL (3.5-5.0); Albumin/Globulin Ratio 0.9; Alkaline Phosphatase 121 U/L (38-126); Anion Gap 11 mmol/L; Blood Urea Nitrogen 39 mg/dL (7-17); Calcium 10.4 mg/dL (8.4-10.2); Carbon Dioxide 20 mmol/L (22-30); Chloride 104 mmol/L (98-107); Globulin 2.7 g/dL; Glucose 75 mg/dL (74-99); Non-African American GFR(CKD) 13 (>60 ml/min/1.73 sqM); Potassium 5.1 mmol/L (3.5-5.1); Sodium 135 mmol/L (137-145); Total Bilirubin 0.4 mg/dL (0.2-1.3); Total Protein 5.1 g/dL (6.3-8.2)
[2021-11-04 13:12] LABS: C Reactive Protein 15.2 mg/dL (<1.0)
--- NOTE | 2021-11-04 14:00 | PN ---
PROGRESS NOTE Patient is seen for followup for end-stage renal disease. She is maintained on twice-a- week dialysis. Patient was admitted with abdominal pain. She has had lysis of adhesions, currently doing better. She denies any abdominal pain now. Patient is tolerating oral intake. She is maintained on dialysis Mondays and . On examination today, blood pressure 134/72, heart rate 72 per minute. Patient is afebrile. EXAMINATION OF THE HEART: S1 and S2. EXAMINATION OF LUNGS: Decreased breath sounds at the bases. Abdomen is soft, non-tender. Examination of lower extremities shows no significant edema. Labs are reviewed. Hemoglobin 8.8. Potassium was 4.3 on 11/03/2021. ASSESSMENT: 1. End-stage renal disease, on hemodialysis on Mondays and . We will dialyze the patient on Saturday. She is comfortable. 2. Abdominal pain, status post lysis of adhesions, currently doing much better, tolerating oral intake. Abdominal pain has improved. 3. Chronic kidney disease mineral bone disorder. 4. Volume overload on initial admission, currently improved. PLAN: Hemodialysis on Saturday. Continue to encourage increased oral intake. MMODL / IJN: [id number] /
[2021-11-04] MEDS: MIRTAZAPINE 15 MG TAB PO SCH (21:26)
[2021-11-04] MEDS: FLUCONAZOLE 100 MG TAB PO SCH (21:27)
[2021-11-04] MEDS: ATORVASTATIN 20 MG TAB PO SCH (21:28)
--- NOTE | 2021-11-04 22:44 | PN ---
PROGRESS NOTE DATE OF SERVICE: 11/04/2021 REASON FOR FOLLOWUP: Leukocytosis, possible abdominal source. INTERVAL HISTORY: The patient is afebrile. The patient is currently breathing comfortably. The patient's abdominal pain is currently controlled. No chest pain, shortness of breath or cough. PHYSICAL EXAMINATION: Blood pressure 151/63 with a pulse of 74, temperature 97.4. She is 98% on 2 L nasal cannula. General description is an elderly female lying in bed in no distress. Respiratory system: Unlabored breathing. Clear to auscultation anteriorly. Heart S1, S2. Regular rate and rhythm. Abdomen soft, mildly tender. No guarding or rigidity. LABS: Hemoglobin 8.9, white count of 16.3, creatinine 3.51, procalcitonin 1.04. DIAGNOSTIC IMPRESSION AND PLAN: Patient with leukocytosis in this patient who is status post laparotomy for small bowel obstruction, status post cholecystectomy, lysis of adhesions. Abdominal culture was skin edith. Patient is on Zosyn. White count is still elevated. Will add Diflucan and see response. If any further worsening of the white count, may benefit from repeat CT. Continue supportive care. MMODL / IJN: [id number] /
[2021-11-05] MEDS: HYDROcodone/APAP 10-325MG 1 EACH TAB PO PRN (00:20)
[2021-11-05] MEDS: PIPERACILLIN-TAZOBACTAM 3.375 GM in SODIUM CHLORIDE 0.9% 100 ML IVPB SCH ×2 (01:21→13:22)
[2021-11-05] MEDS: hydrALAZINE HCL 50 MG TAB PO SCH ×3 (05:35→21:30)
[2021-11-05] MEDS: TORSEMIDE 20 MG TAB PO SCH (10:28)
[2021-11-05] MEDS: METOPROLOL SUCCINATE (ER) 50 MG TAB.ER.24H PO SCH ×2 (10:29→18:15)
[2021-11-05] MEDS: HEPARIN SODIUM,PORCINE/PF 5,000 UNIT/0.5 ML SYRINGE SQ SCH ×2 (10:29→20:35)
[2021-11-05] MEDS: PANTOPRAZOLE 40 MG TABLET PO SCH ×2 (10:29→18:15)
[2021-11-05] MEDS: FLUCONAZOLE 100 MG TAB PO SCH (10:29)
[2021-11-05] MEDS: SEVELAMER 800 MG TAB PO SCH ×2 (10:29→20:35)
[2021-11-05] MEDS: ASPIRIN 81 MG PO SCH (10:29)
[2021-11-05] MEDS: DOCUSATE ORAL SOLN 100 MG/10 ML CUP PO SCH ×2 (10:29→20:36)
[2021-11-05] MEDS: NICOTINE 14MG/24HR PATCH TRANSDERM SCH (10:30)
[2021-11-05] MEDS: NON FORMULARY DRUG (Levocarnitine [Levocarnitine] 330 MG Tablet) PO SCH ×3 (10:30→21:27)
[2021-11-05] MEDS: SIMETHICONE 40 MG/0.6 ML DROPS 2,000 MG/30 ML BOTTLE PO SCH ×4 (10:42→21:30)
--- NOTE | 2021-11-05 11:08 | P.PN ---
Progress Note - Text Progress Note Date: 11/05/21 Patient states he feels better. She denies any abdominal pain. She is tolerating diet. On exam vital signs are stable. Abdomen soft. Status post total laparotomy repair of small bowel obstruction. She is doing well. She will be continued to have supportive care
[2021-11-05 11:51] LABS: Basophils # (A) 0.1 k/uL (0-0.2); Basophils % (A) 0 %; Eosinophils # (A) 0.1 k/uL (0-0.7); Eosinophils % (A) 1 %; HCT 30.3 % (34.0-46.0); HGB 9.7 gm/dL (11.4-16.0); Hypochromasia Slight; Lymphocytes # (A) 0.7 k/uL (1.0-4.8); Lymphocytes % (A) 5 %; MCH 30.2 pg (25.0-35.0); MCHC 32.1 g/dL (31.0-37.0); MCV 94.3 fL (80.0-100.0); Mean Platelet Volume 8.8; Monocytes # (A) 0.7 k/uL (0-1.0); Monocytes % (A) 5 %; Neutrophils # (A) 13.6 k/uL (1.3-7.7); Neutrophils % (A) 88 %; Platelet Count 352 k/uL (150-450); RBC 3.22 m/uL (3.80-5.40); RDW 15.6 % (11.5-15.5); WBC 15.5 k/uL (3.8-10.6)
[2021-11-05 12:09] LABS: African American GFR (CKD) 10 (>60 ml/min/1.73 sqM); Anion Gap 13 mmol/L; Blood Urea Nitrogen 49 mg/dL (7-17); Calcium 10.8 mg/dL (8.4-10.2); Carbon Dioxide 22 mmol/L (22-30); Chloride 101 mmol/L (98-107); Glucose 101 mg/dL (74-99); Non-African American GFR(CKD) 9 (>60 ml/min/1.73 sqM); Potassium 5.1 mmol/L (3.5-5.1); Sodium 136 mmol/L (137-145)
--- NOTE | 2021-11-05 15:48 | P.PN ---
Subjective Progress Note Date: 11/05/21 This is a pleasant 70-year-old female who presented to the hospital with acute abdominal pain with associated vomiting. 10/31/2021 Patient evaluated today sitting up in bed, NG is out and patient is hoping to be advanced to a regular diet today. Abdominal wound vac in place, and cultures have been sent, currently pending. She is passing as, however has not had a BM yet since surgery. Positive bowel sounds. She is denying any nausea or vomiting. Labs today: WBC 12.1, hemoglobin 8.2, sodium 138, potassium 3.8, BUN 30.3, Creatinine 3.6. Vitals today: Temp, 98.8, heart rate 88, Blood pressure 107/51, on 2L NC - 97%. Patient does appear in better spirits, and overall states her abdominal pain is improving, and she feels a little better each day. 11/01/2021 Patient to sleep in the bed. She is not wanting to work with physical therapy due to abdominal pain. They're going to work with timing her pain management so that she can begin physical therapy. Patient was advanced to a regular diet and tolerating, there is no nausea vomiting or diarrhea. She is almost surgery, she is passing gas. Wound cultures are pending. Labs today show a white blood cell count 12.2, hemoglobin 8.5. Vitals are stable today. 11/02/2021 Patient is getting dialysis at the time of assessment. She reports abdominal pain is improving. Wound looks better, there is no more foul-smelling drainage is minimal erythema surrounding the area where the staple was removed. Cultures are still pending. Patient has not had a bowel movement since surgery, she is passing gas. Discussed with surgery today. Patient encouraged to work with physical therapy and needs to increase her activity level and continue to use i ncentive spirometer. White blood cell count today is 14, hemoglobin 8.1. Patient is afebrile, blood pressure on the lower side today 94/47. 11/03/2021 Patient evaluated today resting in bed. WBC continues to climb, up to 16 today. ID was consulted. Present in the room during physical therapy evaluation, patient was able to sit on the edge of the bed. Lungs were clear to auscultation in all lung veliz, she denies any dysuria urgency or frequency. She does report a congested cough that began about 2 days ago. Additionally, there is a small area on the lower midline abdominal incision that has some surrounding erythema with purulent/clear discharge small. Oral cavity is free form thrush. Patient denies fever, chills. Labs today: WBC 16.2, hemoglobin 7.7, sodium 139, potassium 4.3, BUN 26.9, creatinine 3.1, GFR is up to 14.6. Patient is afebrile, heart rate 70, temp 133/62. Patients IS is not at the bedside, ordered another one and discussed importance of utilization. Hoping for disc harge saturday, patient would like to return home. Tomorrow she needs to get up to the chair for meals. Patient did have a moderate soft brown BM after receiving dulcolax suppository. 11/04/2021 Patient evaluated today resting in bed. Discussed with patient would like her up in chairs for meals. Patient states that she might, depends on how you feel. Discussed the importance of ambulating, increasing activity level, and incentive spirometer use. Reordered a new one and set it up by the patient. White count today 16.3, platelet 8.8. Temp 97.9, heart rate 67, blood pressure 121/70 and she is 95% on 2 L nasal cannula. Although, she probably doesn't need oxygen. ID was consulted for ongoing leukocytosis post surgical. Labs are pending, procalcitonin, CRP, BMP. Next hemodialysis scheduled from Saturday, patient will most likely get HD saturday and hopefully will be ready for discharge. and patient would like her to return home, but she needs to increase her activity level. Patient reports bowel movement again throughout the evening. 11/05/2021 Patient resting in bed, she would like to be discharged home. Discussed with patient that she she needs to increase her activity level and begin walking and sit up in the chair at least for meals. Patient understanding. ID consultation inplace. She currently does not have IV access and unsuccessful attempts to obtain access, if she continues on IV antibiotics, will need midline placed tomorrow. Blood culture remains negative at 24 hours. WBC today 15.5, hemoglobin 9.7, sodium 136, BUN 49, creatinine 4.83. Procalcitonin elevated at 1.04. She will need dialysis tomorrow as this is her next scheduled today. ROS Constitutional: Denies fever chills, denies fatigue Cardio vascular: denied any chest pain, palpitations Gastrointestinal: denies nausea, vomiting, diarrhea, she is having bowel movements Pulmonary: Denied any shortness of breath, cough Neurologic denied any new focal deficits All inpatient medications were reviewed and appropriate changes in these medications as dictated in the interval history and assessment and plan. PHYSICAL EXAMINATION: GENERAL: The patient is alert and oriented x3, mild discomfort noted. Well developed, well nourished. HEENT: Pupils are round and equally reacting to light. EOMI. No scleral icterus. No conjunctival pallor. Normocephalic, atraumatic. No pharyngeal erythema. No thyromegaly. CARDIOVASCULAR: S1 and S2 present. Murmur noted. PULMONARY: Diminished bases ABDOMEN: Post surgical abdomen with midline surgical incision MUSCULOSKELETAL: No joint swelling or deformity. EXTREMITIES: No cyanosis, clubbing, or pedal edema. NEUROLOGICAL: Gross neurological examination did not reveal any focal deficits. SKIN: No rashes. generalized ecchymosis upper extremities, post surgical abdomen with woundvac. Assessment and plan Assessment Post operative for exploratory laporatomy with lysis of adhesions, cholecystectomy for small bowel obstruction, hydropic gallbladder and polycystic kidney. Incisional infection, cultures negative End-stage renal disease on hemodialysis 2 times a week Fluid overload with pleural effusion secondary to above, improving Hyperkalemia secondary to renal failure, improved Polycystic kidney disease, advanced History of COPD Severe pulmonary hypertension Chronic ongoing nicotine dependence Recent history of bilateral hip replacement with surgery of repair Hypertension History of depression Hyponatremia Anemia, normocytic anemia of chronic disease GI prophylaxis: Protonix DVT prophylaxis: Subcu heparin FULL CODE Plan ID consult Currently no IV access; IV abx on hold because of this Continue to encourge IS, ambulation HD tomorrow as this is next scheduled session Pain management Continue all other supportive care Repeat labs tomorrow Pending PT/OT evaluation for rehab vs home on discharge Objective - Vital Signs Vital signs: Vital Signs Temp 97.4 F L 11/05/21 05:00 Pulse 71 11/05/21 05:00 Resp 16 11/05/21 05:00 BP 172/67 11/05/21 05:00 Pulse Ox 97 11/05/21 05:00 Intake & Output 11/04/21 11/05/21 11/05/21 18:59 06:59 18:59 Intake Total 240 Output Total 1 Balance 239 Weight 57.5 kg Intake: Oral 240 Output: Urine 0 Stool 1 Other: Voiding Method Toilet Toilet # Voids 1 3 # Bowel Movements 2 - Labs CBC & Chem 7: 11/05/21 11:13 11/05/21 11:13 Labs: Abnormal Lab Results - Last 24 Hours (Table) 11/04/21 11/04/21 Range/Units 07:30 07:30 Sodium 135 L (137-145) mmol/L Carbon Dioxide 20 L (22-30) mmol/L BUN 39 H (7-17) mg/dL Creatinine 3.51 H (0.52-1.04) mg/dL Calcium 10.4 H (8.4-10.2) mg/dL C-Reactive Protein 15.2 H (<1.0) mg/dL Total Protein 5.1 L (6.3-8.2) g/dL Albumin 2.4 L (3.5-5.0) g/dL Procalcitonin 1.04 H (0.02-0.09) ng/mL
--- NOTE | 2021-11-05 16:53 | PN ---
PROGRESS NOTE Patient is seen for followup for end-stage renal disease. She is maintained on dialysis twice a week. Patient will be dialyzed tomorrow. She is currently doing much better with much improved abdominal pain. She has been able to walk. On examination today, blood pressure 160/70, heart rate 75 per minute. She is afebrile. EXAMINATION OF THE HEART: S1 and S2. EXAMINATION OF LUNGS: Decreased breath sounds at the bases. Abdomen is soft, non-tender. Examination of lower extremities shows no significant edema. FRONT OFFICE HELP EXAM: Grossly intact. Labs show hemoglobin 9.7, sodium 136, potassium 5.1, BUN 49, creatinine 4.83. ASSESSMENT: 1. End-stage renal disease, on hemodialysis twice a week on Mondays and . 2. Bowel obstruction, status post lysis of adhesions, currently improving. 3. Chronic kidney disease mineral bone disorder. Calcium is high. I will discontinue the calcitriol. 4. Anemia of chronic disease, maintained on Aranesp. PLAN: Discontinue Calcitriol and hemodialysis in a.m. UF of about 1-2 L as tolerated. MMODL / IJN: [id number] /
[2021-11-05] MEDS: CALCIUM ACETATE 667 MG TAB PO SCH (18:15)
[2021-11-05] MEDS: ATORVASTATIN 20 MG TAB PO SCH (20:35)
[2021-11-05] MEDS: MIRTAZAPINE 15 MG TAB PO SCH (20:35)
--- NOTE | 2021-11-05 22:09 | PN ---
PROGRESS NOTE DATE OF SERVICE: 11/05/2021 REASON FOR FOLLOWUP: Leukocytosis. INTERVAL HISTORY: The patient is afebrile. The patient is breathing comfortably. The patient denies having any chest pain, shortness of breath or cough. Abdominal pain is currently controlled. No nausea, vomiting or diarrhea. PHYSICAL EXAMINATION: Blood pressure 128/65 with a pulse of 72, temperature 97.6. She is 93% on 2 L nasal cannula. General description is an elderly female lying in bed in no distress. Respiratory system: Unlabored breathing. Clear to auscultation anteriorly. Heart S1, S2. Regular rate and rhythm. Abdomen soft, mild tenderness. No guarding or rigidity. LABS: Hemoglobin 9.7, creatinine 4.83. DIAGNOSTIC IMPRESSION AND PLAN: Patient with leukocytosis in this patient who is status post laparotomy with small bowel obstruction and cholecystectomy. The patient's white count seems to be showing a downward trend with the addition of Diflucan; to continue , patient did have problem with her IV site. Antibiotic can be switched over to oral Augmentin and the patient will be monitored closely. MMODL / IJN: [id number] / MTDD
[2021-11-06] MEDS: HYDROcodone/APAP 10-325MG 1 EACH TAB PO PRN ×2 (01:23→11:27)
[2021-11-06] MEDS: PIPERACILLIN-TAZOBACTAM 3.375 GM in SODIUM CHLORIDE 0.9% 100 ML IVPB SCH (01:27)
[2021-11-06] MEDS: hydrALAZINE HCL 50 MG TAB PO SCH ×2 (05:26→15:23)
[2021-11-06 06:24] LABS: Basophils # (A) 0.1 k/uL (0-0.2); Basophils % (A) 1 %; Eosinophils # (A) 0.1 k/uL (0-0.7); Eosinophils % (A) 1 %; HCT 25.9 % (34.0-46.0); HGB 8.1 gm/dL (11.4-16.0); Hypochromasia Slight; Lymphocytes # (A) 0.7 k/uL (1.0-4.8); Lymphocytes % (A) 6 %; MCH 29.5 pg (25.0-35.0); MCHC 31.1 g/dL (31.0-37.0); MCV 94.7 fL (80.0-100.0); Mean Platelet Volume 8.3; Monocytes # (A) 0.6 k/uL (0-1.0); Monocytes % (A) 5 %; Neutrophils % (A) 84 %; Platelet Count 294 k/uL (150-450); RBC 2.74 m/uL (3.80-5.40); RDW 15.7 % (11.5-15.5); WBC 10.8 k/uL (3.8-10.6)
--- NOTE | 2021-11-06 08:56 | P.PN ---
Subjective Patient is seen in follow-up for end-stage renal disease. She is maintained on hemodialysis 2 days a week. Underwent exploratory laparotomy with lysis of adhesions for small bowel obstruction on October 24. Tolerating dialysis well. Oral intake fair. Vital signs are stable. HEENT: Head exam is unremarkable. LUNGS: Breath sounds decreased. HEART: Rate and Rhythm are regular. ABDOMEN: Soft, no distention. EXTREMITITES: No edema. Objective - Vital Signs Vital signs: Vital Signs Temp 98.3 F 11/06/21 05:00 Pulse 67 11/06/21 05:00 Resp 16 11/06/21 05:00 BP 166/64 11/06/21 05:00 Pulse Ox 95 11/06/21 05:00 Intake & Output 11/05/21 11/06/21 11/06/21 18:59 06:59 18:59 Intake Total 360 60 Output Total 1 Balance 359 60 Weight 61.5 kg Intake: Oral 360 60 Output: Urine 0 Stool 1 Other: Voiding Method Toilet Toilet # Voids 1 2 # Bowel Movements 1 - Labs CBC & Chem 7: 11/06/21 06:07 11/05/21 11:13 Labs: Abnormal Lab Results - Last 24 Hours (Table) 11/05/21 11/05/21 11/06/21 Range/Units 11:13 11:13 06:07 WBC 15.5 H 10.8 H (3.8-10.6) k/uL RBC 3.22 L 2.74 L (3.80-5.40) m/uL Hgb 9.7 L 8.1 L D (11.4-16.0) gm/dL Hct 30.3 L 25.9 L (34.0-46.0) % RDW 15.6 H 15.7 H (11.5-15.5) % Neutrophils # 13.6 H 9.0 H (1.3-7.7) k/uL Lymphocytes # 0.7 L 0.7 L (1.0-4.8) k/uL Sodium 136 L (137-145) mmol/L BUN 49 H (7-17) mg/dL Creatinine 4.83 H (0.52-1.04) mg/dL Glucose 101 H (74-99) mg/dL Calcium 10.8 H (8.4-10.2) mg/dL Microbiology - Last 24 Hours (Table) 11/04/21 12:45 Blood Culture - Preliminary Blood No Growth after 24 hours Assessment and Plan Plan: Assessment: 1. End-stage renal disease maintained on hemodialysis 2 days a week. Patient has refused 3 times a week dialysis multiple times. 2. Hyperkalemia secondary to chronic kidney disease and lisinopril. Improved postdialysis. 3. Chronic kidney disease mineral bone disease maintained on phosphate binders. Calcitriol stopped due to hypercalcemia. 4. Fluid overload. Improved with ultrafiltration. 5. Small bowel obstruction. NG tube removed. Status post exploratory l aparotomy, lysis of adhesions and cholecystectomy on 10/24/2021. Plan: Currently seen while undergoing hemodialysis. Lisinopril has been discontinued due to hyperkalemia. Hold antihypertensives for systolic blood pressure less than 120.
[2021-11-06] MEDS ORDERED: AMOXIC-POT CLAV 875-125MG 1 EACH TAB PO SCH (09:45)
[2021-11-06 10:26] LABS: African American GFR (CKD) 9.3 (60.0-200.0); Anion Gap 15.7 mmol/L (10.00-18.00); BUN/Creat Ratio 9.92 Ratio (12.00-20.00); Blood Urea Nitrogen 50.6 mg/dL (9.0-27.0); Carbon Dioxide 16.3 mmol/L (20.0-27.5)
[2021-11-06] MEDS: PANTOPRAZOLE 40 MG TABLET PO SCH (11:16)
[2021-11-06] MEDS: HEPARIN SODIUM,PORCINE/PF 5,000 UNIT/0.5 ML SYRINGE SQ SCH (11:16)
[2021-11-06] MEDS: NON FORMULARY DRUG (Levocarnitine [Levocarnitine] 330 MG Tablet) PO SCH ×2 (11:16→15:19)
[2021-11-06] MEDS: DOCUSATE ORAL SOLN 100 MG/10 ML CUP PO SCH (11:17)
[2021-11-06] MEDS: NICOTINE 14MG/24HR PATCH TRANSDERM SCH (11:17)
[2021-11-06] MEDS: CALCIUM ACETATE 667 MG TAB PO SCH (11:17)
[2021-11-06] MEDS: ASPIRIN 81 MG PO SCH (11:17)
[2021-11-06] MEDS: FLUCONAZOLE 100 MG TAB PO SCH (11:17)
[2021-11-06] MEDS: METOPROLOL SUCCINATE (ER) 50 MG TAB.ER.24H PO SCH (11:18)
[2021-11-06] MEDS: TORSEMIDE 20 MG TAB PO SCH (11:18)
[2021-11-06] MEDS: SEVELAMER 800 MG TAB PO SCH (11:18)
[2021-11-06] MEDS: SIMETHICONE 40 MG/0.6 ML DROPS 2,000 MG/30 ML BOTTLE PO SCH ×2 (11:19→15:24)
--- NOTE | 2021-11-06 11:56 | P.PN ---
Subjective Progress Note Date: 11/06/21 CHIEF COMPLAINT: Abdominal pain HISTORY OF PRESENT ILLNESS: Patient is status post exploratory laparotomy, lysis of adhesions and cholecystectomy for small bowel obstruction, hydropic gallbladder and polycystic kidney. Patient is sitting up in bed comfortably. S she reports her pain is controlled. She has been having bowel movements and flatus. She is tolerating diet. Denies any nausea or vomiting. Afebrile. Her white count is trending downwards. WBC is down to from 15.5-10.8. Planning to discharge patient to F. PHYSICAL EXAM: VITAL SIGNS: Reviewed. GENERAL: Well-developed in no acute distress. HEENT: No sclera icterus. Extraocular movements grossly intact. Moist buccal mucosa. Head is atraumatic, normocephalic. ABDOMEN: Soft. Nondistended. No erythema at incision. There is some purulent drainage noted on the dressing. NEUROLOGIC: Alert and oriented. Cranial nerves II through XII grossly intact. ASSESSMENT: 1. Status post exploratory laparotomy, lysis of adhesions and cholecystectomy for small bowel obstruction, hydropic gallbladder and polycystic kidney 2. Abdominal Incisional infection 3. Leukocytosis improving PLAN: -Patient is stable from surgical standpoint for discharge -Discharge antibiotics per ID service -Continue regular diet -Encouraged patient ambulate -Encouraged patient to use incentive spirometer -GI prophylaxis Protonix and DVT prophylaxis subcu heparin Physician Boiler Room Helper note has been reviewed by physician. Signing provider agrees with the documented findings, assessment, and plan of care. Objective - Vital Signs Vital signs: Vital Signs Temp 98.3 F 11/06/21 05:00 Pulse 73 11/06/21 11:14 Resp 16 11/06/21 05:00 BP 128/62 11/06/21 11:14 Pulse Ox 95 11/06/21 05:00 Intake & Output 11/05/21 11/06/21 11/06/21 18:59 06:59 18:59 Intake Total 360 60 Output Total 1 Balance 359 60 Weight 61.5 kg Intake: Oral 360 60 Output: Urine 0 Stool 1 Other: Voiding Method Toilet Toilet # Voids 1 2 # Bowel Movements 1 - Labs CBC & Chem 7: 11/06/21 06:07 11/06/21 06:07 Labs: Abnormal Lab Results - Last 24 Hours (Table) 11/05/21 11/06/21 11/06/21 Range/Units 11:13 06:07 06:07 WBC 10.8 H (3.8-10.6) k/uL RBC 2.74 L (3.80-5.40) m/uL Hgb 8.1 L D (11.4-16.0) gm/dL Hct 25.9 L (34.0-46.0) % RDW 15.7 H (11.5-15.5) % Neutrophils # 9.0 H (1.3-7.7) k/uL Lymphocytes # 0.7 L (1.0-4.8) k/uL Sodium 136 L (137-145) mmol/L Potassium 6.0 H (3.5-5.5) mmol/L Carbon Dioxide 16.3 L (20.0-27.5) mmol/L BUN 49 H 50.6 H (7-17) mg/dL Creatinine 4.83 H 5.1 H (0.52-1.04) mg/dL Est GFR (CKD-EPI)AfAm 9.3 L (60.0-200.0) Est GFR (CKD-EPI)NonAf 8.0 L (60.0-200.0) BUN/Creatinine Ratio 9.92 L (12.00-20.00) Ratio Glucose 101 H (74-99) mg/dL Calcium 10.8 H (8.4-10.2) mg/dL Microbiology - Last 24 Hours (Table) 11/04/21 12:45 Blood Culture - Preliminary Blood No Growth after 24 hours
--- NOTE | 2021-11-06 12:54 | P.DS ---
Providers Date of admission: 10/20/21 14:10 Attending physician: Leann Gu Consults: 10/19/21 08:28 Consult Physician Stat Consulting Provider: Supriya Cristina Consult Reason/Comments: esrd Do you want consulting provider notified?: Yes 10/20/21 10:00 Consult Physician Urgent Consulting Provider: Alf Holden Consult Reason/Comments: abdominal pain Do you want consulting provider notified?: Yes 11/03/21 10:04 Consult Physician Routine Consulting Provider: Maritza Calle Consult Reason/Comments: Leukocytosis Do you want consulting provider notified?: Yes Primary care physician: [facility] Course: Final Diagnosis Post operative for exploratory laporatomy with lysis of adhesions, cholecystectomy for small bowel obstruction, hydropic gallbladder and polycystic kidney. Incisional infection, cultures negative End-stage renal disease on hemodialysis 2 times a week Fluid overload with pleural effusion secondary to above, improving Hyperkalemia secondary to renal failure, improved Polycystic kidney disease, advanced History of COPD Severe pulmonary hypertension Chronic ongoing nicotine dependence Recent history of bilateral hip replacement with surgery of repair Hypertension History of depression Hyponatremia Anemia, normocytic anemia of chronic disease GI prophylaxis: Protonix Discharge Disposition Cleared by surgical and medical for discharge to rehab. Repeat labs in 2-3 days. Dressing changes daily and as needed with dry gauze and abd to midline incision. Keep clean and dry. Follow up with Dr. Holden, continue with hemodialysis. Hospital Course This 70-year-old female who presented to the hospital with acute abdominal pain with associated vomiting that has been ongoing for quite a while. Additional abdomen pelvis CT showed no acute abdomen or pelvic process, repeat demonstrated enlargement of the bilateral kidneys with extensive cysts most likely polycystic kidney disease, bilateral pleural effusions, right greater than left and cardiomegaly with moderate pericardial effusion. Patient continued to have ongoing complaints of abdominal pain that was unresolved with pain management and she did experience abdominal distention slightly repeat abdominal pelvic CT was obtained which showed markedly dilated small bowel consistent with mechanical distal small bowel obstruction as increased compared to old exam. Large bowel is not dilated there is clearing of the small amount of free fluid in the pelvis. There is advanced polycystic kidney disease. She was evaluated by surgical services who did a patient for an exploratory laparotomy for ad hesions, cholecystectomy for small bowel obstruction, hydropic gallbladder and polycystic kidney. Postoperatively patient developed a white blood cell count however abdominal wound cultures were negative. She did require a wound VAC post surgical however that has since been removed and there are midline surgical danielle in place. This admission patient had an echocardiogram which revealed an EF of 60-65% with [id number] mitral regurgitation, mild tricuspid regurgitation, severe pulmonary hypertension, LA severely dilated, no pericardial effusion. Patient is a known history of chronic renal disease, and received hemodialysis this admission. She was also consult to nephrology services, infectious disease for leukocytosis. Overall she improved and Zosyn and is cleared for discharge to finish therapy with oral Augmentin. We did adjust blood pressure medications as she was hypotensive postoperatively. She is discharged on 60 mg of Demadex daily. Labs on admission showed a BUN of 43, creatinine 4.04. Analysis is negative, Covid PCR negative, hep B surface antigen negative. 11/06/2021 Labs today show a white blood cell count 10.8, hemoglobin 8.1 which is stable, sodium 135, potassium 6 or patient is receiving dialysis today, BUN 50, creatinine 5.1. Patient is afebrile, heart rate 67, blood pressure 116/70, she is 95% on room air. Patient has no acute complaints today her abdominal pain is much improved and she continues to have small bowel movements. She is passing gas. Lungs are clear, S1 2 auscultated without murmur present. Patient would like to discharge home however after evaluation by PT and OT she is recommended for subacute rehab on discharge. Patient is not ambulated for distances, she enlisted the bedside for short periods of time less than 1 second and 30 seconds and refused further attempts to stand. We're currently recommending discharge to subacute rehab for patient safety and strengthening. Surgical services is in agreeing with current plan of care. Please see medication reconciliation for a list of current medications. Thank you for allowing us to participate in the care of this patient. Patient Condition at Discharge: Fair Plan - Discharge Summary Discharge Rx Participant: No New Discharge Prescriptions: New Amoxic-Pot Clav 875-125Mg [Augmentin 875-125] 1 each PO Q12HR 10 Days #20 tab Torsemide [Demadex] 60 mg PO DAILY tab Fluconazole [Diflucan] 100 mg PO DAILY 4 Days tab Simethicone 40 mg/0.6 ml Drops [Mylicon Drops] 40 mg PO QID ml Darbepoetin Rusty [Aranesp] 60 mcg SQ Q7D each Docusate Oral Soln [Colace Oral Soln] 100 mg PO BID ml Continue Rosuvastatin [Crestor] 10 mg PO HS@2099 Mirtazapine [Remeron] 30 mg PO HS@2100 hydrALAZINE HCL [Apresoline] 100 mg PO TID@0600,1400,2200 calcitrioL [Calcitriol] 1 mcg PO BID Metoprolol Succinate (ER) [Toprol XL] 50 mg PO BID@0800,1700 Aspirin EC [Ecotrin Low Dose] 81 mg PO DAILY Esomeprazole Magnesium [NexIUM] 40 mg PO BID levOCARNitine [Levocarnitine] 330 mg PO TID Metoclopramide [Reglan] 5 mg PO BID Ondansetron Odt [Zofran ODT] 4 mg PO TID PRN PRN Reason: Nausea QUEtiapine [SEROquel] 150 mg PO HS Sevelamer [Renvela] 1,600 mg PO BID Calcium Acetate 667 mg PO BID@0800,1700 Oxazepam [Serax] 10 mg PO DAILY PRN PRN Reason: Anxiety Changed HYDROcodone/APAP 10-325MG [[place] 10-325] 1 tab PO Q6H #4 tab Discontinued Torsemide [Demadex] 60 mg PO BID@0800,1700 cloNIDine HCL [Catapres] 0.2 mg PO HS cloNIDine HCL [Catapres] 0.3 mg PO BID@0800,1200 Furosemide [Lasix] 40 mg PO HS Furosemide [Lasix] 80 mg PO DAILY lisinopriL [Zestril] 20 mg PO BID Spironolactone [Aldactone] 25 mg PO DAILY minoxidiL [Loniten] 5 mg PO BID Discharge Medication List Mirtazapine [Remeron] 30 mg PO HS@209912/28/16 [History] Rosuvastatin [Crestor] 10 mg PO HS@209912/28/16 [History] calcitrioL [Calcitriol] 1 mcg PO BID 01/18/20 [History] hydrALAZINE HCL [Apresoline] 100 mg PO TID@0600,1400,2200 01/18/20 [History] Calcium Acetate 667 mg PO BID@0800,1700 06/14/21 [History] Metoprolol Succinate (ER) [Toprol XL] 50 mg PO BID@0800,1700 06/14/21 [History] Aspirin EC [Ecotrin Low Dose] 81 mg PO DAILY 10/19/21 [History] Esomeprazole Magnesium [NexIUM] 40 mg PO BID 10/19/21 [History] Metoclopramide [Reglan] 5 mg PO BID 10/19/21 [History] Ondansetron Odt [Zofran ODT] 4 mg PO TID PRN 10/19/21 [History] Oxazepam [Serax] 10 mg PO DAILY PRN 10/19/21 [History] QUEtiapine [SEROquel] 150 mg PO HS 10/19/21 [History] Sevelamer [Renvela] 1,600 mg PO BID 10/19/21 [History] levOCARNitine [Levocarnitine] 330 mg PO TID 10/19/21 [History] Amoxic-Pot Clav 875-125Mg [Augmentin 875-125] 1 each PO Q12HR 10 Days #20 tab 11/06/21 [Rx] Darbepoetin Rusty [Aranesp] 60 mcg SQ Q7D each 11/06/21 [Rx] Docusate Oral Soln [Colace Oral Soln] 100 mg PO BID ml 11/06/21 [Rx] Fluconazole [Diflucan] 100 mg PO DAILY 4 Days tab 11/06/21 [Rx] HYDROcodone/APAP 10-325MG [[place] 10-325] 1 tab PO Q6H #4 tab 11/06/21 [Rx] Simethicone 40 mg/0.6 ml Drops [Mylicon Drops] 40 mg PO QID ml 11/06/21 [Rx] Torsemide [Demadex] 60 mg PO DAILY tab 11/06/21 [Rx] Follow up Appointment(s)/Referral(s): Supriya Cristina MD [STAFF PHYSICIAN] - 1 Week [facility], [NON-STAFF] - As Needed Rock Fry DO [Primary Care Provider] - 1-2 days Alf Holden MD [STAFF PHYSICIAN] - 1 Week Activity/Diet/Wound Care/Special Instructions: Cleared for discharge to rehab Discharge Disposition: TRANSFER TO SNF/ECF
[2021-11-06 14:15] VITALS: BP 139/57; PULSE 64; RESP 18; TEMP 97.6
== END 2021-11-06 18:00 | disposition home health service (06) | DRG 335 ==
LOC: EC 18:48 → 6NMEDSUR 10-19 00:29 → OBSVTOIN 10-20 14:10 → 5NMEDONC 10-21 08:08
PROVIDERS: ADMIT Hospitalist; ATTEND Hospitalist
PROC: 5A1D70Z Performance of Urinary Filtration, Intermittent, Less than 6 Hours Per Day (ICD-10-PCS; 2021-10-19)
PROC: 0FT40ZZ Resection of Gallbladder, Open Approach (ICD-10-PCS; 2021-10-24)
PROC: 0DJW0ZZ Inspection of Peritoneum, Open Approach (ICD-10-PCS; 2021-10-24)
PROC: 0D9670Z Drainage of Stomach with Drainage Device, Via Natural or Artificial Opening (ICD-10-PCS; 2021-10-24)
PROC: 0DNW0ZZ Release Peritoneum, Open Approach (ICD-10-PCS; principal; 2021-10-24 13:25)
PROC: 0TB00ZZ Excision of Right Kidney, Open Approach (ICD-10-PCS; principal; 2021-10-24 13:25)
DX: K56.50 Intestinal adhesions [bands], unspecified as to partial versus complete obstruction (principal); E43 Unspecified severe protein-calorie malnutrition; N18.6 End stage renal disease; E87.1 Hypo-osmolality and hyponatremia; J90 Pleural effusion, not elsewhere classified; I31.3 Pericardial effusion (noninflammatory); Q61.2 Polycystic kidney, adult type; I12.0 Hypertensive chronic kidney disease with stage 5 chronic kidney disease or end stage renal disease; K82.1 Hydrops of gallbladder; Z68.1 Body mass index [BMI] 19.9 or less, adult; Z20.822 Contact with and (suspected) exposure to COVID-19; G89.29 Other chronic pain; K21.9 Gastro-esophageal reflux disease without esophagitis; F17.210 Nicotine dependence, cigarettes, uncomplicated; D63.1 Anemia in chronic kidney disease; D72.829 Elevated white blood cell count, unspecified; E28.2 Polycystic ovarian syndrome; E83.52 Hypercalcemia; E87.5 Hyperkalemia; F32.A Depression, unspecified; I27.20 Pulmonary hypertension, unspecified; E11.22 Type 2 diabetes mellitus with diabetic chronic kidney disease; J44.9 Chronic obstructive pulmonary disease, unspecified; M89.8X9 Other specified disorders of bone, unspecified site; M89.9 Disorder of bone, unspecified; Z79.82 Long term (current) use of aspirin; Z79.899 Other long term (current) drug therapy; Z99.2 Dependence on renal dialysis; Z96.643 Presence of artificial hip joint, bilateral; Z91.81 History of falling
CPT/HCPCS: 36415; 71045; 74176; 74177; 76700; 80048; 80053; 81001; 82040; 82330; 83605; 83690; 83735; 83880; 84100; 84145; 84478; 85025; 85027; 85610; 86140; 86706; 86850; 86900; 86901; 87040; 87070; 87205; 87340; 87635; 88304; 90935; 93306; 94760; 96374; 96375; 96376; 99285

== ENCOUNTER 2021-12-10 12:29 | Inpatient (IN) | payer MEDICARE, OTHER ==
[2021-12-10] MEDS ORDERED: PANTOPRAZOLE 40 MG/10 ML VIAL IVP STA (13:34)
--- NOTE | 2021-12-10 13:37 | ED ---
General Adult HPI - General Chief complaint: Weakness Stated complaint: needs blood transfusion, weakness Time Seen by Provider: 12/10/21 13:19 Source: patient, family, RN notes reviewed Mode of arrival: ambulatory Limitations: no limitations - History of Present Illness Initial comments: Patient is a pleasant 70-year-old female presenting to the emergency department with fatigue and general weakness. Onset of symptoms was just today. Patient did have recent blood work 6 days ago with hemoglobin of 6. Repeat hemoglobin was 5.8. Patient is on dialysis. Patient did have 3 recent Hemoccult tests that did turn in. was not notified of anything abnormal with them. No black or tarry stools. No bleeding. No history of similar symptoms previously. - Related Data Home Medications Medication Instructions Recorded Confirmed Mirtazapine [Remeron] 30 mg PO HS@2100 12/28/16 12/10/21 Rosuvastatin [Crestor] 10 mg PO HS@2100 12/28/16 12/10/21 calcitrioL [Calcitriol] 1 mcg PO BID 01/18/20 12/10/21 hydrALAZINE HCL [Apresoline] 100 mg PO TID@0600,1400,2200 01/18/20 12/10/21 Calcium Acetate 667 mg PO BID@0800,1700 06/14/21 12/10/21 Metoprolol Succinate (ER) [Toprol 50 mg PO BID@0800,1700 06/14/21 12/10/21 XL] Aspirin EC [Ecotrin Low Dose] 81 mg PO DAILY 10/19/21 12/10/21 Esomeprazole Magnesium [NexIUM] 40 mg PO BID 10/19/21 12/10/21 Metoclopramide [Reglan] 5 mg PO BID 10/19/21 12/10/21 Ondansetron Odt [Zofran ODT] 4 mg PO TID PRN 10/19/21 12/10/21 Oxazepam [Serax] 10 mg PO DAILY PRN 10/19/21 12/10/21 QUEtiapine [SEROquel] 150 mg PO HS 10/19/21 12/10/21 Sevelamer [Renvela] 1,600 mg PO BID 10/19/21 12/10/21 levOCARNitine [Levocarnitine] 330 mg PO TID 10/19/21 12/10/21 Previous Rx's Medication Instructions Recorded Docusate Oral Soln [Colace Oral 100 mg PO BID #600 ml 11/06/21 Soln] Fluconazole [Diflucan] 100 mg PO DAILY #4 tablet 11/06/21 HYDROcodone/APAP 10-325MG [[place] 1 tab PO Q6H #4 tab 11/06/21 10-325] Simethicone 40 mg/0.6 ml Drops 40 mg PO QID ml 11/06/21 [Mylicon Drops] Torsemide [Demadex] 60 mg PO DAILY #90 tab 11/06/21 Allergies Allergy/AdvReac Type Severity Reaction Status Date / Time erythromycin base Allergy Unknown Verified 12/10/21 14:43 fentanyl Allergy Unknown Verified 12/10/21 14:43 oxycodone HCl [From Percocet] Allergy Nausea & Verified 12/10/21 14:43 Vomiting succinylcholine Allergy Unknown Verified 12/10/21 14:43 Review of Systems ROS Statement: Those systems with pertinent positive or pertinent negative responses have been documented in the HPI. ROS Other: All systems not noted in ROS Statement are negative. Constitutional: Denies: fever Eyes: Denies: eye pain ENT: Denies: ear pain Respiratory: Denies: cough Cardiovascular: Denies: chest pain Endocrine: Reports: fatigue Gastrointestinal: Denies: abdominal pain Genitourinary: Denies: dysuria Musculoskeletal: Denies: back pain Skin: Denies: rash Neurological: Denies: weakness Past Medical History Past Medical History: COPD, GERD/Reflux, Hypertension, Renal Disease Additional Past Medical History / Comment(s): chronic pain; Kidney Dialysis Mon/Th. History of Any Multi-Drug Resistant Organisms: None Reported Past Surgical History: Breast Surgery, Tonsillectomy Additional Past Surgical History / Comment(s): benign Br lumpectomy Past Anesthesia/Blood Transfusion Reactions: No Reported Reaction Past Psychological History: Depression Smoking Status: Current every day smoker Past Alcohol Use History: None Reported Past Drug Use History: None Reported - Past Family History Mother Family Medical History: No Reported History General Exam Limitations: no limitations General appearance: alert, in no apparent distress Head exam: Present: normocephalic Eye exam: Present: normal appearance Neck exam: Present: normal inspection Respiratory exam: Present: normal lung sounds bilaterally Cardiovascular Exam: Present: regular rate, normal rhythm, systolic murmur (reported as chronic) GI/Abdominal exam: Present: soft, tenderness (Mild diffuse tenderness which is reported as chronic). Absent: distended Rectal exam: Present: normal inspection. Absent: black stool, bloody stool Extremities exam: Present: normal inspection, other (Brace on the right leg) Neurological exam: Present: alert Psychiatric exam: Present: normal affect, normal mood Skin exam: Present: normal color Course Vital Signs 12/10/21 13:02 Temperature 97.7 F Pulse Rate 85 Respiratory 16 Rate Blood Pressure 166/77 O2 Sat by Pulse 100 Oximetry Medical Decision Making - Medical Decision Making Patient has symptomatic anemia. Patient will receive blood transfusion. Case discussed with Dr. grande, who will admit for Dr. Oleg Buck. - Lab Data Result diagrams: 12/10/21 13:54 12/10/21 13:54 Lab Results 12/10/21 12/10/21 12/10/21 Range/Units 13:54 13:54 13:54 WBC 10.5 (3.8-10.6) k/uL RBC 2.07 L (3.80-5.40) m/uL Hgb 7.0 L (11.4-16.0) gm/dL Hct 21.8 L (34.0-46.0) % MCV 105.4 H D (80.0-100.0) fL MCH 33.6 (25.0-35.0) pg MCHC 31.9 (31.0-37.0) g/dL RDW 21.4 H (11.5-15.5) % Plt Count 279 (150-450) k/uL MPV 8.1 Hypochromasia Slight Anisocytosis Moderate Macrocytosis Marked A PT 11.5 (9.0-12.0) sec INR 1.1 (<1.2) APTT 24.5 (22.0-30.0) sec Sodium 139 (137-145) mmol/L Potassium 5.3 H (3.5-5.1) mmol/L Chloride 97 L (98-107) mmol/L Carbon Dioxide 31 H (22-30) mmol/L Anion Gap 11 mmol/L BUN 46 H (7-17) mg/dL Creatinine 3.65 H (0.52-1.04) mg/dL Est GFR (CKD-EPI)AfAm 14 (>60 ml/min/1.73 sqM) Est GFR (CKD-EPI)NonAf 12 (>60 ml/min/1.73 sqM) Glucose 98 (74-99) mg/dL Calcium 10.9 H (8.4-10.2) mg/dL Total Bilirubin 0.9 (0.2-1.3) mg/dL AST 38 H (14-36) U/L ALT 16 (4-34) U/L Alkaline Phosphatase 110 (38-126) U/L Total Protein 7.0 (6.3-8.2) g/dL Albumin 3.7 (3.5-5.0) g/dL Stool Occult Blood (Negative) 12/10/21 Range/Units 13:54 WBC (3.8-10.6) k/uL RBC (3.80-5.40) m/uL Hgb (11.4-16.0) gm/dL Hct (34.0-46.0) % MCV (80.0-100.0) fL MCH (25.0-35.0) pg MCHC (31.0-37.0) g/dL RDW (11.5-15.5) % Plt Count (150-450) k/uL MPV Hypochromasia Anisocytosis Macrocytosis PT (9.0-12.0) sec INR (<1.2) APTT (22.0-30.0) sec Sodium (137-145) mmol/L Potassium (3.5-5.1) mmol/L Chloride (98-107) mmol/L Carbon Dioxide (22-30) mmol/L Anion Gap mmol/L BUN (7-17) mg/dL Creatinine (0.52-1.04) mg/dL Est GFR (CKD-EPI)AfAm (>60 ml/min/1.73 sqM) Est GFR (CKD-EPI)NonAf (>60 ml/min/1.73 sqM) Glucose (74-99) mg/dL Calcium (8.4-10.2) mg/dL Total Bilirubin (0.2-1.3) mg/dL AST (14-36) U/L ALT (4-34) U/L Alkaline Phosphatase (38-126) U/L Total Protein (6.3-8.2) g/dL Albumin (3.5-5.0) g/dL Stool Occult Blood Negative (Negative) - Radiology Data Radiology results: image reviewed (Abdominal x-ray reveals no acute process) Disposition Clinical Impression: Symptomatic anemia Disposition: ADMITTED IP TO THIS HOSP Is patient prescribed a controlled substance at d/c from ED?: No Referrals: Rock Fry DO [Primary Care Provider] - 1-2 days Decision Time: 15:05
--- NOTE | 2021-12-10 14:00 | XR ---
EXAMINATION TYPE: XR abdomen 1V DATE OF EXAM: 12/10/2021 1:54 PM CLINICAL HISTORY: History of polycystic kidney disease on dialysis presents with abdominal pain TECHNIQUE: Single supine KUB image of the abdomen is obtained. COMPARISON: CT abdomen and pelvis October 24, 2021 FINDINGS: Scattered gas is seen in non-distended small and large bowel loops. Cholecystectomy clips n ow present. Overlying arterial vascular calcification is redemonstrated. Surgical change bilateral pr oximal femurs partially imaged. Enlarged bilateral kidneys with local mass effect seen better on CT v ersus plain films. IMPRESSION: Overall nonobstructive bowel gas pattern.
[2021-12-10 14:02] LABS: Anisocytosis Moderate; Basophils # (A) 0.1 k/uL (0-0.2); Basophils % (A) 0 %; Eosinophils # (A) 0.1 k/uL (0-0.7); Eosinophils % (A) 1 %; HCT 21.8 % (34.0-46.0); Hypochromasia Slight; Lymphocytes % (A) 9 %; MCH 33.6 pg (25.0-35.0); MCHC 31.9 g/dL (31.0-37.0); Macrocytosis Marked; Mean Platelet Volume 8.1; Monocytes # (A) 0.4 k/uL (0-1.0); Monocytes % (A) 4 %; Neutrophils # (A) 8.9 k/uL (1.3-7.7); Neutrophils % (A) 85 %; Platelet Count 279 k/uL (150-450); RBC 2.07 m/uL (3.80-5.40); RDW 21.4 % (11.5-15.5); WBC 10.5 k/uL (3.8-10.6)
[2021-12-10 14:13] LABS: Albumin 3.7 g/dL (3.5-5.0); Calcium 10.9 mg/dL (8.4-10.2); Potassium 5.3 mmol/L (3.5-5.1); Total Bilirubin 0.9 mg/dL (0.2-1.3)
[2021-12-10 14:19] LABS: INR 1.1 (<1.2); Partial Thromboplastin Time 24.5 sec (22.0-30.0); Prothrombin Time 11.5 sec (9.0-12.0)
[2021-12-10 14:26] LABS: MCV 105.4 fL (80.0-100.0)
[2021-12-10] MEDS ORDERED: NALOXONE 0.4 MG/ML 1 ML VIAL IV PRN (15:06)
[2021-12-10 15:14] LABS: Polychromasia Present
[2021-12-10] MEDS: hydrALAZINE HCL 50 MG TAB PO SCH (22:47)
[2021-12-10] MEDS: QUEtiapine 50 MG TAB PO SCH (22:48)
[2021-12-10] MEDS: HYDROcodone/APAP 10-325MG 1 EACH TAB PO SCH (22:48)
[2021-12-10] MEDS: METOPROLOL SUCCINATE (ER) 50 MG TAB.ER.24H PO SCH (22:48)
[2021-12-11] MEDS: HYDROcodone/APAP 10-325MG 1 EACH TAB PO SCH ×4 (04:42→21:21)
[2021-12-11] MEDS: hydrALAZINE HCL 50 MG TAB PO SCH ×3 (05:18→21:19)
[2021-12-11 06:44] LABS: Anisocytosis Marked; Basophils % (A) 1 %; Eosinophils # (A) 0.1 k/uL (0-0.7); Eosinophils % (A) 2 %; HCT 23.9 % (34.0-46.0); HGB 7.4 gm/dL (11.4-16.0); Hypochromasia Slight; Lymphocytes # (A) 0.9 k/uL (1.0-4.8); Lymphocytes % (A) 14 %; MCH 30.9 pg (25.0-35.0); MCHC 30.8 g/dL (31.0-37.0); MCV 100.2 fL (80.0-100.0); Macrocytosis Marked; Mean Platelet Volume 8.3; Monocytes # (A) 0.2 k/uL (0-1.0); Monocytes % (A) 4 %; Neutrophils # (A) 4.9 k/uL (1.3-7.7); Neutrophils % (A) 77 %; Platelet Count 185 k/uL (150-450); RBC 2.38 m/uL (3.80-5.40); WBC 6.3 k/uL (3.8-10.6)
[2021-12-11 06:52] LABS: RDW 26.1 % (11.5-15.5)
[2021-12-11 07:16] LABS: Poikilocytosis (M) Present
[2021-12-11] MEDS: METOPROLOL SUCCINATE (ER) 50 MG TAB.ER.24H PO SCH ×2 (09:02→18:25)
[2021-12-11 09:42] LABS: African American GFR (CKD) 11.4 (60.0-200.0); Anion Gap 15.4 mmol/L (10.00-18.00); BUN/Creat Ratio 10.65 Ratio (12.00-20.00); Calcium 9.7 mg/dL (8.7-10.3); Carbon Dioxide 25.5 mmol/L (20.0-27.5); Non-African American GFR(CKD) 9.8 (60.0-200.0)
[2021-12-11 11:33] LABS: Folate, Serum 11.5 ng/mL (4.40-31.00)
--- NOTE | 2021-12-11 15:27 | P.GSCN ---
History of Present Illness Consult date: 12/11/21 History of present illness: CHIEF COMPLAINT: Weakness and fatigue HISTORY OF PRESENT ILLNESS: This is a 70-year-old female who came into the emergency room with complaints of generalized weakness and fatigue. Patient reports that she has had low hemoglobin and her blood work. She received a blood transfusion on admission for hemoglobin of 7. Patient has known history of ESRD and is a dialysis. She reports that she takes iron for her anemia. Patient denies any blood in her stools or black stools. She denies any abdominal pain. She had hemodialysis today. Her hemoglobin is up at 7.4. Stool for occult blood is negative. Patient is never had a colonoscopy. And at this time she does not want any endoscopies done. Last EGD in computer was April 2018 small hiatal hernia and mild antral gastritis. Colonoscopy was aborted at that time due to poor prep. Patient is tolerating renal diet. PAST MEDICAL HISTORY: COPD, end-stage renal disease on hemodialysis, GERD, polycystic kidney disease PAST SURGICAL HISTORY: Exploratory laparotomy, lysis of adhesions and cholecystectomy for small bowel obstruction, hydropic gallbladder on 10/24/2020 MEDICATIONS: See list. ALLERGIES: See list. SOCIAL HISTORY: No illicit drug use. Smoker REVIEW OF SYSTEMS: CONSTITUTIONAL: Denies fever or chills. HEENT: Denies blurred vision, vision changes, or eye pain. Denies hemoptysis CARDIOVASCULAR: Denies chest pain or pressure. RESPIRATORY: No shortness of breath. GASTROINTESTINAL: See HPI for pertinent findings HEMATOLOGIC: Denies bleeding disorders. GENITOURINARY: Denies any blood in urine or increased urinary frequency. SKIN: Denies pruitis. Denies rash. PHYSICAL EXAM: VITAL SIGNS: Reviewed GENERAL: Well-developed in no acute distress. HEENT: No sclera icterus. Extraocular movements grossly intact. Moist buccal mucosa. Head is atraumatic, normocephalic. No nasal drainage. ABDOMEN: Soft. Mildly distended. Nontender. Incisional scar healed. no significant drainage noted. NEUROLOGIC: Alert and oriented. Cranial nerves II through XII grossly intact. LABORATORY DATA: WBC 6.3 Hgb 7 up to 7.4 platelets 185 MCV elevated at 100.2 Sodium 137 potassium 5.0 creatinine 4.3 Iron 96 Vitamin B12 524 Folate 11.5 Stool for occult blood negative COVID-19 not detected IMAGING: Abdominal x-ray overall nonobstructive bowel gas pattern ASSESSMENT: 1. Anemia with no evidence of active GI bleed. Status post 1 unit of blood during this admission. 2. Fatigue and weakness 3. Anemia of chronic kidney disease 4. End-stage renal disease on hemodialysis PLAN: -Continue to observe -Continue to monitor for any signs or symptoms of bleeding -Continue to monitor hemoglobin -Patient declining endoscopy Thank you for this consultation Physician Power[employer] Helper note has been reviewed by physician. Signing provider agrees with the documented findings, assessment, and plan of care. Past Medical History Past Medical History: COPD, GERD/Reflux, Hypertension, Renal Disease Additional Past Medical History / Comment(s): chronic pain; kidney dialysis twice weekly Sat/Saturday. History of Any Multi-Drug Resistant Organisms: None Reported Past Surgical History: Breast Surgery, Cholecystectomy, Tonsillectomy Additional Past Surgical History / Comment(s): benign Br lumpectomy Past Anesthesia/Blood Transfusion Reactions: No Reported Reaction Additional Past Anesthesia/Blood Transfusion Reaction / Comm: Pt has had transfusions with no reactions Past Psychological History: Depression Smoking Status: Current every day smoker Past Alcohol Use History: None Reported Additional Past Alcohol Use History / Comment(s): has smoked for about 45 years; down to 1/2 ppd Past Drug Use History: None Reported - Past Family History Mother Family Medical History: No Reported History Medications and Allergies Home Medications Medication Instructions Recorded Confirmed Type Mirtazapine [Remeron] 30 mg PO HS@2100 12/28/16 12/10/21 History Rosuvastatin [Crestor] 10 mg PO HS@2100 12/28/16 12/10/21 History calcitrioL [Calcitriol] 1 mcg PO BID 01/18/20 12/10/21 History hydrALAZINE HCL [Apresoline] 100 mg PO TID@0600,1400,2200 01/18/20 12/10/21 History Calcium Acetate 667 mg PO BID@0800,1700 06/14/21 12/10/21 History Metoprolol Succinate (ER) [Toprol 50 mg PO BID@0800,1700 06/14/21 12/10/21 History XL] Aspirin EC [Ecotrin Low Dose] 81 mg PO DAILY 10/19/21 12/10/21 History Esomeprazole Magnesium [NexIUM] 40 mg PO BID 10/19/21 12/10/21 History Metoclopramide [Reglan] 5 mg PO BID 10/19/21 12/10/21 History Ondansetron Odt [Zofran ODT] 4 mg PO TID PRN 10/19/21 12/10/21 History Oxazepam [Serax] 10 mg PO DAILY PRN 10/19/21 12/10/21 History QUEtiapine [SEROquel] 150 mg PO HS 10/19/21 12/10/21 History Sevelamer [Renvela] 1,600 mg PO BID 10/19/21 12/10/21 History levOCARNitine [Levocarnitine] 330 mg PO TID 10/19/21 12/10/21 History Docusate Oral Soln [Colace Oral 100 mg PO BID #600 ml 11/06/21 12/10/21 Rx Soln] Fluconazole [Diflucan] 100 mg PO DAILY #4 tablet 11/06/21 12/10/21 Rx HYDROcodone/APAP 10-325MG [[place] 1 tab PO Q6H #4 tab 11/06/21 12/10/21 Rx 10-325] Simethicone 40 mg/0.6 ml Drops 40 mg PO QID ml 11/06/21 12/10/21 Rx [Mylicon Drops] Torsemide [Demadex] 60 mg PO DAILY #90 tab 11/06/21 12/10/21 Rx Allergies Allergy/AdvReac Type Severity Reaction Status Date / Time erythromycin base Allergy Unknown Verified 12/10/21 14:43 fentanyl Allergy Unknown Verified 12/10/21 14:43 oxycodone HCl [From Percocet] Allergy Nausea & Verified 12/10/21 14:43 Vomiting succinylcholine Allergy Unknown Verified 12/10/21 14:43 Surgical - Exam Vital Signs Temp Pulse Resp BP Pulse Ox 97.7 F 85 16 166/77 100 12/10/21 13:02 12/10/21 13:02 12/10/21 13:02 12/10/21 13:02 12/10/21 13:02 Results - Labs 12/11/21 06:29 12/11/21 06:29 Abnormal Lab Results - Last 24 Hours (Table) 12/10/21 12/10/21 12/10/21 Range/Units 13:49 13:54 13:54 RBC (3.80-5.40) m/uL Hgb (11.4-16.0) gm/dL Hct (34.0-46.0) % MCV (80.0-100.0) fL MCHC (31.0-37.0) g/dL RDW (11.5-15.5) % Neutrophils # 8.9 H (1.3-7.7) k/uL Lymphocytes # (1.0-4.8) k/uL Macrocytosis BUN (9.0-27.0) mg/dL Creatinine (0.6-1.5) mg/dL Est GFR (CKD-EPI)AfAm (60.0-200.0) Est GFR (CKD-EPI)NonAf (60.0-200.0) BUN/Creatinine Ratio (12.00-20.00) Ratio Glucose (70-110) mg/dL Transferrin 158.0 L (204.0-354.0) mg/dL Ferritin 8958.0 H (10.0-291.0) ng/mL Crossmatch See Detail 12/11/21 12/11/21 Range/Units 06:29 06:29 RBC 2.38 L (3.80-5.40) m/uL Hgb 7.4 L (11.4-16.0) gm/dL Hct 23.9 L (34.0-46.0) % MCV 100.2 H D (80.0-100.0) fL MCHC 30.8 L (31.0-37.0) g/dL RDW 26.1 H (11.5-15.5) % Neutrophils # (1.3-7.7) k/uL Lymphocytes # 0.9 L (1.0-4.8) k/uL Macrocytosis Marked A BUN 46.0 H (9.0-27.0) mg/dL Creatinine 4.3 H (0.6-1.5) mg/dL Est GFR (CKD-EPI)AfAm 11.4 L (60.0-200.0) Est GFR (CKD-EPI)NonAf 9.8 L (60.0-200.0) BUN/Creatinine Ratio 10.65 L (12.00-20.00) Ratio Glucose 128 H (70-110) mg/dL Transferrin (204.0-354.0) mg/dL Ferritin (10.0-291.0) ng/mL Crossmatch Diabetes panel 12/11/21 Range/Units 06:29 Sodium 137 (135-145) mmol/L Potassium 5.0 (3.5-5.5) mmol/L Chloride 97 (96-109) mmol/L Carbon Dioxide 25.5 (20.0-27.5) mmol/L BUN 46.0 H (9.0-27.0) mg/dL Creatinine 4.3 H (0.6-1.5) mg/dL Glucose 128 H (70-110) mg/dL Calcium 9.7 (8.7-10.3) mg/dL Calcium panel 12/11/21 Range/Units 06:29 Calcium 9.7 (8.7-10.3) mg/dL Phosphorus 5.0 (2.4-5.1) mg/dL Pituitary panel 12/11/21 Range/Units 06:29 Sodium 137 (135-145) mmol/L Potassium 5.0 (3.5-5.5) mmol/L Chloride 97 (96-109) mmol/L Carbon Dioxide 25.5 (20.0-27.5) mmol/L BUN 46.0 H (9.0-27.0) mg/dL Creatinine 4.3 H (0.6-1.5) mg/dL Glucose 128 H (70-110) mg/dL Calcium 9.7 (8.7-10.3) mg/dL Adrenal panel 12/11/21 Range/Units 06:29 Sodium 137 (135-145) mmol/L Potassium 5.0 (3.5-5.5) mmol/L Chloride 97 (96-109) mmol/L Carbon Dioxide 25.5 (20.0-27.5) mmol/L BUN 46.0 H (9.0-27.0) mg/dL Creatinine 4.3 H (0.6-1.5) mg/dL Glucose 128 H (70-110) mg/dL Calcium 9.7 (8.7-10.3) mg/dL
[2021-12-11 15:56] LABS: Hepatitis B Surface AB- Quant 3.5 mIU/mL; Hepatitis B Surface Antibody Nonreactive (Nonreactive); Hepatitis B Surface Antigen Nonreactive (Nonreactive)
--- NOTE | 2021-12-11 17:25 | HP ---
HISTORY AND PHYSICAL DATE OF SERVICE: 12/11/2021 CHIEF COMPLAINTS: Weakness and anemia. HISTORY OF PRESENT ILLNESS: This 70-year-old woman with a past medical history of multiple medical problems, including COPD, GERD, hypertension, history of DJD, history of hemodialysis, history of polycystic kidney disease, recently had exploratory laparotomy with lysis of adhesions cholecystectomy. The patient went home after improvement, and subsequently the patient was complaining of weakness. Hemoglobin was found to be 6 in the outpatient setting. The patient came [facility] and one unit of transfusion was given. The patient is being closely monitored. Hemodialysis is being continued at this time. There is no history of any fever, rigors or chills. No history of headache, loss of consciousness, seizures at this time. PAST MEDICAL HISTORY: History of COPD, GERD, history of cholecystectomy, history of chronic renal failure, hemodialysis. HOME MEDICATIONS: , apresoline, Demadex, Renvela, Crestor, Seroquel, Zofran, Remeron. Doses are reviewed. ALLERGIES: ERYTHROMYCIN, FENTANYL, OXYCODONE FAMILY HISTORY: No history of heart disease or strokes in the family. SOCIAL HISTORY: History of smoking. No history of alcohol intake. REVIEW OF SYSTEMS: ENT: Diminished hearing. Diminished vision. CARDIOVASCULAR SYSTEM: As mentioned earlier. RESPIRATORY SYSTEM: As mentioned earlier. GI: As mentioned earlier. : As mentioned earlier. NERVOUS SYSTEM: No numbness, weakness. ALLERGY/IMMUNOLOGY: No asthma or hay fever. MUSCULOSKELETAL: As mentioned earlier. HEMATOLOGY/ONCOLOGY: As mentioned earlier. ENDOCRINE: As mentioned earlier. CONSTITUTIONAL: As mentioned earlier. DERMATOLOGY: Negative. RHEUMATOLOGY: Negative. PSYCHIATRY: As mentioned earlier. PHYSICAL EXAMINATION: Patient alert and oriented x3. Pulse 72, blood pressure 174/66, respiration 17, temperature 97.8, pulse ox 94% on 2 L. HEENT: Conjunctivae pale. Oral mucosa moist. NECK: No jugular venous distention. No carotid bruit. No lymph node enlargement. CARDIOVASCULAR: S1, S2 muffled. RESPIRATION: Breath sounds diminished at the bases. Scattered rhonchi. No crackles. ABDOMEN: Soft, nontender. No mass palpable. LEGS: No edema. No swelling. NERVOUS SYSTEM: Higher functions as mentioned earlier. Moves all 4 limbs. No focal motor or sensory deficit. LYMPHATICS: No lymph node palpable in neck, axillae or groin. SKIN: No ulcer, rash, bleeding. JOINTS: No active deforming arthropathy. LABS: WBC 6.3, hemoglobin 7.4, sodium 137, potassium 5. ASSESSMENT: 1. Anemia, acute on chronic, secondary to chronic kidney disease, status post blood transfusion. 2. History of recent exploratory laparotomy with lysis of adhesions, cholecystectomy, small-bowel obstruction, hydropic gallbladder and polycystic kidneys. 3. History of renal disease, on hemodialysis. 4. Hyperkalemia, mild, secondary to kidney failure. 5. Anemia, macrocytic, multifactorial, as mentioned earlier. 6. History of chronic obstructive pulmonary disease. 7. Gastroesophageal reflux disease. 8. Hypertension. 9. History of chronic pain syndrome. 11.Cholecystectomy. 12.History of tonsillectomy. 13.History of nicotine dependence. 14.History of depression. 15.Mild protein-calorie malnutrition with body mass index of 21. RECOMMENDATIONS AND DISCUSSION: In this 70-year-old woman who presented with multiple complex medical issues, we will monitor the patient closely, continue the current medications, continue symptomatic treatment. Transfusion has been arranged. Continue the hemodialysis. Resume the home medications. Repeat hemoglobin. If hemoglobin is stable, we will continue to monitor. The prognosis is guarded because of multiple complex medical issues. Further recommendations to follow. Will consult Nephrology as well. Consult Surgery for possible endoscopies. MMODL / IJN: [id number] / MTDD
[2021-12-11] MEDS ORDERED: DARBEPOETIN ALFA 100MCG/0.5ML SYRINGE SQ SCH (18:00)
[2021-12-11] MEDS: QUEtiapine 50 MG TAB PO SCH (21:19)
--- NOTE | 2021-12-11 22:16 | CONS ---
CONSULTATION REASON FOR CONSULT: End-stage renal disease. HISTORY OF PRESENT ILLNESS: The patient is a 70-year-old female with end-stage renal disease, on hemodialysis twice a week Mondays and Fridays. The patient is admitted to the hospital with complaints of increased weakness, not feeling well. She was noted to have a hemoglobin of 7.0. The patient has abdominal pain as well. She is status post recent cholecystectomy, exploratory laparotomy and lysis of adhesions for bowel obstruction on 10/24/2020. The patient is currently seen on hemodialysis. PAST MEDICAL HISTORY: End-stage renal disease, COPD, gastroesophageal reflux disease seconds, CKD mineral bone disorder. PAST SURGICAL HISTORY: Tonsillectomy, benign breast lumpectomy, AV fistula, recent explorative laparotomy with lysis of adhesions. SOCIAL HISTORY: Patient is an everyday smoker. No history of drug abuse or alcohol abuse. MEDICATIONS: Medications prior to admission included Remeron, Crestor, calcitriol, hydralazine, PhosLo, Toprol, aspirin, Nexium, Zofran, Seroquel, Renvela, levocarnitine. ALLERGIES: INCLUDE ERYTHROMYCIN, FENTANYL, SUCCINYLCHOLINE, PERCOCET. REVIEW OF SYSTEMS: As per HPI. Other systems negative. EXAMINATION: Comfortable, awake. She is not in any acute distress. Blood pressure was elevated 174/67, earlier it was 144/64, heart rate 69 per minute. Patient is afebrile. Examination of the heart S1, S2. Examination of lungs decreased breath sounds at the bases. Abdomen is soft. Tenderness noted in the mid abdomen. Examination of lower extremities shows no significant edema. [employer] exam grossly intact. LAB: Show hemoglobin 7.4, sodium 137, potassium 5.0, BUN 46, creatinine of 4.3. ASSESSMENT: 1. End stage renal disease, on hemodialysis on Mondays and Fridays. The patient is seen on dialysis today. 2. Anemia, no active gastrointestinal bleed noted. Consider CT of the abdomen given the recent surgery. The patient does have abdominal pain. 3. CKD mineral bone disorder. 4. Recent cholecystectomy with lysis of adhesions for small bowel obstruction on 10/24/2020. PLAN: Maintain patient on Aranesp. If hemoglobin drops further, I will transfuse 1 unit packed RBCs. Check CT of the abdomen. Thank you for this consultation. We will continue to follow the patient with you during her hospitalization. MMODL / IJN: [id number] /
[2021-12-11] MEDS: IOPAMIDOL CONTRAST (ORAL USE) VIAL PO PRN ×2 (22:25→23:44)
--- NOTE | 2021-12-12 01:59 | CT ---
EXAMINATION TYPE: CT abdomen pelvis w con DATE OF EXAM: 12/12/2021 COMPARISON: 10/24/2021 HISTORY: abd pain/ rule out bleed. CT DLP: 709.80 mGycm Automated exposure control for dose reduction was used. CONTRAST: Performed with IV Contrast, patient injected with 80 mL of Isovue 300. Images obtained from the diaphragm to the floor of the pelvis with IV contrast and oral contrast. There are bilateral pleural effusions. There is infiltrate or atelectasis at both lung bases. Heart i s slightly enlarged. There are clips from cholecystectomy. Liver shows no focal defect. There is mass suzy enlargement of the kidneys related to advanced polycystic kidney disease. Right kidney measures 1 7.5 cm in length. The left kidney measures 21 cm in length. There is variable curvilinear calcificati on in both kidneys. No suspicious renal mass. There is no sign of retroperitoneal adenopathy. Abdomin al aorta is atheromatous. There is no evidence of adrenal mass. There is no evidence of pancreatic ma ss. Spleen is intact. There is metal artifact from bilateral hip surgery. There is no free fluid in the pelvis. Urinary kathya dder distends smoothly. There is oral contrast in the small bowel extending to the mid ileum. No evid ence of a bowel obstruction. There is subcutaneous edema around the abdomen. There is no evidence of free air. No sign of a bowel obstruction. There is small amount of free fluid in the pelvis. The lumbar vertebrae have normal alignment. There is L2 compression fracture with 25% anterior wedgin g. There is also slight compression of L5. IMPRESSION: Bilateral pleural effusions with basilar infiltrate and atelectasis is increased compared to old exam and could be chronic heart failure. Pleural fluid increased. No bowel obstruction. Advanced polycystic kidney disease. Small amount of free fluid in the pelvis ap pears new compared to old exam. This could be secondary to heart failure. There is L2 compression fra cture without change.
[2021-12-12] MEDS: HYDROcodone/APAP 10-325MG 1 EACH TAB PO SCH ×3 (05:14→16:48)
[2021-12-12] MEDS: hydrALAZINE HCL 50 MG TAB PO SCH ×2 (05:25→16:48)
[2021-12-12 08:40] LABS: Anisocytosis Marked; HCT 23.9 % (34.0-46.0); HGB 7.3 gm/dL (11.4-16.0); Hypochromasia Marked; MCH 31.2 pg (25.0-35.0); MCHC 30.6 g/dL (31.0-37.0); MCV 102.1 fL (80.0-100.0); Macrocytosis Marked; Mean Platelet Volume 8.6; Platelet Count 172 k/uL (150-450); RBC 2.34 m/uL (3.80-5.40); WBC 6.7 k/uL (3.8-10.6)
[2021-12-12] MEDS: METOPROLOL SUCCINATE (ER) 50 MG TAB.ER.24H PO SCH (09:00)
[2021-12-12 09:22] LABS: RDW 25.7 % (11.5-15.5)
--- NOTE | 2021-12-12 10:51 | P.PN ---
Subjective Patient is seen in follow-up for end-stage renal disease. She is maintained on hemodialysis on Mondays and Fridays. Tolerated dialysis well yesterday. She scheduled to undergo dialysis today she received IV contrast yesterday. Denies chest pain or shortness of breath. Vital signs are stable. HEENT: Head exam is unremarkable. LUNGS: Breath sounds decreased. HEART: Rate and Rhythm are regular. ABDOMEN: Soft, no distention. EXTREMITITES: No edema. Objective - Vital Signs Vital signs: Vital Signs Temp 97.8 F 12/12/21 05:00 Pulse 87 12/12/21 05:00 Resp 18 12/12/21 05:00 BP 158/59 12/12/21 08:52 Pulse Ox 97 12/12/21 05:00 Intake & Output 12/11/21 12/12/21 12/12/21 18:59 06:59 18:59 Intake Total 0 1000 Output Total 0 Balance 0 1000 Intake: Oral 1000 Hemodialysis 0 Output: Hemodialysis 0 Other: # Voids 1 - Labs CBC & Chem 7: 12/12/21 08:22 12/11/21 06:29 Labs: Abnormal Lab Results - Last 24 Hours (Table) 12/10/21 12/12/21 Range/Units 13:54 08:22 RBC 2.34 L (3.80-5.40) m/uL Hgb 7.3 L (11.4-16.0) gm/dL Hct 23.9 L (34.0-46.0) % MCV 102.1 H (80.0-100.0) fL MCHC 30.6 L (31.0-37.0) g/dL RDW 25.7 H (11.5-15.5) % Macrocytosis Marked A Transferrin 158.0 L (204.0-354.0) mg/dL Ferritin 8958.0 H (10.0-291.0) ng/mL Assessment and Plan Plan: Assessment: 1. End-stage renal disease maintained on hemodialysis on Mondays and Fridays. She will receive an extra treatment today she received IV contrast yesterday. 2. Anemia of chronic kidney disease. No active bleeding. On Aranesp. High ferritin noted. 3. Chronic kidney disease mineral bone disease. 4. Hypertension with chronic kidney disease. 5. Volume overload. Pleural effusions noted on CAT scan. Plan: Hemodialysis today.
--- NOTE | 2021-12-12 15:14 | P.PN ---
Subjective Progress Note Date: 12/12/21 CHIEF COMPLAINT: Weakness and fatigue HISTORY OF PRESENT ILLNESS: Surgical service is following regards to patient's anemia. She has no active signs or symptoms of bleeding. Nephrology has started her on Aranesp. She does have elevated ferritin level. She is receiving hemodialysis today. She denies any nausea or vomiting. Reports her last bowel movement was 2 days ago. She does feel a little bloated today. She had a computed tomography scan of the abdomen shows bilateral pleural effusions with basilar infiltrate and atelectasis increased compared to old exam and could be chronic heart failure. No bowel distraction. Advanced polycystic kidney disease. Small amount of free fluid in the pelvis appears new compared to old exam. This could be secondary to heart failure. There is all to compression fracture without change. Afebrile. WBC 6.7 hemoglobin 7.3 platelets 172 Patient seen and examined with Dr. renteria. PHYSICAL EXAM: VITAL SIGNS: Reviewed. GENERAL: Well-developed in no acute distress. HEENT: No sclera icterus. Extraocular movements grossly intact. Moist buccal mucosa. Head is atraumatic, normocephalic. ABDOMEN: Soft. Mildly distended NEUROLOGIC: Alert and oriented. Cranial nerves II through XII grossly intact. ASSESSMENT: 1. Anemia with no evidence of active GI bleed. Patient did receive 1 unit of blood during this admission 2. Anemia of chronic kidney disease 3. Fatigue and weakness 4. End-stage renal disease on hemodialysis PLAN: -No surgical intervention planned -Continue supportive care -Continue to monitor hemoglobin -Continue Aranesp Physician Steward/Stewardess Banquet note has been reviewed by physician. Signing provider agrees with the documented findings, assessment, and plan of care. Objective - Vital Signs Vital signs: Vital Signs Temp 98 F 12/12/21 11:31 Pulse 77 12/12/21 11:31 Resp 20 12/12/21 11:31 BP 165/62 12/12/21 11:31 Pulse Ox 92 L 12/12/21 14:54 Intake & Output 12/11/21 12/12/21 12/12/21 18:59 06:59 18:59 Intake Total 0 1000 Output Total 0 Balance 0 1000 Intake: Oral 1000 Hemodialysis 0 Output: Hemodialysis 0 Other: # Voids 1 1 # Bowel Movements 1 - Labs CBC & Chem 7: 12/12/21 08:22 12/11/21 06:29 Labs: Abnormal Lab Results - Last 24 Hours (Table) 12/12/21 Range/Units 08:22 RBC 2.34 L (3.80-5.40) m/uL Hgb 7.3 L (11.4-16.0) gm/dL Hct 23.9 L (34.0-46.0) % MCV 102.1 H (80.0-100.0) fL MCHC 30.6 L (31.0-37.0) g/dL RDW 25.7 H (11.5-15.5) % Macrocytosis Marked A
[2021-12-12 17:29] VITALS: BP 164/83; PULSE 78; RESP 19; TEMP 97.8
--- NOTE | 2021-12-13 09:24 | P.DS ---
Providers Date of admission: 12/10/21 15:06 Expected date of discharge: 12/12/21 Attending physician: Major Canales MD Consults: 12/10/21 15:06 Consult Physician Routine Consulting Provider: Roger Lee Consult Reason/Comments: crf, anemia Do you want consulting provider notified?: Yes 12/11/21 13:47 Consult Physician Routine Consulting Provider: Alf Holden Consult Reason/Comments: anemia Do you want consulting provider notified?: Already Contacted Primary care physician: Rock Rodarte [facility] Course: Final diagnosis Anemia, acute on chronic, secondary to chronic kidney disease, status post blood transfusion History of recent exploratory laparotomy with lysis of adhesions, cholecystectomy, small bowel obstruction, hydropic gallbladder and polycystic kidneys History of renal disease, on hemodialysis Hyperkalemia, mild, secondary to kidney failure Anemia, macrocytic, multifactorial as mentioned earlier History of chronic obstructive pulmonary disease Gastroesophageal reflux disease Hypertension History of chronic pain syndrome Cholecystectomy History of tonsillectomy History of nicotine dependence history of depression mild protein calorie malnutrition with a body mass index of 21 Discharge disposition Patient is being discharged in a stable condition with guarded prognosis to home. Patient will follow-up with Dr. Rodarte in the outpatient setting upon discharge. Patient is to continue dialysis Mondays and Fridays and also follow- up with nephrology in the outpatient setting. Patient to continue with Aranesp and discuss with nephrology about weekly injections and possible transfusions for anemia during dialysis. Prescription provided for repeat labs to monitor hemoglobin along with BMP closely. Total time taken is greater than 35 minutes. Hospital course This is a 70-year-old female who was recently admitted with increased weakness and found to have significant symptomatic anemia with a hemoglobin of 6 in the outpatient setting. Patient was being closely monitored and evaluated by surgery given her recent exploratory laparotomy with lysis of adhesions and cholecystectomy and no plans for surgical intervention at this time. Patient did receive 1 unit of PRBC. Patient does receive dialysis twice weekly on Mondays and Fridays and follows with nephrology in the outpatient setting. Patient's hemoglobin is 7.1 today and did receive contrast yesterday with CT of the abdomen and is scheduled for ultrafiltration hemodialysis today and nephrology following. Recommend to continue with Aranesp injections weekly and close outpatient follow-up of labs and also discussed with the patient about possible transfusions during hemodialysis if hemoglobin is 7 or less. Patient continues with weakness although has social support at home and is requesting to go home. Patient instructed to follow-up with primary care provider this week along with nephrology and continue with dialysis on Saturday and Fridays. Bryson aquinoy no reports of chest pain, worsening shortness of breath, or palpitations. Patient is afebrile. No reports of nausea or vomiting and patient is tolerating diet. Patient will be discharged home today. Guarded prognosis On exam vital signs are stable. Cardio S1, S2 are muffled. Respiratory system shows diminished breath sounds at the bases with scattered rhonchi noted. Abdomen is soft and nontender. Nervous system shows no focal deficits. Please refer to medication reconciliation sheet for a list of medications. Patient Condition at Discharge: Stable Plan - Discharge Summary New Discharge Prescriptions: New Darbepoetin Rusty [Aranesp] 100 mcg SQ Q7D each Continue Rosuvastatin [Crestor] 10 mg PO HS@2100 Mirtazapine [Remeron] 30 mg PO HS@2100 hydrALAZINE HCL [Apresoline] 100 mg PO TID@0600,1400,2200 calcitrioL [Calcitriol] 1 mcg PO BID Metoprolol Succinate (ER) [Toprol XL] 50 mg PO BID@0800,1700 Aspirin EC [Ecotrin Low Dose] 81 mg PO DAILY Esomeprazole Magnesium [NexIUM] 40 mg PO BID levOCARNitine [Levocarnitine] 330 mg PO TID Metoclopramide [Reglan] 5 mg PO BID Ondansetron Odt [Zofran ODT] 4 mg PO TID PRN PRN Reason: Nausea QUEtiapine [SEROquel] 150 mg PO HS Sevelamer [Renvela] 1,600 mg PO BID Simethicone 40 mg/0.6 ml Drops [Mylicon Drops] 40 mg PO QID ml Docusate Oral Soln [Colace Oral Soln] 100 mg PO BID #600 ml Torsemide [Demadex] 60 mg PO DAILY #90 tab Calcium Acetate 667 mg PO BID@0800,1700 Oxazepam [Serax] 10 mg PO DAILY PRN PRN Reason: Anxiety HYDROcodone/APAP 10-325MG [[place] 10-325] 1 tab PO Q6H #4 tab Discontinued Fluconazole [Diflucan] 100 mg PO DAILY #4 tablet Discharge Medication List Mirtazapine [Remeron] 30 mg PO HS@2100 12/28/16 [History] Rosuvastatin [Crestor] 10 mg PO HS@2100 12/28/16 [History] calcitrioL [Calcitriol] 1 mcg PO BID 01/18/20 [History] hydrALAZINE HCL [Apresoline] 100 mg PO TID@0600,1400,2200 01/18/20 [History] Calcium Acetate 667 mg PO BID@0800,1700 06/14/21 [History] Metoprolol Succinate (ER) [Toprol XL] 50 mg PO BID@0800,1700 06/14/21 [History] Aspirin EC [Ecotrin Low Dose] 81 mg PO DAILY 10/19/21 [History] Esomeprazole Magnesium [NexIUM] 40 mg PO BID 10/19/21 [History] Metoclopramide [Reglan] 5 mg PO BID 10/19/21 [History] Ondansetron Odt [Zofran ODT] 4 mg PO TID PRN 10/19/21 [History] Oxazepam [Serax] 10 mg PO DAILY PRN 10/19/21 [History] QUEtiapine [SEROquel] 150 mg PO HS 10/19/21 [History] Sevelamer [Renvela] 1,600 mg PO BID 10/19/21 [History] levOCARNitine [Levocarnitine] 330 mg PO TID 10/19/21 [History] Docusate Oral Soln [Colace Oral Soln] 100 mg PO BID #600 ml 11/06/21 [Rx] HYDROcodone/APAP 10-325MG [[place] 10-325] 1 tab PO Q6H #4 tab 11/06/21 [Rx] Simethicone 40 mg/0.6 ml Drops [Mylicon Drops] 40 mg PO QID ml 11/06/21 [Rx] Torsemide [Demadex] 60 mg PO DAILY #90 tab 11/06/21 [Rx] Darbepoetin Rusty [Aranesp] 100 mcg SQ Q7D each 12/12/21 [Rx] Follow up Appointment(s)/Referral(s): [facility], [NON-STAFF] - 1-2 Days Roger Lee DO [STAFF PHYSICIAN] - 1 Week (The office will let the dialysis center know of your discharge.) Rock Rodarte DO [Primary Care Provider] - 1-2 days (The office is closed please call and make follow up appointment.) Ambulatory/Diagnostic Orders: Complete Blood Count w/diff [LAB.AMB] Time Frame: 3 Days, Location: None Selected Patient Instructions/Handouts: Anemia (DC) Activity/Diet/Wound Care/Special Instructions: Activity Limited until follow-up Follow-up with primary care provider on discharge Continue renal diet Continue with hemodialysis Mondays and Fridays Follow-up with nephrology outpatient and discuss weekly injections of Aranesp and possible transfusions if anemia persists during hemodialysis Repeat labs in 2-3 days for CBC and BMP Discharge Disposition: HOME WITH HOME HEALTH SERVICES
== END 2021-12-12 18:33 | disposition home health service (06) | DRG 682 ==
LOC: EC 12:29 → 5NMEDONC 15:06
PROVIDERS: ADMIT Internal Medicine; ATTEND Internal Medicine
PROC: 30233N1 Transfusion of Nonautologous Red Blood Cells into Peripheral Vein, Percutaneous Approach (ICD-10-PCS; principal; 2021-12-11)
DX: I12.0 Hypertensive chronic kidney disease with stage 5 chronic kidney disease or end stage renal disease (principal); N18.6 End stage renal disease; E44.1 Mild protein-calorie malnutrition; J98.11 Atelectasis; Q61.3 Polycystic kidney, unspecified; K56.50 Intestinal adhesions [bands], unspecified as to partial versus complete obstruction; D63.1 Anemia in chronic kidney disease; Z20.822 Contact with and (suspected) exposure to COVID-19; R53.1 Weakness; D53.9 Nutritional anemia, unspecified; E87.5 Hyperkalemia; E87.70 Fluid overload, unspecified; M89.9 Disorder of bone, unspecified; F17.210 Nicotine dependence, cigarettes, uncomplicated; G89.4 Chronic pain syndrome; J44.9 Chronic obstructive pulmonary disease, unspecified; K21.9 Gastro-esophageal reflux disease without esophagitis; K29.70 Gastritis, unspecified, without bleeding; K44.9 Diaphragmatic hernia without obstruction or gangrene; M89.8X9 Other specified disorders of bone, unspecified site; Z79.82 Long term (current) use of aspirin; Z79.899 Other long term (current) drug therapy; Z90.49 Acquired absence of other specified parts of digestive tract; Z99.2 Dependence on renal dialysis; Z88.8 Allergy status to other drugs, medicaments and biological substances; Z88.5 Allergy status to narcotic agent; Z87.19 Personal history of other diseases of the digestive system
CPT/HCPCS: 36415; 74018; 74177; 80048; 80053; 82272; 82607; 82728; 82746; 83540; 83550; 84100; 85025; 85027; 85610; 85730; 86706; 86850; 86900; 86901; 86920; 87340; 87635; 90935; 96374; 99285

== ENCOUNTER 2021-12-22 16:00 | Emergency (ER) | payer MEDICARE, OTHER ==
[2021-12-22 16:09] VITALS: RESP 16
[2021-12-22] MEDS ORDERED: HYDROcodone/APAP 5-325MG 1 EACH TAB PO STA (16:23)
--- NOTE | 2021-12-22 16:26 | ED ---
General Adult HPI - General Chief complaint: Fall Stated complaint: Rt leg/knee pain Time Seen by Provider: 12/22/21 16:16 Source: patient, RN notes reviewed Mode of arrival: EMS Limitations: no limitations - History of Present Illness Initial comments: Patient is a pleasant 71-year-old female presenting to the emergency Department with right leg pain. Patient states symptoms have been present since March when she had a fall that time with fracture. Patient has chronic pain. Patient normally takes hydrocodone however did not take any today. Patient denies any recent injury. - Related Data Home Medications Medication Instructions Recorded Confirmed Mirtazapine [Remeron] 30 mg PO HS@2100 12/28/16 12/22/21 Rosuvastatin [Crestor] 10 mg PO HS@2100 12/28/16 12/22/21 calcitrioL [Calcitriol] 1 mcg PO BID 01/18/20 12/22/21 hydrALAZINE HCL [Apresoline] 100 mg PO TID@0600,1400,2200 01/18/20 12/22/21 Calcium Acetate 667 mg PO BID@0800,1700 06/14/21 12/22/21 Metoprolol Succinate (ER) [Toprol 50 mg PO BID@0800,1700 06/14/21 12/22/21 XL] Aspirin EC [Ecotrin Low Dose] 81 mg PO DAILY 10/19/21 12/22/21 Esomeprazole Magnesium [NexIUM] 40 mg PO BID 10/19/21 12/22/21 Metoclopramide [Reglan] 5 mg PO BID 10/19/21 12/22/21 Ondansetron Odt [Zofran ODT] 4 mg PO TID PRN 10/19/21 12/22/21 Oxazepam [Serax] 10 mg PO DAILY PRN 10/19/21 12/22/21 QUEtiapine [SEROquel] 150 mg PO HS 10/19/21 12/22/21 Sevelamer [Renvela] 1,600 mg PO BID 10/19/21 12/22/21 levOCARNitine [Levocarnitine] 330 mg PO TID 10/19/21 12/22/21 Previous Rx's Medication Instructions Recorded Docusate Oral Soln [Colace Oral 100 mg PO BID #600 ml 11/06/21 Soln] HYDROcodone/APAP 10-325MG [[place] 1 tab PO Q6H #4 tab 11/06/21 10-325] Simethicone 40 mg/0.6 ml Drops 40 mg PO QID ml 11/06/21 [Mylicon Drops] Torsemide [Demadex] 60 mg PO DAILY #90 tab 11/06/21 Darbepoetin Rusty [Aranesp] 100 mcg SQ Q7D each 12/12/21 Allergies Allergy/AdvReac Type Severity Reaction Status Date / Time erythromycin base Allergy Unknown Verified 12/22/21 18:23 fentanyl Allergy Unknown Verified 12/22/21 18:23 oxycodone HCl [From Percocet] Allergy Nausea & Verified 12/22/21 18:23 Vomiting succinylcholine Allergy Unknown Verified 12/22/21 18:23 Review of Systems ROS Statement: Those systems with pertinent positive or pertinent negative responses have been documented in the HPI. ROS Other: All systems not noted in ROS Statement are negative. Constitutional: Denies: fever Eyes: Denies: eye pain ENT: Denies: ear pain Respiratory: Denies: cough, dyspnea Cardiovascular: Denies: chest pain Endocrine: Denies: fatigue Gastrointestinal: Denies: abdominal pain Genitourinary: Denies: dysuria Musculoskeletal: Reports: as per HPI. Denies: back pain Skin: Denies: rash Neurological: Denies: weakness Past Medical History Past Medical History: COPD, GERD/Reflux, Hypertension, Renal Disease Additional Past Medical History / Comment(s): chronic pain; kidney dialysis twice weekly Sat/Saturday. History of Any Multi-Drug Resistant Organisms: None Reported Past Surgical History: Breast Surgery, Cholecystectomy, Tonsillectomy Additional Past Surgical History / Comment(s): benign Br lumpectomy Past Anesthesia/Blood Transfusion Reactions: No Reported Reaction Additional Past Anesthesia/Blood Transfusion Reaction / Comment(s): Pt has had transfusions with no reactions Past Psychological History: Depression Smoking Status: Current every day smoker Past Alcohol Use History: None Reported Past Drug Use History: None Reported - Past Family History Mother Family Medical History: No Reported History General Exam Limitations: no limitations General appearance: alert, in no apparent distress Head exam: Present: normocephalic Eye exam: Present: normal appearance Neck exam: Present: normal inspection. Absent: tenderness Respiratory exam: Present: normal lung sounds bilaterally Cardiovascular Exam: Present: regular rate, normal rhythm Expanded Peripheral pulses: 2+: Posterior Tibialis (R), Dorsalis Pedis (R) GI/Abdominal exam: Present: soft. Absent: tenderness Extremities exam: Present: tenderness (Right knee and right lower thigh), other (Distally the extremity is neurovascular intact) Neurological exam: Present: alert Psychiatric exam: Present: normal affect, normal mood Skin exam: Present: normal color Course Vital Signs 12/22/21 16:04 Temperature 99.1 F Pulse Rate 77 Respiratory 16 Rate Blood Pressure 172/61 O2 Sat by Pulse 93 L Oximetry Medical Decision Making - Medical Decision Making Patient reevaluated and resting comfortably in bed. Patient states she feels better after pain pill. Family is present. Patient and family updated on results. They do not have further concerns and are comfortable with discharge home. - Radiology Data Radiology results: report reviewed (Ultrasound negative for DVT), image reviewed (X-ray right femur and right knee show old fractures without significant change. No evidence of acute fracture.) Disposition Clinical Impression: Chronic leg pain Disposition: HOME SELF-CARE Condition: Stable Instructions (If sedation given, give patient instructions): Leg Pain (ED) Additional Instructions: Please do follow-up with her primary care physician in the next day or 2 for recheck. Also follow-up with your orthopedic doctor. Return for increased pain, swelling, redness, worsening or change in symptoms or other concerns. Is patient prescribed a controlled substance at d/c from ED?: No Referrals: Rock Fry DO [Primary Care Provider] - 1-2 days Time of Disposition: 18:58
--- NOTE | 2021-12-22 16:58 | XR ---
EXAMINATION TYPE: XR knee complete RT DATE OF EXAM: 12/22/2021 COMPARISON: 07/01/2021 HISTORY: Pain TECHNIQUE: 3 views FINDINGS: There is depressed fracture of the lateral tibial plateau. There is bridging callus. Fracture lines a re somewhat visible. There is small knee joint effusion. There is intramedullary jairo in the distal fe mur fixing a femoral shaft fracture. IMPRESSION: Healing fracture of the lateral tibial plateau with mild depression. Position of the frag ments not significantly different than old exam. No evidence of a new fracture.
--- NOTE | 2021-12-22 17:00 | XR ---
EXAMINATION TYPE: XR femur RT DATE OF EXAM: 12/22/2021 COMPARISON: 06/29/2021 HISTORY: Pain TECHNIQUE: 4 views FINDINGS: There is intramedullary jairo and transverse screws in the intertrochanteric femur. There is oblique fracture mid shaft of the femur. Fracture lines are still visible. There is some bridging min imal callus. There is vascular calcification. IMPRESSION: Fracture mid shaft of the femur without change in position compared to old exam. No evide nce of a new fracture.
--- NOTE | 2021-12-22 17:59 | US ---
EXAMINATION TYPE: US venous doppler duplex LE RT DATE OF EXAM: 12/22/2021 5:33 PM COMPARISON: NONE CLINICAL HISTORY: pain. Pt states right leg pain SIDE PERFORMED: Right TECHNIQUE: The lower extremity deep venous system is examined utilizing real time linear array sonog lisseth with graded compression, doppler sonography and color-flow sonography. VESSELS IMAGED: Common Femoral Vein Deep Femoral Vein Greater Saphenous Vein * Femoral Vein Popliteal Vein Small Saphenous Vein * Proximal Calf Veins (* superficial vessels) Right Leg: Negative for DVT IMPRESSION: No evidence of deep vein thrombosis in the right leg.
[2021-12-22 19:20] VITALS: BP 128/78; PULSE 88; TEMP 98.8
== END 2021-12-22 19:57 | disposition home or self-care (01) ==
LOC: EC 16:00
DX: M79.604 Pain in right leg (principal); G89.29 Other chronic pain; J44.9 Chronic obstructive pulmonary disease, unspecified; I10 Essential (primary) hypertension; F32.A Depression, unspecified; F17.200 Nicotine dependence, unspecified, uncomplicated
CPT/HCPCS: 99284

== ENCOUNTER 2021-12-29 14:46 | Inpatient (IN) | payer MEDICARE, OTHER ==
[2021-12-29] MEDS ORDERED: ASPIRIN 81 MG PO STA (15:07)
[2021-12-29] MEDS ORDERED: methylPREDNISolone SOD SUCCI 125 MG/2 ML VIAL IV STA (15:13)
[2021-12-29] MEDS ORDERED: ALBUTEROL HFA INHALER INHALATION STA (15:14)
--- NOTE | 2021-12-29 15:40 | ED ---
General Adult HPI - General Chief complaint: Shortness of Breath Stated complaint: SOB Time Seen by Provider: 12/29/21 14:49 Source: patient, EMS, RN notes reviewed, old records reviewed Mode of arrival: EMS - History of Present Illness Initial comments: Patient is a 71-year-old female with past medical history remarkable for ESRD on hemodialysis twice per week Saturday and Saturday, COPD, hypertension presents emergency Department after experiencing increased shortness of breath over the last 2 days as well as a possible hypotensive episode during dialysis today. She denies dialysis on Saturday. Today while at dialysis, she states her shortness of breath got worse. EMS stated the patient had a hypotensive episode but is uncertain how low her blood pressure drop. She did receive a 1 L fluid bolus at the facility and was brought here for further evaluation. She is not o n oxygen at home. She states she began having shortness of breath 2 days ago. She is somewhat a poor historian. Chest the chest pain earlier. Denies any current chest pain, nausea, vomiting, abdominal pain. Endorses a mild cough that is nonproductive. Denies any lower extremity edema. His no history of blood clots. Per EMS, patient has not been compliant with medications, the patient cannot recall what her medications are. She still produces urine. Presents over concern for shortness of breath, as well as missed dialysis.Patient is not vaccinated for COVID-19. - Related Data Home Medications Medication Instructions Recorded Confirmed Mirtazapine [Remeron] 30 mg PO HS@2100 12/28/16 12/22/21 Rosuvastatin [Crestor] 10 mg PO HS@2100 12/28/16 12/22/21 Oxazepam [Serax] 10 mg PO DAILY PRN 10/19/21 12/22/21 Sevelamer [Renvela] 1,600 mg PO BID 10/19/21 12/22/21 Docusate [Colace] 100 mg PO BID 12/29/21 12/29/21 Ethyl Chloride [place] 1 dose TOPICAL DIRECTED 12/29/21 12/29/21 HYDROcodone/APAP 10-325MG [[place] 1 tab PO Q8H PRN 12/29/21 12/29/21 10-325] Lanthanum Carbonate [Lanthanum 1,000 mg PO TID-W/MEALS 12/29/21 12/29/21 Carbonate Chew] Pantoprazole [Protonix] 40 mg PO BID 12/29/21 12/29/21 Torsemide [Demadex] 60 mg PO BID 12/29/21 12/29/21 lisinopriL [Zestril] 20 mg PO BID 12/29/21 12/29/21 minoxidiL [Loniten] 5 mg PO BID 12/29/21 12/29/21 Allergies Allergy/AdvReac Type Severity Reaction Status Date / Time erythromycin base Allergy Unknown Verified 12/29/21 16:52 fentanyl Allergy Unknown Verified 12/29/21 16:52 oxycodone HCl [From Percocet] Allergy Nausea & Verified 12/29/21 16:52 Vomiting succinylcholine Allergy Unknown Verified 12/29/21 16:52 Review of Systems ROS Statement: Those systems with pertinent positive or pertinent negative responses have been documented in the HPI. Review of Systems: CONST: Denies fever EYES: Denies blurry vision ENT: Denies nasal congestion C/V: Endorses chest pain prior to arrival. RESP: Endorses shortness of breath GI: Denies abdominal pain : Denies dysuria SKIN: Denies rash. MSK: Denies joint pain. NEURO: Denies headache ROS Other: All systems not noted in ROS Statement are negative. Past Medical History Past Medical History: COPD, GERD/Reflux, Hypertension, Renal Disease Additional Past Medical History / Comment(s): chronic pain; kidney dialysis twic e weekly Sat/Saturday. History of Any Multi-Drug Resistant Organisms: None Reported Past Surgical History: Breast Surgery, Cholecystectomy, Tonsillectomy Additional Past Surgical History / Comment(s): benign Br lumpectomy Past Anesthesia/Blood Transfusion Reactions: No Reported Reaction Additional Past Anesthesia/Blood Transfusion Reaction / Comment(s): Pt has had transfusions with no reactions Past Psychological History: Depression Smoking Status: Current every day smoker Past Alcohol Use History: None Reported Past Drug Use History: None Reported - Past Family History Mother Family Medical History: No Reported History General Exam - General Exam Comments Initial Comments: General: Appears in mild respiratory distress. HEAD: Normal with no signs of head trauma. EYES: PERRLA, EOMI, conjunctiva normal, no discharge. ENT: Hearing grossly intact, normal oropharynx. RESPIRATORY: Breath sounds bilaterally, mild and expiratory wheezing. No obvious rhonchi. Mild increased work of breathing. Hypoxic on room air. 90% on 6 L nasal cannula. C/V: Regular rate and rhythm. S1 and S2 auscultated, no edema, peripheral pulses 2+ and intact throughout. Patient's left upper extremity AV fistula has a palpable thrill and audible bruit. ABD: Abd is soft, nontender, nondistended EXT: Normal range of motion, no obvious deformity SKIN: No rashes or lesions observed on exposed skin. NEURO: Alert and oriented 4. No focal sensory strength deficits. Course Vital Signs 12/29/21 12/29/21 12/29/21 14:47 14:59 15:26 Temperature 98.2 F Pulse Rate 91 Respiratory 20 18 Rate Blood Pressure 127/59 O2 Sat by Pulse 87 L 92 L 90 L Oximetry 12/29/21 16:01 Temperature Pulse Rate Respiratory Rate Blood Pressure 111/55 O2 Sat by Pulse 90 L Oximetry Medical Decision Making - Medical Decision Making Based on the patient's presentation and physical exam, it appears that she missed dialysis but is also experiencing worsening dyspnea over the last few days. We'll obtain cardiac laboratory studies, tests basic labs that she has missed dialysis twice. We will send the patient for both influenza as well as COVID-19. She'll be given treatment for COPD, she does have mild the next 3 wheezing with steroids and an albuterol inhaler. She was in agreement this plan. She'll be continued on 6 L nasal cannula at this time. Patient's EKG revealed no signs of acute ischemia. There are also no signs of acute hyperkalemia.Chest x-ray shows CHF with pulmonary vascular congestion, pulmonary arterial hypertension, as well as a large left and trace right pleural effusion. Laboratory studies are remarkable for a leukopenia, with white blood cells 101.9, a normocytic anemia with a hemoglobin of 9.1 which is chronic. D- dimer is elevated to 6.22. Patient is an elevated BUN/creatinine setting of ESRD. Lites lites are relatively normal otherwise. Troponin is elevated to 0.25 for which could be multifactorial from her ESRD but also due to the chest pain earlier cannot rule out ACS. Covid is positive. Flu is negative. BNP returned at greater than 200,000. I discussed results with the patient as well as her . She is evaluated multiple times and is saturating currently 90% on either liters nasal cannula. Vital signs have otherwise remained stable. I informed her that I believe she is likely fluid overloaded, and there was a delay in obtaining the BNP. But due to her multiple missed dialysis episodes, we will consult nephrology for dialysis. Due to the elevated troponin as well as the chest pain earlier, we will treat his ACS and she will be started on IV heparin. Due to the positive COVID-19 test, we will start her on twice a day Decadron as well as albuterol inhaler. I spoke with Dr. Pfeiffer of pulmonology who agreed to evaluate the patient was in agreement with this plan. I do not believe that the patient requires ICU care this time but she will be admitted to [facility]. I consulted IR for thoracentesis. I spoke with Dr. Cristina and consulted her regarding the missed dialysis, and as well as the fluid overloaded state. She will arrange for dialysis today for the patient. She requested that patient be started on 80 mg Lasix, and therefore an additional 40 mg will be administered now. Patient made stable at this time and vital signs remained within normal limits and stable on oxygen. She'll be admitted to the hospital in serious condition. I spoke with the admitting team and Dr. Martini who was in agreement this plan.Patient was reevaluated multiple times throughout her stay in the emergency department. - Lab Data Result diagrams: 12/29/21 15:15 12/29/21 15:15 Lab Results 12/29/21 12/29/21 12/29/21 Range/Units 15:15 15:15 15:15 WBC 1.9 L (3.8-10.6) k/uL RBC 2.96 L (3.80-5.40) m/uL Hgb 9.1 L D (11.4-16.0) gm/dL Hct 29.5 L (34.0-46.0) % MCV 99.7 (80.0-100.0) fL MCH 30.6 (25.0-35.0) pg MCHC 30.7 L (31.0-37.0) g/dL RDW 21.2 H (11.5-15.5) % Plt Count 159 (150-450) k/uL MPV 8.6 Neutrophils % (Manual) 64 % Band Neuts % (Manual) 17 % Lymphocytes % (Manual) 16 % Monocytes % (Manual) 2 % Metamyelocytes % 1 % Neutrophils # (Manual) 1.50 (1.3-7.7) k/uL Lymphocytes # (Manual) 0.30 L (1.0-4.8) k/uL Monocytes # (Manual) 0.04 (0-1.0) k/uL Metamyelocytes # (Man) 0.02 H (0) k/uL Nucleated RBCs 6 H (0-0) /100 WBC Manual Slide Review Performed Toxic Vacuolation Present Polychromasia Present Hypochromasia Moderate Poikilocytosis Slight Anisocytosis Moderate Macrocytosis Moderate PT 11.9 (9.0-12.0) sec INR 1.1 (<1.2) APTT 32.2 H (22.0-30.0) sec D-Dimer 6.22 H (<0.60) mg/L FEU Sodium 137 (137-145) mmol/L Potassium 3.8 (3.5-5.1) mmol/L Chloride 98 (98-107) mmol/L Carbon Dioxide 24 (22-30) mmol/L Anion Gap 15 mmol/L BUN 76 H (7-17) mg/dL Creatinine 7.42 H* (0.52-1.04) mg/dL Est GFR (CKD-EPI)AfAm 6 (>60 ml/min/1.73 sqM) Est GFR (CKD-EPI)NonAf 5 (>60 ml/min/1.73 sqM) Glucose 79 (74-99) mg/dL Plasma Lactic Acid Aquiles (0.7-2.0) mmol/L Calcium 8.0 L (8.4-10.2) mg/dL Magnesium 1.6 (1.6-2.3) mg/dL Total Bilirubin 1.2 (0.2-1.3) mg/dL AST 82 H (14-36) U/L ALT 24 (4-34) U/L Alkaline Phosphatase 163 H (38-126) U/L Troponin I (0.000-0.034) ng/mL NT-Pro-B Natriuret Pep pg/mL Total Protein 5.8 L (6.3-8.2) g/dL Albumin 2.9 L (3.5-5.0) g/dL Coronavirus (PCR) (Not Detectd) Influenza Type A RNA (Not Detectd) Influenza Type B (PCR) (Not Detectd) 12/29/21 12/29/21 12/29/21 Range/Units 15:15 15:15 15:15 WBC (3.8-10.6) k/uL RBC (3.80-5.40) m/uL Hgb (11.4-16.0) gm/dL Hct (34.0-46.0) % MCV (80.0-100.0) fL MCH (25.0-35.0) pg MCHC (31.0-37.0) g/dL RDW (11.5-15.5) % Plt Count (150-450) k/uL MPV Neutrophils % (Manual) % Band Neuts % (Manual) % Lymphocytes % (Manual) % Monocytes % (Manual) % Metamyelocytes % % Neutrophils # (Manual) (1.3-7.7) k/uL Lymphocytes # (Manual) (1.0-4.8) k/uL Monocytes # (Manual) (0-1.0) k/uL Metamyelocytes # (Man) (0) k/uL Nucleated RBCs (0-0) /100 WBC Manual Slide Review Toxic Vacuolation Polychromasia Hypochromasia Poikilocytosis Anisocytosis Macrocytosis PT (9.0-12.0) sec INR (<1.2) APTT (22.0-30.0) sec D-Dimer (<0.60) mg/L FEU Sodium (137-145) mmol/L Potassium (3.5-5.1) mmol/L Chloride (98-107) mmol/L Carbon Dioxide (22-30) mmol/L Anion Gap mmol/L BUN (7-17) mg/dL Creatinine (0.52-1.04) mg/dL Est GFR (CKD-EPI)AfAm (>60 ml/min/1.73 sqM) Est GFR (CKD-EPI)NonAf (>60 ml/min/1.73 sqM) Glucose (74-99) mg/dL Plasma Lactic Acid [place] (0.7-2.0) mmol/L Calcium (8.4-10.2) mg/dL Magnesium (1.6-2.3) mg/dL Total Bilirubin (0.2-1.3) mg/dL AST (14-36) U/L ALT (4-34) U/L Alkaline Phosphatase (38-126) U/L Troponin I 0.254 H* (0.000-0.034) ng/mL NT-Pro-B Natriuret Pep [id number] pg/mL Total Protein (6.3-8.2) g/dL Albumin (3.5-5.0) g/dL Coronavirus (PCR) (Not Detectd) Influenza Type A RNA Not Detected (Not Detectd) Influenza Type B (PCR) Not Detected (Not Detectd) 12/29/21 12/29/21 Range/Units 15:15 15:15 WBC (3.8-10.6) k/uL RBC (3.80-5.40) m/uL Hgb (11.4-16.0) gm/dL Hct (34.0-46.0) % MCV (80.0-100.0) fL MCH (25.0-35.0) pg MCHC (31.0-37.0) g/dL RDW (11.5-15.5) % Plt Count (150-450) k/uL MPV Neutrophils % (Manual) % Band Neuts % (Manual) % Lymphocytes % (Manual) % Monocytes % (Manual) % Metamyelocytes % % Neutrophils # (Manual) (1.3-7.7) k/uL Lymphocytes # (Manual) (1.0-4.8) k/uL Monocytes # (Manual) (0-1.0) k/uL Metamyelocytes # (Man) (0) k/uL Nucleated RBCs (0-0) /100 WBC Manual Slide Review Toxic Vacuolation Polychromasia Hypochromasia Poikilocytosis Anisocytosis Macrocytosis PT (9.0-12.0) sec INR (<1.2) APTT (22.0-30.0) sec D-Dimer (<0.60) mg/L FEU Sodium (137-145) mmol/L Potassium (3.5-5.1) mmol/L Chloride (98-107) mmol/L Carbon Dioxide (22-30) mmol/L Anion Gap mmol/L BUN (7-17) mg/dL Creatinine (0.52-1.04) mg/dL Est GFR (CKD-EPI)AfAm (>60 ml/min/1.73 sqM) Est GFR (CKD-EPI)NonAf (>60 ml/min/1.73 sqM) Glucose (74-99) mg/dL Plasma Lactic Acid [place] 3.2 H* (0.7-2.0) mmol/L Calcium (8.4-10.2) mg/dL Magnesium (1.6-2.3) mg/dL Total Bilirubin (0.2-1.3) mg/dL AST (14-36) U/L ALT (4-34) U/L Alkaline Phosphatase (38-126) U/L Troponin I (0.000-0.034) ng/mL NT-Pro-B Natriuret Pep pg/mL Total Protein (6.3-8.2) g/dL Albumin (3.5-5.0) g/dL Coronavirus (PCR) Detected A (Not Detectd) Influenza Type A RNA (Not Detectd) Influenza Type B (PCR) (Not Detectd) - EKG Data -: EKG Interpreted by Me EKG Comments: 12-lead Electrocardiogram Interpretation Note EKG was reviewed and interpreted by myself. 12-lead ECG performed at 1455 is interpreted by me as revealing normal sinus rhythm at a rate of 91 beats per minute. Left axis deviation. ME interval is 122 ms, QRS duration is 84 ms, QTc is 474 ms.. There were no ST or T wave abnormalities to suggest myocardial ischemia or injury. R wave progression across the precordium was satisfactory. By my interpretation this EKG is non-diagnostic for acute ischemia. Disposition Clinical Impression: Acute respiratory failure with hypoxia, Pleural effusion, left, COVID-19 virus infection, Missed dialysis, Volume overload, Elevated d-dimer, Elevated troponin, NSTEMI (non-ST elevated myocardial infarction) Disposition: ADMITTED IP TO THIS HOSP Condition: Serious
[2021-12-29 15:44] LABS: Albumin 2.9 g/dL (3.5-5.0); Magnesium 1.6 mg/dL (1.6-2.3); Potassium 3.8 mmol/L (3.5-5.1); Total Bilirubin 1.2 mg/dL (0.2-1.3); Total Protein 5.8 g/dL (6.3-8.2)
--- NOTE | 2021-12-29 15:44 | XR ---
EXAMINATION TYPE: XR chest 2V DATE OF EXAM: 12/29/2021 COMPARISON: 10/25/2021 HISTORY: 71 year-old female with chest pain TECHNIQUE: AP and lateral views FINDINGS: Left margin obscured by adjacent pleural parenchymal opacity. There is a moderate to large left pleur al effusion extending up to the mid chest level. Diffuse interstitial and vascular prominence. Trace right effusion is also present. Large right main pulmonary artery on the lateral view. IMPRESSION: 1. Correlate for CHF with pulmonary vascular congestion. Pulmonary arterial hypertension. 2. Now moderate to large left and trace right pleural effusions with adjacent atelectasis and/or cons olidation.
[2021-12-29] MEDS ORDERED: FUROSEMIDE 10 MG/ML 4 ML VIAL IV STA ×2 (15:49→16:46)
[2021-12-29 15:55] LABS: Anisocytosis Moderate; HCT 29.5 % (34.0-46.0); HGB 9.1 gm/dL (11.4-16.0); Hypochromasia Moderate; MCH 30.6 pg (25.0-35.0); MCHC 30.7 g/dL (31.0-37.0); MCV 99.7 fL (80.0-100.0); Macrocytosis Moderate; Mean Platelet Volume 8.6; Platelet Count 159 k/uL (150-450); Poikilocytosis Slight; RBC 2.96 m/uL (3.80-5.40); RDW 21.2 % (11.5-15.5)
[2021-12-29] MEDS ORDERED: HEPARIN SODIUM 1,000 UN/ML (10ML VL) IV PRN (16:00)
[2021-12-29] MEDS ORDERED: HEPARIN SOD,PORK IN 0.45% NACL 25,000 UNIT in 0.45% NACL 1 250ML.BAG IV SCH (16:00)
[2021-12-29] MEDS ORDERED: HEPARIN SODIUM 1,000 UN/ML (10ML VL) IV ONE (16:00)
[2021-12-29 16:01] LABS: INR 1.1 (<1.2); Partial Thromboplastin Time 32.2 sec (22.0-30.0); Prothrombin Time 11.9 sec (9.0-12.0)
[2021-12-29] MEDS ORDERED: NALOXONE 0.4 MG/ML 1 ML VIAL IV PRN (16:26)
[2021-12-29 16:40] LABS: Band Neutrophils % 17 %; Metamyelocytes # (M) 0.02 k/uL (0); Metamyelocytes % 1 %; Monocytes # (M) 0.04 k/uL (0-1.0); Neutrophils % (M) 64 %; Nucleated Red Blood Cells 6 /100 WBC (0-0); Total Cells Counted 100; Toxic Vacuolation Present; WBC 1.9 k/uL (3.8-10.6)
[2021-12-29 16:41] LABS: Polychromasia Present
--- NOTE | 2021-12-29 17:28 | US ---
EXAMINATION TYPE: US chest DATE OF EXAM: 12/29/2021 COMPARISON: Chest radiograph 12/21/2021 CLINICAL HISTORY: . Left pleural effusion TECHNIQUE: Targeted ultrasound of the posterior lower left hemithorax EXAM MEASUREMENTS: Left Pleural Effusion pocket size: 6.8cm - technical limitations, patient unable to sit up on her ow n Left skin surface to fluid distance: 1.3 cm Left side marked for possible thoracentesis outside the dept. Pulmonologists are able to review the images in the patient?s EMR. IMPRESSIONS: Moderate left pleural effusion.
--- NOTE | 2021-12-29 17:40 | CONS ---
CONSULTATION PULMONARY/CRITICAL CARE CONSULTATION: The patient was seen in the emergency department in room #7. This is a 71-year-old female who looks much older than her stated age. She was brought into the emergency department by EMS with complaints of shortness of breath. According to her , she apparently has not been to hemodialysis for at least 2 weeks. She typically does hemodialysis Mondays and Fridays. Her dialysis doctor is Dr. Cristina. Anyway, because of increasing shortness of breath over the last 2 days, she was brought into the emergency department by EMS. She apparently did go to dialysis today. Because her breathing got worse, EMS was called and she was brought to the ER. She did receive a one-liter fluid bolus in the dialysis center. This is because her blood pressure dropped. She does not use oxygen at home. The patient is a very poor historian, and most of the history is obtained from the patient's . She apparently denied any chest pain or chest discomfort. There was no nausea, vomiting or diarrhea. No abdominal pain. No fever or chills. In addition, she apparently did test positive for coronavirus. She has not been vaccinated for coronavirus. Currently the patient is on 6 L nasal cannula. In addition, she is using a non- rebreather mask. The patient is receiving IV heparin. I did speak to the ER physician, Dr. Rivas. The patient's chest x-ray showed a large left-sided pleural effusion. The patient will probably benefit from thoracentesis. We did order an ultrasound of the left chest with markings. The patient's medical history includes end-stage renal disease, currently on hemodialysis twice a week, COPD, GERD, hypertension, chronic pain syndrome. Surgical history includes breast surgery, including lumpectomy, cholecystectomy and tonsillectomy. Social history is positive for ongoing tobacco use with nicotine addiction. No alcohol use or illicit drug use. Family history is positive for hypertension. Her home medications included Remeron, Crestor, calcitriol, Apresoline calcium acetate, Toprol, aspirin, Nexium, Reglan, Zofran, Serax, Seroquel, Renvela, and levocarnitine. The patient is also on [place], Colace, Mylicon, Demadex, and Aranesp. ALLERGIES include ERYTHROMYCIN, FENTANYL, OXYCODONE, AND SUCCINYLCHOLINE. REVIEW OF SYSTEMS: CONSTITUTIONAL: Weakness and fatigue. NEUROLOGIC: Negative. HEENT: Negative. CARDIOVASCULAR: Hypertension. PULMONARY: Shortness of breath. GI: Negative. : Negative. RHEUMATOLOGIC: Negative. IMMUNOLOGIC: Negative. ENDOCRINOLOGIC: Negative. DERMATOLOGIC: Negative. PHYSICAL EXAMINATION: VITAL SIGNS: Current vital signs include a respiratory rate of 18, blood pressure 111/55, mean 73, saturations of 90% on 6 L nasal cannula and a non-rebreather mask. Temperature is currently pending. Heart rate is 90 beats per minute. GENERAL APPEARANCE: Appears quite lethargic and somnolent. She looks much older than her stated age. HEENT: Examination is grossly unremarkable. Mucous membranes are dry. NECK: Supple. Full range of motion. CARDIOVASCULAR: Examination reveals regular rhythm and rate. S1, S2 normal. Heart rate is 90 beats per minute. LUNGS: Diminished breath sounds at the left base. There is dullness at the left base. The right lung reveals some scattered rhonchi. ABDOMEN: Soft. EXTREMITIES: Intact. No edema. SKIN: Without rash. NEUROLOGIC: Examination is difficult to assess, but she does will move all 4 extremities. She does respond to verbal stimuli. LABORATORY DATA: Laboratory data include white count 1.9, hemoglobin 9.1, hematocrit 29.5, platelet count 159,000. PT normal. INR normal. PTT is 32.2 and D-dimer 6.22. Sodium 137, potassium 3.8, chloride 98, CO2 24, anion gap 15. BUN and creatinine were 76 and 7.42. Lactic acid 3.2, calcium 8. Troponin was 0.254. N-terminal proBNP was 214,000. Albumin 2.9. Coronavirus testing was positive. Chest x-ray shows what appears to be a left-sided pleural effusion. There are also changes of increasing pulmonary vascular congestion and CHF. ASSESSMENT: 1. Increasing shortness of breath, likely related to underlying fluid overload/congestive heart failure, compounded by a large left-sided pleural effusion. 2. End-stage renal disease, currently on Saturday and Saturday hemodialysis, although the patient has not been to dialysis for 2 weeks. 3. History of ongoing tobacco use with nicotine addiction. 4. History of hyperlipidemia. 5. History of hypertension. 6. History of gastroesophageal reflux disease. 7. History of chronic obstructive pulmonary disease. 8. Chronic pain syndrome. 9. History of depression. PLAN: The patient will have an ultrasound of the left chest. Possible thoracentesis tomorrow. No additional recommendations are made. The patient should undergo hemodialysis as soon as possible. We will continue to follow. Prognosis is guarded. Medications are reviewed. MMODL / IJN: [id number] /
[2021-12-29] MEDS ORDERED: MIDODRINE 5 MG TAB PO PRN (18:26)
[2021-12-29] MEDS: ALBUTEROL HFA INHALER INHALATION SCH (18:53)
[2021-12-29] MEDS: SYMBICORT 160-4.5 MCG INHALER INHALATION SCH (18:53)
[2021-12-29] MEDS ORDERED: HYDROcodone/APAP 10-325MG 1 EACH TAB PO PRN (19:31)
[2021-12-29] MEDS ORDERED: LORazepam 0.5 MG TAB PO PRN (19:31)
[2021-12-29] MEDS ORDERED: DEXAMETHASONE SOD PHOSPHATE 10 MG/ML 1 ML VIAL IVP SCH (21:00)
[2021-12-29] MEDS ORDERED: MIRTAZAPINE 15 MG TAB PO SCH (21:00)
[2021-12-29] MEDS ORDERED: FUROSEMIDE 10 MG/ML 4 ML VIAL IV SCH (21:00)
[2021-12-29] MEDS: PANTOPRAZOLE 40 MG TABLET PO SCH (21:56)
[2021-12-29] MEDS ORDERED: SEVELAMER 800 MG TAB PO SCH (22:00)
[2021-12-29] MEDS ORDERED: HYDROmorphone 0.5 MG/0.5 ML SYRINGE IVP STA (22:22)
--- NOTE | 2021-12-29 23:03 | P.HPIM ---
History of Present Illness H&P Date: 12/29/21 Chief Complaint: shortness of breath Patient is a 71-year-old female with a known history of ESRD twice weekly day Saturday on hemodialysis for the past 12 years, hypertension, COPD, GERD, depression and currently everyday smoker presents to ER due to complaints of worsening shortness breath for the past 2 weeks. Patient missed hemodialysis for the last 1 week and was hypotensive during hemodialysis today. Patient did not have full run of hemodialysis and was sent to ER due to shortness of breath and hypotension. Patient was received 1 L normal saline bolus before sending to ER. Patient denied any complaints of chest pain. No nausea vomiting or abdominal pain. Does have generalized weakness. No diarrhea. No fever no chills. Patient was hypoxic on admission with pulse ox 92% on 6 L oxygen on admission. Chest x-ray showed correlate for CHF with pulmonary vascular congestion and pulmonary arterial hypertension. Moderate to large left and trace right pleural effusions with adjacent atelectasis and/or consolidation. Patient was given a dose of IV Lasix in the ER. Laboratory data showed WBC 1.9 hemoglobin 9.1 and platelets 159 lymphocytes 0.3 and D-dimer is 6.22 Sodium 137 potassium 3.8 chloride 98 BUN 76 and creatinine 7.42 Lactic acid 3.2 calcium 8.0 AST 82 ALT 24 alk phos 163 and troponin 0 0.254 and 0.224 proBNP is [id number] Albumin 2.9 Coronavirus PCR detected. Review of Systems Constitutional: Patient denies any fever or chills . Generalized weakness and fatigue. Abdomen: Patient denied nausea vomiting and diarrhea and abdominal pain. Cardiovascular: Patient denies any chest pain. Patient does have short of breath no palpitations. Respiratory: Denies any cough or sputum production. Does have shortness of breath. Neurologic: Patient denied any numbness or tingling headache. Musculoskeletal: Patient denies any complaints of joint swelling or deformity. Skin: Negative Psychiatric: Negative Endocrine: No heat or cold intolerance. No recent weight gain. Genitourinary: No dysuria or hematuria. All other 14 point ROS negative except the above Past Medical History Past Medical History: COPD, GERD/Reflux, Hypertension, Renal Disease Additional Past Medical History / Comment(s): chronic pain; kidney dialysis twice weekly Sat/Saturday. History of Any Multi-Drug Resistant Organisms: None Reported Past Surgical History: Breast Surgery, Cholecystectomy, Tonsillectomy Additional Past Surgical History / Comment(s): benign Br lumpectomy Past Anesthesia/Blood Transfusion Reactions: No Reported Reaction Additional Past Anesthesia/Blood Transfusion Reaction / Comment(s): Pt has had transfusions with no reactions Past Psychological History: Depression Smoking Status: Current every day smoker Past Alcohol Use History: None Reported Additional Past Alcohol Use History / Comment(s): has smoked for about 45 years; down to 1/2 ppd Past Drug Use History: None Reported - Past Family History Mother Family Medical History: No Reported History Medications and Allergies Home Medications Medication Instructions Recorded Confirmed Type Mirtazapine [Remeron] 30 mg PO HS@2100 12/28/16 12/29/21 History Rosuvastatin [Crestor] 10 mg PO HS@2100 12/28/16 12/29/21 History Oxazepam [Serax] 10 mg PO DAILY PRN 10/19/21 12/29/21 History Sevelamer [Renvela] 1,600 mg PO TID 10/19/21 12/29/21 History Docusate [Colace] 100 mg PO BID 12/29/21 12/29/21 History Ethyl Chloride [place] 1 dose TOPICAL DIRECTED 12/29/21 12/29/21 History HYDROcodone/APAP 10-325MG [[place] 1 tab PO Q8H PRN 12/29/21 12/29/21 History 10-325] Lanthanum Carbonate [Lanthanum 1,000 mg PO TID-W/MEALS 12/29/21 12/29/21 History Carbonate Chew] Pantoprazole [Protonix] 40 mg PO BID 12/29/21 12/29/21 History Torsemide [Demadex] 60 mg PO BID 12/29/21 12/29/21 History lisinopriL [Zestril] 20 mg PO BID 12/29/21 12/29/21 History minoxidiL [Loniten] 5 mg PO BID 12/29/21 12/29/21 History Allergies Allergy/AdvReac Type Severity Reaction Status Date / Time erythromycin base Allergy Unknown Verified 12/29/21 16:52 fentanyl Allergy Unknown Verified 12/29/21 16:52 oxycodone HCl [From Percocet] Allergy Nausea & Verified 12/29/21 16:52 Vomiting succinylcholine Allergy Unknown Verified 12/29/21 16:52 Physical Exam Vitals: Vital Signs Temp Pulse Pulse Resp BP BP Pulse Ox 12/29/21 22:00 28 H 130/80 98 12/29/21 19:31 96.9 F L 66 24 107/53 96 12/29/21 18:54 97.5 F L 88 24 109/49 98 12/29/21 17:00 85 18 111/53 98 12/29/21 16:01 111/55 90 L 12/29/21 15:26 90 L 12/29/21 14:59 18 92 L 12/29/21 14:47 98.2 F 91 20 127/59 87 L Intake and Output 12/29/21 12/29/21 12/30/21 14:59 22:59 06:59 Output Total 1999 -1999 Output: Hemodialysis 1999 Other: # Bowel Movements 1 Weight 61.235 kg 61.235 kg PHYSICAL EXAMINATION: Patient is lying in the bed awake alert and oriented. Appears to be in mild respiratory distress. HEENT: Normocephalic. Neck is supple. Pupils reactive. Nostrils clear. Oral cavity is moist. Neck reveals no JVD, carotid bruits, or thyromegaly. CHEST EXAMINATION: Trachea is central. Symmetrical expansion. Bilateral diminished air entry left greater than right. No wheezing or rhonchi. Scattered coarse sounds.. CARDIAC: Normal S1, S2 with no gallops. No murmurs ABDOMEN: Soft. Bowel sounds normal. No organomegaly. No abdominal bruits. Extremities: reveal no edema. No clubbing or cyanosis Neurologically awake, alert, oriented x3 with well-coordinated movements. Appears to be drowsy and lethargic. No focal deficits noted Skin: No rash or skin lesions. Psychiatric: Cooperative. Nonsuicidal Musculoskeletal: No joint swelling or deformity. Normal range of motion. Results CBC & Chem 7: 12/29/21 15:15 12/29/21 15:15 Labs: Abnormal Lab Results - Last 24 Hours (Table) 12/29/21 12/29/21 12/29/21 Range/Units 15:15 15:15 15:15 WBC 1.9 L (3.8-10.6) k/uL RBC 2.96 L (3.80-5.40) m/uL Hgb 9.1 L D (11.4-16.0) gm/dL Hct 29.5 L (34.0-46.0) % MCHC 30.7 L (31.0-37.0) g/dL RDW 21.2 H (11.5-15.5) % Lymphocytes # (Manual) 0.30 L (1.0-4.8) k/uL Metamyelocytes # (Man) 0.02 H (0) k/uL Nucleated RBCs 6 H (0-0) /100 WBC APTT 32.2 H (22.0-30.0) sec D-Dimer 6.22 H (<0.60) mg/L FEU BUN 76 H (7-17) mg/dL Creatinine 7.42 H* (0.52-1.04) mg/dL Plasma Lactic Acid Aquiles (0.7-2.0) mmol/L Calcium 8.0 L (8.4-10.2) mg/dL AST 82 H (14-36) U/L Alkaline Phosphatase 163 H (38-126) U/L Troponin I (0.000-0.034) ng/mL Total Protein 5.8 L (6.3-8.2) g/dL Albumin 2.9 L (3.5-5.0) g/dL Coronavirus (PCR) (Not Detectd) 12/29/21 12/29/21 12/29/21 Range/Units 15:15 15:15 15:15 WBC (3.8-10.6) k/uL RBC (3.80-5.40) m/uL Hgb (11.4-16.0) gm/dL Hct (34.0-46.0) % MCHC (31.0-37.0) g/dL RDW (11.5-15.5) % Lymphocytes # (Manual) (1.0-4.8) k/uL Metamyelocytes # (Man) (0) k/uL Nucleated RBCs (0-0) /100 WBC APTT (22.0-30.0) sec D-Dimer (<0.60) mg/L FEU BUN (7-17) mg/dL Creatinine (0.52-1.04) mg/dL Plasma Lactic Acid Aquiles 3.2 H* (0.7-2.0) mmol/L Calcium (8.4-10.2) mg/dL AST (14-36) U/L Alkaline Phosphatase (38-126) U/L Troponin I 0.254 H* (0.000-0.034) ng/mL Total Protein (6.3-8.2) g/dL Albumin (3.5-5.0) g/dL Coronavirus (PCR) Detected A (Not Detectd) 12/29/21 12/29/21 12/29/21 Range/Units 18:15 18:15 21:18 WBC (3.8-10.6) k/uL RBC (3.80-5.40) m/uL Hgb (11.4-16.0) gm/dL Hct (34.0-46.0) % MCHC (31.0-37.0) g/dL RDW (11.5-15.5) % Lymphocytes # (Manual) (1.0-4.8) k/uL Metamyelocytes # (Man) (0) k/uL Nucleated RBCs (0-0) /100 WBC APTT (22.0-30.0) sec D-Dimer (<0.60) mg/L FEU BUN (7-17) mg/dL Creatinine (0.52-1.04) mg/dL Plasma Lactic Acid Aquiles 2.4 H* 8.0 H* (0.7-2.0) mmol/L Calcium (8.4-10.2) mg/dL AST (14-36) U/L Alkaline Phosphatase (38-126) U/L Troponin I 0.224 H* (0.000-0.034) ng/mL Total Protein (6.3-8.2) g/dL Albumin (3.5-5.0) g/dL Coronavirus (PCR) (Not Detectd) 12/29/21 Range/Units 22:05 WBC (3.8-10.6) k/uL RBC (3.80-5.40) m/uL Hgb (11.4-16.0) gm/dL Hct (34.0-46.0) % MCHC (31.0-37.0) g/dL RDW (11.5-15.5) % Lymphocytes # (Manual) (1.0-4.8) k/uL Metamyelocytes # (Man) (0) k/uL Nucleated RBCs (0-0) /100 WBC APTT (22.0-30.0) sec D-Dimer (<0.60) mg/L FEU BUN (7-17) mg/dL Creatinine (0.52-1.04) mg/dL Plasma Lactic Acid Aquiles (0.7-2.0) mmol/L Calcium (8.4-10.2) mg/dL AST (14-36) U/L Alkaline Phosphatase (38-126) U/L Troponin I 0.259 H* (0.000-0.034) ng/mL Total Protein (6.3-8.2) g/dL Albumin (3.5-5.0) g/dL Coronavirus (PCR) (Not Detectd) Thrombosis Risk Factor Assmnt - DVT/VTE Prophylaxis DVT/VTE Prophylaxis: Pharmacologic Prophylaxis ordered - Choose All That Apply Any of the Below Risk Factors Present?: Yes Each Factor Represents 1 point: Abnormal pulmonary function (COPD), Medical pt on bed rest Other Risk Factors: Yes Each Risk Factor Represents 2 Points: Age 61-74 years Thrombosis Risk Factor Assessment Total Risk Factor Score: 4 Thrombosis Risk Factor Assessment Level: Moderate Risk Assessment and Plan Assessment: Acute hypoxic respiratory failure due to multifactorial etiology. Currently requiring 15 L high percent nonrebreather. Moderate to large left-sided pleural effusion Elevated troponin level multifactorial etiology. Possible NSTEMI. Fluid overload with missed hemodialysis. Acute on chronic CHF with diastolic dysfunction Acute COVID-19 infection ESRD on hemodialysis Saturday and Saturday. Hypertension COPD Currently everyday smoker GERD Anxiety/depression DVT prophylaxis. Patient is on heparin drip Plan: Patient will be continued on oxygen supplementation. Was given a dose of IV Lasix in the ER. Will be continued on heparin drip for possible NSTEMI and also elevated D-dimer level. Cardiology pulmonary nephrology was consulted for evaluation. Patient will be started on dexamethasone 6 mg daily and multivitamins. Continue with IV Lasix as blood pressure tolerates and home medications. Prognosis is guarded at this time. Continue to follow closely. Time with Patient: Greater than 30
[2021-12-30] MEDS ORDERED: LORazepam 2 MG/ML INJ IV STA (00:53)
[2021-12-30 03:59] VITALS: TEMP 99.4
[2021-12-30] MEDS ORDERED: DEXTROSE 50% SYRINGE 50 ML IVP ONE ×5 (05:09→09:09)
[2021-12-30 05:11] LABS: Glucose,Whole Blood <20 mg/dL (75-99)
[2021-12-30 05:22] LABS: Glucose,Whole Blood 52 mg/dL (75-99)
[2021-12-30 05:35] LABS: Glucose,Whole Blood 264 mg/dL (75-99)
[2021-12-30] MEDS: PANTOPRAZOLE 40 MG TABLET PO SCH (06:15)
[2021-12-30 06:54] VITALS: BP 132/52; PULSE 82; RESP 36
[2021-12-30 07:19] LABS: Glucose,Whole Blood 57 mg/dL (75-99)
[2021-12-30] MEDS ORDERED: ATROPINE SULFATE 0.1 MG/ML 10ML SYRINGE ONE (07:23)
[2021-12-30 07:35] LABS: Anisocytosis Moderate; HCT 24.4 % (34.0-46.0); Hypochromasia Marked; MCH 32.3 pg (25.0-35.0); MCHC 28.8 g/dL (31.0-37.0); Macrocytosis Marked; Mean Platelet Volume 10.2; Platelet Count 117 k/uL (150-450); Poikilocytosis Slight; RBC 2.18 m/uL (3.80-5.40); RDW 20.9 % (11.5-15.5)
[2021-12-30 07:40] LABS: MCV 111.9 fL (80.0-100.0)
[2021-12-30 07:44] LABS: WBC 0.6 k/uL (3.8-10.6)
[2021-12-30 07:46] LABS: Calcium 8.2 mg/dL (8.4-10.2); Potassium 5.9 mmol/L (3.5-5.1)
[2021-12-30 07:55] LABS: INR 2.1 (<1.2); Prothrombin Time 20.9 sec (9.0-12.0)
[2021-12-30 08:03] LABS: Partial Thromboplastin Time 122.5 sec (22.0-30.0)
[2021-12-30] MEDS ORDERED: propofoL 100 ML IV ONE (08:04)
[2021-12-30] MEDS: SYMBICORT 160-4.5 MCG INHALER INHALATION SCH (08:13)
[2021-12-30] MEDS: ALBUTEROL HFA INHALER INHALATION SCH (08:13)
[2021-12-30 08:18] LABS: Glucose,Whole Blood 85 mg/dL (75-99)
[2021-12-30] MEDS ORDERED: SODIUM BICARB 8.4% 50 ML SYR (1 MEQ/ML) IV STA ×2 (08:21→09:18)
--- NOTE | 2021-12-30 08:26 | P.PN ---
Progress Note - Text Progress Note Date: 12/30/21 A team was called on the patient for unresponsive and bradycardia and hypoxia. Per nurse patient has been declining overnight. Code status was discussed multiple times with who wants her to be full code. Patient was give one time dose of atrophine 0.5mg. Her HR then improved. However she become hypotensive. 1L IV fluid bolus was started. Her BP then improved. Patient taken to ICU and was intubated. Her saturation improved. AM labs were reviewed. Potassium is 5.9 and bicarb is 15 and blood cultures are positive for gram negative rods and lactic acid is 15. Findings are consistent with metabolic acidosis with septic shock. I ordered IV Rocephin 2grms. I told nurse to give it STAT. I discussed with nephrology and plan is for dialysis today. I ordered 1amp bicarb and calcium gluconate. Patient hgb did drop from 10 to 7.0. She has no active bleeding. PTT is elevated. Since patient did have elevated troponin and chest pain when she came in I will resume heparin ggt per pharmacy protocol and defer to cardiology. If there is any overt signs of bleeding I recommend to stop
[2021-12-30] MEDS ORDERED: CALCIUM GLUCONATE 1 GM in SODIUM CHLORIDE 0.9% 100 ML IVPB ONE (08:40)
[2021-12-30] MEDS ORDERED: SODIUM BICARB 8.4% 50 ML SYR (1 MEQ/ML) ONE (08:59)
[2021-12-30] MEDS ORDERED: EPINEPHrine 10 ML SYRINGE (0.1 MG/ML) ONE (08:59)
[2021-12-30] MEDS ORDERED: LIDOCAINE 2% SYG (PF) 100 MG/5 ML ONE (08:59)
[2021-12-30 09:00] LABS: Glucose,Whole Blood 62 mg/dL (75-99)
[2021-12-30] MEDS ORDERED: CHLORHEXIDINE GLUCONATE 15 ML CUP MUCOUS MEM SCH (09:00)
[2021-12-30] MEDS ORDERED: ASCORBIC ACID 500 MG TAB PO SCH (09:00)
[2021-12-30] MEDS ORDERED: ZINC SULFATE 220 MG CAP PO SCH (09:00)
[2021-12-30] MEDS ORDERED: DEXAMETHASONE SOD PHOSPHATE 10 MG/ML 1 ML VIAL IVP SCH (09:00)
[2021-12-30] MEDS ORDERED: CHOLECALCIFEROL 25 MCG (1000 IU) TABLET PO SCH (09:00)
--- NOTE | 2021-12-30 09:02 | XR ---
EXAMINATION TYPE: XR chest 1V portable DATE OF EXAM: 12/30/2021 COMPARISON: 12/21/2021 HISTORY: Tube placement and shortness of breath TECHNIQUE: Single frontal view of the chest is obtained. FINDINGS: There is diffuse dense opacification of the mid and lower lung zone obscuring the left hem idiaphragm. There is mild to moderate diffuse interstitial opacity in the right lung. ET tube is 4.1 cm above the jens there is an NG tube tip of which appears to be in the distal esoph lorena at the esophageal gastric junction. There is no pneumothorax. The osseous structures are intact. IMPRESSION: No change in the bilateral lung infiltrates left much worse than right as described above. 2. ET tube 4.1 cm above the jens. 3. NG tube tip projects over the distal esophagus
[2021-12-30 09:10] LABS: Glucose,Whole Blood 53 mg/dL (75-99)
--- NOTE | 2021-12-30 09:23 | P.NPCON ---
History of Present Illness - Reason for Consult end stage renal disease - History of Present Illness Reason for consultation: End-stage renal disease History of present illness: Patient is a 71-year-old female seen in renal consultation for end-stage renal disease. She is maintained on hemodialysis on Mondays and . Patient presented to the hospital in 12/29/2021 shortness of breath going on for the last 2 days. Earlier this morning patient became bradycardic and unresponsive. She was just intubated and transferred to the ICU. She did receive 1 L fluid bolus for hypotension. Blood pressure now is in the systolic 120s. Patient's blood cultures are positive for gram-negative rods and she has been started on IV antibiotics. Infectious disease is also been consulted. She did test po sitive for coronavirus. Currently not on vasopressors. Potassium level V.9 this morning and she is also acidotic with a bicarbonate level of 15. Lactic acid high at 15.2. Vital signs are stable. HEENT: Intubated. LUNGS: Breath sounds decreased. HEART: Rate and Rhythm are regular. ABDOMEN: Soft, no distention. EXTREMITITES: No edema. Past Medical History Past Medical History: COPD, GERD/Reflux, Hypertension, Renal Disease Additional Past Medical History / Comment(s): chronic pain; kidney dialysis twice weekly Sat/Saturday. History of Any Multi-Drug Resistant Organisms: None Reported Past Surgical History: Breast Surgery, Cholecystectomy, Tonsillectomy Additional Past Surgical History / Comment(s): benign Br lumpectomy Past Anesthesia/Blood Transfusion Reactions: No Reported Reaction Additional Past Anesthesia/Blood Transfusion Reaction / Comment(s): Pt has had transfusions with no reactions Past Psychological History: Depression Smoking Status: Current every day smoker Past Alcohol Use History: None Reported Additional Past Alcohol Use History / Comment(s): has smoked for about 45 years; down to 1/2 ppd Past Drug Use History: None Reported - Past Family History Mother Family Medical History: No Reported History Medications and Allergies Home Medications Medication Instructions Recorded Confirmed Type Mirtazapine [Remeron] 30 mg PO HS@2100 12/28/16 12/29/21 History Rosuvastatin [Crestor] 10 mg PO HS@2100 12/28/16 12/29/21 History Oxazepam [Serax] 10 mg PO DAILY PRN 10/19/21 12/29/21 History Sevelamer [Renvela] 1,600 mg PO TID 10/19/21 12/29/21 History Docusate [Colace] 100 mg PO BID 12/29/21 12/29/21 History Ethyl Chloride [place] 1 dose TOPICAL DIRECTED 12/29/21 12/29/21 History HYDROcodone/APAP 10-325MG [[place] 1 tab PO Q8H PRN 12/29/21 12/29/21 History 10-325] Lanthanum Carbonate [Lanthanum 1,000 mg PO TID-W/MEALS 12/29/21 12/29/21 History Carbonate Chew] Pantoprazole [Protonix] 40 mg PO BID 12/29/21 12/29/21 History Torsemide [Demadex] 60 mg PO BID 12/29/21 12/29/21 History lisinopriL [Zestril] 20 mg PO BID 12/29/21 12/29/21 History minoxidiL [Loniten] 5 mg PO BID 12/29/21 12/29/21 History Allergies Allergy/AdvReac Type Severity Reaction Status Date / Time erythromycin base Allergy Unknown Verified 12/29/21 16:52 fentanyl Allergy Unknown Verified 12/29/21 16:52 oxycodone HCl [From Percocet] Allergy Nausea & Verified 12/29/21 16:52 Vomiting succinylcholine Allergy Unknown Verified 12/29/21 16:52 Physical Exam Vitals: Vital Signs Temp Pulse Pulse Resp BP BP Pulse Ox 12/30/21 05:30 82 36 H 132/52 90 L 12/30/21 05:22 100 12/30/21 03:51 99.4 F 88 40 H 121/57 91 L 12/30/21 00:00 98.7 F 106 H 28 H 136/59 91 L 12/29/21 22:00 28 H 130/80 98 12/29/21 19:31 96.9 F L 66 24 107/53 96 12/29/21 18:54 97.5 F L 88 24 109/49 98 12/29/21 17:00 85 18 111/53 98 12/29/21 16:01 111/55 90 L 12/29/21 15:26 90 L 12/29/21 14:59 18 92 L 12/29/21 14:47 98.2 F 91 20 127/59 87 L Intake and Output 12/29/21 12/30/21 12/30/21 22:59 06:59 14:59 Intake Total 73.909 Output Total 1999 -1999 73.909 Intake: Intake, IV Titration 73.909 Amount Heparin Sod,Pork in 0.45% 73.909 NaCl 25,000 unit In 0.45 % NaCl 1 250ml.bag @ 12 UNITS/KG/HR 7.348 mls/hr IV .Q24H JOHN Rx#: [id number] Output: Hemodialysis 1999 Other: # Bowel Movements 1 1 Weight 61.235 kg Results - Lab Results Most recent lab results Calcium 8.2 mg/dL (8.4-10.2) L 12/30/21 07:01 Magnesium 1.6 mg/dL (1.6-2.3) 12/29/21 15:15 12/30/21 07:01 12/30/21 07:01 Assessment and Plan Plan: Assessment: 1. End-stage renal disease maintained on hemodialysis on Mondays and . She has AV graft. 2. Septic shock secondary to gram-negative bacteremia. 3. Anemia of chronic kidney disease. ?GI bleed. Hemoglobin 7 today. Monitor closely and transfuse if drops lower. 4. Hyperkalemia secondary to chronic kidney disease and acidosis. 5. Metabolic acidosis secondary to chronic kidney disease and lactic acidosis. 6. Bradycardia status post atropine. Improved. Cardiology consulted. 7. COVID-19 infection. 8. Chronic kidney disease mineral bone disease maintained on Renvela. Plan: Hemodialysis today without ultrafiltration. 2 A of sodium bicarbonate IV push now. Add Aranesp. Infectious disease consulted. Follow-up cultures. Repeat potassium level 2 hours after dialysis. Case discussed with patient's . Thank you for the consultation. I will continue to follow the patient with you during her hospital stay.
--- NOTE | 2021-12-30 09:26 | P.PN ---
Progress Note - Text Progress Note Date: 12/30/21 Code gloria was called on patient for asystole cardiac arrest. After multiple rounds of CPR and epinephrine patient did get a pulse but then went in to V- tach. Patient was shocked multiple times and was also given IV lidocaine. Patient then went into asystole. Total code was over 20 min. Please see code sheets for details. Time of was 9:16. I discussed with . He was very appreciative of our efforts to resuscitate his .
[2021-12-30] MEDS ORDERED: DARBEPOETIN ALFA 40 MCG/0.4 ML SYRINGE SQ SCH (10:00)
[2021-12-31 00:04] LABS: Glucose,Whole Blood 131 mg/dL (75-99)
--- NOTE | 2022-01-02 07:02 | CDI ---
Documentation Clarification Form Date: 01/02/22 From: Claudia Miranda Admit Date: 12/29/2021 04:27:00 PM Patient Name: Saundra Jaquez Visit Number: [id number] Discharge Date: 12/30/2021 10:25:00 AM ATTENTION: The Clinical Documentation Specialists (CDI) and [facility] Coding Staff appreciate your assistance in clarifying documentation. Please respond to the clarification below the line at the bottom and electronically sign. The CDI & [facility] Coding staff will review the response and follow-up if needed. Please note: Queries are made part of the Legal Health Record. If you have any questions, please contact the author of this message via ITS. Dr. Kamala Nino, Cardiac arrest is documented in your 12/30 PN and Code Blue Record. Please clarify if there is a the cause of cardiac arrest. History/Risk Factors: sepsis with shock, COVID-19, acute hypoxic respiratory failure, NSTEMI, HTN w ESRD & acute on chronic diastolic CHF Clinical Indicators: Mervin castro was called on patient for asystole cardiac arrest. After multiple rounds of CPR and epinephrine patient did get a pulse but then went in to V-tach. Patient was shocked multiple times and was also given IV lidocaine. Patient then went into asystole. Please clarify the relationship, if any, which is clinically appropriate for this patient: [X ] Cardiac arrest is due to cardiac condition [ ] Cardiac arrest is due to other specified condition [ ] Other explanation of clinical findings (please specify) [ ] Unable to determine (no explanation for clinical findings) MTDD
== END 2021-12-30 10:25 | disposition expired | DRG 871 ==
LOC: EC 14:46 → 3SCARD 16:27 → 2SICU 12-30 07:54
PROVIDERS: ADMIT Internal Medicine; ATTEND Internal Medicine
PROC: 5A1D70Z Performance of Urinary Filtration, Intermittent, Less than 6 Hours Per Day (ICD-10-PCS; 2021-12-29)
PROC: 5A0935A Assistance with Respiratory Ventilation, Less than 24 Consecutive Hours, High Flow/Velocity Cannula (ICD-10-PCS; 2021-12-29)
PROC: 5A1935Z Respiratory Ventilation, Less than 24 Consecutive Hours (ICD-10-PCS; principal; 2021-12-30)
PROC: 0D9670Z Drainage of Stomach with Drainage Device, Via Natural or Artificial Opening (ICD-10-PCS; principal; 2021-12-30)
PROC: 5A12012 Performance of Cardiac Output, Single, Manual (ICD-10-PCS; 2021-12-30)
PROC: 0BH17EZ Insertion of Endotracheal Airway into Trachea, Via Natural or Artificial Opening (ICD-10-PCS; 2021-12-30)
PROC: 05HM33Z Insertion of Infusion Device into Right Internal Jugular Vein, Percutaneous Approach (ICD-10-PCS; 2021-12-30)
DX: A41.50 Gram-negative sepsis, unspecified (principal); U07.1 COVID-19; J96.01 Acute respiratory failure with hypoxia; I21.4 Non-ST elevation (NSTEMI) myocardial infarction; R65.21 Severe sepsis with septic shock; I50.33 Acute on chronic diastolic (congestive) heart failure; N18.6 End stage renal disease; I47.2 Ventricular tachycardia; I13.2 Hypertensive heart and chronic kidney disease with heart failure and with stage 5 chronic kidney disease, or end stage renal disease; E87.2 Acidosis; I46.2 Cardiac arrest due to underlying cardiac condition; D63.1 Anemia in chronic kidney disease; I27.21 Secondary pulmonary arterial hypertension; J44.9 Chronic obstructive pulmonary disease, unspecified; Z99.2 Dependence on renal dialysis; Z91.15 Patient's noncompliance with renal dialysis; E83.9 Disorder of mineral metabolism, unspecified; I95.3 Hypotension of hemodialysis; R00.1 Bradycardia, unspecified; E87.5 Hyperkalemia; G89.4 Chronic pain syndrome; E78.5 Hyperlipidemia, unspecified; F32.A Depression, unspecified; K21.9 Gastro-esophageal reflux disease without esophagitis; T50.916A Underdosing of multiple unspecified drugs, medicaments and biological substances, initial encounter; Z91.128 Patient's intentional underdosing of medication regimen for other reason; F17.210 Nicotine dependence, cigarettes, uncomplicated; Z79.899 Other long term (current) drug therapy; Z87.19 Personal history of other diseases of the digestive system; Z87.2 Personal history of diseases of the skin and subcutaneous tissue; Z86.018 Personal history of other benign neoplasm; Z90.89 Acquired absence of other organs; Z88.4 Allergy status to anesthetic agent; Z98.890 Other specified postprocedural states; Z88.1 Allergy status to other antibiotic agents; Z88.5 Allergy status to narcotic agent; Z82.49 Family history of ischemic heart disease and other diseases of the circulatory system
CPT/HCPCS: 36415; 71045; 71046; 76604; 80048; 80053; 83605; 83735; 83880; 84484; 85025; 85379; 85610; 85730; 87040; 87324; 87502; 87635; 90935; 93005; 94002; 94640; 94760; 96374; 96375; 99285